=== PATIENT | female | born 1930 | race Caucasian/White ===

== ENCOUNTER → 2017-01-09 | Outpatient (CLI) | payer BC ==
[~2017-01-09] MED LIST: ASPI1TAB83 PO; BENA1TAB53 PO; FLUT1INH INH; FURO-85 PO; IPRASOL4 INH; KFL250 PO; LATA0.5S OP; LEVO25TA PO; LEVO50TA6 PO; LEVO75TA PO; LEVO75TA5 PO; METO100T44 PO; MOME100A INH; MULTTAB58 PO; NIFE60TA57 PO; OXGN; PLV75 PO; SPRIN OR; TIOT1SPR INH; TPRSR/25 PO; ZCR40 PO
[2017-01-09 10:42] VITALS: BP_SYST 171; BP_SYST 172; BP_DIAS 74; BP_DIAS 83; PULSE 72; TEMP 37; O2SAT 92
--- NOTE | 2017-01-09 11:56 | Radiation Oncology Follow-Up ---
Radiation Oncology Follow-Up Date of Visit Jan 09, 2017. Reason For Visit Annual follow-up Radiation Completion Date 08/01/13 Diagnosis (1) Vulva cancer Status: Resolved Onset Date: 03/29/2013 Histology Subtype: squamous cell Stage: l (B) Permanent Comment: 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 Patient declined Treatment with Aldara Subsequent recurrence with squamous cell carcinoma Status post partial vulvectomy with positive margins Status post completion of radiation therapy 08/01/2013 received 5040 cGy Last Edited By: Tania Morrell on Nov 29, 2015 14:32 History of Present Illness Ms. Conway is an 86-year-old female who presented with painful vulvar lesions back in October of 2010. 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 Additional biopsies were taken on November 18, [address] Hdz. Biopsies from the vulva at the 12:00 position, 3:00 position, 6:00 position and 9:00 position. 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 A vaginal thin layer prep from November 23, 2010 showed atypical squamous cells with undetermined significance. Could not exclude high-grade squamous intraepithelial lesion. Cytology #[id number]. Cervical thin layer prep was performed on November 25, 2010. This showed atypical squamous cells of undetermined significance. 2954. On January 20, 2011 the patient underwent a biopsy of the right labia, left vulva 1 and left vulva 2. 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 Underlying invasive carcinoma could not be excluded. A vulvectomy was recommended to the patient. She however declined. Examination at that time showed a brownish papular lesion on the left vulvar area which was hard and firm and tender. The patient was therefore started on Aldara. She was tolerating this well. She was seen in followup by Dr. Hdz. Underwent repeat biopsies on March 17, 2011. Punch biopsy of the left vulva showed vulvar intraepithelial neoplasia grade 2. 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 After discussion of these latest findings Dr. Hdz again suggested consideration of a vulvectomy or possible continued Aldara for an additional 8 weeks with repeat biopsy in 4 weeks. The patient ultimately returned to followup with Dr. Ascencio on January 26, 2013. She returned because of complaint of pain similar to what she presented with in 2009. This examination showed a 4 x 4 cm vulvar mass which encompasses the perineal body and perirectal region. Vaginal exam was limited with a single digit exam secondary to the presence of the mass. Vulvar mass was not palpably palpable rectally. There was an enlarged mobile hard inguinal node bilaterally clinically. Dr. Ascencio's impression was that this was no longer a superficial process but has become invasive. He was concerned of invasion into the vagina because of the difficulty with examination and the atrophic changes. Rectal exam did not show any masses. He felt that the patient needed a repeat evaluation by gynecologic-oncology. He referred the patient to [facility] where she was seen by Dr. Lainez. This examination confirmed an exophytic lesion in the perineum measuring approximately 4 cm in size. He recommended consideration of a modified radical vulvectomy with bilateral inguinal lymphadenectomy. He saw the patient on February 21, 2013. On March 29, 2013 Dr. Lainez performed a modified simple vulvectomy and modified partial vulvectomy. His examination at that time showed an exophytic lesion which he felt was either high-grade dysplasia or early tumor. This was approaching the anus and into the vagina. A radical resection would have required removing parts of her anus and probable colostomy which the patient did not wish to have. Therefore instead of doing a modified radical vulvectomy a modified superficial vulvectomy was performed with lasering of the adjacent tissue. Pathologic review of the tissue excised from the vulva identified an invasive squamous cell carcinoma with in situ squamous cell carcinoma. Vaginal biopsy showed in situ squamous cell carcinoma. Multiple biopsies of the pelvis showed invasive squamous cell carcinoma with in situ carcinoma. Microscopically there was noted to be extensive vulvar intraepithelial neoplasia 3 with high-grade squamous intraepithelial lesion accompanied by multiple microscopic foci of stromal invasion by squamous cell carcinoma. The maximum depth of invasion by the carcinoma is estimated to be approximately 3 mm. No lymphovascular invasion is seen. In situ and invasive carcinoma appeared to extend into the margins of this specimen. Specimen designated vagina includes portions of fibrovascular stroma covered in part by squamous epithelium that is not keratinizing. They were not able to identify invasive carcinoma within the small vaginal biopsy. Vulvar biopsy again showed multiple fragments of vulvar type tissue with extensive in situ carcinoma as well as foci of invasive squamous cell carcinoma extending to a depth of approximately 1.5 mm. No lymphovascular invasion is identified in this specimen. In situ carcinoma extended to edges of multiple biopsies within the specimen. With the finding of invasive carcinoma and positive margins Dr. Lainez felt the patient would benefit from a course of radiation to the limited vulvar region. Interim History She has noted no change to the vulvar region over this past year. She's had no change in urination or bowel movements. She's had no vaginal irritation. No vaginal weaning her discharge. She was seen by her regional extension service specialist in November and there was no recurrence. She unfortunately has had problems with her health over this past year. She had a fractured right hip as well as right wrist in November. She had surgery to the hip and has steadily been recuperating. 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 She has known history of COPD and now is on oxygen therapy. She is also developed some problems with her balance. Allergies Coded Allergies: No Known Allergies (Verified , 09/15/16) Home Medications Scheduled Benazepril (Lotensin), 40 MG PO DAILY Clopidogrel Bisulfate (Clopidogrel), 75 MG PO QAM Fluticasone Furoate-Vilanterol (Breo Ellipta), 1 INHA INH DAILY Levothyroxine Sodium (Synthroid), 50 MCG PO DAILY Metoprolol Succ (Toprol Xl) (Toprol-Xl ), 100 MG PO DAILY Multiple Vitamin (Multivitamin), 1 TAB PO DAILY Nifedipine Ext Rel (Procardia Xl Ext Rel), 60 MG PO QD@08 Oxygen (Oxygen), 2 LITERS NA CONTINOUS Tiotropium [place] (Spiriva Handihaler), 2 PUFF OR QAM Review of Systems Gastrointestinal: Symptoms: WNL GI Comments: Takes stool softner;MOM PRN;no fiber supplements; Oral: Symptoms: No Problems Respiratory: Symptoms: Dry Cough, SOB With Exertion Other Respiratory: Oxygen on at 2 l/min via nasal cannula; Urinary: Comments: 1-2 voids/night; Skin: Symptoms: No Problems Physical Exam Vital Signs Date Time Temp Pulse Resp B/P Pulse Ox O2 Delivery O2 Flow Rate FiO2 01/09/17 10:42 37.0 72 16 171/74 92 172/83 ECOG Performance Status: 2 General Appearance: + pertinent finding (otherwise via wheelchair today nasal O2 in place.) Eyes: normal inspection, EOMI ENT: normal ENT inspection, hearing grossly normal Respiratory/Chest: lungs clear, no respiratory distress, no accessory muscle use Cardiovascular: regular rate, rhythm, no gallop, no murmur Abdomen: non tender, soft, no organomegaly Genitourinary - Female: Normal external genitalia. There are no masses or tenderness. There is no vaginal discharge or bleeding. Extremities: no pedal edema Neurologic/Psychiatric: no motor/sensory deficits, alert, normal mood/affect Skin: warm/dry Lymphatic: no adenopathy Assessment & Plan Plan: Continue annual examinations at the gynecology office. Continue follow- up with her PCP as well as orthopedic surgeon. A follow-up appointment with our office was not given. She may now continue annual visits with gynecology alone. She may call if she has any questions or concerns. We'll be happy to see her. She is following up with her primary care physician in regards to her multiple health issues. Total Time In Follow-Up I spent 20 minutes speaking to the patient performing examination. I spent 15 minutes reviewing information in completing this note. Copy To Jordin Rey M.D.; Ritchie Ascencio M.D.
== END | disposition home or self-care (01) ==
LOC: C.ONC 10:01
PROVIDERS: ATTEND Physician Assistant Medical
DX: Z08 Encounter for follow-up examination after completed treatment for malignant neoplasm (principal); Z92.3 Personal history of irradiation; Z85.44 Personal history of malignant neoplasm of other female genital organs

== ENCOUNTER → 2017-04-14 | Outpatient (CLI) | payer BC ==
[~2017-04-14] MED LIST changes: -ASPI1TAB83 PO; -IPRASOL4 INH; -KFL250 PO; -MOME100A INH; -ZCR40 PO
[2017-04-14 14:24] LABS: ALT/SGPT 13 U/L (12-78); BLOOD UREA NITROGEN 31 mg/dl (7-18); BUN/CREATININE RATIO 22.2 (10-20); CALCIUM 9.6 mg/dl (8.5-10.1); CARBON DIOXIDE 31 mmol/L (21-32); CHLORIDE 103 mmol/L (98-107); CHOLESTEROL 179 mg/dl (0-200); CHOLESTEROL/HDL RATIO 3.6; GLUCOSE,FASTING 99 mg/dl (70-99); HDL CHOLESTEROL 50 mg/dl; POTASSIUM 4.3 mmol/L (3.5-5.1); SODIUM 140 mmol/L (136-145)
[2017-04-14 14:27] LABS: ALB/GLOB RATIO 0.9 (0.9-2); ALKALINE PHOSPHATASE 65 U/L (45-117); AST/SGOT 17 U/L (15-37); LDL CHOLESTEROL CALCULATED 111 mg/dl; TRIGLYCERIDES 90 mg/dl (0-150); VERY LOW DENSITY LIPOPROT CALC 18 mg/dl
[2017-04-14 14:38] LABS: ESTIMATED AVERAGE GLUCOSE 123 mg/dl; HA1C FLAG Normal (Normal)
== END | disposition home or self-care (01) ==
LOC: C.LABPBG 08:34
PROVIDERS: ATTEND Physician Assistant
DX: Z00.00 Encounter for general adult medical examination without abnormal findings (principal); R73.9 Hyperglycemia, unspecified; E78.5 Hyperlipidemia, unspecified

== ENCOUNTER → 2017-04-22 | Outpatient (CLI) | payer BC ==
[2017-04-22 18:57] LABS: THYROID STIMULATING HORMONE 4.84 uIu/ml (0.300-4.500)
--- NOTE | 2017-04-27 10:16 | CODING QUERY MEDICAL NECESSITY ---
SUPPORTING DIAGNOSIS NEEDED [facility], A supporting diagnosis is required for the test/procedure performed on this patient in order for us to be reimbursed by the patient's insurance. Please provide a supporting diagnosis for the following test/procedure listed below next to the test name along with your signature. *If there is no additional diagnosis for this patient that would support the following test/procedure please document that below next to the test/procedure. Test(s)/Procedure(s) that require a supporting diagnosis: * ([id number]) VITAMIN D ASSAY DIAGNOSIS: DATE OF SERVICE: 04/22/17 Provider Signature: Date: Thank you Bong [facility] Information Management Once completed, please kindly fax back to [phone] For questions please call [phone]
== END | disposition home or self-care (01) ==
LOC: C.LABPBG 11:43
PROVIDERS: ATTEND Physician Assistant
DX: M62.81 Muscle weakness (generalized) (principal); Z13.21 Encounter for screening for nutritional disorder; R53.83 Other fatigue

== ENCOUNTER 2017-05-14 08:12 | Observation (INO) | payer BC ==
[~2017-05-14] VITALS: Ht 149.9 cm; Wt 37.0 kg
[~2017-05-14 08:12] MED LIST changes: +BENA1TAB19 PO; -BENA1TAB53 PO; -FURO-85 PO; -LATA0.5S OP; -LEVO50TA6 PO; -LEVO75TA PO; -LEVO75TA5 PO; -METO100T44 PO; +METO1TAB69 PO; -TIOT1SPR INH; -TPRSR/25 PO
[2017-05-14] MEDS ORDERED: METOPROLOL TARTRATE 100 MG TAB PO STA (08:31)
[2017-05-14] MEDS ORDERED: METOPROLOL SUCC 50MG EXT REL TAB PO STA (08:32)
--- NOTE | 2017-05-14 08:35 | EMERGENCY ROOM VISIT NOTE ---
History Report prepared by Manny: Lynn Roth Under the Supervision of: Dr. Pepe Britt M.D. First contact with patient: 08:16 Chief Complaint: WEAKNESS Stated Complaint: GENERALIZED WEAKNESS History of Present Illness The patient is a 86 year old female who presents to the Emergency Room with complaints of generalized weakness starting a few days ago. About 2 weeks ago, the patient was placed on steroids which resolved her weakness. A few days ago, she started having weakness again. She is no longer on the steroids. She is able to ambulate as normal in her house but recently has been needing assistance to ambulate outside of her home. She currently denies any pain. She denies head trauma/injuries, headache, shortness of breath, abdominal pain, or any other complaints. She did not take her prescribed medications today. The patient wears 2 L of oxygen at home at all times. She did not have any recent falls. She is on Plavix for a history of TIA. She also has a history of kidney problems. Source of History: patient Onset: a few days ago Position: other (global) Symptom Intensity: No pain Quality: other (generalized weakness) Timing: other (persistent) Associated Symptoms: No headache, No SOB, No abdominal pain Review of Systems See HPI for pertinent positives & negatives. A total of 10 systems reviewed and were otherwise negative. Past Medical & Surgical Medical Problems: (1) Dog bite of left lower leg with infection (2) Emphysema of lung (3) HTN (hypertension) (4) Intertrochanteric fracture of right hip (5) Stroke-like symptoms (6) Vulva cancer Family History Cancer Hypertension Kidney disease Lung disease Social History Smoking Status: Former Smoker Marital Status: Housing Status: lives alone Occupation Status: retired Current/Historical Medications Scheduled Benazepril (Lotensin), 40 MG PO DAILY Clopidogrel Bisulfate (Clopidogrel), 75 MG PO QAM Furosemide (Lasix), 1 TAB PO DAILY Home O2 Therapy (Oxygen), 2 LITERS NA CONTINOUS Latanoprost (Xalatan 0.005% Oph Brenda), 1 DROPS OP HS Levothyroxine Sodium (Levothyroxine Sodium), 1 TAB PO DAILY Metoprolol Succ (Toprol Xl) (Toprol-Xl ), 100 MG PO DAILY Multiple Vitamin (Multivitamin), 1 TAB PO DAILY Nifedipine Ext Rel (Procardia Xl Ext Rel), 60 MG PO QD@08 Allergies Coded Allergies: No Known Allergies (Verified , 05/14/17) Physical Exam Vital Signs Date Time Temp Pulse Resp B/P (MAP) Pulse Ox O2 Delivery O2 Flow Rate FiO2 05/14/17 12:48 70 22 178/85 97 Nasal Cannula 2.0 05/14/17 12:14 72 05/14/17 12:03 182/75 05/14/17 11:59 66 18 192/84 98 Nasal Cannula 2.0 05/14/17 11:06 67 18 176/75 97 Nasal Cannula 2.0 05/14/17 10:53 65 18 194/75 99 Nasal Cannula 2.0 05/14/17 10:19 69 20 201/83 100 Nasal Cannula 2.0 05/14/17 09:30 72 20 219/88 99 Nasal Cannula 2.0 05/14/17 09:05 78 26 98 Nasal Cannula 2.0 05/14/17 09:02 75 22 224/94 100 Nasal Cannula 2.0 05/14/17 08:50 73 214/86 70 214/100 77 182/86 05/14/17 08:31 100 Nasal Cannula 2.0 05/14/17 08:21 36.8 78 22 235/101 100 Nasal Cannula 2.0 05/14/17 08:21 100 Nasal Cannula 2.0 05/14/17 08:17 79 Physical Exam GENERAL: Patient is a healthy-appearing well-nourished HEAD: Normocephalic atraumatic EYES: Ocular movements intact pupils equal and react to light OROPHARYNX mucous membranes are moist no exudates present no erythema or edema present NECK: Supple no nuchal rigidity CHEST: Good equal expansion LUNGS: Clear and equal to auscultation CARDIAC: Normal S1 and S2 ABDOMEN: Soft nontender no guarding BACK: No CVA tenderness EXTREMITIES: No pain upon palpation normal muscle strength in all groups no clubbing cyanosis or edema NEURO: Patient is following commands and answering questions appropriately. Alert and oriented x3 Cranial Nerves 2-12 grossly intact Medical Decision & Procedures ER Provider Diagnostic Interpretation: X-ray results as stated below per interpretation by me and the radiologist: SINGLE VIEW CHEST CLINICAL HISTORY: Generalized weakness. FINDINGS: An AP, portable, upright chest radiograph is compared to study dated 09/15/2016 and correlated with chest CT dated 07/17/2012. The examination is degraded by portable technique and patient rotation. The cardiomediastinal silhouette is unremarkable. There is atherosclerotic calcification of the thoracic aorta. Advanced emphysema and chronic interstitial thickening are similar to previous. No airspace consolidation, large pleural effusion, or pneumothorax is seen. Apical scarring is observed. The skeletal structures are osteopenic. The bony thorax is grossly intact. IMPRESSION: Advanced emphysema with no acute cardiopulmonary abnormality. Electronically signed by: Cheng Obrien M.D. 05/14/2017 8:50 AM Dictated Date/Time: 05/14/2017 8:49 AM Laboratory Results 05/14/17 08:30 Red Blood Count 4.14, Mean Corpuscular Volume 88.2, Mean Corpuscular Hemoglobin 28.7, Mean Corpuscular Hemoglobin Concent 32.6, Mean Platelet Volume 10.4, Neutrophils (%) (Auto) 62.4, Lymphocytes (%) (Auto) 19.6, Monocytes (%) (Auto) 13.3, Eosinophils (%) (Auto) 3.5, Basophils (%) (Auto) 0.8, Neutrophils # (Auto ) 4.52, Lymphocytes # (Auto) 1.42, Monocytes # (Auto) 0.96, Eosinophils # (Auto ) 0.25, Basophils # (Auto) 0.06 05/14/17 08:30 Test 05/14/17 08:30 05/14/17 08:34 05/14/17 09:52 White Blood Count 7.24 K/uL (4.8-10.8) Red Blood Count 4.14 M/uL (4.2-5.4) Hemoglobin 11.9 g/dL (12.0-16.0) Hematocrit 36.5 % (37-47) Mean Corpuscular Volume 88.2 fL (80-100) Mean Corpuscular Hemoglobin 28.7 pg (25-34) Mean Corpuscular Hemoglobin Concent 32.6 g/dl (32-36) Platelet Count 162 K/uL (130-400) Mean Platelet Volume 10.4 fL (7.4-10.4) Neutrophils (%) (Auto) 62.4 % Lymphocytes (%) (Auto) 19.6 % Monocytes (%) (Auto) 13.3 % Eosinophils (%) (Auto) 3.5 % Basophils (%) (Auto) 0.8 % Neutrophils # (Auto) 4.52 K/uL (1.4-6.5) Lymphocytes # (Auto) 1.42 K/uL (1.2-3.4) Monocytes # (Auto) 0.96 K/uL (0.11-0.59) Eosinophils # (Auto) 0.25 K/uL (0-0.5) Basophils # (Auto) 0.06 K/uL (0-0.2) RDW Standard Deviation 45.9 fL (36.4-46.3) RDW Coefficient of Variation 14.1 % (11.5-14.5) Immature Granulocyte % (Auto) 0.4 % Immature Granulocyte # (Auto) 0.03 K/uL (0.00-0.02) Anion Gap 8.0 mmol/L (3-11) Est Creatinine Clear Calc Drug Dose 17.2 ml/min Estimated GFR () 39.6 Estimated GFR (Non- 34.2 BUN/Creatinine Ratio 21.9 (10-20) Calcium Level 9.5 mg/dl (8.5-10.1) Total Bilirubin 0.7 mg/dl (0.2-1) Direct Bilirubin 0.1 mg/dl (0-0.2) Aspartate Amino Transf (AST/SGOT) 17 U/L (15-37) Alanine Aminotransferase (ALT/SGPT) 13 U/L (12-78) Alkaline Phosphatase 66 U/L (45-117) Total Creatine Kinase 35 U/L (26-192) Creatine Kinase MB 0.7 ng/ml (0.5-3.6) Creatine Kinase MB Ratio 2.0 (0-3.0) Troponin I < 0.015 ng/ml (0-0.045) Total Protein 6.3 gm/dl (6.4-8.2) Albumin 2.9 gm/dl (3.4-5.0) Thyroid Stimulating Hormone (TSH) 1.170 uIu/ml (0.300-4.500) Bedside Glucose 100 mg/dl (70-90) Urine Color YELLOW Urine Appearance CLEAR (CLEAR) Urine pH 8.0 (4.5-7.5) Urine Specific [place] 1.016 (1.000-1.030) Urine Protein NEG (NEG) Urine Glucose (UA) NEG (NEG) Urine Ketones NEG (NEG) Urine Occult Blood NEG (NEG) Urine Nitrite NEG (NEG) Urine Bilirubin NEG (NEG) Urine Urobilinogen NEG (NEG) Urine Leukocyte Esterase NEG (NEG) Labs reviewed by ED physician. Medications Administered Medications (Trade) Dose Ordered Sig/Chely Route Start Time Stop Time Status Last Admin Dose Admin Metoprolol Succinate (Toprol Xl Tab) 100 mg NOW STAT PO 05/14/17 08:32 05/14/17 08:33 DC 05/14/17 08:41 100 MG Nifedipine (Procardia Xl Tab) 60 mg NOW STAT PO 05/14/17 08:39 05/14/17 08:41 DC 05/14/17 09:02 60 MG Levalbuterol (Xopenex 0.63 Mg/ 3 Ml Neb) 0.63 mg NOW STAT INH 05/14/17 08:45 05/14/17 08:47 DC 05/14/17 09:04 0.63 MG Sodium Chloride 500 ml @ 999 mls/hr Q31M STAT IV 05/14/17 08:45 05/14/17 09:15 DC 05/14/17 08:54 999 MLS/HR Methylprednisolone Sodium Succinate (Solu-Medrol IV) 60 mg NOW STAT IV 05/14/17 09:02 05/14/17 09:03 DC 05/14/17 09:17 60 MG Lisinopril (Zestril Tab) 40 mg NOW STAT PO 05/14/17 09:32 05/14/17 09:33 DC 05/14/17 09:45 40 MG ECG Indication: weakness Rate (beats per minute): 77 Rhythm: normal sinus Findings: T-wave inversion (Lateral), no acute ischemic change, no ectopy ED Course 0816: Past medical records reviewed. The patient was evaluated in room B06. A complete history and physical examination was performed. 0831: Lopressor Tab 100 mg PO 0832: Toprol XI Tab 100 mg PO 0839: Nifedipine 60 mg PO 0845: Sodium Chloride 500 ml @ 999 mls/hr IV, Levalbuterol 0.63 mg INH 0902: Solu-Medrol IV 60 mg IV 0932: Lisinopril 40 mg PO 1120: I reevaluated the patient who is resting comfortably. 1230: Upon reexamination the patient is resting comfortably. I discussed results and treatment plan with the patient. She verbalizes agreement and understanding. The patient is currently being evaluated for rehab. Medical Decision Medication Reconciliation: I attest that I have personally reviewed the patient' s current medication list Blood Pressure Screening: Patient was found to have an elevated blood pressure and was referred to their primary care doctor for recheck and further treatment Differential diagnosis: Etiologies such as metabolic, infection, hypo/hyperglycemia, electrolyte abnormalities, cardiac sources, intracerebral event, toxicologic, neurologic, as well as others were entertained. This is an 86-year-old female who presents emergency department complaining of generalized weakness. The patient reports she is having difficulty even reaching the bathroom at her house due to weakness. The patient reports she had been feeling better last month when she was placed on steroids however the steroids ran out and she has been feeling very weak. The patient I will note is not hypoxic on her normal dose of oxygen. She was given an hour-long breathing treatment along with Solu-Medrol. I did discuss the case with case management however the patient does not meet admission criteria. It was felt that the patient would people for rehabilitation. Impression Primary Impression: Weakness Scribe Attestation The scribe's documentation has been prepared under my direction and personally reviewed by me in its entirety. I confirm that the note above accurately reflects all work, treatment, procedures, and medical decision making performed by me. Departure Information Dispostion Rehab Inpatient Facility Referrals No Doctor, Assigned (PCP) Patient Instructions My [facility]
[2017-05-14] MEDS ORDERED: NIFEdipine 30 MG CR TAB PO STA (08:39)
[2017-05-14] MEDS ORDERED: LEVO50TA6 PO (08:44)
[2017-05-14] MEDS ORDERED: SODIUM CHLORIDE 0.9% 500ML 500 ML IV STA (08:45)
[2017-05-14] MEDS ORDERED: LEVALBUTEROL 0.63MG/3 ML NEB INH STA (08:45)
[2017-05-14] MEDS ORDERED: LATA0.5S OP (08:48)
[2017-05-14] MEDS ORDERED: FURO-85 PO (08:48)
--- NOTE | 2017-05-14 08:52 | DIAGNOSTIC IMAGING REPORT ---
SINGLE VIEW CHEST CLINICAL HISTORY: Generalized weakness. FINDINGS: An AP, portable, upright chest radiograph is compared to study dated 09/15/2016 and correlated with chest CT dated 07/17/2012. The examination is degraded by portable technique and patient rotation. The cardiomediastinal silhouette is unremarkable. There is atherosclerotic calcification of the thoracic aorta. Advanced emphysema and chronic interstitial thickening are similar to previous. No airspace consolidation, large pleural effusion, or pneumothorax is seen. Apical scarring is observed. The skeletal structures are osteopenic. The bony thorax is grossly intact. IMPRESSION: Advanced emphysema with no acute cardiopulmonary abnormality. Electronically signed by: Cheng Obrien M.D. 05/14/2017 8:50 AM Dictated Date/Time: 05/14/2017 8:49 AM
[2017-05-14 08:59] LABS: BASO % 0.8 %; BASO ABS # 0.06 K/uL (0-0.2); COMPLETE YES; EOS % 3.5 %; HEMATOCRIT 36.5 % (37-47); IG% 0.4 %; LYMPH % 19.6 %; LYMPH ABS # 1.42 K/uL (1.2-3.4); MEAN CELL VOLUME 88.2 fL (80-100); MEAN CORPUSCULAR HEMOGLOBIN 28.7 pg (25-34); MEAN CORPUSCULAR HGB CONC 32.6 g/dl (32-36); MEAN PLATELET VOLUME 10.4 fL (7.4-10.4); MONO % 13.3 %; NEUT % 62.4 %; PLATELET COUNT 162 K/uL (130-400); RED BLOOD COUNT 4.14 M/uL (4.2-5.4); WHITE BLOOD COUNT 7.24 K/uL (4.8-10.8)
[2017-05-14] MEDS ORDERED: METHYLPREDNISOLONE 125 MG VIAL IV STA (09:02)
[2017-05-14 09:05] VITALS: PULSE 78; O2SAT 98
[2017-05-14 09:17] LABS: ALT/SGPT 13 U/L (12-78); BLOOD UREA NITROGEN 31 mg/dl (7-18); BUN/CREATININE RATIO 21.9 (10-20); CALCIUM 9.5 mg/dl (8.5-10.1); CARBON DIOXIDE 27 mmol/L (21-32); CHLORIDE 105 mmol/L (98-107); GLUCOSE 91 mg/dl (70-99); POTASSIUM 4.3 mmol/L (3.5-5.1); SODIUM 140 mmol/L (136-145)
[2017-05-14 09:28] LABS: ALKALINE PHOSPHATASE 66 U/L (45-117); AST/SGOT 17 U/L (15-37)
[2017-05-14] MEDS ORDERED: LISINOPRIL 40 MG TAB PO STA (09:32)
[2017-05-14 10:28] LABS: URINE APPEARANCE CLEAR (CLEAR); URINE BILIRUBIN NEG (NEG); URINE COLOR YELLOW; URINE NITRITE NEG (NEG); URINE SPECIFIC GRAVITY 1.016 (1.000-1.030); UROBILINOGEN NEG (NEG); ZZUR CULT IF INDIC CLEAN CATCH NO
[2017-05-14 10:36] LABS: MANUAL MICROSCOPIC REQUIRED? NO; REVIEW REQ? NO
[2017-05-14 13:46] VITALS: BP 210/80; O2SAT 94
[2017-05-14] MEDS ORDERED: FLUT1INH INH (15:37)
[2017-05-14] MEDS ORDERED: TIOT1SPR INH (15:37)
[2017-05-14] MEDS ORDERED: POLYETHYLENE (MIRALAX) 17 GM PACK PO PRN (15:45)
[2017-05-14] MEDS ORDERED: ALUMINUM/MAGNESIUM/SIMETH (MAALOX MAX) 30 ML UDC PO PRN (15:45)
[2017-05-14] MEDS ORDERED: MAGNESIUM HYDROXIDE SUSP 30 ML UDC PO PRN (15:45)
[2017-05-14] MEDS ORDERED: ONDANSETRON INJ 2 MG/ML 2 ML VIAL IV PRN (15:45)
[2017-05-14] MEDS ORDERED: ACETAMINOPHEN 325 MG TAB PO PRN (15:45)
[2017-05-14 16:45] LABS: PROTHROMBIN TIME (PATIENT) 10.7 SECONDS (9.0-12.0)
--- NOTE | 2017-05-14 17:09 | History and Physical ---
History & Physical Date & Time of Service: May 14, 2017 at 16:43 Chief Complaint: Generalized Weakness Primary Care Physician: No Doctor, Assigned History of Present Illness Source: patient, clinic records, hospital records This is an 86 y/o female with a history of COPD, CKD stage IV, HTN, HLD, hypothyroidism, h/o CVA, and h/o SCC of the vulva who presented to the ED on 05/14 with weakness. The patient states that she's been feeling generalized weakness over the last few weeks. She saw her primary care provider in mid April who prescribed her a short course of steroids. The patient states that she felt much better while on the steroids but as soon as the course was completed she felt the same as before. She states she's had increasing weakness and fatigue and is having difficulty doing her normal daily activities and more difficulty walking. 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 She notes that she has chronic numbness in her left hand following a previous stroke. She denies any shortness of breath or dyspnea on exertion. She wears 2 L nasal cannula 01/06 at home. She denies any changes in appetite recently; however, she notes that she has never had a good appetite to begin with. She denies any recent weight loss. She denies any recent illnesses or recent sick contacts. The patient does note generalized joint pains, particularly in her knees, hips, and shoulders. The patient denies fevers, chills, sweats, chest pain, palpitations , claudication, cough, wheezing, shortness of breath, nausea, vomiting, abdominal pain, dysuria, hematuria, urinary retention, paralysis, acute numbness and tingling. The patient lives alone. She was seen by physical therapy and occupational therapy while in the ED, who deemed that she is not safe to return home alone. PT/OT recommend acute inpatient rehabilitation. The patient was accepted to [facility] however no beds were available today. Patient is a social admission for placement to [facility]. 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 Patient declined Treatment with Aldara Subsequent recurrence with squamous cell carcinoma Status post partial vulvectomy with positive margins Status post completion of radiation therapy 08/01/2013 received 5040 cGy Status: Resolved CKD stage IV HLD Hypothyroidism h/o CVA Family History Cancer Hypertension Kidney disease Lung disease Social History Smoking Status: Former Smoker Smokeless Tobacco Use: No Alcohol Use: occasionally (wine) Drug Use: none Marital Status: Housing status: lives alone Occupational Status: retired Immunizations History of Influenza Vaccine: Unknown History of Tetanus Vaccine?: Unknown History of Pneumococcal: Unknown History of Hepatitis B Vaccine: Unknown Multi-Drug Resistant Organisms History of MDRO: No Allergies Coded Allergies: No Known Allergies (Verified , 05/14/17) Home Medications Scheduled Benazepril (Lotensin), 40 MG PO DAILY Clopidogrel Bisulfate (Clopidogrel), 75 MG PO QAM Fluticasone Furoate-Vilanterol (Breo Ellipta), 1 INHA INH DAILY Furosemide (Lasix), 1 TAB PO DAILY Home O2 Therapy (Oxygen), 2 LITERS NA CONTINOUS Latanoprost (Xalatan 0.005% Oph Brenda), 1 DROPS OP HS Levothyroxine Sodium (Levothyroxine Sodium), 75 MCG PO DAILY Metoprolol Succ (Toprol Xl) (Toprol-Xl ), 100 MG PO DAILY Multiple Vitamin (Multivitamin), 1 TAB PO DAILY Nifedipine Ext Rel (Procardia Xl Ext Rel), 60 MG PO QD@08 Tiotropium Crete (Spiriva Respimat), 2 PUFF INH DAILY Review of Systems Constitutional: + weakness, + fatigue, No fever, No chills, No sweats Eyes: No worsening of vision, No eye pain, No diplopia ENT: No hearing loss, No sore throat, No trouble swallowing Respiratory: No cough, No wheezing, No shortness of breath, No dyspnea on exertion Cardiovascular: No chest pain, No claudication, No palpitations Abdomen: No pain, No nausea, No vomiting Musculoskeletal: + joint pain (generalized), No muscle pain, No calf pain Genitourinary - Female: No dysuria, No urinary retention, No hematuria Neurologic: + weakness (hands), + numbness/tingling (left hand, chronic), No paralysis Integumentary: No rash, No itch, No color change Physical Exam Vital Signs Date Time Temp Pulse Resp B/P (MAP) Pulse Ox O2 Delivery O2 Flow Rate FiO2 7/6/17 16:32 68 19 166/68 98 Room Air 05/14/17 16:15 70 05/14/17 15:36 71 20 142/90 96 Room Air 05/14/17 14:10 74 20 150/66 95 Nasal Cannula 2.0 05/14/17 13:50 71 18 173/84 97 Nasal Cannula 2.0 05/14/17 13:46 94 05/14/17 12:48 70 22 178/85 97 Nasal Cannula 2.0 05/14/17 12:14 72 05/14/17 12:03 182/75 05/14/17 11:59 66 18 192/84 98 Nasal Cannula 2.0 05/14/17 11:06 67 18 176/75 97 Nasal Cannula 2.0 05/14/17 10:53 65 18 194/75 99 Nasal Cannula 2.0 05/14/17 10:19 69 20 201/83 100 Nasal Cannula 2.0 05/14/17 09:30 72 20 219/88 99 Nasal Cannula 2.0 05/14/17 09:05 78 26 98 Nasal Cannula 2.0 05/14/17 09:02 75 22 224/94 100 Nasal Cannula 2.0 05/14/17 08:50 73 214/86 70 214/100 77 182/86 05/14/17 08:31 100 Nasal Cannula 2.0 05/14/17 08:21 36.8 78 22 235/101 100 Nasal Cannula 2.0 05/14/17 08:21 100 Nasal Cannula 2.0 05/14/17 08:17 79 General appearance: +Cachectic. No apparent distress Head: Normocephalic, atraumatic Eyes: Normal inspection, PERRL, EOMI ENT: Normal ENT inspection, hearing grossly normal, pharynx normal Neck: Supple, no JVD, trachea midline Respiratory/Chest: Lungs clear to auscultation, normal breath sounds, no respiratory distress Cardiovascular: Regular rate & rhythm, no gallop, no murmur Abdomen/GI: Normal bowel sounds, non-tender, soft Extremities/Musculoskeletal: Normal inspection, no calf tenderness, no pedal edema Neurological/Psych: Alert, normal mood/affect, oriented x 3 Skin: Normal color, warm/dry, no rash Diagnostics Laboratory Results Results Past 24 Hours Test 05/14/17 08:30 05/14/17 08:34 05/14/17 09:52 Range/Units White Blood Count 7.24 4.8-10.8 K/uL Red Blood Count 4.14 4.2-5.4 M/uL Hemoglobin 11.9 12.0-16.0 g/dL Hematocrit 36.5 37-47 % Mean Corpuscular Volume 88.2 80-100 fL Mean Corpuscular Hemoglobin 28.7 25-34 pg Mean Corpuscular Hemoglobin Concent 32.6 32-36 g/dl Platelet Count 162 130-400 K/uL Mean Platelet Volume 10.4 7.4-10.4 fL Neutrophils (%) (Auto) 62.4 % Lymphocytes (%) (Auto) 19.6 % Monocytes (%) (Auto) 13.3 % Eosinophils (%) (Auto) 3.5 % Basophils (%) (Auto) 0.8 % Neutrophils # (Auto) 4.52 1.4-6.5 K/uL Lymphocytes # (Auto) 1.42 1.2-3.4 K/uL Monocytes # (Auto) 0.96 0.11-0.59 K/uL Eosinophils # (Auto) 0.25 0-0.5 K/uL Basophils # (Auto) 0.06 0-0.2 K/uL RDW Standard Deviation 45.9 36.4-46.3 fL RDW Coefficient of Variation 14.1 11.5-14.5 % Immature Granulocyte % (Auto) 0.4 % Immature Granulocyte # (Auto) 0.03 0.00-0.02 K/uL Sodium Level 140 136-145 mmol/L Potassium Level 4.3 3.5-5.1 mmol/L Chloride Level 105 98-107 mmol/L Carbon Dioxide Level 27 21-32 mmol/L Anion Gap 8.0 3-11 mmol/L Blood Urea Nitrogen 31 7-18 mg/dl Creatinine 1.40 0.60-1.20 mg/dl Est Creatinine Clear Calc Drug Dose 17.2 ml/min Estimated GFR () 39.6 Estimated GFR (Non- 34.2 BUN/Creatinine Ratio 21.9 10-20 Random Glucose 91 70-99 mg/dl Calcium Level 9.5 8.5-10.1 mg/dl Total Bilirubin 0.7 0.2-1 mg/dl Direct Bilirubin 0.1 0-0.2 mg/dl Aspartate Amino Transf (AST/SGOT) 17 15-37 U/L Alanine Aminotransferase (ALT/SGPT) 13 12-78 U/L Alkaline Phosphatase 66 45-117 U/L Total Creatine Kinase 35 26-192 U/L Creatine Kinase MB 0.7 0.5-3.6 ng/ml Creatine Kinase MB Ratio 2.0 0-3.0 Troponin I < 0.015 0-0.045 ng/ml Total Protein 6.3 6.4-8.2 gm/dl Albumin 2.9 3.4-5.0 gm/dl Thyroid Stimulating Hormone (TSH) 1.170 0.300-4.500 uIu/ml Bedside Glucose 100 70-90 mg/dl Urine Color YELLOW Urine Appearance CLEAR CLEAR Urine pH 8.0 4.5-7.5 Urine Specific Ebro 1.016 1.000-1.030 Urine Protein NEG NEG Urine Glucose (UA) NEG NEG Urine Ketones NEG NEG Urine Occult Blood NEG NEG Urine Nitrite NEG NEG Urine Bilirubin NEG NEG Urine Urobilinogen NEG NEG Urine Leukocyte Esterase NEG NEG Diagnostic Radiology Reviewed the following studies and agree with interpretation as follows: Patient Name: SHYANN NATHAN Unit Number: [id number] Dictated: 05/14/17848 Transcribed: 05/14/17848 EV Printed Date/Time: [~ rep prt dt]/[~ rep prt tm] [~ rep ct labl] - [~ rep ct ivnm] [facility] [place] [address] Dictated: 05/14/17848 Transcribed: 05/14/17848 EV Printed Date/Time: [~ rep prt dt]/[~ rep prt tm] [~ rep ct labl] - [~ rep ct ivnm] Patient: SHYANN NATHAN Address1: [address] [facility] Rec: [id number] Address2: Acct ID: [id number] [facility] Zip: [place] [id number] Date: 1930 Sex: F Room/Bed: Ref Phy: No Doctor, Assigned SC: JULI Att Phy: Report #: [id number] Angela Phy: No Doctor, Assigned Test: CXR1P Admit Phy: Systems Administration Analyst: CARLOS Interpreting Phy: Cheng Obrien M.D. Diagnosis: GENERALIZED WEAKNESS Ordering Phy: Pepe Britt MD Service Date: 05/14/17 Admit Date: 05/14/17 MNE: [id number] CONF: DICTATED BY: Cheng Obrien M.D.]] CC: Pepe Britt MD No Doctor, Assigned Endcc: [~ rep ct add3]] SINGLE VIEW CHEST CLINICAL HISTORY: Generalized weakness. FINDINGS: An AP, portable, upright chest radiograph is compared to study dated 09/15/2016 and correlated with chest CT dated 07/17/2012. The examination is degraded by portable technique and patient rotation. The cardiomediastinal silhouette is unremarkable. There is atherosclerotic calcification of the thoracic aorta. Advanced emphysema and chronic interstitial thickening are similar to previous. No airspace consolidation, large pleural effusion, or pneumothorax is seen. Apical scarring is observed. The skeletal structures are osteopenic. The bony thorax is grossly intact. IMPRESSION: Advanced emphysema with no acute cardiopulmonary abnormality. Electronically signed by: Cheng Obrien M.D. 05/14/2017 8:50 AM Dictated Date/Time: 05/14/2017 8:49 AM The status of this report is Signed. Draft = Not yet reviewed or approved by Radiologist. Signed = Reviewed and approved by Radiologist. <AttendingPhy></AttendingPhy> <FamilyPhy>No Doctor, Assigned</FamilyPhy> < PrimaryPhy>No Doctor, Assigned</PrimaryPhy> <UnitNumber>[id number]</UnitNumber> <VisitNumber>[id number]</VisitNumber> <PatientName>SHYANN NATHAN</PatientName> < DateOfBirth>1930</DateOfBirth> <Location>C.EDB</Location> <ServiceDate>04/25</ServiceDate> <MNE>ESINDI</MNE> <OrderingPhy>Pepe Britt MD</ OrderingPhy> <OrderingPhyMNE>f rep ord mne</OrderingPhyMNE> <DictatingPhyMNE> f rep dict mne</DictatingPhyMNE> <CCListMNE>f rep ct mne</CCListMNE> < AdmittingPhyMNE>f pt admit dr perez</AdmittingPhyMNE> <AttendingPhyMNE>f pt attend dr perez</AttendingPhyMNE> <ConsultingPhyMNE>f pt consult dr perez</ConsultingPhyMNE> <FamilyPhyMNE>f pt fam dr perez</FamilyPhyMNE> <OtherPhyMNE>f pt other dr perez</OtherPhyMNE> < PrimaryPhyMNE>f pt prim care dr perez</PrimaryPhyMNE> <ReferringPhyMNE>f pt referring dr perez</ReferringPhyMNE> EKG Reviewed EKG and agree with interpretation as follows: 77 bpm, NSR Impression Assessment and Plan 86 y/o female with a history of COPD, CKD stage IV, HTN, HLD, hypothyroidism, h/ o CVA, and h/o SCC of the vulva who presented to the ED on 05/14 with weakness. Patient arrived to the ED with blood pressure of 235/101. The patient received all of her home antihypertensive medications, which did bring her blood pressure down. At the time of examination, the patient had been in the ED for several hours, and her blood pressure was down to 150/66. The patient also received a Xopenex nebulizer and 60 mg of Solu-Medrol in the ED. Generalized weakness--awaiting placement to [facility] for acute rehab -Admit to med/surg for observation -Check ESR and SONU -IVF with NSS at 75 cc/hr as BUN/creatinine slightly elevated and pt reports poor oral intake. Hold Lasix for now -Boost supplements -PT/OT COPD--stable -Breo non-formulary, changed to Advair while inpt. Spiriva Respimat non- formulary, changed to handihaler -O2 by protocol. Wears 2L NC continuous at home CKD stage IV--creatinine down to 1.1 in September 2016, however 1.4 appears to be a new baseline -Continue to monitor HTN--now stable after receiving home meds -Continue nifedipine 60 mg PO qd, metoprolol succinate 100 mg PO qd. Benazepril switch to lisinopril 40 mg PO qd. Hypothyroidism -Continue Synthroid 75 g PO qd H/o CVA -Continue Plavix 75 mg PO qd DVT prophylaxis -Heparin 5000 units SC q12h -[place] and SCDs Code Status -Level III, FULL RESUSCITATION NO MECH VENTILATION This chart was completed in part utilizing [employer] Speech Voice Recognition software. Attempts were made to minimize the grammatical errors, random word insertions, pronoun errors and incomplete sentences. Any formal questions or concerns about the content, text or information contained within the body of this dictation should be directly addressed to the provider for clarification. Level of Care Med/Surg Resuscitation Status FULL NO MECH VENTILATION VTE Prophylaxis VTE Risk Assessment Done? Y/N: Yes Risk Level: Moderate Given or contraindicated: Unfractionated heparin SQ, T.E.D. Stockings, SCD's Assessment and Plan Attending Addendum: I have physically seen and examined this patient, have directed the physician assistants medical extremities, and agree with the H&P as noted above with the following exceptions: NONE The patient is awake, well-developed and adequately nourished, alert and oriented 3, normocephalic and atraumatic, lying in bed and in no acute distress. HEENT--PERRL, EOMI, mucous membranes and oropharynx dry. Neck--supple, no JVD or bruits, thyroid normal, trachea midline, no adenopathy. Heart--normal S1 and S2, no extra beats, no murmurs, rubs or gallops. Lungs--few scattered wheezes bilaterally, no respiratory distress, no accessory muscle use. Abdomen--normal bowel sounds and soft, nontender and nondistended, no hernias or masses, no organomegaly. Extremities--no cyanosis, clubbing or edema. There are good distal pulses b/l. Dermatologic--normal skin turgor, normal color, warm and dry, no abnormal lymph nodes, no rash. Neurologic--cranial nerves II through XII grossly intact. Rheumatologic--normal range of motion taking into account generalized weakness. Psychiatric--normal affect. Assessment and Plan: 1. Generalized weakness--we'll consult PT/OT/outreach and education social worker, as patient will likely benefit from rehabilitation stay at [facility]. We'll place on normal saline at 75 ML's per hour, but she appears mildly dehydrated secondary to decreased oral intake. Boost nutritional supplement or the equivalent. Continue her usual medications for COPD, hypertension, hypothyroidism and cerebrovascular disease with nifedipine, metoprolol succinate, Synthroid, Plavix , and switch benazepril to lisinopril.
[2017-05-14 18:00] VITALS: BP 178/85; PULSE 92; TEMP 36.6; O2SAT 98
[2017-05-14] MEDS ORDERED: IV FLUIDS COMPLETED PRN ×2 (18:45→22:00)
[2017-05-14] MEDS: SODIUM CHLORIDE 0.9% 1000ML 1,000 ML IV SCH (18:52)
[2017-05-14 19:00] VITALS: BP 178/85; PULSE 92; TEMP 36.6; O2SAT 98; Ht 149.9 cm; Wt 37.0 kg
[2017-05-14] MEDS: FLUTICASONE/SALMETEROL 100/50 (ADVAIR) 14 PUFF/1 INHALER INH SCH (20:16)
[2017-05-14] MEDS: HEPARIN SOD 5000 UNIT/0.5 ML CARP SQ SCH (20:19)
[2017-05-14] MEDS: BOOST PLUS VANILLA PO SCH ×2 (20:19)
[2017-05-14] MEDS ORDERED: LATANOPROST 0.005% OP SOLN 2.5 ML BTL OP SCH (21:00)
[2017-05-14 23:03] VITALS: BP 154/78; PULSE 68; TEMP 36.6; O2SAT 99
[2017-05-15] MEDS: SODIUM CHLORIDE 0.9% 1000ML 1,000 ML IV SCH (04:56)
[2017-05-15] MEDS ORDERED: LEVOTHYROXINE 75 MCG TAB PO SCH (06:30)
[2017-05-15] MEDS ORDERED: CLOPIDOGREL BISULFATE 75 MG TAB PO SCH (08:00)
[2017-05-15] MEDS ORDERED: TIOTROPIUM BROMIDE 5 PUFF/90 MCG INH INH SCH (08:00)
[2017-05-15] MEDS ORDERED: LISINOPRIL 40 MG TAB PO SCH (08:00)
[2017-05-15] MEDS ORDERED: PNEUMOCOCCAL POLYSACCHARIDES 25 MCG/0.5 ML VIAL/SYR IM. ONE (08:00)
[2017-05-15] MEDS ORDERED: PNEUMOCOCCAL ADMINISTRATION CHARGE ONE (08:00)
[2017-05-15] MEDS: BOOST PLUS VANILLA PO SCH ×4 (08:00→14:15)
[2017-05-15] MEDS ORDERED: METOPROLOL SUCC 50MG EXT REL TAB PO SCH (08:00)
[2017-05-15] MEDS ORDERED: NIFEdipine 30 MG CR TAB PO SCH (08:00)
[2017-05-15] MEDS ORDERED: MULTIVITAMIN TAB PO SCH (08:00)
[2017-05-15 08:10] VITALS: BP 170/75; PULSE 63; TEMP 36.7; O2SAT 100
[2017-05-15 08:44] LABS: HEMATOCRIT 41.3 % (37-47); MEAN CELL VOLUME 88.1 fL (80-100); MEAN CORPUSCULAR HEMOGLOBIN 27.9 pg (25-34); MEAN CORPUSCULAR HGB CONC 31.7 g/dl (32-36); MEAN PLATELET VOLUME 10.4 fL (7.4-10.4); PLATELET COUNT 187 K/uL (130-400); RED BLOOD COUNT 4.69 M/uL (4.2-5.4); WHITE BLOOD COUNT 8.74 K/uL (4.8-10.8)
[2017-05-15] MEDS: FLUTICASONE/SALMETEROL 100/50 (ADVAIR) 14 PUFF/1 INHALER INH SCH (09:11)
[2017-05-15] MEDS: HEPARIN SOD 5000 UNIT/0.5 ML CARP SQ SCH ×2 (09:18→09:48)
[2017-05-15 09:26] LABS: BUN/CREATININE RATIO 26.7 (10-20); CALCIUM 9.4 mg/dl (8.5-10.1); CREATININE 1.1 mg/dl (0.60-1.20); POTASSIUM 3.8 mmol/L (3.5-5.1)
--- NOTE | 2017-05-15 12:48 | Discharge Instructions ---
Discharge Instructions Date of Service May 15, 2017. Admission Reason for Admission: Weakness Discharge Discharge Diagnosis / Problem: Weakness Discharge Goals Goal(s): Increase independence Activity Recommendations Activity Limitations: resume your previous activity . Instructions / Follow-Up Instructions / Follow-Up SNF when bed available for rehab Current Hospital Diet Patient's current hospital diet: Low Sodium Diet (2gm Na), AHA Diet (Heart Healthy) Discharge Diet Recommended Diet: AHA Diet (Heart Healthy) Pending Studies Studies pending at discharge: no Laboratory Results Hemoglobin A1c Test 04/14/17 08:36 Range/Units Estimated Average Glucose 123 mg/dl Hemoglobin A1c 5.9 H 4.5-5.6 % Lipid Panel Test 04/14/17 08:36 Range/Units Triglycerides Level 90 0-150 mg/dl Cholesterol Level 179 0-200 mg/dl HDL Cholesterol 50 mg/dl Cholesterol/HDL Ratio 3.6 LDL Cholesterol, Calculated 111 mg/dl Medical Emergencies . Who to Call and When: Medical Emergencies: If at any time you feel your situation is an emergency, please call 911 immediately. . Non-Emergent Contact Non-Emergency issues call your: Primary Care Provider . Past History Medical & Surgical History: (1) HTN (hypertension) (2) Weakness (3) Hypoxia (4) Emphysema of lung . "Provider Documentation" section prepared by Ranjan Washington. . VTE Core Measure Inpt VTE Proph given/why not?: Unfractionated heparin TANIA, TGeoffEAnabel Suarez, SCD 's
[2017-05-15 15:36] VITALS: BP 170/75; PULSE 63; TEMP 36.7; O2SAT 100
[2017-05-20 13:43] LABS: ANA TITER 1:40 TITER (<1:40)
--- NOTE | 2017-05-31 23:11 | Discharge Summary ---
Discharge Summary Date of Service May 31, 2017. Discharge Summary Admission Date: May 14, 2017 at 15:46 Discharge Date: May 15, 2017 Discharge Disposition: Home Principal Diagnosis: failure to thrive Immunizations: Have You Had Influenza Vaccine: Unknown History of Tetanus Vaccine?: Unknown History of Pneumococcal: Unknown History of Hepatitis B Vaccine: Unknown Hospital Course his is an 86 y/o female with a history of COPD, CKD stage IV, HTN, HLD, hypothyroidism, h/o CVA, and h/o SCC of the vulva who presented to the ED on 05/14 with weakness. The patient states that she's been feeling generalized weakness over the last few weeks. She saw her primary care provider in mid April who prescribed her a short course of steroids. The patient states that she felt much better while on the steroids but as soon as the course was completed she felt the same as before. She states she's had increasing weakness and fatigue and is having difficulty doing her normal daily activities and more difficulty walking. 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 She notes that she has chronic numbness in her left hand following a previous stroke. She denies any shortness of breath or dyspnea on exertion. She wears 2 L nasal cannula 01/06 at home. She denies any changes in appetite recently; however, she notes that she has never had a good appetite to begin with. She denies any recent weight loss. She denies any recent illnesses or recent sick contacts. The patient does note generalized joint pains, particularly in her knees, hips, and shoulders. The patient denies fevers, chills, sweats, chest pain, palpitations , claudication, cough, wheezing, shortness of breath, nausea, vomiting, abdominal pain, dysuria, hematuria, urinary retention, paralysis, acute numbness and tingling. The patient lives alone. She was seen by physical therapy and occupational therapy while in the ED, who deemed that she is not safe to return home alone. PT/OT recommend acute inpatient rehabilitation. The patient was accepted to [facility] however no beds were available today. Patient is a social admission for placement to [facility]. Total Time Spent: Greater than 30 minutes This includes examination of the patient, discharge planning, medication reconciliation, and communication with other providers. Discharge Instructions Please refer to the electronic Patient Visit Report (Discharge Instructions) for additional information. Follow-Up Primary care physician in one week
== END 2017-05-15 16:54 | disposition home or self-care (01) ==
LOC: EDBD 08:12 → C.EDB 08:13 → C.MS4W 15:46 → ENRESERV 17:01
PROVIDERS: ADMIT Hospitalist; ATTEND Hospitalist
DX: R53.1 Weakness (principal); J44.9 Chronic obstructive pulmonary disease, unspecified; I12.9 Hypertensive chronic kidney disease with stage 1 through stage 4 chronic kidney disease, or unspecified chronic kidney disease; N18.4 Chronic kidney disease, stage 4 (severe); E78.5 Hyperlipidemia, unspecified; E03.9 Hypothyroidism, unspecified; Z86.73 Personal history of transient ischemic attack (TIA), and cerebral infarction without residual deficits; Z87.891 Personal history of nicotine dependence; Z79.899 Other long term (current) drug therapy; Z99.81 Dependence on supplemental oxygen

== ENCOUNTER → 2017-05-19 | Outpatient (CLI) | payer BC ==
[~2017-05-19] MED LIST changes: +FURO-85 PO; +LATA0.5S OP; -LEVO25TA PO; +LEVO50TA6 PO; +LEVO75TA PO; +LEVO75TA5 PO; -SPRIN OR; +TIOT1SPR INH; +TPRSR/25 PO
== END | disposition home or self-care (01) ==
LOC: C.LABPBG 12:10
PROVIDERS: ATTEND Physician Assistant
DX: E03.9 Hypothyroidism, unspecified (principal); R70.0 Elevated erythrocyte sedimentation rate

== ENCOUNTER 2017-06-06 08:16 | Emergency (ER) | payer BC ==
[~2017-06-06] VITALS: Ht 147.3 cm; Wt 37.0 kg
[~2017-06-06 08:16] MED LIST changes: -LEVO75TA PO; -LEVO75TA5 PO; -TPRSR/25 PO
[2017-06-06] MEDS ORDERED: SODIUM CHLORIDE 0.9% 1000ML 1,000 ML IV STA (08:30)
[2017-06-06 08:31] VITALS: TEMP 37; Ht 147.3 cm; Wt 37.0 kg
--- NOTE | 2017-06-06 08:34 | EMERGENCY ROOM VISIT NOTE ---
History Report prepared by Manny: Beatris Woodward Under the Supervision of: Dr. Dorinda Wu M.D. First contact with patient: 08:23 Stated Complaint: BODY PAIN History of Present Illness The patient is an 86 year old female who presents to the Emergency Room with complaints of persistent generalized pain that started several weeks ago. She currently rates her discomfort as an 8/10 in severity. The patient reports that several weeks ago she was evaluated in the hospital for similar symptoms. She states that this morning she had difficulty getting out of bed due to pain. The patient states that she got herself downstairs to a chair and could not move after that. She states that she has had bilateral shoulder and bilateral arm pain. The patient reports generalized weakness. She states that she lives by herself. The patient states that she has followed up with her PCP and kelp gatherer since her most recent hospitalization. She denies any shortness of breath, chest pain, abdominal pain, or urinary symptoms. Source of History: patient Onset: several weeks ago Position: other (global) Symptom Intensity: 8/10 Quality: other (generalized pain) Timing: other (persistent) Associated Symptoms: + weakness (generalized), No chest pain, No SOB, No urinary symptoms Note: Associated Symptoms: bilateral arm and shoulder pain Review of Systems See HPI for pertinent positives & negatives. A total of 10 systems reviewed and were otherwise negative. Past Medical & Surgical Medical Problems: (1) Dog bite of left lower leg with infection (2) Emphysema of lung (3) HTN (hypertension) (4) Intertrochanteric fracture of right hip (5) Stroke-like symptoms (6) Vulva cancer Family History Cancer Hypertension Kidney disease Lung disease Social History Smoking Status: Former Smoker Drug Use: none Marital Status: Housing Status: lives alone Occupation Status: retired Current/Historical Medications Scheduled Benazepril (Lotensin), 40 MG PO DAILY Clopidogrel Bisulfate (Clopidogrel), 75 MG PO QAM Fluticasone Furoate-Vilanterol (Breo Ellipta), 1 INHA INH DAILY Furosemide (Lasix), 20 MG PO DAILY Home O2 Therapy (Oxygen), 2 LITERS NA CONTINOUS Latanoprost (Xalatan 0.005% Oph Brenda), 1 DROPS OP HS Levothyroxine Sodium (Synthroid), 75 MCG PO DAILY Metoprolol Succ (Toprol Xl) (Toprol-Xl ), 50 MG PO DAILY Multiple Vitamin (Multivitamin), 1 TAB PO DAILY Nifedipine Ext Rel (Procardia Xl Ext Rel), 60 MG PO QD@08 Tiotropium [place] (Spiriva Respimat), 2 PUFF INH DAILY Allergies Coded Allergies: No Known Allergies (Verified , 06/06/17) Physical Exam Vital Signs Date Time Temp Pulse Resp B/P (MAP) Pulse Ox O2 Delivery O2 Flow Rate FiO2 06/06/17 14:04 80 18 143/114 99 Nasal Cannula 2.0 06/06/17 12:46 76 06/06/17 12:14 74 18 198/70 99 Nasal Cannula 2.0 06/06/17 11:12 79 18 198/82 99 Nasal Cannula 2.0 06/06/17 08:36 82 06/06/17 08:31 37.0 99 18 189/95 100 Nasal Cannula 2.0 Physical Exam Vital signs reviewed. General: Cachectic, chronically ill appearing, on nasal cannula oxygen. HEENT: No scleral icterus, PERRLA, neck supple. Atraumatic. Cardiovascular: Regular rate and rhythm, no extra sounds. Pulmonary: Clear to auscultation bilaterally, normal work of breathing. Abdomen: Soft, mild diffuse abdominal discomfort, nondistended, positive bowel sounds. Musculoskeletal: Atraumatic, no peripheral edema. Neurologic: Patient awake alert and oriented x 3, full strength in all 4 extremities. Cranial nerves 2 through 12 grossly intact. Moves all extremities equally. Skin: Warm, dry, no rash Medical Decision & Procedures ER Provider Diagnostic Interpretation: X-ray results as stated below per interpretation by me and the radiologist: CHEST ONE VIEW PORTABLE CLINICAL HISTORY: Weakness. COMPARISON STUDY: Chest radiograph May 14, 2017. FINDINGS: Severe emphysema is noted. No pneumothorax is present. There is slight blunting of both costophrenic angles. There is no evidence of pulmonary edema. Patient is rotated. There is mild nodular right infrahilar opacity. IMPRESSION: 1. Mild nodular right infrahilar opacity. This could reflect artifact, minimal airspace disease or a pulmonary nodule. Follow-up PA and lateral chest radiographs in one month are recommended. 2. Severe emphysema. 3. Rotated study. Electronically signed by: Werner Hudson M.D. 06/06/2017 8:57 AM Dictated Date/Time: 06/06/2017 8:51 AM Laboratory Results 06/06/17 08:20 Red Blood Count 4.24, Mean Corpuscular Volume 86.3, Mean Corpuscular Hemoglobin 27.4, Mean Corpuscular Hemoglobin Concent 31.7, Mean Platelet Volume 10.0, Neutrophils (%) (Auto) 67.8, Lymphocytes (%) (Auto) 15.7, Monocytes (%) (Auto) 13.9, Eosinophils (%) (Auto) 1.5, Basophils (%) (Auto) 0.6, Neutrophils # (Auto ) 5.34, Lymphocytes # (Auto) 1.24, Monocytes # (Auto) 1.10, Eosinophils # (Auto ) 0.12, Basophils # (Auto) 0.05 06/06/17 08:20 Test 06/06/17 08:20 06/06/17 08:35 06/06/17 09:20 White Blood Count 7.89 K/uL (4.8-10.8) Red Blood Count 4.24 M/uL (4.2-5.4) Hemoglobin 11.6 g/dL (12.0-16.0) Hematocrit 36.6 % (37-47) Mean Corpuscular Volume 86.3 fL (80-100) Mean Corpuscular Hemoglobin 27.4 pg (25-34) Mean Corpuscular Hemoglobin Concent 31.7 g/dl (32-36) Platelet Count 180 K/uL (130-400) Mean Platelet Volume 10.0 fL (7.4-10.4) Neutrophils (%) (Auto) 67.8 % Lymphocytes (%) (Auto) 15.7 % Monocytes (%) (Auto) 13.9 % Eosinophils (%) (Auto) 1.5 % Basophils (%) (Auto) 0.6 % Neutrophils # (Auto) 5.34 K/uL (1.4-6.5) Lymphocytes # (Auto) 1.24 K/uL (1.2-3.4) Monocytes # (Auto) 1.10 K/uL (0.11-0.59) Eosinophils # (Auto) 0.12 K/uL (0-0.5) Basophils # (Auto) 0.05 K/uL (0-0.2) RDW Standard Deviation 44.6 fL (36.4-46.3) RDW Coefficient of Variation 14.2 % (11.5-14.5) Immature Granulocyte % (Auto) 0.5 % Immature Granulocyte # (Auto) 0.04 K/uL (0.00-0.02) Anion Gap 4.0 mmol/L (3-11) Est Creatinine Clear Calc Drug Dose 20.0 ml/min Estimated GFR () 47.7 Estimated GFR (Non- 41.2 BUN/Creatinine Ratio 24.2 (10-20) Calcium Level 9.2 mg/dl (8.5-10.1) Magnesium Level 2.1 mg/dl (1.8-2.4) Total Bilirubin 0.6 mg/dl (0.2-1) Direct Bilirubin 0.2 mg/dl (0-0.2) Aspartate Amino Transf (AST/SGOT) 12 U/L (15-37) Alanine Aminotransferase (ALT/SGPT) 11 U/L (12-78) Alkaline Phosphatase 58 U/L (45-117) Total Creatine Kinase 18 U/L (26-192) Creatine Kinase MB 0.5 ng/ml (0.5-3.6) Creatine Kinase MB Ratio 2.8 (0-3.0) Total Protein 5.8 gm/dl (6.4-8.2) Albumin 2.6 gm/dl (3.4-5.0) Bedside Troponin I < 0.030 ng/ml (0-0.045) Urine Color YELLOW Urine Appearance CLEAR (CLEAR) Urine pH 8.0 (4.5-7.5) Urine Specific Hitchcock 1.016 (1.000-1.030) Urine Protein NEG (NEG) Urine Glucose (UA) NEG (NEG) Urine Ketones NEG (NEG) Urine Occult Blood 1+ (NEG) Urine Nitrite NEG (NEG) Urine Bilirubin NEG (NEG) Urine Urobilinogen NEG (NEG) Urine Leukocyte Esterase NEG (NEG) Urine WBC (Auto) 0 /hpf (0-5) Urine RBC (Auto) 5-10 /hpf (0-4) Urine Hyaline Casts (Auto) 0 /lpf (0-5) Urine Epithelial Cells (Auto) 5-10 /lpf (0-5) Urine Bacteria (Auto) NEG (NEG) Laboratory results per my review. Medications Administered Medications (Trade) Dose Ordered Sig/Chely Route Start Time Stop Time Status Last Admin Dose Admin Sodium Chloride 1,000 ml @ 125 mls/hr Q8H STAT IV 06/06/17 08:30 06/06/17 15:02 DC 06/06/17 08:30 125 MLS/HR ECG Indication: weakness Rate (beats per minute): 77 Rhythm: normal sinus Findings: T-wave inversion (Lateral), other (previous anterior infarct, LVH with repolarization abnormality) ED Course 0827: Past medical records reviewed. The patient was evaluated in room B11B. A complete history and physical examination was performed. 0830: Ordered Sodium Chloride 1000 ml @ 125 mls/hr IV. 1300: I reevaluated the patient and she is doing well. I discussed all the exam findings with her and I discussed the treatment plan. She verbalized complete understanding and agreement. She is ready to go home. Medical Decision Differential diagnosis: Etiologies such as metabolic, infection, hypo/hyperglycemia, electrolyte abnormalities, cardiac sources, intracerebral event, toxicologic, neurologic, as well as others were entertained. This patient was evaluated and appeared to be in no significant distress. IV access was obtained and laboratory work was drawn. The patient was placed on the playground monitor and found to be in a normal sinus rhythm. Patient was gently hydrated with normal saline solution. Laboratory work is fairly unrevealing. The patient does have a baseline oxygen requirement. Patient's chest x-ray reveals severe emphysema with a right infrahilar opacity concerning for possible nodule. Follow-up x-rays in 1 month were recommended. Case management was consulted and evaluated the patient as well as her son. The patient family did not want a stay at the rehabilitation hospital, stating that her last rehabilitation stay was "a waste of time." The patient will be supervised by her son today. Case management will help arrange follow-up with both home health and her PCP. The need for a follow-up chest x-ray in 1 month will also be communicated with the home health nurse and primary care physician. Medication Reconcilliation Current Medication List: was personally reviewed by me Blood Pressure Screening Patient's blood pressure: Elevated blood pressure Blood pressure disposition: Elevated BP felt to be situational (due to recent med changes), Referred to PCP Impression Primary Impression: Weakness Scribe Attestation The scribe's documentation has been prepared under my direction and personally reviewed by me in its entirety. I confirm that the note above accurately reflects all work, treatment, procedures, and medical decision making performed by me. Departure Information Dispostion Home / Self-Care Referrals Sweetie Calero DO (PCP) Forms HOME CARE DOCUMENTATION FORM, IMPORTANT VISIT INFORMATION, WORK / SCHOOL INSTRUCTIONS Patient Instructions My [facility] Additional Instructions Diagnosis: Generalized weakness Please use extreme caution and a walker when ambulating. Follow-up with your physician this week for reevaluation. Case management will contact your PCP on Thursday to schedule an appointment. Return to the emergency department for worsening of symptoms or any medical concerns.
[2017-06-06 08:40] LABS: BASO % 0.6 %; BASO ABS # 0.05 K/uL (0-0.2); COMPLETE YES; EOS % 1.5 %; HEMATOCRIT 36.6 % (37-47); IG% 0.5 %; LYMPH % 15.7 %; LYMPH ABS # 1.24 K/uL (1.2-3.4); MEAN CELL VOLUME 86.3 fL (80-100); MEAN CORPUSCULAR HEMOGLOBIN 27.4 pg (25-34); MEAN CORPUSCULAR HGB CONC 31.7 g/dl (32-36); MONO % 13.9 %; NEUT % 67.8 %; PLATELET COUNT 180 K/uL (130-400); RED BLOOD COUNT 4.24 M/uL (4.2-5.4); WHITE BLOOD COUNT 7.89 K/uL (4.8-10.8)
--- NOTE | 2017-06-06 08:58 | DIAGNOSTIC IMAGING REPORT ---
CHEST ONE VIEW PORTABLE CLINICAL HISTORY: Weakness. COMPARISON STUDY: Chest radiograph May 14, 2017. FINDINGS: Severe emphysema is noted. No pneumothorax is present. There is slight blunting of both costophrenic angles. There is no evidence of pulmonary edema. Patient is rotated. There is mild nodular right infrahilar opacity. IMPRESSION: 1. Mild nodular right infrahilar opacity. This could reflect artifact, minimal airspace disease or a pulmonary nodule. Follow-up PA and lateral chest radiographs in one month are recommended. 2. Severe emphysema. 3. Rotated study. Electronically signed by: Werner Hudson M.D. 06/06/2017 8:57 AM Dictated Date/Time: 06/06/2017 8:51 AM
[2017-06-06 09:00] LABS: BUN/CREATININE RATIO 24.2 (10-20); CALCIUM 9.2 mg/dl (8.5-10.1); CREATININE 1.2 mg/dl (0.60-1.20); MAGNESIUM 2.1 mg/dl (1.8-2.4); POTASSIUM 4.4 mmol/L (3.5-5.1)
[2017-06-06 09:06] LABS: CKMB/CK RATIO 2.8 (0-3.0)
[2017-06-06] MEDS ORDERED: LEVO75TA PO (09:30)
[2017-06-06 09:34] LABS: URINE APPEARANCE CLEAR (CLEAR); URINE BILIRUBIN NEG (NEG); URINE COLOR YELLOW; URINE NITRITE NEG (NEG); URINE SPECIFIC GRAVITY 1.016 (1.000-1.030); UROBILINOGEN NEG (NEG); ZZUR CULT IF INDIC CLEAN CATCH NO
[2017-06-06 09:45] LABS: MANUAL MICROSCOPIC REQUIRED? NO; REVIEW REQ? NO
[2017-06-06 14:04] VITALS: BP 143/114; PULSE 80; O2SAT 99
== END 2017-06-06 14:05 | disposition home or self-care (01) ==
LOC: EDBD 08:16 → C.EDB 08:17
DX: R53.1 Weakness (principal); J43.9 Emphysema, unspecified; I10 Essential (primary) hypertension; Z85.40 Personal history of malignant neoplasm of unspecified female genital organ; Z80.9 Family history of malignant neoplasm, unspecified; Z82.49 Family history of ischemic heart disease and other diseases of the circulatory system; Z84.1 Family history of disorders of kidney and ureter; Z87.891 Personal history of nicotine dependence; Z79.899 Other long term (current) drug therapy

== ENCOUNTER 2017-06-27 10:47 | Emergency (ER) | payer BC ==
[~2017-06-27] VITALS: Ht 149.9 cm; Wt 36.9 kg
[~2017-06-27 10:47] MED LIST changes: -LEVO50TA6 PO; +LEVO75TA PO
[2017-06-27 11:02] VITALS: Ht 149.9 cm; Wt 36.9 kg
[2017-06-27] MEDS ORDERED: SODIUM CHLORIDE 0.9% 1000ML 1,000 ML IV STA (11:08)
[2017-06-27] MEDS ORDERED: NIFEdipine 30 MG CR TAB PO STA (11:10)
[2017-06-27 11:34] LABS: BASO % 0.6 %; BASO ABS # 0.05 K/uL (0-0.2); COMPLETE YES; EOS % 1.7 %; HEMATOCRIT 35.5 % (37-47); IG% 0.3 %; LYMPH % 10.8 %; LYMPH ABS # 0.97 K/uL (1.2-3.4); MEAN CORPUSCULAR HEMOGLOBIN 27.6 pg (25-34); MEAN CORPUSCULAR HGB CONC 32.1 g/dl (32-36); MEAN PLATELET VOLUME 10.1 fL (7.4-10.4); MONO % 11.5 %; NEUT % 75.1 %; PLATELET COUNT 185 K/uL (130-400); RED BLOOD COUNT 4.13 M/uL (4.2-5.4); WHITE BLOOD COUNT 9.01 K/uL (4.8-10.8)
[2017-06-27 11:45] LABS: PARTIAL THROMBOPLASTIN RATIO 0.9; PROTHROMBIN TIME (PATIENT) 10.9 SECONDS (9.0-12.0)
--- NOTE | 2017-06-27 11:50 | DIAGNOSTIC IMAGING REPORT ---
CHEST ONE VIEW PORTABLE CLINICAL HISTORY: Altered mental status. Weakness. COMPARISON STUDY: Chest radiograph June 06, 2017. FINDINGS: No pneumothorax or pleural effusion is identified. Severe emphysema is noted. There is no evidence of pulmonary edema. No pneumothorax or pleural effusion is present. Cardiomediastinal silhouette is normal. There is a 2.2 cm possible right midlung opacity. This was shown on prior exam of June 06, 2017. The configuration has slightly changed since prior exam. IMPRESSION: 1. 2.2 cm right midlung opacity which was shown on prior exam. This remains indeterminate and may reflect mild airspace disease, atelectasis or pulmonary nodule. Follow-up PA and lateral chest radiographs in one month are recommended to exclude a pulmonary nodule. 2. Severe emphysema. Electronically signed by: Werner Hudson M.D. 06/27/2017 11:49 AM Dictated Date/Time: 06/27/2017 11:45 AM
[2017-06-27 11:51] LABS: BUN/CREATININE RATIO 26.9 (10-20); CALCIUM 9.4 mg/dl (8.5-10.1); CREATININE 1.1 mg/dl (0.60-1.20); POTASSIUM 4.3 mmol/L (3.5-5.1)
[2017-06-27 12:03] LABS: CKMB/CK RATIO 3.2 (0-3.0); THYROID STIMULATING HORMONE 1.1 uIu/ml (0.300-4.500)
[2017-06-27] MEDS ORDERED: LEVO75TA5 PO (12:47)
[2017-06-27] MEDS ORDERED: TPRSR/25 PO (12:47)
--- NOTE | 2017-06-27 13:29 | EMERGENCY ROOM VISIT NOTE ---
History Report prepared by Manny: Mariama Panchal Under the Supervision of: Dr. Pepe Gordillo D.O. First contact with patient: 11:05 Chief Complaint: WEAKNESS Stated Complaint: WEAKNESS History of Present Illness The patient is a 86 year old female who presents to the Emergency Room with complaints of weakness. She reports when she woke up this morning, she felt very tired. She went back to sleep, but when she woke up the second time she still felt "weak and nauseous". She has not vomited. She lives alone and admits she did not take her daily medications this morning. The patient reports she has been seen here in ED for dehydration before. She has been trying to keep up with fluids, but admits "I'm horrible at drinking water". She has been trying to eat fruits and vegetables with a high water content. 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 A total of 10 systems reviewed and were otherwise negative. Past Medical & Surgical Medical Problems: (1) Dog bite of left lower leg with infection (2) Emphysema of lung (3) HTN (hypertension) (4) Intertrochanteric fracture of right hip (5) Stroke-like symptoms (6) Vulva cancer Family History Cancer Hypertension Kidney disease Lung disease Social History Smoking Status: Former Smoker Drug Use: none Marital Status: Housing Status: lives alone Occupation Status: retired Current/Historical Medications Scheduled Benazepril (Lotensin), 40 MG PO DAILY Clopidogrel Bisulfate (Clopidogrel), 75 MG PO QAM Fluticasone Furoate-Vilanterol (Breo Ellipta), 1 INHA INH DAILY Furosemide (Lasix), 20 MG PO DAILY Home O2 Therapy (Oxygen), 2 LITERS NA CONTINOUS Latanoprost (Xalatan 0.005% Oph Brenda), 1 DROPS OP HS Levothyroxine Sodium (Levothyroxine Sodium), 75 MCG PO DAILY Metoprolol Succinate (Metoprolol Succinate ER), 25 MG PO DAILY Multiple Vitamin (Multivitamin), 1 TAB PO DAILY Nifedipine Ext Rel (Procardia Xl Ext Rel), 60 MG PO QD@08 Tiotropium [place] (Spiriva Respimat), 2 PUFF INH DAILY Allergies Coded Allergies: No Known Allergies (Verified , 06/06/17) Physical Exam Vital Signs Date Time Temp Pulse Resp B/P (MAP) Pulse Ox O2 Delivery O2 Flow Rate FiO2 06/27/17 13:10 76 24 223/89 100 06/27/17 12:34 76 20 212/93 100 Room Air 06/27/17 11:56 76 20 186/93 100 Room Air 06/27/17 11:02 78 18 208/74 92 Nasal Cannula 2.0 06/27/17 10:55 77 Physical Exam CONSTITUTIONAL/VITAL SIGNS: Reviewed / noted above. GENERAL: Non-toxic in appearance. INTEGUMENTARY: Warm, dry, and [place]. HEAD: Normocephalic. EYES: without scleral icterus or trauma. ENT/OROPHARYNX: clear and moist. LYMPHADENOPATHY/NECK: Is supple without lymphadenopathy or meningismus. RESPIRATORY: Lungs clear and equal. CARDIOVASCULAR: Regular rate and rhythm. GI/ABDOMEN: Soft and nontender. No organomegaly or pulsatile mass. No rebound or guarding. Normal bowel sounds. EXTREMITIES: Warm and well perfused. BACK: No CVA tenderness. NEUROLOGICAL: Intact without focal deficits. PSYCHIATRIC: normal affect. MUSCULOSKELETAL: Normally developed with good muscle tone. Medical Decision & Procedures ER Provider Diagnostic Interpretation: Radiology results as stated below per my review and radiologist interpretation: CHEST ONE VIEW PORTABLE CLINICAL HISTORY: Altered mental status. Weakness. COMPARISON STUDY: Chest radiograph June 06, 2017. FINDINGS: No pneumothorax or pleural effusion is identified. Severe emphysema is noted. There is no evidence of pulmonary edema. No pneumothorax or pleural effusion is present. Cardiomediastinal silhouette is normal. There is a 2.2 cm possible right midlung opacity. This was shown on prior exam of June 06, 2017. The configuration has slightly changed since prior exam. IMPRESSION: 1. 2.2 cm right midlung opacity which was shown on prior exam. This remains indeterminate and may reflect mild airspace disease, atelectasis or pulmonary nodule. Follow-up PA and lateral chest radiographs in one month are recommended to exclude a pulmonary nodule. 2. Severe emphysema. Electronically signed by: Werner Hudson M.D. 06/27/2017 11:49 AM Laboratory Results 06/27/17 11:20 Red Blood Count 4.13, Mean Corpuscular Volume 86.0, Mean Corpuscular Hemoglobin 27.6, Mean Corpuscular Hemoglobin Concent 32.1, Mean Platelet Volume 10.1, Neutrophils (%) (Auto) 75.1, Lymphocytes (%) (Auto) 10.8, Monocytes (%) (Auto) 11.5, Eosinophils (%) (Auto) 1.7, Basophils (%) (Auto) 0.6, Neutrophils # (Auto ) 6.77, Lymphocytes # (Auto) 0.97, Monocytes # (Auto) 1.04, Eosinophils # (Auto ) 0.15, Basophils # (Auto) 0.05 06/27/17 11:20 Test 06/27/17 11:20 White Blood Count 9.01 K/uL (4.8-10.8) Red Blood Count 4.13 M/uL (4.2-5.4) Hemoglobin 11.4 g/dL (12.0-16.0) Hematocrit 35.5 % (37-47) Mean Corpuscular Volume 86.0 fL (80-100) Mean Corpuscular Hemoglobin 27.6 pg (25-34) Mean Corpuscular Hemoglobin Concent 32.1 g/dl (32-36) Platelet Count 185 K/uL (130-400) Mean Platelet Volume 10.1 fL (7.4-10.4) Neutrophils (%) (Auto) 75.1 % Lymphocytes (%) (Auto) 10.8 % Monocytes (%) (Auto) 11.5 % Eosinophils (%) (Auto) 1.7 % Basophils (%) (Auto) 0.6 % Neutrophils # (Auto) 6.77 K/uL (1.4-6.5) Lymphocytes # (Auto) 0.97 K/uL (1.2-3.4) Monocytes # (Auto) 1.04 K/uL (0.11-0.59) Eosinophils # (Auto) 0.15 K/uL (0-0.5) Basophils # (Auto) 0.05 K/uL (0-0.2) RDW Standard Deviation 46.7 fL (36.4-46.3) RDW Coefficient of Variation 14.8 % (11.5-14.5) Immature Granulocyte % (Auto) 0.3 % Immature Granulocyte # (Auto) 0.03 K/uL (0.00-0.02) Prothrombin Time 10.9 SECONDS (9.0-12.0) Prothromb Time International Ratio 1.0 (0.9-1.1) Activated Partial Thromboplast Time 23.4 SECONDS (21.0-31.0) Partial Thromboplastin Ratio 0.9 Anion Gap 7.0 mmol/L (3-11) Est Creatinine Clear Calc Drug Dose 21.8 ml/min Estimated GFR () 53.0 Estimated GFR (Non- 45.7 BUN/Creatinine Ratio 26.9 (10-20) Calcium Level 9.4 mg/dl (8.5-10.1) Total Bilirubin 0.7 mg/dl (0.2-1) Direct Bilirubin 0.2 mg/dl (0-0.2) Aspartate Amino Transf (AST/SGOT) 13 U/L (15-37) Alanine Aminotransferase (ALT/SGPT) 11 U/L (12-78) Alkaline Phosphatase 64 U/L (45-117) Total Creatine Kinase 19 U/L (26-192) Creatine Kinase MB 0.6 ng/ml (0.5-3.6) Creatine Kinase MB Ratio 3.2 (0-3.0) Troponin I 0.016 ng/ml (0-0.045) Total Protein 6.0 gm/dl (6.4-8.2) Albumin 2.7 gm/dl (3.4-5.0) Thyroid Stimulating Hormone (TSH) 1.100 uIu/ml (0.300-4.500) Laboratory results as stated above per my review. Medications Administered Medications (Trade) Dose Ordered Sig/Chely Route Start Time Stop Time Status Last Admin Dose Admin Sodium Chloride 1,000 ml @ 350 mls/hr Q2H52M STAT IV 06/27/17 11:08 06/27/17 13:59 06/27/17 11:08 350 MLS/HR Nifedipine (Procardia Xl Tab) 60 mg NOW STAT PO 06/27/17 11:10 06/27/17 11:11 DC 06/27/17 11:57 60 MG ECG Indication: weakness Rate (beats per minute): 72 Rhythm: normal sinus Findings: no acute ischemic change, no ectopy ED Course 1105: Previous medical records were reviewed. The patient was evaluated in room B11. A complete history and physical examination was performed. 1108: NSS 1000 ml @ 350 mls/hr IV. 1110: Nifedipine 60 mg PO. 1305: I reevaluated the patient. She is feeling well and resting comfortably. I discussed her results and discharge instructions and she verbalized complete understanding and agreement. Medical Decision Differential includes acute coronary syndrome, myocardial infarction, CVA, TIA, anemia, infection, pneumonia, UTI, pyelonephritis, poor nutrition, dehydration, electrolyte disturbance,hypoglycemia. This is an 86-year-old female who presents to the ED with a chief complaint of generalized weakness per she reports some nausea and feeling tired when she got up this morning. She states that she lives alone. The patient's blood pressure is elevated. She did not take her medication this morning. The patient has no additional complaints. No chest pains, fevers, shortness of breath or abdominal pain. Twelve-lead EKG shows a normal sinus rhythm. CBC is normal, BUN is 20 and complete metabolic panel was normal, chest x-ray did not show acute disease. Urine dip was normal. The patient was told the results of the tests. She was hydrated and given her Procardia XL. Blood pressure remained somewhat elevated although I do not feel that she is symptomatic from this. She was told to follow-up with your PCP for recheck of her blood pressure. She is felt to be stable for discharge. Her son is here to take her home. Medication Reconcilliation Current Medication List: was personally reviewed by me Blood Pressure Screening Patient's blood pressure: Elevated blood pressure Blood pressure disposition: Referred to PCP Impression Primary Impression: Weakness Additional Impression: Hypertension Scribe Attestation The scribe's documentation has been prepared under my direction and personally reviewed by me in its entirety. I confirm that the note above accurately reflects all work, treatment, procedures, and medical decision making performed by me. Departure Information Dispostion Home / Self-Care Referrals Sweetie Calero DO (PCP) Patient Instructions My [facility] Additional Instructions Your blood pressure today was elevated. Take your medication as it is prescribed. Follow-up with your doctor for recheck of your blood pressure this week. Follow-up with your doctor for further care and evaluation in 1-4 days. Return to the emergency department for worsening or new symptoms or any concerns. You have been examined and treated today on an emergency basis only. This is not a substitute for, or an effort to provide, complete comprehensive medical care. It is impossible to recognize and treat all injuries or illnesses in a single emergency department visit. It is therefore important that you follow up closely with your doctor. Call as soon as possible for an appointment. Problem Qualifiers
[2017-06-27 13:39] VITALS: BP 194/84; PULSE 86; O2SAT 98
[2017-06-27 14:33] LABS: URINE APPEARANCE CLOUDY (CLEAR); URINE BILIRUBIN NEG (NEG); URINE COLOR YELLOW; URINE NITRITE NEG (NEG); URINE SPECIFIC GRAVITY 1.015 (1.000-1.030); UROBILINOGEN NEG (NEG); ZZURINE CULT IF INDIC CATH NO
[2017-06-27 14:38] LABS: MANUAL MICROSCOPIC REQUIRED? NO; REVIEW REQ? NO
== END 2017-06-27 13:41 | disposition home or self-care (01) ==
LOC: C.EDB 10:47 → EDBD 10:47 → C.EDB 13:41
DX: R53.1 Weakness (principal); I10 Essential (primary) hypertension; J43.9 Emphysema, unspecified; Z85.44 Personal history of malignant neoplasm of other female genital organs; Z87.891 Personal history of nicotine dependence; Z82.49 Family history of ischemic heart disease and other diseases of the circulatory system

== ENCOUNTER → 2017-07-16 | Outpatient (CLI) | payer BC ==
[~2017-07-16] MED LIST changes: -LEVO75TA PO; +LEVO75TA5 PO; -METO1TAB69 PO; +TPRSR/25 PO
[2017-07-16 17:00] LABS: BASO % 0.6 %; BASO ABS # 0.06 K/uL (0-0.2); COMPLETE YES; HEMATOCRIT 44.6 % (37-47); IG% 0.5 %; LYMPH ABS # 1.79 K/uL (1.2-3.4); MEAN CELL VOLUME 86.4 fL (80-100); MEAN CORPUSCULAR HEMOGLOBIN 27.3 pg (25-34); MEAN CORPUSCULAR HGB CONC 31.6 g/dl (32-36); MEAN PLATELET VOLUME 10.4 fL (7.4-10.4); MONO % 11.7 %; NEUT % 67.2 %; PLATELET COUNT 218 K/uL (130-400); RED BLOOD COUNT 5.16 M/uL (4.2-5.4); WHITE BLOOD COUNT 9.95 K/uL (4.8-10.8)
[2017-07-16 17:03] LABS: URINE APPEARANCE CLEAR (CLEAR); URINE COLOR YELLOW; URINE PH 6.5 (4.5-7.5); URINE SPECIFIC GRAVITY 1.014 (1.000-1.030)
[2017-07-16 17:04] LABS: URINE BILIRUBIN NEG (NEG); URINE NITRITE NEG (NEG); UROBILINOGEN NEG (NEG)
[2017-07-16 17:07] LABS: MANUAL MICROSCOPIC REQUIRED? NO; REVIEW REQ? NO
[2017-07-16 17:29] LABS: FERRITIN 211.5 ng/ml (8.0-388.0)
--- NOTE | 2017-07-27 06:26 | CODING QUERY MEDICAL NECESSITY ---
SUPPORTING DIAGNOSIS NEEDED Dr. Calero, A supporting diagnosis is required for the test/procedure performed on this patient in order for us to be reimbursed by the patient's insurance. Please provide a supporting diagnosis for the following test/procedure listed below next to the test name along with your signature. *If there is no additional diagnosis for this patient that would support the following test/procedure please document that below next to the test/procedure. Test(s)/Procedure(s) that require a supporting diagnosis: * ([id number]) B12 VITAMIN LEVEL DIAGNOSIS: * ([id number]) FOLATE LEVEL DIAGNOSIS: DATE OF SERVICE: 07/16/17 Provider Signature: Date: Thank you B[facility] Information Management Once completed, please kindly fax back to [phone] For questions please call [phone]
== END | disposition home or self-care (01) ==
LOC: C.LABPBG 11:39
PROVIDERS: ATTEND Family Medicine
DX: D64.9 Anemia, unspecified (principal); R53.1 Weakness; E56.9 Vitamin deficiency, unspecified

== ENCOUNTER → 2017-07-29 | Outpatient (CLI) | payer BC ==
--- NOTE | 2017-07-29 13:11 | DIAGNOSTIC IMAGING REPORT ---
CHEST 2 VIEWS ROUTINE CLINICAL HISTORY: R93.8 Abnormal chest [id number] COMPARISON STUDY: 06/27/2017 FINDINGS: Stable emphysematous change bilaterally. Moderate decrease in size of a density right lower lung region currently estimated at 1.1 cm diminished from 2.2 cm. No new or interval process. Stable pulmonary hyperaeration. IMPRESSION: 1. Stable emphysematous change. 2. Improved right basilar parenchymal nodularity The above report was generated using voice recognition software. It may contain grammatical, syntax or spelling errors. Electronically signed by: Brayan Hirsch M.D. 07/29/2017 1:10 PM Dictated Date/Time: 07/29/2017 1:08 PM
[2017-07-29 13:42] LABS: BLOOD UREA NITROGEN 29 mg/dl (7-18); BUN/CREATININE RATIO 22.2 (10-20); CALCIUM 9.4 mg/dl (8.5-10.1); CARBON DIOXIDE 30 mmol/L (21-32); CHLORIDE 101 mmol/L (98-107); GLUCOSE 105 mg/dl (70-99); POTASSIUM 4.2 mmol/L (3.5-5.1); SODIUM 136 mmol/L (136-145)
[2017-07-29 13:45] LABS: PHOSPHORUS 2.9 mg/dl (2.5-4.9)
--- NOTE | 2017-07-29 16:03 | DIAGNOSTIC IMAGING REPORT ---
RIGHT SHOULDER MIN 2 VIEWS ROUTINE CLINICAL HISTORY: M25.511 Nontraumatic pain of right [id number] Right COMPARISON: None. DISCUSSION: No fractures or dislocations are visualized. There are no periarticular calcifications identified. Note is made of vascular calcifications. IMPRESSION: No fractures, dislocations, or destructive lesions are visualized. Electronically signed by: Erich Shahid M.D. 07/29/2017 4:02 PM Dictated Date/Time: 07/29/2017 4:01 PM
[2017-07-29 16:08] LABS: C-REACTIVE PROTEIN 5.34 mg/dl (0-0.29)
[2017-08-03 10:17] LABS: ALBUMIN 3.5 G/DL (3.8-4.8); ANTI-CENTROMERE AB <1.0 NEG AI (<1.0 NEG); ANTI-SS-A <1.0 NEG AI (<1.0 NEG); ANTI-SS-B <1.0 NEG AI (<1.0 NEG); DNA ds CRITHIDIA NEGATIVE (NEGATIVE); GAMMA GLOBULIN 0.9 G/DL (0.8-1.7); Sm Antibody <1.0 NEG AI (<1.0 NEG); TOTAL PROTEIN 6.4 G/DL (6.2-8.3)
== END | disposition home or self-care (01) ==
LOC: C.LAB 12:14
PROVIDERS: ATTEND Family Medicine
DX: M25.511 Pain in right shoulder (principal); R70.0 Elevated erythrocyte sedimentation rate; M35.3 Polymyalgia rheumatica; M79.1 Myalgia; N18.3 Chronic kidney disease, stage 3 (moderate); R53.1 Weakness; R93.8 Abnormal findings on diagnostic imaging of other specified body structures; J43.9 Emphysema, unspecified

== ENCOUNTER → 2017-08-26 | Outpatient (CLI) | payer BC | END | disposition home or self-care (01) | LOC: C.LAB1850 12:13 | PROVIDERS: ATTEND Internal Medicine Rheumatology | DX: R79.82 Elevated C-reactive protein (CRP) (principal) ==

== ENCOUNTER → 2017-10-23 | Outpatient (CLI) | payer BC ==
[~2017-10-23] MED LIST changes: -BENA1TAB19 PO; +BENA1TAB53 PO
== END | disposition home or self-care (01) ==
LOC: C.LABPBG 11:24
PROVIDERS: ATTEND Internal Medicine Rheumatology
DX: M35.3 Polymyalgia rheumatica (principal); Z79.52 Long term (current) use of systemic steroids

== ENCOUNTER 2017-11-11 18:01 | Inpatient (IN) | payer BC, OTHER ==
[~2017-11-11] VITALS: Ht 149.9 cm; Wt 36.9 kg
--- NOTE | 2017-11-11 20:05 | DIAGNOSTIC IMAGING REPORT ---
HEAD WITHOUT CONTRAST (CT) CLINICAL HISTORY: 87 years-old Female presenting with eval for bleed, fall. TECHNIQUE: Multidetector CT imaging of the head was performed without the use of intravenous contrast. IV contrast: None. A dose lowering technique was used consistent with the principles of ALARA (as low as reasonably achievable). COMPARISON: 09/15/2016. CT DOSE (mGy.cm): The estimated cumulative dose is 1193.25 mGy.cm. FINDINGS: Agent Producer topogram: Unremarkable. Proportional ventricular and sulcal prominence, likely age-related parenchymal volume loss. Brain parenchyma normal in appearance with preserved kan-white differentiation. No mass effect or midline shift. No hemorrhage or acute territorial infarct. No extra-axial fluid collection. Paranasal sinuses and mastoid air cells clear. Calvarium intact. IMPRESSION: 1. No acute intracranial abnormality. Electronically signed by: Andrea Pimentel M.D. 11/11/2017 8:03 PM Dictated Date/Time: 11/11/2017 8:01 PM
--- NOTE | 2017-11-11 20:13 | DIAGNOSTIC IMAGING REPORT ---
CERVICAL SPINE W/O CLINICAL HISTORY: 87 years-old Female presenting with eval for fx, fall. TECHNIQUE: Multidetector CT of the cervical spine was performed without the use of intravenous contrast. IV contrast: None. A dose lowering technique was used consistent with the principles of ALARA (as low as reasonably achievable). COMPARISON: None. CT DOSE (mGy.cm): The estimated cumulative dose is 1193.25. 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 Exaggerated cervical lordosis. No acute fracture or subluxation. No significant degenerative change. No osseous neural foraminal or spinal canal narrowing. Paraspinal soft tissues within normal limits allowing for noncontrast technique. Extensive atherosclerosis of the carotid bulbs. Extensive calcified plaque at the proximal left subclavian artery. Severe apical emphysema. IMPRESSION: 1. No acute osseous injury of the cervical spine. 2. Severe apical emphysema. 3. Atherosclerosis. Electronically signed by: Andrea Pimentel M.D. 11/11/2017 8:12 PM Dictated Date/Time: 11/11/2017 8:10 PM
--- NOTE | 2017-11-11 20:26 | DIAGNOSTIC IMAGING REPORT ---
R RIBS UNILATERAL WITH PA CHEST CLINICAL HISTORY: 87 years-old Female presenting with eval for fx. TECHNIQUE: Frontal and oblique views of the right ribs as well as PA view of the chest were obtained. COMPARISON: Chest x-ray from 07/29/2017. FINDINGS: Atherosclerosis of aortic arch. Cardiac silhouette normal in size. Lungs hyperinflated. No focal infiltrate. No pleural effusion or pneumothorax. Upper abdomen normal. Osteopenia may be present. No displaced right rib fracture. IMPRESSION: 1. Emphysema. 2. No displaced right rib fracture. Electronically signed by: Andrea Pimentel M.D. 11/11/2017 8:25 PM Dictated Date/Time: 11/11/2017 8:23 PM
--- NOTE | 2017-11-11 20:28 | DIAGNOSTIC IMAGING REPORT ---
R PELVIS/UNILATERAL HIP 2-3VIEWS CLINICAL HISTORY: 87 years-old Female presenting with right ischial tuberosity pain. TECHNIQUE: Single frontal view of the pelvis and frontal and frog-leg lateral views of the right hip were obtained. COMPARISON: 12/01/2015. FINDINGS: Osteopenia. Intramedullary nail fixation of the right femoral neck and proximal right femoral metadiaphysis with interlocking screw. The previously noted basocervical fracture plane of the right femoral neck is no longer apparent allowing for osteopenia. Chronic avulsion fracture fragment of the lesser trochanter. The bilateral hip joints are congruent. Acute fractures of the left superior and inferior pubic rami suspected. Pubic symphysis remains congruent. Arcuate lines grossly intact. Atherosclerosis. IMPRESSION: 1. Acute fractures of the left superior and inferior pubic rami suspected. 2. Postsurgical changes of right femoral neck fracture fixation. 3. Osteopenia. Electronically signed by: Andrea Pimentel M.D. 11/11/2017 8:27 PM Dictated Date/Time: 11/11/2017 8:25 PM
[2017-11-11 20:55] LABS: BASO % 0.1 %; BASO ABS # 0.02 K/uL (0-0.2); HEMATOCRIT 40.3 % (37-47); HEMOGLOBIN 13.2 g/dL (12.0-16.0); IG# 0.22 K/uL (0.00-0.02); LYMPH % 9.8 %; LYMPH ABS # 1.54 K/uL (1.2-3.4); MEAN CELL VOLUME 92.2 fL (80-100); MEAN CORPUSCULAR HEMOGLOBIN 30.2 pg (25-34); MEAN CORPUSCULAR HGB CONC 32.8 g/dl (32-36); MEAN PLATELET VOLUME 11.3 fL (7.4-10.4); MONO % 9.4 %; MONO ABS # 1.47 K/uL (0.11-0.59); NEUT % 79.3 %; NEUT ABS # 12.43 K/uL (1.4-6.5); PLATELET COUNT 114 K/uL (130-400); RED CELL DISTRIBUTION WIDTH CV 15.8 % (11.5-14.5); RED CELL DISTRIBUTION WIDTH SD 53.2 fL (36.4-46.3); WHITE BLOOD COUNT 15.68 K/uL (4.8-10.8)
[2017-11-11] MEDS ORDERED: PRLSR20 PO (20:55)
[2017-11-11] MEDS ORDERED: PRED-301 PO (20:55)
[2017-11-11 21:05] LABS: PTT PATIENT 21.4 SECONDS (21.0-31.0)
--- NOTE | 2017-11-11 21:14 | EMERGENCY ROOM VISIT NOTE ---
History Report prepared by Manny: Shey Walter Under the Supervision of: Dr. Josh Romero M.D. 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 She was kicking the laundry basket to the washer when she lost her balance and fell onto her right side onto the cement ground. She reports pain in her right buttock, right ribs and right elbow. The pain worsens with movement. She did hit her head. She denies any headache, shortness of breath, LOC, neck pain, or abdominal pain. She is on Plavix. 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 Review of Systems See HPI for pertinent positives & negatives. A total of 10 systems reviewed and were otherwise negative. Past Medical & Surgical Medical Problems: (1) Dog bite of left lower leg with infection (2) Emphysema of lung (3) HTN (hypertension) (4) Intertrochanteric fracture of right hip (5) Stroke-like symptoms (6) Vulva cancer Family History Cancer Hypertension Kidney disease Lung disease Social History Smoking Status: Former Smoker Drug Use: none Marital Status: Housing Status: lives alone Occupation Status: retired Current/Historical Medications Scheduled Benazepril (Lotensin), 40 MG PO DAILY Clopidogrel Bisulfate (Clopidogrel), 75 MG PO QAM Fluticasone Furoate-Vilanterol (Breo Ellipta), 1 INHA INH DAILY Furosemide (Lasix), 20 MG PO DAILY Home O2 Therapy (Oxygen), 2 LITERS NA CONTINOUS Latanoprost (Xalatan 0.005% Oph Brenda), 1 DROPS OP HS Levothyroxine Sodium (Levothyroxine Sodium), 75 MCG PO DAILY Metoprolol Succinate (Metoprolol Succinate ER), 25 MG PO DAILY Multiple Vitamin (Multivitamin), 1 TAB PO DAILY Nifedipine Ext Rel (Procardia Xl Ext Rel), 60 MG PO DAILY Omeprazole (Prilosec), 20 MG PO DAILY Prednisone (Prednisone), 10 MG PO DAILY Tiotropium [place] (Spiriva Respimat), 2 PUFF INH DAILY Allergies Coded Allergies: No Known Allergies (Verified , 11/11/17) Physical Exam Vital Signs Date Time Temp Pulse Resp B/P (MAP) Pulse Ox O2 Delivery O2 Flow Rate FiO2 11/11/17 18:10 36.8 86 16 162/82 100 Nasal Cannula 2.0 Physical Exam Constitutional: Vital signs reviewed. Eyes: Pupils are equal round reactive to light. Conjunctiva are noninjected. ENT: Pharynx is clear without erythema or exudate. Mucous membranes are moist. Neck supple without meningeal signs. No midline tenderness to the cervical spine. Respiratory: Clear to auscultation bilaterally. Breath sounds are equal bilaterally. Cardiovascular: Regular rate and rhythm. No rubs or gallops. GI: Soft, nondistended and nontender. Bowel sounds are present. Musculoskeletal: No peripheral edema. No lower extremity tenderness. Minimally tender to the right lower posterior ribs. Tender to the right ischial tuberosity. No tenderness to the hip. Right elbow with 4 cm skin tear without bony tenderness or deformity. Integumentary: No cyanosis. Neurological: The patient is awake and alert. No focal deficits. Psychiatric: Normal affect. Medical Decision & Procedures ER Provider Diagnostic Interpretation: X-ray results as stated below per interpretation by me and the radiologist. Radiology results as stated below per my review and the radiologist's interpretation: HEAD WITHOUT CONTRAST (CT) CLINICAL HISTORY: 87 years-old Female presenting with eval for bleed, fall. TECHNIQUE: Multidetector CT imaging of the head was performed without the use of intravenous contrast. IV contrast: None. A dose lowering technique was used consistent with the principles of ALARA (as low as reasonably achievable). COMPARISON: 09/15/2016. CT DOSE (mGy.cm): The estimated cumulative dose is 1193.25 mGy.cm. 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 Proportional ventricular and sulcal prominence, likely age-related parenchymal volume loss. Brain parenchyma normal in appearance with preserved kan-white differentiation. No mass effect or midline shift. No hemorrhage or acute territorial infarct. No extra-axial fluid collection. Paranasal sinuses and mastoid air cells clear. Calvarium intact. IMPRESSION: 1. No acute intracranial abnormality. Electronically signed by: Andrea Pimentel M.D. 11/11/2017 8:03 PM Dictated Date/Time: 11/11/2017 8:01 PM CERVICAL SPINE W/O CLINICAL HISTORY: 87 years-old Female presenting with eval for fx, fall. TECHNIQUE: Multidetector CT of the cervical spine was performed without the use of intravenous contrast. IV contrast: None. A dose lowering technique was used consistent with the principles of ALARA (as low as reasonably achievable). COMPARISON: None. CT DOSE (mGy.cm): The estimated cumulative dose is 1193.25. 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 Exaggerated cervical lordosis. No acute fracture or subluxation. No significant degenerative change. No osseous neural foraminal or spinal canal narrowing. Paraspinal soft tissues within normal limits allowing for noncontrast technique. Extensive atherosclerosis of the carotid bulbs. Extensive calcified plaque at the proximal left subclavian artery. Severe apical emphysema. IMPRESSION: 1. No acute osseous injury of the cervical spine. 2. Severe apical emphysema. 3. Atherosclerosis. Electronically signed by: Andrea Pimentel M.D. 11/11/2017 8:12 PM Dictated Date/Time: 11/11/2017 8:10 PM R PELVIS/UNILATERAL HIP 2-3VIEWS CLINICAL HISTORY: 87 years-old Female presenting with right ischial tuberosity pain. TECHNIQUE: Single frontal view of the pelvis and frontal and frog-leg lateral views of the right hip were obtained. COMPARISON: 12/01/2015. FINDINGS: Osteopenia. Intramedullary nail fixation of the right femoral neck and proximal right femoral metadiaphysis with interlocking screw. The previously noted basocervical fracture plane of the right femoral neck is no longer apparent allowing for osteopenia. Chronic avulsion fracture fragment of the lesser trochanter. The bilateral hip joints are congruent. Acute fractures of the left superior and inferior pubic rami suspected. Pubic symphysis remains congruent. Arcuate lines grossly intact. Atherosclerosis. IMPRESSION: 1. Acute fractures of the left superior and inferior pubic rami suspected. 2. Postsurgical changes of right femoral neck fracture fixation. 3. Osteopenia. Electronically signed by: Andrea Pimentel M.D. 11/11/2017 8:27 PM Dictated Date/Time: 11/11/2017 8:25 PM R RIBS UNILATERAL WITH PA CHEST CLINICAL HISTORY: 87 years-old Female presenting with eval for fx. TECHNIQUE: Frontal and oblique views of the right ribs as well as PA view of the chest were obtained. COMPARISON: Chest x-ray from 07/29/2017. FINDINGS: Atherosclerosis of aortic arch. Cardiac silhouette normal in size. Lungs hyperinflated. No focal infiltrate. No pleural effusion or pneumothorax. Upper abdomen normal. Osteopenia may be present. No displaced right rib fracture. IMPRESSION: 1. Emphysema. 2. No displaced right rib fracture. Electronically signed by: Andrea Pimentel M.D. 11/11/2017 8:25 PM Dictated Date/Time: 11/11/2017 8:23 PM Laboratory Results 11/11/17 20:35 Red Blood Count 4.37, Mean Corpuscular Volume 92.2, Mean Corpuscular Hemoglobin 30.2, Mean Corpuscular Hemoglobin Concent 32.8, Mean Platelet Volume 11.3, Neutrophils (%) (Auto) 79.3, Lymphocytes (%) (Auto) 9.8, Monocytes (%) (Auto) 9.4, Eosinophils (%) (Auto) 0.0, Basophils (%) (Auto) 0.1, Neutrophils # (Auto) 12.43, Lymphocytes # (Auto) 1.54, Monocytes # (Auto) 1.47, Eosinophils # (Auto) 0.00, Basophils # (Auto) 0.02 Test 11/11/17 20:35 White Blood Count 15.68 K/uL (4.8-10.8) Red Blood Count 4.37 M/uL (4.2-5.4) Hemoglobin 13.2 g/dL (12.0-16.0) Hematocrit 40.3 % (37-47) Mean Corpuscular Volume 92.2 fL (80-100) Mean Corpuscular Hemoglobin 30.2 pg (25-34) Mean Corpuscular Hemoglobin Concent 32.8 g/dl (32-36) Platelet Count 114 K/uL (130-400) Mean Platelet Volume 11.3 fL (7.4-10.4) Neutrophils (%) (Auto) 79.3 % Lymphocytes (%) (Auto) 9.8 % Monocytes (%) (Auto) 9.4 % Eosinophils (%) (Auto) 0.0 % Basophils (%) (Auto) 0.1 % Neutrophils # (Auto) 12.43 K/uL (1.4-6.5) Lymphocytes # (Auto) 1.54 K/uL (1.2-3.4) Monocytes # (Auto) 1.47 K/uL (0.11-0.59) Eosinophils # (Auto) 0.00 K/uL (0-0.5) Basophils # (Auto) 0.02 K/uL (0-0.2) RDW Standard Deviation 53.2 fL (36.4-46.3) RDW Coefficient of Variation 15.8 % (11.5-14.5) Immature Granulocyte % (Auto) 1.4 % Immature Granulocyte # (Auto) 0.22 K/uL (0.00-0.02) Prothrombin Time 10.0 SECONDS (9.0-12.0) Prothromb Time International Ratio 1.0 (0.9-1.1) Activated Partial Thromboplast Time 21.4 SECONDS (21.0-31.0) Partial Thromboplastin Ratio 0.8 Laboratory results as reviewed by me. ECG Indication: other (possible hip fracture) Rate (beats per minute): 85 Rhythm: normal sinus Findings: T-wave inversion (V3-V6, inferior), no ectopy Comparison ECG Date: 27-Jun-2017 Change: Similar T wave inversions. ED Course 1820: The patient was evaluated in room B8. A complete history and physical exam was performed. 1939: I reevaluated the patient. The nurse states she has spent 40 minutes trying to get an IV and was unable to do so. She has called IV team. I asked her to send the patient for X-ray and CT in meantime. 2030: I reevaluated the patient. I discussed the results with her. She verbalized agreement of the treatment plan. She will be evaluated for further management. 2037: I discussed the patient's case with Dr. Alejandro, [facility] orthopedic surgery. He will evaluate the patient. 2053: I discussed the patient's case with Dr. Robbins, [facility] [place] hospitalist. The patient will be evaluated for further management. Medical Decision This is an 87-year-old female presents after a mechanical fall. Differential diagnosis includes possible pelvic fracture, contusion, rib fracture, strain, hip fracture. I did perform a limited focused review of portions of the patient 's old chart on the electronic medical record. The patient has had no recent pertinent visits to this hospital. I did evaluate the patient as noted above. She is presenting with pain after falling. Her fall was mechanical. She is on Plavix and she does state she hit her head. IV access was established. The patient was placed on a continuous bus driver/monitor. I did order and personally review the patient's 12-lead EKG and x-rays as described above. She does have a pelvic fracture on the left side. I did order and review the patient's blood work as noted in the electronic medical record. I did order a CT of the head and cervical spine. I did review the images myself as well as the radiology report as described above. I did discuss the test results with the patient. I did discuss case with orthopedics. I did discuss the case with the hospitalist and manager case management. Head Trauma GCS Score: 15 Medication Reconcilliation Current Medication List: was personally reviewed by me Blood Pressure Screening Patient's blood pressure: Elevated blood pressure Blood pressure disposition: Referred to PCP Consults Time Called: 2029 Consulting Physician: Dr. Robbins, [facility] [place] hospitalist Returned Call: 2053 I discussed the patient's case with him. The patient will be evaluated for further management. Additional Consults: Time Called: 2034 Consulted Physician: Dr. Alejandro, [facility] orthopedic surgery Returned Call: 2037 Additional Comments: I discussed the patient's case with him. He will evaluate the patient. Impression Primary Impression: Pelvis fracture Additional Impressions: Fall Rib contusion Head injury Scribe Attestation The scribe's documentation has been prepared under my direct and personally reviewed by me in its entirety. I confirm that the note above accurately reflects all work, treatment, procedures, and medical decision making performed by me. Departure Information Dispostion Being Evaluated By Hospitalist Referrals Sweetie Calero DO (PCP) Patient Instructions My [facility] Problem Qualifiers Primary Impression: Pelvis fracture Encounter type: initial encounter Pelvic bone location: unspecified part of pelvis Fracture type: closed Fracture alignment: nondisplaced Qualified Codes: S32.9XXA - Fracture of unspecified parts of lumbosacral spine and pelvis , initial encounter for closed fracture Additional Impressions: Fall Encounter type: initial encounter Qualified Codes: W19.XXXA - Unspecified fall, initial encounter Rib contusion Encounter type: initial encounter Laterality: right Qualified Codes: S20.211A - Contusion of right front wall of thorax, initial encounter Head injury Encounter type: initial encounter Qualified Codes: S09.90XA - Unspecified injury of head, initial encounter
[2017-11-11 21:16] LABS: CALCIUM 9.4 mg/dl (8.5-10.1); CREATININE 1.47 mg/dl (0.60-1.20)
[2017-11-11] MEDS ORDERED: POLYETHYLENE (MIRALAX) 17 GM PACK PO PRN (23:15)
[2017-11-11] MEDS ORDERED: ALUMINUM/MAGNESIUM/SIMETH (MAALOX MAX) 30 ML UDC PO PRN (23:15)
[2017-11-11] MEDS ORDERED: ONDANSETRON INJ 2 MG/ML 2 ML VIAL IV PRN (23:15)
[2017-11-11] MEDS ORDERED: ACETAMINOPHEN 325 MG TAB PO PRN (23:15)
[2017-11-11] MEDS ORDERED: MAGNESIUM HYDROXIDE SUSP 30 ML UDC PO PRN (23:15)
--- NOTE | 2017-11-11 23:39 | History and Physical ---
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 Was tending to her laundry when she slipped and fell on her R side - presented to the ER c/o pain in her hip and ribs. Initial imaging confirms R superior and inferior pelvic rami fractures. She denies any symptoms preceding her fall such as lightheadedness, palpitations, CP or SOB. 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 - Subsequent recurrence with squamous cell carcinoma - Partial vulvectomy with positive margins - radiation therapy 2012 7) R hip fracture 8) Osteoporosis Family History Cancer Hypertension Kidney disease Lung disease Social History Smoking Status: Former Smoker Drug Use: none Marital Status: Housing status: lives alone Occupational Status: retired Immunizations History of Influenza Vaccine: Unknown History of Tetanus Vaccine?: Unknown History of Pneumococcal: Unknown History of Hepatitis B Vaccine: Unknown Multi-Drug Resistant Organisms History of MDRO: No Allergies Coded Allergies: No Known Allergies (Verified , 11/11/17) Home Medications Scheduled Benazepril (Lotensin), 40 MG PO DAILY Clopidogrel Bisulfate (Clopidogrel), 75 MG PO QAM Fluticasone Furoate-Vilanterol (Breo Ellipta), 1 INHA INH DAILY Furosemide (Lasix), 20 MG PO DAILY Home O2 Therapy (Oxygen), 2 LITERS NA CONTINOUS Latanoprost (Xalatan 0.005% Oph Brenda), 1 DROPS OP HS Levothyroxine Sodium (Levothyroxine Sodium), 75 MCG PO DAILY Metoprolol Succinate (Metoprolol Succinate ER), 25 MG PO DAILY Multiple Vitamin (Multivitamin), 1 TAB PO DAILY Nifedipine Ext Rel (Procardia Xl Ext Rel), 60 MG PO DAILY Omeprazole (Prilosec), 20 MG PO DAILY Prednisone (Prednisone), 10 MG PO DAILY Tiotropium [place] (Spiriva Respimat), 2 PUFF INH DAILY Review of Systems Constitutional: No fever, No chills, No sweats Eyes: No worsening of vision ENT: No hearing loss, No nasal symptoms Respiratory: No cough, No sputum, No wheezing Cardiovascular: + problem reported (Chest wall pain on R), No chest pain Abdomen: No pain, No nausea, No vomiting Musculoskeletal: No joint pain Genitourinary - Female: No dysuria, No urinary frequency, No urinary urgency Neurologic: No memory loss, No weakness Psychiatric: No depression symptoms Endocrine: No fatigue Hematologic / Lymphatic: No abnormal bleeding/bruising Integumentary: No rash Allergic / Immunologic: No environmental allergies Physical Exam Vital Signs Date Time Temp Pulse Resp B/P (MAP) Pulse Ox O2 Delivery O2 Flow Rate FiO2 11/11/17 22:40 84 11/11/17 22:39 84 18 138/69 98 Nasal Cannula 2.0 11/11/17 21:12 83 18 137/84 99 Nasal Cannula 2.0 11/11/17 18:10 36.8 86 16 162/82 100 Nasal Cannula 2.0 General Appearance: + pertinent finding (Very thin, anxious, elderly female in no distress - fully oriented ) Head: normocephalic Eyes: normal inspection ENT: normal ENT inspection, pharynx normal Neck: supple, no JVD Respiratory/Chest: chest non-tender, lungs clear, normal breath sounds Cardiovascular: regular rate, rhythm, no JVD, no murmur, + systolic murmur Abdomen/GI: normal bowel sounds, non tender, soft Back: normal inspection, no CVA tenderness, no muscle spasm Extremities/Musculoskelatal: normal inspection, no calf tenderness, normal capillary refill, + pertinent finding (PAin over R hip and ribs) 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, no motor/sensory deficits, alert Skin: normal color, warm/dry Diagnostics Laboratory Results Results Past 24 Hours Test 11/11/17 20:35 11/11/17 21:10 Range/Units White Blood Count 15.68 4.8-10.8 K/uL Red Blood Count 4.37 4.2-5.4 M/uL Hemoglobin 13.2 12.0-16.0 g/dL Hematocrit 40.3 37-47 % Mean Corpuscular Volume 92.2 80-100 fL Mean Corpuscular Hemoglobin 30.2 25-34 pg Mean Corpuscular Hemoglobin Concent 32.8 32-36 g/dl Platelet Count 114 130-400 K/uL Mean Platelet Volume 11.3 7.4-10.4 fL Neutrophils (%) (Auto) 79.3 % Lymphocytes (%) (Auto) 9.8 % Monocytes (%) (Auto) 9.4 % Eosinophils (%) (Auto) 0.0 % Basophils (%) (Auto) 0.1 % Neutrophils # (Auto) 12.43 1.4-6.5 K/uL Lymphocytes # (Auto) 1.54 1.2-3.4 K/uL Monocytes # (Auto) 1.47 0.11-0.59 K/uL Eosinophils # (Auto) 0.00 0-0.5 K/uL Basophils # (Auto) 0.02 0-0.2 K/uL RDW Standard Deviation 53.2 36.4-46.3 fL RDW Coefficient of Variation 15.8 11.5-14.5 % Immature Granulocyte % (Auto) 1.4 % Immature Granulocyte # (Auto) 0.22 0.00-0.02 K/uL Prothrombin Time 10.0 9.0-12.0 SECONDS Prothromb Time International Ratio 1.0 0.9-1.1 Activated Partial Thromboplast Time 21.4 21.0-31.0 SECONDS Partial Thromboplastin Ratio 0.8 Sodium Level 137 136-145 mmol/L Potassium Level 4.0 3.5-5.1 mmol/L Chloride Level 100 98-107 mmol/L Carbon Dioxide Level 32 21-32 mmol/L Anion Gap 5.0 3-11 mmol/L Blood Urea Nitrogen 37 7-18 mg/dl Creatinine 1.47 0.60-1.20 mg/dl Est Creatinine Clear Calc Drug Dose 15.2 ml/min Estimated GFR () 37.1 Estimated GFR (Non- 32.0 BUN/Creatinine Ratio 24.9 10-20 Random Glucose 103 70-99 mg/dl Calcium Level 9.4 8.5-10.1 mg/dl Urine Color YELLOW Urine Appearance CLEAR CLEAR Urine pH 6.0 4.5-7.5 Urine Specific [place] 1.014 1.000-1.030 Urine Protein NEG NEG Urine Glucose (UA) NEG NEG Urine Ketones NEG NEG Urine Occult Blood NEG NEG Urine Nitrite NEG NEG Urine Bilirubin NEG NEG Urine Urobilinogen NEG NEG Urine Leukocyte Esterase NEG NEG Diagnostic Radiology Pelvic XR: 1. Acute fractures of the left superior and inferior pubic rami suspected. 2. Postsurgical changes of right femoral neck fracture fixation. CXR: 1. Emphysema. 2. No displaced right rib fracture. 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 Was tending to her laundry when she slipped and fell on her R side - presented to the ER c/o pain in her hip and ribs. Initial imaging confirms R superior and inferior pelvic rami fractures. She denies any symptoms preceding her fall such as lightheadedness, palpitations, CP or SOB. 1) Pelvic fracture - pt will likely need rehab as she normally maintains independence. She will be evaluated by orthopedics and can then be evaluated by PT/OT for disposition. 2) COPD - does not c/o SOB above baseline - remains on 02 protocol with prescribed inhalers. 3) EKG changes are apparent - may represent progression of her lung disease - no evidence of ACS - we will repeat the EKG and trop AM 4) CKD - creat is at baseline 5) Low platelets on initial labs - will trend AM 6) Hypothyroid - cont Synthroid Full code - Heparin prophylaxis Total time for this admit including review of labs, meds, imaging - discussion with pt and ER attending - 37 min Level of Care Med/Surg Resuscitation Status FULL RESUSCITATION VTE Prophylaxis VTE Risk Assessment Done? Y/N: Yes Risk Level: Moderate Given or contraindicated: Unfractionated heparin SQ
[2017-11-11 23:45] VITALS: BP 151/70; PULSE 87; TEMP 36.7; O2SAT 95
[2017-11-11] MEDS ORDERED: IV FLUIDS COMPLETED PRN (23:45)
[2017-11-11] MEDS ORDERED: MoRPHine SULFATE 2 MG/ML CARP IV PRN (23:45)
[2017-11-12 01:00] VITALS: BP 151/70; PULSE 87; TEMP 36.7; BMI 16.4
[2017-11-12 07:53] VITALS: BP 142/77; PULSE 86; TEMP 36.6; O2SAT 94
[2017-11-12 08:36] LABS: HEMATOCRIT 37.8 % (37-47); HEMOGLOBIN 12.1 g/dL (12.0-16.0); MEAN CORPUSCULAR HEMOGLOBIN 29.4 pg (25-34); RED CELL DISTRIBUTION WIDTH CV 15.7 % (11.5-14.5); WHITE BLOOD COUNT 13.59 K/uL (4.8-10.8)
[2017-11-12] MEDS: TIOTROPIUM BROMIDE 5 PUFF/90 MCG INH INH SCH (08:38)
[2017-11-12] MEDS: CLOPIDOGREL BISULFATE 75 MG TAB PO SCH (08:39)
[2017-11-12] MEDS: FUROSEMIDE 20 MG TAB PO SCH (08:39)
[2017-11-12] MEDS: NIFEdipine 30 MG CR TAB PO SCH (08:40)
[2017-11-12] MEDS: PANTOprazole SOD 40 MG TAB PO SCH (08:40)
[2017-11-12] MEDS: METOPROLOL SUCC 25MG EXT REL TAB PO SCH (08:41)
[2017-11-12] MEDS: ENALAPRIL MALEATE 10 MG TAB PO SCH (08:42)
[2017-11-12 09:03] LABS: PLATELET COUNT 99 K/uL (130-400)
[2017-11-12] MEDS: HEPARIN SOD 5000 UNIT/0.5 ML CARP SQ SCH ×2 (09:05→20:44)
--- NOTE | 2017-11-12 09:08 | DIAGNOSTIC IMAGING REPORT ---
SINGLE VIEW LEFT HIP CLINICAL HISTORY: Pelvic fracture. FINDINGS: 2 portable frog-leg views of the left hip are correlated with pelvic radiograph dated 11/11/2017. The skeletal structures are osteopenic. There are age indeterminant and suspected acute parasymphyseal left pubic ring fractures. The left proximal femur appears intact. Mild arthritic change is seen in the hip joint. Advanced atherosclerotic calcification is noted in the left iliac artery. IMPRESSION: Again seen are age indeterminant and suspected acute left pubic ring fractures. Electronically signed by: Cheng Obrien M.D. 11/12/2017 9:07 AM Dictated Date/Time: 11/12/2017 9:04 AM
[2017-11-12 09:48] LABS: CALCIUM 9.3 mg/dl (8.5-10.1); CREATININE 1.35 mg/dl (0.60-1.20); POTASSIUM 4.1 mmol/L (3.5-5.1)
[2017-11-12] MEDS: SODIUM CHLORIDE 0.9% 1000ML 1,000 ML IV SCH ×2 (10:15→23:49)
[2017-11-12] MEDS: LEVOTHYROXINE 75 MCG TAB PO SCH (10:15)
--- NOTE | 2017-11-12 11:10 | Orthopedic Consultation ---
Orthopedic Consultation Date of Consultation: Nov 12, 2017. Attending Physician: Jake Du D.O. Reason for Consultation: Hip pain and left inferior and superior pubic rami fractures History of Present Illness The patient is an 87-year-old female who was doing her laundry. She said fell onto the right hip. She has previously undergone ORIF of this hip with intermittent trochanteric nail in the past. She is also complaining of pain in the left hip. X-rays demonstrated fractures of the inferior and superior ramus on the left side. Right hip is intact. Past Medical/Surgical History Medical Problems: (1) Closed right hip fracture Status: Acute (2) Fall Status: Acute (3) Fall Status: Acute (4) Head injury Status: Acute (5) Hypertension Status: Acute (6) Paresthesia of left arm and leg Status: Acute (7) Pelvis fracture Status: Acute (8) Rib contusion Status: Acute (9) Right wrist fracture Status: Acute (10) Stroke Status: Acute (11) Weakness Status: Acute (12) Weakness Status: Acute (13) Weakness Status: Acute Family History Cancer Hypertension Kidney disease Lung disease Social History Smoking Status: Former Smoker Drug Use: none Marital Status: Housing Status: lives alone Occupation Status: retired Allergies Coded Allergies: No Known Allergies (Verified , 11/11/17) Home Medications Scheduled Benazepril (Lotensin), 40 MG PO DAILY Clopidogrel Bisulfate (Clopidogrel), 75 MG PO QAM Fluticasone Furoate-Vilanterol (Breo Ellipta), 1 INHA INH DAILY Furosemide (Lasix), 20 MG PO DAILY Home O2 Therapy (Oxygen), 2 LITERS NA CONTINOUS Latanoprost (Xalatan 0.005% Oph Brenda), 1 DROPS OP HS Levothyroxine Sodium (Levothyroxine Sodium), 75 MCG PO DAILY Metoprolol Succinate (Metoprolol Succinate ER), 25 MG PO DAILY Multiple Vitamin (Multivitamin), 1 TAB PO DAILY Nifedipine Ext Rel (Procardia Xl Ext Rel), 60 MG PO DAILY Omeprazole (Prilosec), 20 MG PO DAILY Prednisone (Prednisone), 10 MG PO DAILY Tiotropium [place] (Spiriva Respimat), 2 PUFF INH DAILY Current Inpatient Medications Current Inpatient Medications Medications (Trade) Dose Ordered Sig/Chely Route Start Time Stop Time Status Last Admin Dose Admin Clopidogrel Bisulfate (plAVix TAB) 75 mg QAM PO 11/12/17 09:00 12/12/17 08:59 11/12/17 08:39 75 MG Furosemide (Lasix Tab) 20 mg DAILY PO 11/12/17 09:00 12/12/17 08:59 11/12/17 08:39 20 MG Latanoprost (Xalatan Oph Soln) 1 drops HS OP 11/12/17 21:00 12/12/17 20:59 Levothyroxine Sodium (Synthroid Tab) 75 mcg DAILYBB PO 11/12/17 11:00 12/12/17 10:59 Metoprolol Succinate (Toprol Xl Tab) 25 mg DAILY PO 11/12/17 09:00 12/12/17 08:59 11/12/17 08:41 25 MG Nifedipine (Procardia Xl Tab) 60 mg DAILY PO 11/12/17 09:00 12/12/17 08:59 11/12/17 08:40 60 MG Prednisone (PredniSONE TAB) 10 mg DAILY PO 11/12/17 09:00 12/12/17 08:59 11/12/17 08:39 10 MG Enalapril Maleate (Vasotec Tab) 40 mg DAILY PO 11/12/17 09:00 12/12/17 08:59 11/12/17 08:42 40 MG Miscellaneous Information (Order Awaiting Action) 1 ea QS N/A 11/12/17 08:00 12/12/17 07:59 Pantoprazole Sodium (Protonix Tab) 40 mg QAM PO 11/12/17 09:00 12/12/17 08:59 11/12/17 08:40 40 MG Tiotropium [place] (Spiriva Handihaler Inhaler) 1 puff QAM INH 11/12/17 09:00 12/12/17 08:59 11/12/17 08:38 1 PUFF Acetaminophen (Tylenol Tab) 650 mg Q4H PRN PO 11/11/17 23:15 12/11/17 23:14 Al Hydrox/Mg Hydrox/Simethicone (Maalox Max Susp) 15 ml Q4H PRN PO 11/11/17 23:15 12/11/17 23:14 Magnesium Hydroxide (Milk Of Magnesia Susp) 30 ml Q6H PRN PO 11/11/17 23:15 12/11/17 23:14 Polyethylene (Miralax Powder Packet) 17 gm DAILY PRN PO 11/11/17 23:15 12/11/17 23:14 Ondansetron HCl (Zofran Inj) 4 mg Q6H PRN IV 11/11/17 23:15 12/11/17 23:14 Heparin Sodium (Porcine) (Heparin Sq 5000 Unit/0.5ml) 5,000 unit Q12 SQ 11/12/17 09:00 12/12/17 08:59 11/12/17 09:05 5,000 UNIT Morphine Sulfate (MoRPHine SULFATE INJ) 2 mg Q3H PRN IV 11/11/17 23:45 11/25/17 23:44 Tramadol HCl (Ultram Tab) 50 mg Q4H PRN PO 11/11/17 23:45 12/11/17 23:44 Miscellaneous (Iv Fluids Completed) 1 ea PRN PRN N/A 11/11/17 23:45 11/11/18 23:44 Sodium Chloride 1,000 ml @ 75 mls/hr [id number] IV 11/12/17 10:00 12/12/17 09:59 11/12/17 10:15 75 MLS/HR Review of Systems Constitutional: No fever, No chills Physical Exam Date Time Temp Pulse Resp B/P (MAP) Pulse Ox O2 Delivery O2 Flow Rate FiO2 11/12/17 07:53 36.6 86 16 142/77 (98) 94 Room Air 11/12/17 07:30 Nasal Cannula 2.0 11/12/17 01:00 36.7 87 14 151/70 Nasal Cannula 2.0 11/12/17 00:00 Nasal Cannula 2.0 11/11/17 23:45 36.7 87 14 151/70 (97) 95 Nasal Cannula 2.0 11/11/17 23:36 68 16 151/72 99 11/11/17 22:40 84 11/11/17 22:39 84 18 138/69 98 Nasal Cannula 2.0 11/11/17 21:12 83 18 137/84 99 Nasal Cannula 2.0 11/11/17 18:10 36.8 86 16 162/82 100 Nasal Cannula 2.0 Right hip: Tenderness to palpation over the greater trochanter. Well-healed surgical scars. No erythema. No pain with rotation of the leg. Distally neurovascularly intact. Negative Homans. Left hip: No pain with internal/external rotation hip. She's tender to palpation along the pubis particularly to the left side. No erythema. Distally neurovascularly intact. General Appearance: WD/WN Head: normocephalic Eyes: normal inspection Neck: supple Respiratory/Chest: chest non-tender Cardiovascular: no edema Laboratory Results Last 24 Hours Test 11/11/17 20:35 11/11/17 21:10 11/12/17 07:53 White Blood Count 15.68 K/uL 13.59 K/uL Red Blood Count 4.37 M/uL 4.11 M/uL Hemoglobin 13.2 g/dL 12.1 g/dL Hematocrit 40.3 % 37.8 % Mean Corpuscular Volume 92.2 fL 92.0 fL Mean Corpuscular Hemoglobin 30.2 pg 29.4 pg Mean Corpuscular Hemoglobin Concent 32.8 g/dl 32.0 g/dl Platelet Count 114 K/uL 99 K/uL Mean Platelet Volume 11.3 fL 11.0 fL Neutrophils (%) (Auto) 79.3 % Lymphocytes (%) (Auto) 9.8 % Monocytes (%) (Auto) 9.4 % Eosinophils (%) (Auto) 0.0 % Basophils (%) (Auto) 0.1 % Neutrophils # (Auto) 12.43 K/uL Lymphocytes # (Auto) 1.54 K/uL Monocytes # (Auto) 1.47 K/uL Eosinophils # (Auto) 0.00 K/uL Basophils # (Auto) 0.02 K/uL RDW Standard Deviation 53.2 fL 53.0 fL RDW Coefficient of Variation 15.8 % 15.7 % Immature Granulocyte % (Auto) 1.4 % Immature Granulocyte # (Auto) 0.22 K/uL Prothrombin Time 10.0 SECONDS Prothromb Time International Ratio 1.0 Activated Partial Thromboplast Time 21.4 SECONDS Partial Thromboplastin Ratio 0.8 Sodium Level 137 mmol/L 138 mmol/L Potassium Level 4.0 mmol/L 4.1 mmol/L Chloride Level 100 mmol/L 103 mmol/L Carbon Dioxide Level 32 mmol/L 30 mmol/L Anion Gap 5.0 mmol/L 5.0 mmol/L Blood Urea Nitrogen 37 mg/dl 35 mg/dl Creatinine 1.47 mg/dl 1.35 mg/dl Est Creatinine Clear Calc Drug Dose 15.2 ml/min 17.4 ml/min Estimated GFR () 37.1 41.1 Estimated GFR (Non- 32.0 35.5 BUN/Creatinine Ratio 24.9 25.9 Random Glucose 103 mg/dl 111 mg/dl Calcium Level 9.4 mg/dl 9.3 mg/dl Urine Color YELLOW Urine Appearance CLEAR Urine pH 6.0 Urine Specific [place] 1.014 Urine Protein NEG Urine Glucose (UA) NEG Urine Ketones NEG Urine Occult Blood NEG Urine Nitrite NEG Urine Bilirubin NEG Urine Urobilinogen NEG Urine Leukocyte Esterase NEG Platelet Estimate DECREASED Troponin I 0.022 ng/ml Assessment & Plan Left superior and inferior pubic rami fractures She fell onto the right hip. Previous fixation of the right hip is intact. No fractures in the right side. She did sustain left-sided superior and inferior pubic reamer fractures. She may be weightbearing as tolerated on the left side. She can follow up as an outpatient in 2 weeks for surveillance x-rays.
--- NOTE | 2017-11-12 15:03 | Progress Note ---
Subjective Date of Service: Nov 12, 2017. Subjective Pt evaluation today including: conversation w/ patient, physical exam, chart review, lab review, review of studies, conversation w/ development consultant Pain with manipulation Resting comfortably in bed at this time Awaiting therapy and orthopedic evaluation Problem List Medical Problems: (1) Closed right hip fracture Status: Acute (2) Fall Status: Acute (3) Fall Status: Acute (4) Head injury Status: Acute (5) Hypertension Status: Acute (6) Paresthesia of left arm and leg Status: Acute (7) Pelvis fracture Status: Acute (8) Rib contusion Status: Acute (9) Right wrist fracture Status: Acute (10) Stroke Status: Acute (11) Weakness Status: Acute (12) Weakness Status: Acute (13) Weakness Status: Acute Review of Systems Constitutional: No fever, No chills, No sweats, No weakness Eyes: No worsening of vision, No eye pain, No redness, No discharge ENT: No hearing loss, No unusual epistaxis, No nasal symptoms, No sore throat Respiratory: No cough, No sputum, No wheezing, No shortness of breath Cardiac: No chest pain, No orthopnea, No PND, No edema Abdomen: No pain, No nausea, No vomiting, No diarrhea Musculoskeletal: + joint pain, No muscle pain, No swelling, No calf pain Female : No dysuria, No urinary frequency, No hematuria, No incontinence Neurologic: No memory loss, No paralysis, No weakness, No numbness/tingling Psychiatric: No depression symptoms, No anhedonism, No anxiety, No insomnia Endo: No fatigue, No excessive thirst Skin: No rash, No itch Objective Vital Signs Date Time Temp Pulse Resp B/P (MAP) Pulse Ox O2 Delivery O2 Flow Rate FiO2 11/12/17 07:53 36.6 86 16 142/77 (98) 94 Room Air 11/12/17 07:30 Nasal Cannula 2.0 11/12/17 01:00 36.7 87 14 151/70 Nasal Cannula 2.0 11/12/17 00:00 Nasal Cannula 2.0 11/11/17 23:45 36.7 87 14 151/70 (97) 95 Nasal Cannula 2.0 11/11/17 23:36 68 16 151/72 99 11/11/17 22:40 84 11/11/17 22:39 84 18 138/69 98 Nasal Cannula 2.0 11/11/17 21:12 83 18 137/84 99 Nasal Cannula 2.0 11/11/17 18:10 36.8 86 16 162/82 100 Nasal Cannula 2.0 Physical Exam General Appearance: WD/WN, + mild distress Eyes: normal inspection, PERRL, EOMI, sclerae normal Neck: supple, no adenopathy, thyroid normal, no JVD Respiratory/Chest: chest non-tender, lungs clear, normal breath sounds, no respiratory distress Cardiovascular: regular rate, rhythm, no edema, no gallop, no JVD Abdomen: normal bowel sounds, non tender, soft, no organomegaly Neurologic/Psychiatric: no motor/sensory deficits, alert, normal mood/affect, oriented x 3 Laboratory Results Last 24 Hours Test 11/11/17 20:35 11/11/17 21:10 11/12/17 07:53 White Blood Count 15.68 K/uL 13.59 K/uL Red Blood Count 4.37 M/uL 4.11 M/uL Hemoglobin 13.2 g/dL 12.1 g/dL Hematocrit 40.3 % 37.8 % Mean Corpuscular Volume 92.2 fL 92.0 fL Mean Corpuscular Hemoglobin 30.2 pg 29.4 pg Mean Corpuscular Hemoglobin Concent 32.8 g/dl 32.0 g/dl Platelet Count 114 K/uL 99 K/uL Mean Platelet Volume 11.3 fL 11.0 fL Neutrophils (%) (Auto) 79.3 % Lymphocytes (%) (Auto) 9.8 % Monocytes (%) (Auto) 9.4 % Eosinophils (%) (Auto) 0.0 % Basophils (%) (Auto) 0.1 % Neutrophils # (Auto) 12.43 K/uL Lymphocytes # (Auto) 1.54 K/uL Monocytes # (Auto) 1.47 K/uL Eosinophils # (Auto) 0.00 K/uL Basophils # (Auto) 0.02 K/uL RDW Standard Deviation 53.2 fL 53.0 fL RDW Coefficient of Variation 15.8 % 15.7 % Immature Granulocyte % (Auto) 1.4 % Immature Granulocyte # (Auto) 0.22 K/uL Prothrombin Time 10.0 SECONDS Prothromb Time International Ratio 1.0 Activated Partial Thromboplast Time 21.4 SECONDS Partial Thromboplastin Ratio 0.8 Sodium Level 137 mmol/L 138 mmol/L Potassium Level 4.0 mmol/L 4.1 mmol/L Chloride Level 100 mmol/L 103 mmol/L Carbon Dioxide Level 32 mmol/L 30 mmol/L Anion Gap 5.0 mmol/L 5.0 mmol/L Blood Urea Nitrogen 37 mg/dl 35 mg/dl Creatinine 1.47 mg/dl 1.35 mg/dl Est Creatinine Clear Calc Drug Dose 15.2 ml/min 17.4 ml/min Estimated GFR () 37.1 41.1 Estimated GFR (Non- 32.0 35.5 BUN/Creatinine Ratio 24.9 25.9 Random Glucose 103 mg/dl 111 mg/dl Calcium Level 9.4 mg/dl 9.3 mg/dl Urine Color YELLOW Urine Appearance CLEAR Urine pH 6.0 Urine Specific [place] 1.014 Urine Protein NEG Urine Glucose (UA) NEG Urine Ketones NEG Urine Occult Blood NEG Urine Nitrite NEG Urine Bilirubin NEG Urine Urobilinogen NEG Urine Leukocyte Esterase NEG Platelet Estimate DECREASED Troponin I 0.022 ng/ml Assessment and Plan 87 y/o F 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 Was tending to her laundry when she slipped and fell on her R side - presented to the ER c/o pain in her hip and ribs. Initial imaging confirms R superior and inferior pelvic rami fractures. She denies any symptoms preceding her fall such as lightheadedness, palpitations, CP or SOB. Pelvic fracture - pt will likely need rehab as she normally maintains independence. She will be evaluated by orthopedics and can then be evaluated by PT/OT for disposition. Can advance diet at this time COPD - does not c/o SOB above baseline - remains on 02 protocol with prescribed inhalers. EKG changes are apparent - may represent progression of her lung disease - no evidence of ACS, fall was mechanical CKD stage 3 - at baseline Low platelets on initial labs - will trend AM Hypothyroid - cont Synthroid Full code - Heparin prophylaxis
[2017-11-12 15:56] VITALS: BP 129/74; PULSE 79; TEMP 36.3; O2SAT 94
[2017-11-12 16:10] VITALS: O2SAT 94; Ht 149.9 cm; Wt 36.9 kg
[2017-11-12] MEDS: TRAMADOL HCL 50 MG TAB PO PRN (17:58)
[2017-11-12] MEDS ORDERED: LATANOPROST 0.005% OP SOLN 2.5 ML BTL OP SCH (21:00)
[2017-11-12 23:11] VITALS: BP 116/68; PULSE 71; TEMP 36.9; O2SAT 98
[2017-11-13] MEDS: TRAMADOL HCL 50 MG TAB PO PRN ×3 (00:09→09:34)
[2017-11-13] MEDS: LEVOTHYROXINE 75 MCG TAB PO SCH (05:52)
[2017-11-13 07:30] VITALS: BP 110/61; PULSE 81; TEMP 36.5; O2SAT 98
[2017-11-13] MEDS: METOPROLOL SUCC 25MG EXT REL TAB PO SCH (08:39)
[2017-11-13] MEDS: PANTOprazole SOD 40 MG TAB PO SCH (08:39)
[2017-11-13] MEDS: ENALAPRIL MALEATE 10 MG TAB PO SCH (08:39)
[2017-11-13] MEDS: FUROSEMIDE 20 MG TAB PO SCH (08:40)
[2017-11-13] MEDS: NIFEdipine 30 MG CR TAB PO SCH (08:40)
[2017-11-13] MEDS: CLOPIDOGREL BISULFATE 75 MG TAB PO SCH (08:41)
[2017-11-13] MEDS: TIOTROPIUM BROMIDE 5 PUFF/90 MCG INH INH SCH (08:42)
[2017-11-13] MEDS: HEPARIN SOD 5000 UNIT/0.5 ML CARP SQ SCH (08:43)
[2017-11-13 10:38] VITALS: BP 99/56; PULSE 83; O2SAT 95
--- NOTE | 2017-11-13 11:46 | Clinical Documentation Query ---
CLINICAL DOCUMENTATION QUERY 87 year old female who presents to the Emergency Room with complaints of an episode of fall In your clinical opinion is this patient being managed for: ( X ) Traumatic Osteoporotic pelvic fracture in patient with known osteoporosis and prednisone therapy. ( ) Not Agree ( ) Other explanation of clinical findings (Please Explain) ( ) Unable to determine (Please Define) ( ) Need to Discuss The medical record reflects the following clinical findings, treatment, and risk factors. Clinical Indicators: 87-y/o female, fall from ground level, Imaging stating osteopenia. Treatment: ortho consult, PT/OT, Risk Factors: underlying osteoporosis, age, sex, and home prednisone therapy. Please clarify and document your clinical opinion in the progress notes and discharge summary. Terms such as "probable", "suspected", "likely", "questionable", "possible", or "still to be ruled out" are acceptable. IF IN AGREEMENT, YOU MUST DOCUMENT ABOVE DIAGNOSTIC STATEMENT IN DAILY PROGRESS NOTES AND DISCHARGE SUMMARY. This document is not part of the patient's record. Thank You, Zack Baker, RN [phone]
[2017-11-13] MEDS: SODIUM CHLORIDE 0.9% 1000ML 1,000 ML IV SCH (13:49)
[2017-11-13] MEDS ORDERED: ULT50X PO (14:37)
--- NOTE | 2017-11-13 14:41 | Discharge Instructions ---
Discharge Instructions Date of Service Nov 13, 2017. Admission Reason for Admission: Pelvic Fracture Discharge Discharge Diagnosis / Problem: Pelvic fracture Discharge Goals Goal(s): Decrease discomfort, Improve function, Increase independence, Improve disease control, Learn about illness, Diagnostic testing, Therapeutic intervention, Prevent Disease Progression Activity Recommendations Activity Limitations: resume your previous activity . Instructions / Follow-Up Instructions / Follow-Up Patient to be discharged to [facility] Patient sustained fall with hip fracture Pain controlled on ultram, prescription sent to pharmacy She may be weightbearing as tolerated on the left side. She can follow up as an outpatient in 2 weeks for surveillance x-rays. Continue all home medications If worsening pain, shortness of breath or chest pain please report to ER Current Hospital Diet Patient's current hospital diet: Regular Diet Discharge Diet Recommended Diet: Regular Diet Pending Studies Studies pending at discharge: no Medical Emergencies . Who to Call and When: Medical Emergencies: If at any time you feel your situation is an emergency, please call 911 immediately. . Non-Emergent Contact Non-Emergency issues call your: Primary Care Provider Call Non-Emergent contact if: you have any medication questions . . "Provider Documentation" section prepared by Jake Du. . VTE Core Measure Inpt VTE Proph given/why not?: Unfractionated heparin SQ
--- NOTE | 2017-11-13 14:56 | Discharge Summary ---
Discharge Summary Date of Service Nov 13, 2017. Discharge Summary Admission Date: Nov 12, 2017 at 09:14 Discharge Date: Nov 13, 2017 Discharge Disposition: Home Principal Diagnosis: Hip fracture Immunizations: Have You Had Influenza Vaccine: Unknown History of Tetanus Vaccine?: Unknown History of Pneumococcal: Unknown History of Hepatitis B Vaccine: Unknown Consultations: Orthopedic surgery Medication Reconciliation New Medications: Tramadol HCl (Tramadol HCl) 50 Mg Tab 50 MG PO Q4H PRN for Pain, #30 TAB Continued Medications: Benazepril (Lotensin) 40 Mg Tab 40 MG PO DAILY Clopidogrel Bisulfate (Clopidogrel) 75 Mg Tab 75 MG PO QAM for 30 Days, #30 TAB Fluticasone Furoate-Vilanterol (Breo Ellipta) 1 Inh Inh 1 INHA INH DAILY Furosemide (Lasix) 20 Mg Tab 20 MG PO DAILY Home O2 Therapy (Oxygen) Gas 2 LITERS NA CONTINOUS for 30 Days Latanoprost (Xalatan 0.005% Oph Brenda) 0.005 % Brenda 1 DROPS OP HS, #7.5 ML 3 Refills Levothyroxine Sodium (Levothyroxine Sodium) 75 Mcg Tab 75 MCG PO DAILY, #30 Metoprolol Succinate (Metoprolol Succinate ER) 25 Mg Tabcr 25 MG PO DAILY, #30 Multiple Vitamin (Multivitamin) 1 Tab Tab 1 TAB PO DAILY, TAB Nifedipine Ext Rel (Procardia Xl Ext Rel) 60 Mg Tabcr 60 MG PO DAILY, TAB Omeprazole (Prilosec) 20 Mg Capcr 20 MG PO DAILY, CAP Prednisone (Prednisone) 5 Mg Tab 10 MG PO DAILY, TAB Tiotropium [place] (Spiriva Respimat) 2.5 Mcg/Act Spr 2 PUFF INH DAILY, INHALER Discharge Exam Review of Systems: Constitutional: No fever, No chills, No sweats, No weakness ENT: No hearing loss, No unusual epistaxis, No nasal symptoms, No sore throat Respiratory: No cough, No sputum, No wheezing, No shortness of breath Cardiovascular: No chest pain, No orthopnea, No PND, No edema Abdomen: No pain, No nausea, No vomiting, No diarrhea Musculoskeletal: + joint pain, No muscle pain, No swelling, No calf pain Genitourinary - Female: No dysuria, No urinary frequency, No urinary urgency , No urinary incontinence Neurologic: No memory loss, No paralysis, No weakness, No numbness/tingling Psychiatric: No depression symptoms, No anhedonism, No anxiety Endocrine: No fatigue, No excessive thirst, No excessive urination Integumentary: No rash Physical Exam: General Appearance: WD/WN, no apparent distress Eyes: normal inspection, PERRL, EOMI, sclerae normal Neck: supple, no adenopathy, thyroid normal, no JVD Respiratory/Chest: chest non-tender, lungs clear, normal breath sounds, no respiratory distress Cardiovascular: regular rate, rhythm, no edema, no gallop, no JVD Abdomen / GI: normal bowel sounds, non tender, soft, no organomegaly Extremities: normal inspection, no calf tenderness, normal capillary refill , no pedal edema Neurologic/Psychiatric: no motor/sensory deficits, alert, normal mood/affect , oriented x 3 Skin: normal color, warm/dry, no rash Lymphatic: no adenopathy Hospital Course 87 y/o F 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 Was tending to her laundry when she slipped and fell on her R side - presented to the ER c/o pain in her hip and ribs. Initial imaging confirms R superior and inferior pelvic rami fractures. She denies any symptoms preceding her fall such as lightheadedness, palpitations, CP or SOB. Pelvic fracture - pt will likely need rehab as she normally maintains independence. Appreciate orthopedic recs. No surgical intervention at this time. pt pain controlled on ultram, continue on DC. Ok to go to [facility] to continue rehab therapy COPD - does not c/o SOB above baseline - remains on 02 protocol with prescribed inhalers. EKG changes are apparent - may represent progression of her lung disease - no evidence of ACS, fall was mechanical CKD stage 3 - at baseline Low platelets on initial labs - will trend AM Hypothyroid - cont Synthroid Full code - Heparin prophylaxis Total Time Spent: Greater than 30 minutes This includes examination of the patient, discharge planning, medication reconciliation, and communication with other providers. Discharge Instructions Please refer to the electronic Patient Visit Report (Discharge Instructions) for additional information. Additional Copies To Sweetie Calero DO
[2017-11-13 15:04] VITALS: BP 144/62; PULSE 83; TEMP 36.4; O2SAT 98
[2017-11-13 15:05] VITALS: BP 144/62; PULSE 83; TEMP 36.4; O2SAT 98
== END 2017-11-13 15:30 | DRG 544 ==
LOC: C.EDB 18:01 → C.MSN 23:16 → ENRESERV 23:29 → OBSVTOIN 11-12 09:14
PROVIDERS: ADMIT Internal Medicine; ATTEND Hospitalist
DX: M80.052A Age-related osteoporosis with current pathological fracture, left femur, initial encounter for fracture (principal); I12.9 Hypertensive chronic kidney disease with stage 1 through stage 4 chronic kidney disease, or unspecified chronic kidney disease; N18.3 Chronic kidney disease, stage 3 (moderate); E03.9 Hypothyroidism, unspecified; E78.5 Hyperlipidemia, unspecified; J44.9 Chronic obstructive pulmonary disease, unspecified; Z79.52 Long term (current) use of systemic steroids; Z79.899 Other long term (current) drug therapy; Z87.891 Personal history of nicotine dependence; Z99.81 Dependence on supplemental oxygen; W01.0XXA Fall on same level from slipping, tripping and stumbling without subsequent striking against object, initial encounter; Z79.02 Long term (current) use of antithrombotics/antiplatelets

== ENCOUNTER 2017-12-14 10:41 | Emergency (ER) | payer BC, OTHER ==
[~2017-12-14] VITALS: Ht 142.2 cm; Wt 33.7 kg
[~2017-12-14 10:41] MED LIST changes: +PRED-301 PO; +PRLSR20 PO; +ULT50X PO
[2017-12-14 10:47] VITALS: TEMP 37
[2017-12-14] MEDS ORDERED: MoRPHine SULFATE 4 MG/ML 1 ML CARP\\VIAL IV STA (12:15)
[2017-12-14] MEDS ORDERED: ONDANSETRON INJ 2 MG/ML 2 ML VIAL IV STA (12:15)
[2017-12-14] MEDS ORDERED: NIFE30TA83 PO (12:19)
--- NOTE | 2017-12-14 12:37 | EMERGENCY ROOM VISIT NOTE ---
History Report prepared by Manny: Miah Go Under the Supervision of: Dr. Pepe Britt M.D. First contact with patient: 12:12 Chief Complaint: WEAKNESS Stated Complaint: BACK/HIP PAIN Nursing Triage Summary: pt arrives via BLS per BLS pt was released from [facility] 2 weeks ago for bilateral Hip/Pelvic fractures she was doing well and had home Physical Therapy and Nursing she reports today she has had increased weakness, pain, and tingling in the left leg she reports "sometimes I get the shakes so bad because of pain, I cant pee because of the pain." pt also reports unable to move and reposition self "I couldnt get to my medications this morning." History of Present Illness The patient is an 87 year old female who presents to the Emergency Room with complaints of worsening pain in her left buttock and hamstring that she first noticed yesterday. She also notes that she has significant weakness in the left lower extremity and could not support her own weight to stand today. Yesterday there was some associated numbness in the left foot as well. The patient currently has a broken pelvis secondary to a falling episode that occurred two weeks ago. She notes that she fell backward onto a concrete floor in her basement. This episode occurred two weeks ago, and the patient was placed in rehabilitation treatment afterward. Since her pelvic fracture occurred she has had pain in the right buttock, but the pain on the left was new as of yesterday. 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 A total of 10 systems reviewed and were otherwise negative. Past Medical & Surgical Medical Problems: (1) Dog bite of left lower leg with infection (2) Emphysema of lung (3) HTN (hypertension) (4) Intertrochanteric fracture of right hip (5) Pelvic fracture (6) Stroke-like symptoms (7) Vulva cancer Family History Cancer Hypertension Kidney disease Lung disease Social History Smoking Status: Never Smoker Drug Use: none Marital Status: Housing Status: lives alone Occupation Status: retired Current/Historical Medications Scheduled Benazepril (Lotensin), 40 MG PO DAILY Clopidogrel Bisulfate (Clopidogrel), 75 MG PO QAM Fluticasone Furoate-Vilanterol (Breo Ellipta), 1 INHA INH DAILY Furosemide (Lasix), 20 MG PO DAILY Home O2 Therapy (Oxygen), 2 LITERS NA CONTINOUS Latanoprost (Xalatan 0.005% Oph Brenda), 1 DROPS OP HS Levothyroxine Sodium (Levothyroxine Sodium), 75 MCG PO DAILY Metoprolol Succinate (Metoprolol Succinate ER), 25 MG PO DAILY Multiple Vitamin (Multivitamin), 1 TAB PO DAILY Nifedipine Ext Rel (Procardia Xl Ext Rel), 30 MG PO DAILY Omeprazole (Prilosec), 20 MG PO DAILY Prednisone (Prednisone), 10 MG PO DAILY Tiotropium [place] (Spiriva Respimat), 2 PUFF INH DAILY Scheduled PRN Tramadol HCl (Tramadol HCl), 50 MG PO Q4H PRN for Pain Allergies Coded Allergies: No Known Allergies (Verified , 12/14/17) Physical Exam Vital Signs Date Time Temp Pulse Resp B/P (MAP) Pulse Ox O2 Delivery O2 Flow Rate FiO2 12/14/17 17:01 82 16 192/83 100 Nasal Cannula 2.0 12/14/17 15:22 86 16 205/107 100 Nasal Cannula 2.0 12/14/17 14:09 60 12/14/17 13:59 77 12/14/17 13:41 80 16 188/99 99 Nasal Cannula 2.0 12/14/17 12:51 77 16 199/83 98 Nasal Cannula 2.0 66 166/74 101 145/72 12/14/17 12:44 100 Room Air 2.0 12/14/17 12:44 100 Room Air 2.0 12/14/17 12:05 65 16 199/83 100 Room Air 12/14/17 10:47 37.0 75 16 211/118 100 Nasal Cannula 2.0 Physical Exam GENERAL: Patient is a healthy-appearing well-nourished female HEAD: Normocephalic atraumatic EYES: Ocular movements intact pupils equal and react to light OROPHARYNX mucous membranes are moist no exudates present no erythema or edema present NECK: Supple no nuchal rigidity CHEST: Good equal expansion LUNGS: Clear and equal to auscultation CARDIAC: Normal S1 and S2 ABDOMEN: Soft nontender no guarding BACK: No CVA tenderness EXTREMITIES: The patient is neurovascularly intact bilaterally at the lower extremities. She is tender over the left him area. There is 4/5 strength in the left lower extremities. NEURO: Patient is following commands and answering questions appropriately. Alert and oriented x3 Cranial Nerves 2-12 grossly intact Medical Decision & Procedures ER Provider Diagnostic Interpretation: Radiology results as stated below per my review and radiologist interpretation: CHEST ONE VIEW PORTABLE HISTORY: 87 years-old Female Pt c/o hip pain acute hip and atypical chest pain status post fall COMPARISON: Chest radiographs 11/11/2017, chest radiograph 07/29/2017 TECHNIQUE: Portable AP view of the chest FINDINGS: Cardiac silhouette is within normal limits in size. Atherosclerosis of the aorta. Linear subsegmental right perihilar opacity suggests atelectasis or scarring. There is no pneumothorax, pleural effusion, focal airspace consolidation or overt pulmonary edema. Emphysema with hyperinflation. Subacute to chronic appearing nondisplaced fracture of the posterior lateral left ninth rib. IMPRESSION: 1. Emphysema without acute process of the chest. 2. Subacute to chronic appearing nondisplaced fracture of the posterior lateral left 10th rib. The above report was generated using voice recognition software. It may contain grammatical, syntax or spelling errors. Electronically signed by: Juan Gamble M.D. 12/14/2017 1:12 PM Dictated Date/Time: 12/14/2017 1:09 PM L FEMUR 2 VIEWS ROUTINE CLINICAL HISTORY: Pt c/o left hip pain pain COMPARISON: None. DISCUSSION: The bones and joint spaces appear intact. There is no evidence of fracture, dislocation or bony disease. Moderate generalized degenerative change. IMPRESSION: No acute process of the femur. The above report was generated using voice recognition software. It may contain grammatical, syntax or spelling errors. Electronically signed by: Brayan Hirsch M.D. 12/14/2017 1:44 PM Dictated Date/Time: 12/14/2017 1:43 PM R FEMUR 2 VIEWS ROUTINE CLINICAL HISTORY: Pt c/o Rt hip pain COMPARISON: 11/11/2017 DISCUSSION: Interval development of a fracture of the right inferior pubic ring. Remainder the right femur is remarkable for prior nailing type procedure. Moderate degenerative change is present. No evidence for acetabular protrusion. There is no evidence for soft tissue swelling. Probable cortical fracture posterior margin mid patella right knee. IMPRESSION: 1. Nondisplaced fracture right inferior pubic ring. 2. Fracture left pubic ring is not seen in these images at the area was not imaged on this examination or of the left hip. 3. Probable nondisplaced fracture posterior aspect mid patella of the right knee. The above report was generated using voice recognition software. It may contain grammatical, syntax or spelling errors. Electronically signed by: Brayan Hirsch M.D. 12/14/2017 1:47 PM Dictated Date/Time: 12/14/2017 1:45 PM PELVIS 1 OR 2 VIEW ROUTINE HISTORY: 87 years-old Female Pt c/o pelvic fx acute pelvic pain. Follow-up study to assess left pelvic ring fracture COMPARISON: Pelvic radiographs 11/11/2017 TECHNIQUE: Single AP view of the pelvis FINDINGS: There is mild progressive healing callus formation surrounding nondisplaced subacute inferior left pubic ramus and mildly displaced subacute superior right pubic rami fractures. The superior pubic ramus fracture extends into the pubic symphysis. Additionally, there appears to be a healing subacute nondisplaced fracture of the right inferior pubic ramus. No acute fracture identified. Intramedullary nail of the right femur. Moderate degenerative changes of the bilateral hips. Remote fracture of the right lesser trochanter. Vascular calcifications are noted. IMPRESSION: 1. Unchanged alignment with mild healing callus formation involves the left superior and inferior pubic rami fractures. 2. Healing subacute nondisplaced fracture of the right inferior pubic ramus. The above report was generated using voice recognition software. It may contain grammatical, syntax or spelling errors. Electronically signed by: Juan Gamble M.D. 12/14/2017 1:49 PM Dictated Date/Time: 12/14/2017 1:45 PM Laboratory Results 12/14/17 13:16 Red Blood Count 4.36, Mean Corpuscular Volume 95.0, Mean Corpuscular Hemoglobin 29.8, Mean Corpuscular Hemoglobin Concent 31.4, Mean Platelet Volume 10.7, Neutrophils (%) (Auto) 71.9, Lymphocytes (%) (Auto) 17.9, Monocytes (%) (Auto) 7.7, Eosinophils (%) (Auto) 1.0, Basophils (%) (Auto) 0.5, Neutrophils # (Auto) 7.38, Lymphocytes # (Auto) 1.84, Monocytes # (Auto) 0.79, Eosinophils # (Auto) 0.10, Basophils # (Auto) 0.05 12/14/17 13:16 Test 12/14/17 13:16 White Blood Count 10.26 K/uL (4.8-10.8) Red Blood Count 4.36 M/uL (4.2-5.4) Hemoglobin 13.0 g/dL (12.0-16.0) Hematocrit 41.4 % (37-47) Mean Corpuscular Volume 95.0 fL (80-100) Mean Corpuscular Hemoglobin 29.8 pg (25-34) Mean Corpuscular Hemoglobin Concent 31.4 g/dl (32-36) Platelet Count 169 K/uL (130-400) Mean Platelet Volume 10.7 fL (7.4-10.4) Neutrophils (%) (Auto) 71.9 % Lymphocytes (%) (Auto) 17.9 % Monocytes (%) (Auto) 7.7 % Eosinophils (%) (Auto) 1.0 % Basophils (%) (Auto) 0.5 % Neutrophils # (Auto) 7.38 K/uL (1.4-6.5) Lymphocytes # (Auto) 1.84 K/uL (1.2-3.4) Monocytes # (Auto) 0.79 K/uL (0.11-0.59) Eosinophils # (Auto) 0.10 K/uL (0-0.5) Basophils # (Auto) 0.05 K/uL (0-0.2) RDW Standard Deviation 51.9 fL (36.4-46.3) RDW Coefficient of Variation 15.0 % (11.5-14.5) Immature Granulocyte % (Auto) 1.0 % Immature Granulocyte # (Auto) 0.10 K/uL (0.00-0.02) Anion Gap 3.0 mmol/L (3-11) Est Creatinine Clear Calc Drug Dose 14.0 ml/min Estimated GFR () 35.3 Estimated GFR (Non- 30.5 BUN/Creatinine Ratio 25.6 (10-20) Calcium Level 9.3 mg/dl (8.5-10.1) Total Bilirubin 0.7 mg/dl (0.2-1) Direct Bilirubin 0.2 mg/dl (0-0.2) Aspartate Amino Transf (AST/SGOT) 15 U/L (15-37) Alanine Aminotransferase (ALT/SGPT) 16 U/L (12-78) Alkaline Phosphatase 161 U/L (45-117) Total Protein 6.4 gm/dl (6.4-8.2) Albumin 3.1 gm/dl (3.4-5.0) Thyroid Stimulating Hormone (TSH) 1.500 uIu/ml (0.300-4.500) Labs reviewed by ED physician. Medications Administered Medications (Trade) Dose Ordered Sig/Chely Route Start Time Stop Time Status Last Admin Dose Admin Morphine Sulfate (MoRPHine SULFATE INJ) 4 mg NOW STAT IV 12/14/17 12:15 12/14/17 12:17 DC 12/14/17 12:51 4 MG Ondansetron HCl (Zofran Inj) 4 mg NOW STAT IV 12/14/17 12:15 12/14/17 12:17 DC 12/14/17 12:51 4 MG ECG Indication: weakness Rate (beats per minute): 82 Rhythm: normal sinus Findings: no acute ischemic change, no ectopy Change: Patient's electrocardiogram per my interpretation. ED Course 1213: Past medical records reviewed. The patient was evaluated in room C2. A complete history and physical examination was performed. 1215: Ordered Zofran 4 mg IV, Morphine Sulfate 4 mg IV. 1643: The patient is able to go to [facility] if they insurance works out correctly and they receive the weight baring status of the left knee and pelvis. 1744: The patient has been accepted to [facility] at this time. Medical Decision Differential diagnosis: Etiologies such as metabolic, infection, hypo/hyperglycemia, electrolyte abnormalities, cardiac sources, intracerebral event, toxicologic, neurologic, as well as others were entertained. This is an 87-year-old female that presents emergency department complaining of increasing pelvic pain. The patient was sent for x-rays of her pelvis and femur. This did not show any acute fractures. She was given morphine here in the emergency department. Patient was evaluated by physical therapy as well as occupational therapy. I do believe the patient is a good candidate for rehabilitation therefore she was discussed with case management discussed the case with Shania Flores. Patient was accepted there. Patient was in agreement with the treatment plan. Medication Reconcilliation Current Medication List: was personally reviewed by me Blood Pressure Screening Patient's blood pressure: Elevated blood pressure Will be followed Impression Primary Impression: Pelvic fracture Scribe Attestation The scribe's documentation has been prepared under my direction and personally reviewed by me in its entirety. I confirm that the note above accurately reflects all work, treatment, procedures, and medical decision making performed by me. Departure Information Dispostion Transfer Acute Care Facility ([facility]) Referrals Sweetie Calero DO (PCP) Patient Instructions My [facility] Problem Qualifiers Primary Impression: Pelvic fracture Encounter type: subsequent encounter Pelvic bone location: multiple parts Fracture type: closed Fracture alignment: without disruption of pelvic ring Fracture healing: with delayed healing Qualified Codes: S32.82XG - Multiple fractures of pelvis without disruption of pelvic ring, subsequent encounter for fracture with delayed healing
[2017-12-14 12:44] VITALS: O2SAT 100; Ht 142.2 cm; Wt 33.7 kg
--- NOTE | 2017-12-14 13:13 | DIAGNOSTIC IMAGING REPORT ---
CHEST ONE VIEW PORTABLE HISTORY: 87 years-old Female Pt c/o hip pain acute hip and atypical chest pain status post fall COMPARISON: Chest radiographs 11/11/2017, chest radiograph 07/29/2017 TECHNIQUE: Portable AP view of the chest FINDINGS: Cardiac silhouette is within normal limits in size. Atherosclerosis of the aorta. Linear subsegmental right perihilar opacity suggests atelectasis or scarring. There is no pneumothorax, pleural effusion, focal airspace consolidation or overt pulmonary edema. Emphysema with hyperinflation. Subacute to chronic appearing nondisplaced fracture of the posterior lateral left ninth rib. IMPRESSION: 1. Emphysema without acute process of the chest. 2. Subacute to chronic appearing nondisplaced fracture of the posterior lateral left 10th rib. The above report was generated using voice recognition software. It may contain grammatical, syntax or spelling errors. Electronically signed by: Juan Gamble M.D. 12/14/2017 1:12 PM Dictated Date/Time: 12/14/2017 1:09 PM
[2017-12-14 13:39] LABS: BASO % 0.5 %; BASO ABS # 0.05 K/uL (0-0.2); HEMATOCRIT 41.4 % (37-47); LYMPH % 17.9 %; LYMPH ABS # 1.84 K/uL (1.2-3.4); MEAN CORPUSCULAR HEMOGLOBIN 29.8 pg (25-34); MEAN CORPUSCULAR HGB CONC 31.4 g/dl (32-36); MEAN PLATELET VOLUME 10.7 fL (7.4-10.4); MONO % 7.7 %; MONO ABS # 0.79 K/uL (0.11-0.59); NEUT % 71.9 %; NEUT ABS # 7.38 K/uL (1.4-6.5); PLATELET COUNT 169 K/uL (130-400); RED CELL DISTRIBUTION WIDTH SD 51.9 fL (36.4-46.3); WHITE BLOOD COUNT 10.26 K/uL (4.8-10.8)
--- NOTE | 2017-12-14 13:46 | DIAGNOSTIC IMAGING REPORT ---
L FEMUR 2 VIEWS ROUTINE CLINICAL HISTORY: Pt c/o left hip pain pain COMPARISON: None. DISCUSSION: The bones and joint spaces appear intact. There is no evidence of fracture, dislocation or bony disease. Moderate generalized degenerative change. IMPRESSION: No acute process of the femur. The above report was generated using voice recognition software. It may contain grammatical, syntax or spelling errors. Electronically signed by: Brayan Hirsch M.D. 12/14/2017 1:44 PM Dictated Date/Time: 12/14/2017 1:43 PM
--- NOTE | 2017-12-14 13:49 | DIAGNOSTIC IMAGING REPORT ---
R FEMUR 2 VIEWS ROUTINE CLINICAL HISTORY: Pt c/o Rt hip pain COMPARISON: 11/11/2017 DISCUSSION: Interval development of a fracture of the right inferior pubic ring. Remainder the right femur is remarkable for prior nailing type procedure. Moderate degenerative change is present. No evidence for acetabular protrusion. There is no evidence for soft tissue swelling. Probable cortical fracture posterior margin mid patella right knee. IMPRESSION: 1. Nondisplaced fracture right inferior pubic ring. 2. Fracture left pubic ring is not seen in these images at the area was not imaged on this examination or of the left hip. 3. Probable nondisplaced fracture posterior aspect mid patella of the right knee. The above report was generated using voice recognition software. It may contain grammatical, syntax or spelling errors. Electronically signed by: Brayan Hirsch M.D. 12/14/2017 1:47 PM Dictated Date/Time: 12/14/2017 1:45 PM
--- NOTE | 2017-12-14 13:50 | DIAGNOSTIC IMAGING REPORT ---
PELVIS 1 OR 2 VIEW ROUTINE HISTORY: 87 years-old Female Pt c/o pelvic fx acute pelvic pain. Follow-up study to assess left pelvic ring fracture COMPARISON: Pelvic radiographs 11/11/2017 TECHNIQUE: Single AP view of the pelvis FINDINGS: There is mild progressive healing callus formation surrounding nondisplaced subacute inferior left pubic ramus and mildly displaced subacute superior right pubic rami fractures. The superior pubic ramus fracture extends into the pubic symphysis. Additionally, there appears to be a healing subacute nondisplaced fracture of the right inferior pubic ramus. No acute fracture identified. Intramedullary nail of the right femur. Moderate degenerative changes of the bilateral hips. Remote fracture of the right lesser trochanter. Vascular calcifications are noted. IMPRESSION: 1. Unchanged alignment with mild healing callus formation involves the left superior and inferior pubic rami fractures. 2. Healing subacute nondisplaced fracture of the right inferior pubic ramus. The above report was generated using voice recognition software. It may contain grammatical, syntax or spelling errors. Electronically signed by: Juan Gamble M.D. 12/14/2017 1:49 PM Dictated Date/Time: 12/14/2017 1:45 PM
[2017-12-14 14:01] LABS: ALBUMIN 3.1 gm/dl (3.4-5.0); CALCIUM 9.3 mg/dl (8.5-10.1); CREATININE 1.53 mg/dl (0.60-1.20); POTASSIUM 3.6 mmol/L (3.5-5.1)
[2017-12-14 14:11] LABS: TOTAL PROTEIN 6.4 gm/dl (6.4-8.2)
[2017-12-14 15:27] VITALS: BP 186/107
[2017-12-14 20:10] VITALS: BP 200/80; PULSE 93; O2SAT 93
== END 2017-12-14 20:11 | disposition short-term general hospital (02) ==
LOC: EDBD 10:41 → C.EDC 10:45
DX: S32.82XG Multiple fractures of pelvis without disruption of pelvic ring, subsequent encounter for fracture with delayed healing (principal); W19.XXXD Unspecified fall, subsequent encounter; W22.8XXD Striking against or struck by other objects, subsequent encounter; I10 Essential (primary) hypertension; J43.9 Emphysema, unspecified; Z85.44 Personal history of malignant neoplasm of other female genital organs; Z82.49 Family history of ischemic heart disease and other diseases of the circulatory system; Z79.02 Long term (current) use of antithrombotics/antiplatelets; Z79.899 Other long term (current) drug therapy

== ENCOUNTER → 2018-01-04 | Outpatient (CLI) | payer BC ==
[~2018-01-04] MED LIST changes: +NIFE30TA83 PO; -NIFE60TA57 PO
[2018-01-04 12:39] LABS: BASO % 0.5 %; BASO ABS # 0.05 K/uL (0-0.2); EOS % 0.8 %; EOS ABS # 0.08 K/uL (0-0.5); HEMATOCRIT 38.1 % (37-47); HEMOGLOBIN 11.8 g/dL (12.0-16.0); IG# 0.11 K/uL (0.00-0.02); LYMPH % 18.8 %; LYMPH ABS # 1.97 K/uL (1.2-3.4); MEAN CELL VOLUME 92.3 fL (80-100); MEAN CORPUSCULAR HEMOGLOBIN 28.6 pg (25-34); MEAN PLATELET VOLUME 10.8 fL (7.4-10.4); MONO % 8.4 %; MONO ABS # 0.88 K/uL (0.11-0.59); NEUT % 70.4 %; NEUT ABS # 7.38 K/uL (1.4-6.5); PLATELET COUNT 200 K/uL (130-400); RED CELL DISTRIBUTION WIDTH CV 14.6 % (11.5-14.5); RED CELL DISTRIBUTION WIDTH SD 49.8 fL (36.4-46.3); WHITE BLOOD COUNT 10.47 K/uL (4.8-10.8)
[2018-01-04 13:31] LABS: ALBUMIN 3.2 gm/dl (3.4-5.0); BLOOD UREA NITROGEN 31 mg/dl (7-18); CALCIUM 9.3 mg/dl (8.5-10.1); CARBON DIOXIDE 27 mmol/L (21-32); CREATININE 1.41 mg/dl (0.60-1.20); GLUCOSE 83 mg/dl (70-99); POTASSIUM 3.9 mmol/L (3.5-5.1); SODIUM 140 mmol/L (136-145)
[2018-01-04 13:43] LABS: PHOSPHORUS 2.4 mg/dl (2.5-4.9)
== END | disposition home or self-care (01) ==
LOC: C.LABPBG 10:02
PROVIDERS: ATTEND Family Medicine
DX: I87.2 Venous insufficiency (chronic) (peripheral) (principal); E03.9 Hypothyroidism, unspecified; N18.3 Chronic kidney disease, stage 3 (moderate)

== ENCOUNTER → 2018-02-08 | Outpatient (CLI) | payer BC ==
[~2018-02-08] MED LIST changes: +ACET-1311 PO; +CLOP1TAB15 PO; +KFL/250 PO; +PRD/25 PO
[2018-02-08 14:51] LABS: CALCIUM 9.3 mg/dl (8.5-10.1)
== END | disposition home or self-care (01) ==
LOC: C.LABPBG 10:47
PROVIDERS: ATTEND Internal Medicine Rheumatology
DX: E03.9 Hypothyroidism, unspecified (principal); M80.00XA Age-related osteoporosis with current pathological fracture, unspecified site, initial encounter for fracture; E55.9 Vitamin D deficiency, unspecified; M35.3 Polymyalgia rheumatica

== ENCOUNTER 2018-02-16 11:08 | Emergency (ER) | payer BC ==
[~2018-02-16] VITALS: Ht 144.8 cm; Wt 35.9 kg
[~2018-02-16 11:08] MED LIST changes: -ACET-1311 PO; -CLOP1TAB15 PO; -KFL/250 PO; -PRD/25 PO
[2018-02-16 11:10] VITALS: Ht 144.8 cm; Wt 35.9 kg
[2018-02-16] MEDS ORDERED: KFL/250 PO (14:10)
[2018-02-16] MEDS ORDERED: PRD/25 PO (14:15)
[2018-02-16] MEDS ORDERED: CLOP1TAB15 PO (14:15)
--- NOTE | 2018-02-16 14:15 | DIAGNOSTIC IMAGING REPORT ---
RIGHT ANKLE 3 VIEWS HISTORY: Right ankle swelling. COMPARISON: None. FINDINGS: There is no fracture or dislocation. Mild soft tissue swelling. The bones are osteopenic. No radiopaque foreign bodies. IMPRESSION: Mild soft tissue swelling within the right ankle. No fracture or dislocation. Electronically signed by: Ja Soto M.D. 02/16/2018 2:14 PM Dictated Date/Time: 02/16/2018 2:12 PM
--- NOTE | 2018-02-16 14:15 | DIAGNOSTIC IMAGING REPORT ---
R FOOT MIN 3 VIEWS ROUTINE CLINICAL HISTORY: 87 years-old Female presenting with right foot and ankle swelling status post glass plate to the foot. TECHNIQUE: Frontal, oblique, and lateral views of the right foot were obtained. COMPARISON: None. FINDINGS: Osteopenia. Focal hyperdensity along the peroneus tendons lateral to the cuboid. This would be expected location for an os peroneum. Allowing for osteopenia, no displaced fracture or malalignment. Extensive soft tissue swelling noted over the dorsum of the right foot. No radiopaque foreign body at this site. IMPRESSION: 1. Extensive soft tissue swelling over the dorsum of the foot, the presumed site of injury. No radiopaque foreign body at this site. Notably, ultrasound is more sensitive for retained foreign bodies. 2. Osteopenia. 3. No acute osseous injury. 4. Os peroneum. Electronically signed by: Andrea Pimentel M.D. 02/16/2018 2:14 PM Dictated Date/Time: 02/16/2018 2:12 PM
[2018-02-16] MEDS ORDERED: ACET-1311 PO (14:18)
--- NOTE | 2018-02-16 15:08 | EMERGENCY ROOM VISIT NOTE ---
History Report prepared by Manny: Hipolito Beauchamp Under the Supervision of: Dr. Graham Head M.D. First contact with patient: 12:49 Chief Complaint: FOOT PAIN Stated Complaint: R-FOOT PAIN History of Present Illness The patient is a 87 year old white female with a past medical history of COPD, HTN, and previous vulva cancer who presents to the ED with a cc of constant right foot pain beginning 1.5 weeks ago. She localizes the pain to the top of her foot. She states that her pain began after dropping a Pyrex bowl on her foot. The patient was seen by her PCP for her pain and had negative X-rays. She was sent home on antibiotics. She has not tried using ice packs. Patient's pain is worsened with walking. Negative knee pain. Former smoker - quit in 2002. She is on 2 L of supplemental oxygen at home (x2 years). Source of History: patient Onset: 1.5 weeks ago Position: foot (top of right foot) Timing: constant Modifying Factors (Worsening): other (walking) Note: Negative: knee pain. Review of Systems See HPI for pertinent positives and negatives. A total of ten systems were reviewed and were otherwise negative. Past Medical & Surgical Medical Problems: (1) Dog bite of left lower leg with infection (2) Emphysema of lung (3) HTN (hypertension) (4) Intertrochanteric fracture of right hip (5) Pelvic fracture (6) Stroke-like symptoms (7) Vulva cancer Family History Cancer Hypertension Kidney disease Lung disease Social History Smoking Status: Former Smoker Drug Use: none Marital Status: Housing Status: lives alone Occupation Status: retired Current/Historical Medications Scheduled Acetaminophen (Tylenol), 650 MG PO Q4H Benazepril (Lotensin), 40 MG PO DAILY Cephalexin Monohydrate (Keflex), 250 MG PO Q8H Clopidogrel (Plavix), 75 MG PO DAILY Fluticasone Furoate-Vilanterol (Breo Ellipta), 1 INHA INH DAILY Furosemide (Lasix), 20 MG PO DAILY Home O2 Therapy (Oxygen), 2 LITERS NA CONTINOUS Latanoprost (Xalatan 0.005% Oph Brenda), 1 DROPS OP HS Levothyroxine Sodium (Levothyroxine Sodium), 75 MCG PO DAILY Metoprolol Succinate (Metoprolol Succinate ER), 25 MG PO DAILY Multiple Vitamin (Multivitamin), 1 TAB PO DAILY Nifedipine Ext Rel (Procardia Xl Ext Rel), 30 MG PO DAILY Omeprazole (Prilosec), 20 MG PO DAILY Prednisone (Prednisone), 7.5 MG PO DAILY Tiotropium [place] (Spiriva Respimat), 2 PUFF INH DAILY Scheduled PRN Tramadol HCl (Tramadol HCl), 50 MG PO Q4H PRN for Pain Allergies Coded Allergies: No Known Allergies (Verified , 02/16/18) Physical Exam Vital Signs Date Time Temp Pulse Resp B/P (MAP) Pulse Ox O2 Delivery O2 Flow Rate FiO2 02/16/18 14:40 63 14 93 Nasal Cannula 2.0 02/16/18 13:02 75 17 137/66 92 Nasal Cannula 2.0 02/16/18 11:22 77 02/16/18 11:10 36.9 70 14 149/74 93 Nasal Cannula 2.0 Physical Exam GENERAL: Awake, alert, cachectic-appearing, NAD. Nasal canula in place. HENT: Normocephalic, atraumatic. EYES: Normal conjunctiva. Sclera non-icteric. NECK: Supple. No nuchal rigidity. FROM. RESPIRATORY: Crackles throughout. No tachypnea. CARDIAC: RRR, no MRG ABDOMEN: Soft, NTND, BS+ MSK: No chest wall TTP. Mild right ankle discomfort without swelling. Severe swelling and ecchymosis to the dorsal aspect of the right foot. NVI distally. NEURO: GCS 15, CN 2-12 intact, moves all 4s on command SKIN: No rash or jaundice noted. Medical Decision & Procedures ER Provider Diagnostic Interpretation: Radiology results as stated below per my review and radiologist interpretation: R FOOT MIN 3 VIEWS ROUTINE FINDINGS: Osteopenia. Focal hyperdensity along the peroneus tendons lateral to the cuboid. This would be expected location for an os peroneum. Allowing for osteopenia, no displaced fracture or malalignment. Extensive soft tissue swelling noted over the dorsum of the right foot. No radiopaque foreign body at this site. IMPRESSION: 1. Extensive soft tissue swelling over the dorsum of the foot, the presumed site of injury. No radiopaque foreign body at this site. Notably, ultrasound is more sensitive for retained foreign bodies. 2. Osteopenia. 3. No acute osseous injury. 4. Os peroneum. Electronically signed by: Andrea Pimentel M.D. 02/16/2018 2:14 PM RIGHT ANKLE 3 VIEWS FINDINGS: There is no fracture or dislocation. Mild soft tissue swelling. The bones are osteopenic. No radiopaque foreign bodies. IMPRESSION: Mild soft tissue swelling within the right ankle. No fracture or dislocation. Electronically signed by: Ja Soto M.D. 02/16/2018 2:14 PM ED Course 1300: The patient was evaluated in room C7. A complete history and physical exam was performed. 1458: I reevaluated the patient. Discussed results and discharge instructions: she verbalized understanding and agreement. The patient is ready for discharge. Medical Decision The patient is a 87 year old white female with a past medical history of COPD, HTN, and previous vulva cancer who presents to the ED with a cc of constant right foot pain beginning 1.5 weeks ago. Differential diagnosis: Etiologies such as fracture, dislocation, neurovascular compromise, compartment syndrome, soft tissue injury, as well as others were entertained. Patient was seen and evaluated the bedside. Patient of note did have some right -sided foot pain beginning approximately one half weeks ago after she had dropped a glass dining piece on her foot. Patient was seen at the primary cares and was started on some antibiotics and did have an x-ray which is negative. Patient on exam does have some significant soft tissue swelling. There is ecchymosis. Of note the patient does take Plavix. The patient otherwise has soft compartments and the patient is actually intact distally. Patient did have a plain film completed which just shows soft tissue injury but no acute fracture dislocation of the ankle or foot. Patient did have an Floyd wrap placed patient was counseled on rest ice compression elevation. Patient was told that she needs to continue to this and may bear weight as tolerated. Patient still has persistent symptoms she should follow-up with her PCP for referral to orthopedics. Medication Reconcilliation Current Medication List: was personally reviewed by me Blood Pressure Screening Patient's blood pressure: Elevated blood pressure Blood pressure disposition: Elevated BP felt to be situational Impression Primary Impression: Foot pain Additional Impression: Contusion of foot Scribe Attestation The scribe's documentation has been prepared under my direction and personally reviewed by me in its entirety. I confirm that the note above accurately reflects all work, treatment, procedures, and medical decision making performed by me. Departure Information Dispostion Home / Self-Care Referrals Sweetie Calero DO (PCP) Patient Instructions ED Hematoma, ED RICE, My [facility] Additional Instructions Please return to the emergency department if you have worsening or recurrent symptoms not amenable to at-home treatment. Please call for a follow-up appointment with her primary care physician. Please take your medications as prescribed. If you have other concerns and/or complaints please feel free to also call your primary care physician's office or return the ED for further evaluation, management, and treatment. Make sure you rest, ice, compress, and elevate your right foot. You may place ice packs on the foot for approximately 20-30 minutes at a time several times per day. He may bear weight as tolerated. Take your medications as prescribed. You have been examined and treated today on an emergency basis only. This is not a substitute for, or an effort to provide, complete comprehensive medical care. It is impossible to recognize and treat all injuries or illnesses in a single emergency department visit. It is therefore important that you follow up closely with [facility], your PCP, and/or your specialist(s). Call as soon as possible for an appointment. Thank you for your time and consideration. I look forward to speaking with you again soon. Please don't hesitate to call us if you have any questions. Problem Qualifiers Primary Impression: Foot pain Laterality: right Qualified Codes: M79.671 - Pain in right foot Additional Impression: Contusion of foot Encounter type: subsequent encounter Laterality: right Qualified Codes: S90.31XD - Contusion of right foot, subsequent encounter
[2018-02-16 16:11] VITALS: BP 141/72; PULSE 64; TEMP 37; O2SAT 91
== END 2018-02-16 16:12 | disposition home or self-care (01) ==
LOC: EDBD 11:08 → C.EDC 11:09
DX: S90.31XD Contusion of right foot, subsequent encounter (principal); W20.8XXD Other cause of strike by thrown, projected or falling object, subsequent encounter; J44.9 Chronic obstructive pulmonary disease, unspecified; I10 Essential (primary) hypertension; Z85.44 Personal history of malignant neoplasm of other female genital organs; Z87.891 Personal history of nicotine dependence; Z99.81 Dependence on supplemental oxygen; Z80.9 Family history of malignant neoplasm, unspecified; Z82.49 Family history of ischemic heart disease and other diseases of the circulatory system; Z79.01 Long term (current) use of anticoagulants; Z79.899 Other long term (current) drug therapy

== ENCOUNTER → 2018-03-02 | Outpatient (CLI) | payer BC ==
[~2018-03-02] MED LIST changes: +ACET-1311 PO; +CLC/300 PO; +CLOP1TAB15 PO; +KFL/250 PO; -PLV75 PO; +PRD/25 PO; -PRED-301 PO
== END | disposition home or self-care (01) ==
LOC: C.LABSPEC 14:45
PROVIDERS: ATTEND Family Medicine
DX: S91.309A Unspecified open wound, unspecified foot, initial encounter (principal); X58.XXXA Exposure to other specified factors, initial encounter

== ENCOUNTER 2018-03-17 16:55 | Inpatient (IN) | payer BC, OTHER ==
[~2018-03-17] VITALS: Ht 149.9 cm; Wt 36.5 kg
[~2018-03-17 16:55] MED LIST changes: -KFL/250 PO; -LATA0.5S OP; +LATA0.5S OPB
[2018-03-17] MEDS ORDERED: SODIUM CHLORIDE 0.9% 1000ML 1,000 ML IV STA (17:49)
--- NOTE | 2018-03-17 17:57 | EMERGENCY ROOM VISIT NOTE ---
History Report prepared by Manny: Erich Britton Under the Supervision of: Dr. Dorinda Wu M.D. First contact with patient: 17:36 Chief Complaint: OTHER COMPLAINT Stated Complaint: HALLUCINATIONS History of Present Illness The patient is an 87 year old female who presents to the Emergency Room with complaints of worsening visual hallucinations over the past couple days. Per the patient's son, the patient has not slept in 2 nights, and was thinking that her sister was in her room but the sister was not there. The patient notes that she saw a mouse crawling down the wall in the room here. She adds that she hears people talking and she thinks they are there but per the patient's son, these people are not there. The patient says that she has been living alone but has a nurse that visits the patient. She adds that she has had multiple falls recently, her last fall being 4 days ago when the nurse was present. The patient broke her collar bone and bumped her head at that time. She had an x- ray done but she says that she did not have a CT done. She denies any fevers. Per the patient's son, the patient has not taken her pain medicine (Tramadol) in a day and a half. The patient is currently on antibiotics for her foot. Source of History: patient, family Onset: Over past couple days Position: other (global) Symptom Intensity: just saw mouse on wall Quality: other (visual hallucinations) Timing: worsening Associated Symptoms: No fevers Note: Associated symptoms: Auditory hallucinations. Multiple falls recently. Review of Systems See HPI for pertinent positives & negatives. A total of 10 systems reviewed and were otherwise negative. Past Medical & Surgical Medical Problems: (1) Dog bite of left lower leg with infection (2) Emphysema of lung (3) HTN (hypertension) (4) Intertrochanteric fracture of right hip (5) Pelvic fracture (6) Stroke-like symptoms (7) Vulva cancer Family History Cancer Hypertension Kidney disease Lung disease Social History Smoking Status: Former Smoker Drug Use: none Marital Status: Housing Status: lives alone Occupation Status: retired Current/Historical Medications Scheduled Benazepril Hcl (Lotensin), 40 MG PO DAILY Clindamycin Hcl (Cleocin), 300 MG PO TID Clopidogrel Bisulfate (Clopidogrel), 75 MG PO DAILY Fluticasone Furoate-Vilanterol (Breo Ellipta), 1 INHA INH DAILY Furosemide (Furosemide), 20 MG PO DAILY Home O2 Therapy (Oxygen), 2 LITERS NA CONTINOUS Latanoprost (Xalatan 0.005% Oph Brenda), 1 DROP OPB HS Levothyroxine Sodium (Levothyroxine Sodium), 88 MCG PO DAILY Metoprolol Succinate (Metoprolol Succinate ER), 25 MG PO DAILY Multiple Vitamin (Multivitamin), 1 TAB PO DAILY Nifedipine Ext Rel (Procardia Xl Ext Rel), 30 MG PO DAILY Prednisone (Prednisone), 2.5 MG PO DAILY Prednisone (Prednisone), 1 MG PO DAILY Tiotropium [place] (Spiriva Respimat), 2 PUFFS INH DAILY Scheduled PRN Acetaminophen (Tylenol), 650 MG PO Q4H PRN for Pain or Fever Tramadol HCl (Tramadol HCl), 50 MG PO Q4H PRN for Moderate-Severe Pain Allergies Coded Allergies: No Known Allergies (Verified , 02/16/18) Physical Exam Vital Signs Date Time Temp Pulse Resp B/P (MAP) Pulse Ox O2 Delivery O2 Flow Rate FiO2 03/17/18 19:11 91 18 157/75 96 Room Air 03/17/18 18:00 91 22 129/97 99 Room Air 163/79 140/84 03/17/18 17:07 95 03/17/18 17:07 36.6 94 18 124/71 99 Nasal Cannula 2.0 Physical Exam Vital signs reviewed. General: Chronically ill, frail appearing, kyphotic 87 year old female, on nasal cannula oxygen, in no significant distress. HEENT: No scleral icterus, PERRLA, neck supple. Atraumatic. Cardiovascular: Regular rate and rhythm, no extra sounds. Pulmonary: Clear to auscultation bilaterally, normal work of breathing. Abdomen: Soft, nontender, nondistended, positive bowel sounds. Musculoskeletal: Nontender to palpation of the spine. No stepoff or deformity. Healing ecchymosis to the left clavicular region, anterior chest and under the axilla on the right. There are multiple areas of healing ecchymosis to the extremities bilaterally. Minimal edema to the bilateral lower extremities with wound vac on the right dorsum of foot. Neurologic: Patient awake alert and oriented x 3, equal strength in all 4 extremities. Cranial nerves 2 through 12 grossly intact. Skin: Warm, dry, no rash Medical Decision & Procedures ER Provider Diagnostic Interpretation: Radiology results as stated below per my review and radiologist interpretation: HEAD WITHOUT CONTRAST (CT) CLINICAL HISTORY: 87 years-old Female presenting with AMS, recent fall. TECHNIQUE: Multidetector CT imaging of the head was performed without the use of intravenous contrast. IV contrast: None. A dose lowering technique was used consistent with the principles of ALARA (as low as reasonably achievable). COMPARISON: 11/11/2017. CT DOSE (mGy.cm): The estimated cumulative dose is 1210.50 mGy.cm. FINDINGS: Zyglo Inspector topogram: Unremarkable. Proportional ventricular and sulcal prominence, likely age-related parenchymal volume loss. Periventricular and subcortical white matter hypoattenuation, nonspecific but likely indicative of chronic small vessel ischemic change. Apparent hypoattenuation in the medial anterior left temporal lobe may be artifactual (series 2 image 9). No associated effacement of the temporal horn of the left lateral ventricle. Old appearing infarct suggested in the left thalamus. No mass effect or midline shift. No hemorrhage or acute territorial infarct. No extra-axial fluid collection. Paranasal sinuses and mastoid air cells clear. Calvarium intact. IMPRESSION: 1. Apparent hypodensity in the anterior left temporal lobe is felt to most likely be artifactual. If there is clinical concern, noncontrast MR brain could be obtained. 2. Chronic small vessel ischemic change and possible old lacunar infarct in the left thalamus. 3. No convincing evidence of acute intracranial abnormality. Electronically signed by: Andrea Pimentel M.D. 03/17/2018 7:15 PM Dictated Date/Time: 03/17/2018 7:12 PM CHEST ONE VIEW PORTABLE CLINICAL HISTORY: 87 years-old Female presenting with fall, R clavicle fracture. TECHNIQUE: Portable upright AP view of the chest was obtained. COMPARISON: 12/14/2017. FINDINGS: Atherosclerosis of the aortic arch. Cardiac silhouette normal in size. Lungs are hyperinflated. Significant heterogeneity radiolucency of the lungs. Pleural parenchymal scarring at the apices suggested. No new focal opacity. No large effusion or pneumothorax. Osteopenia suggested. Irregularity of the distal right clavicle could suggest fracture. Upper abdomen normal. IMPRESSION: 1. Findings suggest emphysema. No focal infiltrate to suggest pneumonia. 2. Possible distal right clavicle fracture. Dedicated radiographs of the clavicle could be obtained for confirmation. Electronically signed by: Andrea Pimentel M.D. 03/17/2018 6:25 PM Dictated Date/Time: 03/17/2018 6:[address] OF THE CERVICAL SPINE CLINICAL HISTORY: Neck pain status post trauma. COMPARISON STUDY: 11/11/2017 CT DOSE: TECHNIQUE: CT scan of the cervical spine was performed from the skull base to the thoracic inlet. Images are reviewed in the axial, sagittal, and coronal planes. IV contrast was not administered for this examination. A dose lowering technique was utilized adhering to the principles of ALARA. FINDINGS: The visualized portions of the lung apices reveal no evidence of pneumothorax. There is pulmonary emphysema. 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 The prevertebral soft tissues are normal. No fractures or subluxations are visualized. There are mild multilevel degenerative changes IMPRESSION: No evidence of acute fracture or traumatic subluxation. Electronically signed by: Erich Shahid M.D. 03/17/2018 7:17 PM Dictated Date/Time: 03/17/2018 7:14 PM Laboratory Results 03/17/18 17:20 Red Blood Count 4.50, Mean Corpuscular Volume 80.2, Mean Corpuscular Hemoglobin 26.0, Mean Corpuscular Hemoglobin Concent 32.4, Mean Platelet Volume 10.5, Neutrophils (%) (Auto) 78.9, Lymphocytes (%) (Auto) 9.7, Monocytes (%) (Auto) 10.1, Eosinophils (%) (Auto) 0.1, Basophils (%) (Auto) 0.3, Neutrophils # (Auto ) 8.88, Lymphocytes # (Auto) 1.09, Monocytes # (Auto) 1.14, Eosinophils # (Auto ) 0.01, Basophils # (Auto) 0.03 03/17/18 17:20 Test 03/17/18 17:20 03/17/18 18:15 White Blood Count 11.25 K/uL (4.8-10.8) Red Blood Count 4.50 M/uL (4.2-5.4) Hemoglobin 11.7 g/dL (12.0-16.0) Hematocrit 36.1 % (37-47) Mean Corpuscular Volume 80.2 fL (80-100) Mean Corpuscular Hemoglobin 26.0 pg (25-34) Mean Corpuscular Hemoglobin Concent 32.4 g/dl (32-36) Platelet Count 255 K/uL (130-400) Mean Platelet Volume 10.5 fL (7.4-10.4) Neutrophils (%) (Auto) 78.9 % Lymphocytes (%) (Auto) 9.7 % Monocytes (%) (Auto) 10.1 % Eosinophils (%) (Auto) 0.1 % Basophils (%) (Auto) 0.3 % Neutrophils # (Auto) 8.88 K/uL (1.4-6.5) Lymphocytes # (Auto) 1.09 K/uL (1.2-3.4) Monocytes # (Auto) 1.14 K/uL (0.11-0.59) Eosinophils # (Auto) 0.01 K/uL (0-0.5) Basophils # (Auto) 0.03 K/uL (0-0.2) RDW Standard Deviation 45.0 fL (36.4-46.3) RDW Coefficient of Variation 15.5 % (11.5-14.5) Immature Granulocyte % (Auto) 0.9 % Immature Granulocyte # (Auto) 0.10 K/uL (0.00-0.02) Prothrombin Time 10.9 SECONDS (9.0-12.0) Prothromb Time International Ratio 1.0 (0.9-1.1) Activated Partial Thromboplast Time 24.7 SECONDS (21.0-31.0) Partial Thromboplastin Ratio 1.0 Anion Gap 8.0 mmol/L (3-11) Est Creatinine Clear Calc Drug Dose 11.1 ml/min Estimated GFR () 24.2 Estimated GFR (Non- 20.9 BUN/Creatinine Ratio 16.3 (10-20) Calcium Level 9.5 mg/dl (8.5-10.1) Magnesium Level 2.3 mg/dl (1.8-2.4) Total Bilirubin 0.9 mg/dl (0.2-1) Direct Bilirubin 0.3 mg/dl (0-0.2) Aspartate Amino Transf (AST/SGOT) 34 U/L (15-37) Alanine Aminotransferase (ALT/SGPT) 21 U/L (12-78) Alkaline Phosphatase 114 U/L (45-117) Total Protein 6.8 gm/dl (6.4-8.2) Albumin 3.4 gm/dl (3.4-5.0) Urine Color YELLOW Urine Appearance CLEAR (CLEAR) Urine pH 7.5 (4.5-7.5) Urine Specific Mclaughlin 1.014 (1.000-1.030) Urine Protein NEG (NEG) Urine Glucose (UA) NEG (NEG) Urine Ketones NEG (NEG) Urine Occult Blood TRACE (NEG) Urine Nitrite NEG (NEG) Urine Bilirubin NEG (NEG) Urine Urobilinogen NEG (NEG) Urine Leukocyte Esterase MODERATE (NEG) Urine WBC (Auto) >30 /hpf (0-5) Urine RBC (Auto) 0-4 /hpf (0-4) Urine Hyaline Casts (Auto) 0 /lpf (0-5) Urine Epithelial Cells (Auto) 0-5 /lpf (0-5) Urine Bacteria (Auto) 4+ (NEG) Laboratory results per my review. Medications Administered Medications (Trade) Dose Ordered Sig/Chely Route Start Time Stop Time Status Last Admin Dose Admin Sodium Chloride 1,000 ml @ 125 mls/hr Q8H STAT IV 03/17/18 17:49 03/18/18 01:48 03/17/18 18:00 125 MLS/HR Ceftriaxone Sodium (Rocephin Inj) 1 gm NOW STAT IV 03/17/18 18:35 03/17/18 18:36 DC 03/17/18 19:11 1 GM ECG Per My Interpretation Indication: altered mental status Rate (beats per minute): 99 Rhythm: sinus rhythm Findings: T-wave inversion (Lateral), other (Nonspecific ST changes, QTC is 472 , LVH) ED Course 1746: Past medical records reviewed. The patient was evaluated in room B7. A complete history and physical examination was performed. 1748: NSS 1000 ml @ 125 mls/hr IV. 1835: Rocephin Inj 1 gm IV. 1914: Upon reevaluation, the patient is resting comfortably. I discussed laboratory and radiographic results with the patient's son. He verbalized agreement of the treatment plan. The patient will be evaluated for further management and care. 1922: I reviewed the patient's case with Dr. Wilmar Durand [facility] release [facility]. She will evaluate the patient for further management. Medical Decision Differential diagnosis: Etiologies such as mood disorder, infection, hypoglycemia, electrolyte abnormalities, cardiac sources, intracerebral event, toxicologic, neurologic, as well as others were entertained. This patient was evaluated and appeared to be in no significant distress. Physical examination reveals a frail, weak and cachectic elderly woman with multiple ecchymotic areas. CT scan of the head is negative for acute intracranial hemorrhage. She was hydrated with normal saline solution. Urinalysis is concerning for infection. Creatinine is found to be elevated above her baseline at 2.09. Patient was medicated with IV Rocephin. I had lengthy discussions with the patient and her son regarding the safety of her situation at home. Son agrees that he worries about her as she has a wound VAC , oxygen tubing and needs a walker to ambulate. She has had multiple falls within the last several weeks. I did discuss the possibilities of an acute rehab stay which the patient is open to but reluctant. She will require PT OT evaluation and treatment of her UTI. The etiology of her hallucinations is likely multifactorial considering the Ultram use, UTI and falls. Patient will be evaluated by the hospitalist service for further management. Patient and son are aware of the plan and agree. Medication Reconcilliation Current Medication List: was personally reviewed by me Blood Pressure Screening Patient's blood pressure: Normal blood pressure Consults Time Called: 1919 Consulting Physician: Dr. Wilmar CAT software release manager Returned Call: 1922 I reviewed the patient's case with Dr. Wilmar CAT software release manager. She will evaluate the patient for further management. Impression Primary Impression: Altered mental status Additional Impressions: UTI (urinary tract infection) ALLEN (acute kidney injury) Dehydration Scribe Attestation The scribe's documentation has been prepared under my direction and personally reviewed by me in its entirety. I confirm that the note above accurately reflects all work, treatment, procedures, and medical decision making performed by me. Departure Information Dispostion Being Evaluated By Hospitalist Referrals Sweetie Calero DO (PCP) Patient Instructions My [facility] Problem Qualifiers Primary Impression: Altered mental status Altered mental status type: unspecified Qualified Codes: R41.82 - Altered mental status, unspecified Additional Impressions:
[2018-03-17 18:02] LABS: BASO % 0.3 %; BASO ABS # 0.03 K/uL (0-0.2); EOS % 0.1 %; EOS ABS # 0.01 K/uL (0-0.5); HEMATOCRIT 36.1 % (37-47); HEMOGLOBIN 11.7 g/dL (12.0-16.0); LYMPH % 9.7 %; LYMPH ABS # 1.09 K/uL (1.2-3.4); MEAN CELL VOLUME 80.2 fL (80-100); MEAN CORPUSCULAR HGB CONC 32.4 g/dl (32-36); MEAN PLATELET VOLUME 10.5 fL (7.4-10.4); MONO % 10.1 %; MONO ABS # 1.14 K/uL (0.11-0.59); NEUT % 78.9 %; NEUT ABS # 8.88 K/uL (1.4-6.5); PLATELET COUNT 255 K/uL (130-400); RED CELL DISTRIBUTION WIDTH CV 15.5 % (11.5-14.5); WHITE BLOOD COUNT 11.25 K/uL (4.8-10.8)
[2018-03-17 18:05] LABS: PTT PATIENT 24.7 SECONDS (21.0-31.0)
[2018-03-17] MEDS ORDERED: PRD/1 PO (18:10)
[2018-03-17] MEDS ORDERED: ULT50 PO (18:16)
[2018-03-17] MEDS ORDERED: PLV75 PO (18:16)
[2018-03-17] MEDS ORDERED: BENA40TA6 PO (18:16)
[2018-03-17] MEDS ORDERED: CLIN300C2 PO (18:16)
[2018-03-17] MEDS ORDERED: LEVO88TA3 PO (18:16)
[2018-03-17] MEDS ORDERED: LSX20 PO (18:16)
[2018-03-17 18:20] LABS: ALBUMIN 3.4 gm/dl (3.4-5.0); CALCIUM 9.5 mg/dl (8.5-10.1); CREATININE 2.09 mg/dl (0.60-1.20); POTASSIUM 4.2 mmol/L (3.5-5.1)
[2018-03-17] MEDS ORDERED: OXGN (18:20)
[2018-03-17 18:23] LABS: TOTAL PROTEIN 6.8 gm/dl (6.4-8.2)
--- NOTE | 2018-03-17 18:26 | DIAGNOSTIC IMAGING REPORT ---
CHEST ONE VIEW PORTABLE CLINICAL HISTORY: 87 years-old Female presenting with fall, R clavicle fracture. TECHNIQUE: Portable upright AP view of the chest was obtained. COMPARISON: 12/14/2017. FINDINGS: Atherosclerosis of the aortic arch. Cardiac silhouette normal in size. Lungs are hyperinflated. Significant heterogeneity radiolucency of the lungs. Pleural parenchymal scarring at the apices suggested. No new focal opacity. No large effusion or pneumothorax. Osteopenia suggested. Irregularity of the distal right clavicle could suggest fracture. Upper abdomen normal. IMPRESSION: 1. Findings suggest emphysema. No focal infiltrate to suggest pneumonia. 2. Possible distal right clavicle fracture. Dedicated radiographs of the clavicle could be obtained for confirmation. Electronically signed by: Andrea Pimentel M.D. 03/17/2018 6:25 PM Dictated Date/Time: 03/17/2018 6:24 PM
[2018-03-17] MEDS ORDERED: CEFTRIAXONE SOD INJ 1 GM ADDVIAL IV STA (18:35)
--- NOTE | 2018-03-17 19:16 | DIAGNOSTIC IMAGING REPORT ---
HEAD WITHOUT CONTRAST (CT) CLINICAL HISTORY: 87 years-old Female presenting with AMS, recent fall. TECHNIQUE: Multidetector CT imaging of the head was performed without the use of intravenous contrast. IV contrast: None. A dose lowering technique was used consistent with the principles of ALARA (as low as reasonably achievable). COMPARISON: 11/11/2017. CT DOSE (mGy.cm): The estimated cumulative dose is 1210.50 mGy.cm. FINDINGS: Relief Cook topogram: Unremarkable. Proportional ventricular and sulcal prominence, likely age-related parenchymal volume loss. Periventricular and subcortical white matter hypoattenuation, nonspecific but likely indicative of chronic small vessel ischemic change. Apparent hypoattenuation in the medial anterior left temporal lobe may be artifactual (series 2 image 9). No associated effacement of the temporal horn of the left lateral ventricle. Old appearing infarct suggested in the left thalamus. No mass effect or midline shift. No hemorrhage or acute territorial infarct. No extra-axial fluid collection. Paranasal sinuses and mastoid air cells clear. Calvarium intact. IMPRESSION: 1. Apparent hypodensity in the anterior left temporal lobe is felt to most likely be artifactual. If there is clinical concern, noncontrast MR brain could be obtained. 2. Chronic small vessel ischemic change and possible old lacunar infarct in the left thalamus. 3. No convincing evidence of acute intracranial abnormality. Electronically signed by: Andrea Pimentel M.D. 03/17/2018 7:15 PM Dictated Date/Time: 03/17/2018 7:12 PM
--- NOTE | 2018-03-17 19:18 | DIAGNOSTIC IMAGING REPORT ---
CT OF THE CERVICAL SPINE CLINICAL HISTORY: Neck pain status post trauma. COMPARISON STUDY: 11/11/2017 CT DOSE: TECHNIQUE: CT scan of the cervical spine was performed from the skull base to the thoracic inlet. Images are reviewed in the axial, sagittal, and coronal planes. IV contrast was not administered for this examination. A dose lowering technique was utilized adhering to the principles of ALARA. FINDINGS: The visualized portions of the lung apices reveal no evidence of pneumothorax. There is pulmonary emphysema. 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 The prevertebral soft tissues are normal. No fractures or subluxations are visualized. There are mild multilevel degenerative changes IMPRESSION: No evidence of acute fracture or traumatic subluxation. Electronically signed by: Erich Shahid M.D. 03/17/2018 7:17 PM Dictated Date/Time: 03/17/2018 7:14 PM
[2018-03-17] MEDS ORDERED: ALUMINUM/MAGNESIUM/SIMETH (MAALOX MAX) 30 ML UDC PO PRN (20:30)
[2018-03-17] MEDS ORDERED: MAGNESIUM HYDROXIDE SUSP 30 ML UDC PO PRN (20:30)
[2018-03-17] MEDS ORDERED: ACETAMINOPHEN 325 MG TAB PO PRN (20:30)
[2018-03-17] MEDS ORDERED: POLYETHYLENE (MIRALAX) 17 GM PACK PO PRN (20:30)
[2018-03-17] MEDS ORDERED: ONDANSETRON INJ 2 MG/ML 2 ML VIAL IV PRN (20:30)
--- NOTE | 2018-03-17 20:53 | History and Physical ---
History & Physical Date & Time of Service: March 17, 2018 at 19:54 Chief Complaint: Hallucinations Primary Care Physician: Sweetie Calero DO History of Present Illness Source: patient, family 86 y/o F with a pMhx of COPD, CKD stage IV, HTN, HLD, hypothyroidism, h/o CVA, and h/o SCC of the vulva who presented to the ED with 2 day history of diarrhea and visual and auditory hallucinations. She has been having 3-4 episodes of non bloody diarrhea daily, but no nausea or vomiting. Her hallucinations started 2 days ago - son notes that she is seeing and talking to family members that are not present and noted a mouse crawling on the wall. She has no other complaints other than progressive weakness/fatigue associated with multiple falls ongoing for the last several weeks. 5 weeks ago, she dropped a glass bowl on her right foot and has a wound vac on that foot at present. Last week see fell and fractured her right clavicle. She does not recall vasovagal or cardiac symptoms prior to her falls. She states that upon rising from sitting/lying she is very slow/cautious. Patient otherwise denies fevers/chills, headaches, CP, palpitations, abdominal pain, lower extremity swelling, rashes, issues with voiding. She states she is tolerating diet (although her son is concerned about how thin she is) and states she tries to drink lots of water and supplements with Boost. At baseline, patient lives home alone, although her son and daughter -in-law visit daily. She ambulates with a walker - but she is finding it is a lot heavier/harder to maneuver as of late. In the ED, patient was noted to have ALLEN and started on treatment for UTI. ROS is unremarkable except as noted above. 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 Treated initially with Aldara - Subsequent recurrence with squamous cell carcinoma - Partial vulvectomy with positive margins - radiation therapy 08/01/2013 R hip fracture Osteoporosis Family History Cancer Hypertension Kidney disease Lung disease Cancer Hypertension Kidney disease Lung disease Social History Smoking Status: Former Smoker Drug Use: none Marital Status: Housing status: lives alone Occupational Status: retired Immunizations History of Influenza Vaccine: Unknown History of Tetanus Vaccine?: Unknown History of Pneumococcal: Unknown History of Hepatitis B Vaccine: Unknown Allergies Coded Allergies: No Known Allergies (Verified , 02/16/18) Home Medications Scheduled Benazepril Hcl (Lotensin), 40 MG PO DAILY Clindamycin Hcl (Cleocin), 300 MG PO TID Clopidogrel Bisulfate (Clopidogrel), 75 MG PO DAILY Fluticasone Furoate-Vilanterol (Breo Ellipta), 1 INHA INH DAILY Furosemide (Furosemide), 20 MG PO DAILY Home O2 Therapy (Oxygen), 2 LITERS NA CONTINOUS Latanoprost (Xalatan 0.005% Oph Brenda), 1 DROP OPB HS Levothyroxine Sodium (Levothyroxine Sodium), 88 MCG PO DAILY Metoprolol Succinate (Metoprolol Succinate ER), 25 MG PO DAILY Multiple Vitamin (Multivitamin), 1 TAB PO DAILY Nifedipine Ext Rel (Procardia Xl Ext Rel), 30 MG PO DAILY Prednisone (Prednisone), 2.5 MG PO DAILY Prednisone (Prednisone), 1 MG PO DAILY Tiotropium [place] (Spiriva Respimat), 2 PUFFS INH DAILY Scheduled PRN Acetaminophen (Tylenol), 650 MG PO Q4H PRN for Pain or Fever Tramadol HCl (Tramadol HCl), 50 MG PO Q4H PRN for Moderate-Severe Pain Physical Exam Vital Signs Date Time Temp Pulse Resp B/P (MAP) Pulse Ox O2 Delivery O2 Flow Rate FiO2 03/17/18 19:11 91 18 157/75 96 Room Air 03/17/18 18:00 91 22 129/97 99 Room Air 163/79 140/84 03/17/18 17:07 95 03/17/18 17:07 36.6 94 18 124/71 99 Nasal Cannula 2.0 General Appearance: WD/WN, no apparent distress, + cachetic Head: normocephalic, atraumatic Eyes: sclerae normal ENT: hearing grossly normal, pharynx normal Neck: supple, no adenopathy, no JVD, trachea midline Respiratory/Chest: no respiratory distress, no accessory muscle use, + decreased breath sounds (poor inspiratory effort, but no appreciable wheezing or crackles) Cardiovascular: regular rate, rhythm, normal peripheral pulses Abdomen/GI: normal bowel sounds, non tender, soft Back: normal inspection, no CVA tenderness Extremities/Musculoskelatal: no calf tenderness, no pedal edema 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, alert, normal mood/affect, + motor weakness (symmetrical) Skin: warm/dry, no rash, + pertinent finding (Significant bruising over all extremities and over right clavicle) Diagnostics Laboratory Results Results Past 24 Hours Test 03/17/18 17:20 03/17/18 18:15 Range/Units White Blood Count 11.25 4.8-10.8 K/uL Red Blood Count 4.50 4.2-5.4 M/uL Hemoglobin 11.7 12.0-16.0 g/dL Hematocrit 36.1 37-47 % Mean Corpuscular Volume 80.2 80-100 fL Mean Corpuscular Hemoglobin 26.0 25-34 pg Mean Corpuscular Hemoglobin Concent 32.4 32-36 g/dl Platelet Count 255 130-400 K/uL Mean Platelet Volume 10.5 7.4-10.4 fL Neutrophils (%) (Auto) 78.9 % Lymphocytes (%) (Auto) 9.7 % Monocytes (%) (Auto) 10.1 % Eosinophils (%) (Auto) 0.1 % Basophils (%) (Auto) 0.3 % Neutrophils # (Auto) 8.88 1.4-6.5 K/uL Lymphocytes # (Auto) 1.09 1.2-3.4 K/uL Monocytes # (Auto) 1.14 0.11-0.59 K/uL Eosinophils # (Auto) 0.01 0-0.5 K/uL Basophils # (Auto) 0.03 0-0.2 K/uL RDW Standard Deviation 45.0 36.4-46.3 fL RDW Coefficient of Variation 15.5 11.5-14.5 % Immature Granulocyte % (Auto) 0.9 % Immature Granulocyte # (Auto) 0.10 0.00-0.02 K/uL Prothrombin Time 10.9 9.0-12.0 SECONDS Prothromb Time International Ratio 1.0 0.9-1.1 Activated Partial Thromboplast Time 24.7 21.0-31.0 SECONDS Partial Thromboplastin Ratio 1.0 Sodium Level 134 136-145 mmol/L Potassium Level 4.2 3.5-5.1 mmol/L Chloride Level 96 98-107 mmol/L Carbon Dioxide Level 30 21-32 mmol/L Anion Gap 8.0 3-11 mmol/L Blood Urea Nitrogen 34 7-18 mg/dl Creatinine 2.09 0.60-1.20 mg/dl Est Creatinine Clear Calc Drug Dose 11.1 ml/min Estimated GFR () 24.2 Estimated GFR (Non- 20.9 BUN/Creatinine Ratio 16.3 10-20 Random Glucose 118 70-99 mg/dl Calcium Level 9.5 8.5-10.1 mg/dl Magnesium Level 2.3 1.8-2.4 mg/dl Total Bilirubin 0.9 0.2-1 mg/dl Direct Bilirubin 0.3 0-0.2 mg/dl Aspartate Amino Transf (AST/SGOT) 34 15-37 U/L Alanine Aminotransferase (ALT/SGPT) 21 12-78 U/L Alkaline Phosphatase 114 45-117 U/L Total Protein 6.8 6.4-8.2 gm/dl Albumin 3.4 3.4-5.0 gm/dl Urine Color YELLOW Urine Appearance CLEAR CLEAR Urine pH 7.5 4.5-7.5 Urine Specific [place] 1.014 1.000-1.030 Urine Protein NEG NEG Urine Glucose (UA) NEG NEG Urine Ketones NEG NEG Urine Occult Blood TRACE NEG Urine Nitrite NEG NEG Urine Bilirubin NEG NEG Urine Urobilinogen NEG NEG Urine Leukocyte Esterase MODERATE NEG Urine WBC (Auto) >30 0-5 /hpf Urine RBC (Auto) 0-4 0-4 /hpf Urine Hyaline Casts (Auto) 0 0-5 /lpf Urine Epithelial Cells (Auto) 0-5 0-5 /lpf Urine Bacteria (Auto) 4+ NEG Microbiology Results 03/17/18 Urine Culture, Received Pending Diagnostic Radiology HEAD WITHOUT CONTRAST (CT) CLINICAL HISTORY: 87 years-old Female presenting with AMS, recent fall. TECHNIQUE: Multidetector CT imaging of the head was performed without the use of intravenous contrast. IV contrast: None. A dose lowering technique was used consistent with the principles of ALARA (as low as reasonably achievable). COMPARISON: 11/11/2017. CT DOSE (mGy.cm): The estimated cumulative dose is 1210.50 mGy.cm. FINDINGS: Generator Worker topogram: Unremarkable. Proportional ventricular and sulcal prominence, likely age-related parenchymal volume loss. Periventricular and subcortical white matter hypoattenuation, nonspecific but likely indicative of chronic small vessel ischemic change. Apparent hypoattenuation in the medial anterior left temporal lobe may be artifactual (series 2 image 9). No associated effacement of the temporal horn of the left lateral ventricle. Old appearing infarct suggested in the left thalamus. No mass effect or midline shift. No hemorrhage or acute territorial infarct. No extra-axial fluid collection. Paranasal sinuses and mastoid air cells clear. Calvarium intact. IMPRESSION: 1. Apparent hypodensity in the anterior left temporal lobe is felt to most likely be artifactual. If there is clinical concern, noncontrast MR brain could be obtained. 2. Chronic small vessel ischemic change and possible old lacunar infarct in the left thalamus. 3. No convincing evidence of acute intracranial abnormality. CHEST ONE VIEW PORTABLE CLINICAL HISTORY: 87 years-old Female presenting with fall, R clavicle fracture. TECHNIQUE: Portable upright AP view of the chest was obtained. COMPARISON: 12/14/2017. FINDINGS: Atherosclerosis of the aortic arch. Cardiac silhouette normal in size. Lungs are hyperinflated. Significant heterogeneity radiolucency of the lungs. Pleural parenchymal scarring at the apices suggested. No new focal opacity. No large effusion or pneumothorax. Osteopenia suggested. Irregularity of the distal right clavicle could suggest fracture. Upper abdomen normal. IMPRESSION: 1. Findings suggest emphysema. No focal infiltrate to suggest pneumonia. 2. Possible distal right clavicle fracture. Dedicated radiographs of the clavicle could be obtained for confirmation. CT OF THE CERVICAL SPINE CLINICAL HISTORY: Neck pain status post trauma. COMPARISON STUDY: 11/11/2017 CT DOSE: TECHNIQUE: CT scan of the cervical spine was performed from the skull base to the thoracic inlet. Images are reviewed in the axial, sagittal, and coronal planes. IV contrast was not administered for this examination. A dose lowering technique was utilized adhering to the principles of ALARA. FINDINGS: The visualized portions of the lung apices reveal no evidence of pneumothorax. There is pulmonary emphysema. 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 The prevertebral soft tissues are normal. No fractures or subluxations are visualized. There are mild multilevel degenerative changes IMPRESSION: No evidence of acute fracture or traumatic subluxation. Impression Assessment and Plan 86 y/o F with a pMhx of COPD, CKD stage IV, HTN, HLD, hypothyroidism, h/o CVA, and h/o SCC of the vulva who presented to the ED with 2 day history of diarrhea and visual and auditory hallucinations, weakness and multiple falls. AMS - possible secondary to infection - VBG ordered - Treat underlying cause UTI - UA shows trace blood, moderate leuks, 4+ bacteria. Urine culture pending - Empiric treatment with ceftriaxone Acute kidney injury on bkgd CKD stage IV - likely pre-renal secondary to diarrhea - Creatinine 2.09 on admission, baseline 1.4 - Nephrotoxic meds held - Gentle IVF NSS @75cc/hr - Trend BMP Diarrhea - Check for c.diff and stool leuks Multiple falls - PT/OT evals ordered - Check orthostatic BP - Fall precautions Generalized weakness, malnutrition - Check B12, folic acid - Boost supplements - Dietitian consulted Foot wound - Wound care consulted - Continue clindamycin COPD - stable - O2 by protocol. Wears 2L NC continuous at home - Continue inhalers HTN - Continue metoprolol, nifedipine. ACEi and furosemide held for ALLEN Hypothyroidism - Continue levothyroxine H/o CVA - Continue clopidogrel DVT prophylaxis - SCDs, Heparin SC Dispo - Social work consulted Code Status -Level III, FULL RESUSCITATION NO MECH VENTILATION Advanced Directives Existing Power of Electronics Teacher: Yes (son) Resuscitation Status Full, no mechanical ventilation VTE Prophylaxis Will order VTE Prophylaxis: Yes Resident Tracking Resident Involvement: Resident Care Provided Care Provided: Adult Hospital Medicine History Patient seen and examined, chart reviewed, case discussed with Dr. Harden and I agree with her assessment and plan as documented above. Briefly, patient is a 87yo C female with history of COPD on home O2, HTN, HLP, Hypothyroidism, CKD with baseline Cr of 1.3-1.5 and prior CVA. Patient has been having 2-3 days of diarrhea and auditory and visual hallucinations. She lives at home alone with family nearby who comment that she was speaking to relatives that are and seeing rats on the brady. They also comment that she has been falling more frequently. Patient presently with no complaints. States she has not had any hallucinations today. On exam she is afebrile, mildly hypertensive at 157/75, HR 91 and regular, RR 18 , 96% on 2L NC. She is AA&O to person and place and 2018 but unsure of month and date. She has scattered ecchymoses on bilateral UE and LE, very thin female. HEENT exam unremarkable. CV +S1/S2, regular, no m/r/g, Lungs CTA, Abdomen benign. Neurologically intact. Labs and images reviewed. Assessment: 87yo C female with AMS, UTI and ALLEN. WIll place in observation status. IVF, antibiotics, monitor labs. Check orthostatic VS. Consultation with SW, PT and OT for possible home services. Remainder of plan as above.
[2018-03-17] MEDS ORDERED: IV FLUIDS COMPLETED PRN (21:30)
[2018-03-17 21:38] LABS: PHOSPHORUS 3.2 mg/dl (2.5-4.9)
[2018-03-17] MEDS: SODIUM CHLORIDE 0.9% 1000ML 1,000 ML IV SCH (21:50)
[2018-03-17 22:06] VITALS: BP 132/80; TEMP 36.7; O2SAT 97
[2018-03-17 22:07] VITALS: BMI 16.3
[2018-03-17] MEDS: LATANOPROST 0.005% OP SOLN 2.5 ML BTL OPB SCH (22:31)
[2018-03-17] MEDS: CLINDAMYCIN HCL 150 MG CAP PO SCH (22:33)
[2018-03-17] MEDS: HEPARIN SOD 5000 UNIT/0.5 ML CARP SQ SCH (22:35)
[2018-03-17 23:19] VITALS: BP 152/83; PULSE 96; TEMP 36.7; O2SAT 98
[2018-03-18] MEDS: LEVOTHYROXINE 88 MCG TAB PO SCH (06:02)
[2018-03-18 06:20] LABS: HEMATOCRIT 40.1 % (37-47); MEAN CELL VOLUME 80.4 fL (80-100); MEAN CORPUSCULAR HEMOGLOBIN 26.1 pg (25-34); MEAN CORPUSCULAR HGB CONC 32.4 g/dl (32-36); MEAN PLATELET VOLUME 10.3 fL (7.4-10.4); PLATELET COUNT 256 K/uL (130-400); RED CELL DISTRIBUTION WIDTH CV 15.7 % (11.5-14.5); RED CELL DISTRIBUTION WIDTH SD 45.2 fL (36.4-46.3); WHITE BLOOD COUNT 11.83 K/uL (4.8-10.8)
[2018-03-18 06:54] LABS: CREATININE 1.66 mg/dl (0.60-1.20); POTASSIUM 3.7 mmol/L (3.5-5.1)
[2018-03-18] MEDS: CLINDAMYCIN HCL 150 MG CAP PO SCH ×3 (07:26→20:00)
[2018-03-18] MEDS: CLOPIDOGREL BISULFATE 75 MG TAB PO SCH (07:27)
[2018-03-18] MEDS: MULTIVITAMIN TAB PO SCH (07:27)
[2018-03-18] MEDS: NIFEdipine 30 MG CR TAB PO SCH (07:28)
[2018-03-18] MEDS: TIOTROPIUM BROMIDE 5 PUFF/90 MCG INH INH SCH (07:29)
[2018-03-18] MEDS ORDERED: METOPROLOL SUCC 25MG EXT REL TAB PO SCH (08:00)
[2018-03-18 08:14] VITALS: BP 143/93; PULSE 120; TEMP 37; O2SAT 97
[2018-03-18 08:30] VITALS: O2SAT 98
[2018-03-18] MEDS ORDERED: FLUTICASONE/SALMETEROL 250/50 (ADVAIR) 14 PUFF/1 INHALER INH ONE (08:33)
[2018-03-18] MEDS: BOOST VANILLA PO SCH ×3 (09:15→17:14)
[2018-03-18] MEDS: HEPARIN SOD 5000 UNIT/0.5 ML CARP SQ SCH ×2 (09:20→21:09)
[2018-03-18 11:00] VITALS: PULSE 98; O2SAT 95
[2018-03-18] MEDS: SODIUM CHLORIDE 0.9% 1000ML 1,000 ML IV SCH (11:02)
[2018-03-18] MEDS ORDERED: METOPROLOL SUCC 25MG EXT REL TAB PO STA (12:04)
--- NOTE | 2018-03-18 12:28 | Hospitalist Progress Note ---
Hospitalist Progress Note Date of Service March 18, 2018. Subjective Pt evaluation today including: conversation w/ patient, conversation w/ family Family reports patient still seems mentally a little bit off to them and confused. The patient does admit that she feels confused. She just had a well formed bowel movement here and no evidence of diarrhea. She denies abdominal pain. She has no other complaints. All Other Systems: Reviewed and Negative Objective Vital Signs Date Time Temp Pulse Resp B/P (MAP) Pulse Ox O2 Delivery O2 Flow Rate FiO2 03/18/18 11:00 98 20 95 2.0 03/18/18 08:30 98 Nasal Cannula 2.0 03/18/18 08:14 37.0 120 22 143/93 (110) 97 Nasal Cannula 2.0 03/18/18 00:00 Nasal Cannula 2.0 03/17/18 23:19 36.7 96 20 152/83 (106) 98 Nasal Cannula 2.0 03/17/18 22:07 Nasal Cannula 2.0 03/17/18 22:06 36.7 132/80 (97) 97 Nasal Cannula 2.0 03/17/18 21:24 90 24 170/83 98 03/17/18 21:08 93 03/17/18 19:11 91 18 157/75 96 Room Air 03/17/18 18:00 91 22 129/97 99 Room Air 163/79 140/84 03/17/18 17:07 95 03/17/18 17:07 36.6 94 18 124/71 99 Nasal Cannula 2.0 Physical Exam General Appearance: no apparent distress, + cachetic Eyes: normal inspection, sclerae normal ENT: hearing grossly normal Neck: trachea midline Respiratory/Chest: lungs clear, normal breath sounds, no respiratory distress, no accessory muscle use Cardiovascular: regular rate, rhythm, no edema, no murmur Abdomen: normal bowel sounds, non tender, soft Extremities: non-tender, + pertinent finding (Sarcopenia, bruising on the right anterior chest wall from recent clavicle fracture, severely kyphotic; right foot with wound VAC in place on the dorsum and a very small area with no surrounding erythema, no edema) Neurologic/Psychiatric: alert, normal mood/affect, + pertinent finding ( Oriented to person, time, but initially says she is at the [employer] store but then recognizes that that is wrong; able to name the days of the week backwards , able to name the months of the year backwards correctly except skipping 1 month and call in November) Skin: normal color, warm/dry, no rash Laboratory Results Last 24 Hours Test 03/17/18 17:20 03/17/18 18:15 03/17/18 21:15 03/18/18 05:38 White Blood Count 11.25 K/uL 11.83 K/uL Red Blood Count 4.50 M/uL 4.99 M/uL Hemoglobin 11.7 g/dL 13.0 g/dL Hematocrit 36.1 % 40.1 % Mean Corpuscular Volume 80.2 fL 80.4 fL Mean Corpuscular Hemoglobin 26.0 pg 26.1 pg Mean Corpuscular Hemoglobin Concent 32.4 g/dl 32.4 g/dl Platelet Count 255 K/uL 256 K/uL Mean Platelet Volume 10.5 fL 10.3 fL Neutrophils (%) (Auto) 78.9 % Lymphocytes (%) (Auto) 9.7 % Monocytes (%) (Auto) 10.1 % Eosinophils (%) (Auto) 0.1 % Basophils (%) (Auto) 0.3 % Neutrophils # (Auto) 8.88 K/uL Lymphocytes # (Auto) 1.09 K/uL Monocytes # (Auto) 1.14 K/uL Eosinophils # (Auto) 0.01 K/uL Basophils # (Auto) 0.03 K/uL RDW Standard Deviation 45.0 fL 45.2 fL RDW Coefficient of Variation 15.5 % 15.7 % Immature Granulocyte % (Auto) 0.9 % Immature Granulocyte # (Auto) 0.10 K/uL Prothrombin Time 10.9 SECONDS Prothromb Time International Ratio 1.0 Activated Partial Thromboplast Time 24.7 SECONDS Partial Thromboplastin Ratio 1.0 Sodium Level 134 mmol/L 138 mmol/L Potassium Level 4.2 mmol/L 3.7 mmol/L Chloride Level 96 mmol/L 101 mmol/L Carbon Dioxide Level 30 mmol/L 27 mmol/L Anion Gap 8.0 mmol/L 10.0 mmol/L Blood Urea Nitrogen 34 mg/dl 29 mg/dl Creatinine 2.09 mg/dl 1.66 mg/dl Est Creatinine Clear Calc Drug Dose 11.1 ml/min 14.0 ml/min Estimated GFR () 24.2 32.0 Estimated GFR (Non- 20.9 27.6 BUN/Creatinine Ratio 16.3 17.5 Random Glucose 118 mg/dl 96 mg/dl Calcium Level 9.5 mg/dl 9.0 mg/dl Phosphorus Level 3.2 mg/dl Magnesium Level 2.3 mg/dl Total Bilirubin 0.9 mg/dl Direct Bilirubin 0.3 mg/dl Aspartate Amino Transf (AST/SGOT) 34 U/L Alanine Aminotransferase (ALT/SGPT) 21 U/L Alkaline Phosphatase 114 U/L Total Protein 6.8 gm/dl Albumin 3.4 gm/dl Thyroid Stimulating Hormone (TSH) 2.400 uIu/ml Urine Color YELLOW Urine Appearance CLEAR Urine pH 7.5 Urine Specific [place] 1.014 Urine Protein NEG Urine Glucose (UA) NEG Urine Ketones NEG Urine Occult Blood TRACE Urine Nitrite NEG Urine Bilirubin NEG Urine Urobilinogen NEG Urine Leukocyte Esterase MODERATE Urine WBC (Auto) >30 /hpf Urine RBC (Auto) 0-4 /hpf Urine Hyaline Casts (Auto) 0 /lpf Urine Epithelial Cells (Auto) 0-5 /lpf Urine Bacteria (Auto) 4+ Venous Blood pH 7.40 Venous Blood Partial Pressure CO2 49 mmHg Venous Blood Partial Pressure O2 39 mmHg Venous Blood HCO3 29 mmol/L Venous Blood Oxygen Saturation 69.1 % Venous Blood Base Excess 3.8 mEq/L Vitamin B12 Level 1284 pg/mL Folate > 24.00 ng/mL Iron Level 44 mcg/dl Total Iron Binding Capacity 320 mcg/dl Transferrin 249 mg/dl Transferrin % Saturation 0 % Ferritin 215.9 ng/ml Assessment and Plan This patient is an 86 y/o F with a PMhx of COPD, CKD stage IV, HTN, HLD, hypothyroidism, h/o CVA, PMR on chronic steroids, osteoporosis, and h/o SCC of the vulva who presented to the ED with several day history of visual and auditory hallucinations, weakness and multiple falls. Also with 1 day of diarrhea as reported by the patient, however not witnessed by family members. Found to have urinary tract infection on admission. Has been on clindamycin for several weeks for a MRSA infection of a right foot wound Acute metabolic encephalopathy/UTI-likely secondary to UTI. Her foot wound actually appears quite good. There is no evidence of C. difficile colitis at this time and she is having a well formed bowel movement once daily. TSH is normal at 2.4, B12 normal at 1284, folate normal greater than 24, could also be secondary to acute kidney injury as below. -Continue Rocephin -Follow urine culture -Expect encephalopathy to resolve with treatment of UTI -Supportive care -Low-dose Haldol if needed for agitation or if becomes danger to herself or others Acute kidney injury on CKD stage III-IV - likely pre-renal secondary to recent infection and possible poor p.o. intake - Creatinine 2.09 on admission, baseline 1.4, now much improved with IV fluid hydration down to 1.66 - Nephrotoxic meds held - Gentle IVF NSS @75cc/hr - Trend BMP Reports of diarrhea at home, but patient confused about this. Having formed bowel movements here. -No indication to check for C. difficile at this time-order was canceled however it was sent before I canceled it and was negative Multiple falls-secondary to very low muscle mass and deconditioning, ambulatory dysfunction - PT/OT evals ordered -And will likely need rehab placement Fall precautions Generalized weakness, malnutrition, underweight with BMI 16.2, moderate protein calorie malnutrition - Boost supplements - Dietitian consulted Foot wound-MRSA grew out of the culture from March 02 and started on clindamycin on March 04 - Wound care consulted and will continue wound VAC which may be discontinued soon - Continue clindamycin 300 mg p.o. 3 times daily as before -We will need follow-up with wound care and infectious disease as higher to admission after discharge COPD/chronic hypoxic respiratory failure-stable without exacerbation at this time - O2 by protocol. Wears 2L NC continuous at home - Continue home inhalers HTN -stable -Continue metoprolol, nifedipine. -ACEi and furosemide held for ALLEN Hypothyroidism -TSH normal here -Continue levothyroxine H/o CVA -no evidence of this at this time -Continue clopidogrel Polymyalgia rheumatica on chronic steroids-continue prednisone -No need for stress dose steroids at this time DVT prophylaxis - SCDs, Heparin SC Dispo -PT/OT and case management involved, may need rehab placement Code Status -Level III, [facility]
[2018-03-18 14:18] VITALS: Ht 149.9 cm; Wt 36.5 kg
--- NOTE | 2018-03-18 15:19 | Medical Student: [facility] ---
Med Student Progress Note Date of Service March 18, 2018. Subjective Pt evaluation today including: conversation w/ patient, conversation w/ family , physical exam, lab review Pain: None PO Intake: Ate 60% of breakfast Voiding: no voiding problems This is an 86-year-old female with a history of COPD on chronic oxygen, HTN, who presented to the emergency room with a change in mental status. The source of information is the patient, her son, and her daughter in law. Before entering the room, the patient is having a conversation with no one else present in the room and is frequently trying to climb out of bed. When interviewed, she states that she has been falling more recently, but has not felt dizzy or weak. She thinks she might be dehydrated and thinks she may have an a few episodes of loose bowel movements. She says she has had no fevers, CP, nausea, abdominal pain, headaches. She says she is sometimes short of breath and always cold. She also states that she has a wound on her R foot after dropping a bowel on it. She is followed by Dr. Hernandez and is being treated with clindamycin for MRSA+ culture. Later on, family joins her at the bedside. They state that since Thursday they have seen her talk to people who are not truly present. They have never seen her act this way before. They say that she may have had one loose bowel movement. They corroborate that she has been falling more recently and state that she hasn't been sleeping well recently. She lives alone but her daughter in law stays at her house sometimes. She is her primary caregiver. Review of Systems Notes: see HPI Objective Vital Signs Date Time Temp Pulse Resp B/P (MAP) Pulse Ox O2 Delivery O2 Flow Rate FiO2 03/18/18 11:00 98 20 95 2.0 03/18/18 08:30 98 Nasal Cannula 2.0 03/18/18 08:14 37.0 120 22 143/93 (110) 97 Nasal Cannula 2.0 03/18/18 00:00 Nasal Cannula 2.0 03/17/18 23:19 36.7 96 20 152/83 (106) 98 Nasal Cannula 2.0 03/17/18 22:07 Nasal Cannula 2.0 03/17/18 22:06 36.7 132/80 (97) 97 Nasal Cannula 2.0 5/9/18 21:24 90 24 170/83 98 03/17/18 21:08 93 03/17/18 19:11 91 18 157/75 96 Room Air 03/17/18 18:00 91 22 129/97 99 Room Air 163/79 140/84 03/17/18 17:07 95 03/17/18 17:07 36.6 94 18 124/71 99 Nasal Cannula 2.0 Physical Exam Eyes: bilateral eyes normal inspection ENT: TMs normal, pharynx normal Respiratory/Chest: lungs clear, normal breath sounds, no respiratory distress Cardiovascular: regular rate, rhythm (by pulse, difficult to auscultate heart) Abdomen: normal bowel sounds, non tender, soft Extremities: no calf tenderness, + pertinent finding (bruising on the anterior lower extremity. Wound vac in place on R foot. There is no erythema or warmth to the wound, but there is bruising. ) Neurologic/Psychiatric: alert, + pertinent finding (She is oriented to time, but not place: she believes she is at [employer]. She is able to name days of the week backwards.) Laboratory Results Last 24 Hours Test 03/17/18 17:20 03/17/18 18:15 03/17/18 21:15 03/18/18 05:38 White Blood Count 11.25 K/uL 11.83 K/uL Red Blood Count 4.50 M/uL 4.99 M/uL Hemoglobin 11.7 g/dL 13.0 g/dL Hematocrit 36.1 % 40.1 % Mean Corpuscular Volume 80.2 fL 80.4 fL Mean Corpuscular Hemoglobin 26.0 pg 26.1 pg Mean Corpuscular Hemoglobin Concent 32.4 g/dl 32.4 g/dl Platelet Count 255 K/uL 256 K/uL Mean Platelet Volume 10.5 fL 10.3 fL Neutrophils (%) (Auto) 78.9 % Lymphocytes (%) (Auto) 9.7 % Monocytes (%) (Auto) 10.1 % Eosinophils (%) (Auto) 0.1 % Basophils (%) (Auto) 0.3 % Neutrophils # (Auto) 8.88 K/uL Lymphocytes # (Auto) 1.09 K/uL Monocytes # (Auto) 1.14 K/uL Eosinophils # (Auto) 0.01 K/uL Basophils # (Auto) 0.03 K/uL RDW Standard Deviation 45.0 fL 45.2 fL RDW Coefficient of Variation 15.5 % 15.7 % Immature Granulocyte % (Auto) 0.9 % Immature Granulocyte # (Auto) 0.10 K/uL Prothrombin Time 10.9 SECONDS Prothromb Time International Ratio 1.0 Activated Partial Thromboplast Time 24.7 SECONDS Partial Thromboplastin Ratio 1.0 Sodium Level 134 mmol/L 138 mmol/L Potassium Level 4.2 mmol/L 3.7 mmol/L Chloride Level 96 mmol/L 101 mmol/L Carbon Dioxide Level 30 mmol/L 27 mmol/L Anion Gap 8.0 mmol/L 10.0 mmol/L Blood Urea Nitrogen 34 mg/dl 29 mg/dl Creatinine 2.09 mg/dl 1.66 mg/dl Est Creatinine Clear Calc Drug Dose 11.1 ml/min 14.0 ml/min Estimated GFR () 24.2 32.0 Estimated GFR (Non- 20.9 27.6 BUN/Creatinine Ratio 16.3 17.5 Random Glucose 118 mg/dl 96 mg/dl Calcium Level 9.5 mg/dl 9.0 mg/dl Phosphorus Level 3.2 mg/dl Magnesium Level 2.3 mg/dl Total Bilirubin 0.9 mg/dl Direct Bilirubin 0.3 mg/dl Aspartate Amino Transf (AST/SGOT) 34 U/L Alanine Aminotransferase (ALT/SGPT) 21 U/L Alkaline Phosphatase 114 U/L Total Protein 6.8 gm/dl Albumin 3.4 gm/dl Thyroid Stimulating Hormone (TSH) 2.400 uIu/ml Urine Color YELLOW Urine Appearance CLEAR Urine pH 7.5 Urine Specific [place] 1.014 Urine Protein NEG Urine Glucose (UA) NEG Urine Ketones NEG Urine Occult Blood TRACE Urine Nitrite NEG Urine Bilirubin NEG Urine Urobilinogen NEG Urine Leukocyte Esterase MODERATE Urine WBC (Auto) >30 /hpf Urine RBC (Auto) 0-4 /hpf Urine Hyaline Casts (Auto) 0 /lpf Urine Epithelial Cells (Auto) 0-5 /lpf Urine Bacteria (Auto) 4+ Venous Blood pH 7.40 Venous Blood Partial Pressure CO2 49 mmHg Venous Blood Partial Pressure O2 39 mmHg Venous Blood HCO3 29 mmol/L Venous Blood Oxygen Saturation 69.1 % Venous Blood Base Excess 3.8 mEq/L Vitamin B12 Level 1284 pg/mL Folate > 24.00 ng/mL Iron Level 44 mcg/dl Total Iron Binding Capacity 320 mcg/dl Transferrin 249 mg/dl Transferrin % Saturation 0 % Ferritin 215.9 ng/ml Test 03/18/18 12:15 Stool Occult Blood NEGATIVE Assessment and Plan Assessment and Plan: This is an 86-year-old female with COPD, HTN, and a R-foot MRSA+ wound who presented with altered mental status and was found to have a positive urinalysis with a urine culture positive for Gram negative bacillus. She also has an ALLEN on chronic kidney disease. UTI WITH METABOLIC ENCEPHALOPATHY - Per nursing, family, and my own assessment, pt has been seen having conversations with persons not present. She is frequently trying to crawl out of bed and requires frequent redirection. She is however able to name days of the week backwards with good accuracy. This waxing and waning course is consistent with delirium and makes sense in the setting of UTI. Her family stopped giving her her chronic tramadol and she thought this might be contributing to her AMS. We will continue to hold this as it can be deleriogenic. - We will continue giving her ceftriaxone for her UTI. Sensitivities have not returned. - Pt reported diarrhea but had a well-formed stool today. C. diff and stool occult blood was collected and was sent before we could cancel. Both of which were negative. ACUTE KIDNEY INJURY ON CHRONIC KIDNEY DISEASE With saline running at 75 cc/hr, creatinine has trended downward (2.09 on admission, 1.4 baseline) and is now 1.66. Her mucous membranes are moist but she does not show signs of volume overload such as edema or crackles on lung exam. We will decrease her fluids to 50 cc/hr and trend BMP tomorrow morning and reassess fluid needs. HYPERTENSION Her home regimen consists of metoprolol, nifedipine, benzapril, and furosemide. We have held ACEi and diuretic in setting of ALLEN. Her blood pressure has reached a max of 170 systolic. With two of her antihypertensive medications held , we will increase her metoprolol for the time being as she is also tachycardic in the 90s and sometimes greater. We administered an extra 25mg of metoprolol today and will start 50mg of metoprolol tomorrow. RIGHT FOOT WOUND - MRSA+ She is currently receiving clindamycin and we will continue. We question whether her wound vac is still necessary and have consulted the wound care team to assess. STABLE COPD Continuing her home regimen of 2L NC. Continue fluticasone/salmeterol and tiotropium. UNDERWEIGHT WITH A BMI OF 16.2 Agree with dietary consultation for Boost, soft foods, honoring snacks, and monitoring intake and weight daily. HISTORY OF CVA Continue clopidogrel HISTORY OF FREQUENT FALLS Have consulted PT/OT and anticipate their recommendations. POLYMYALGIA RHEUMATICA Continue prednisone taper. DVT PROPHYLAXIS Currently receiving heparin. DISPOSITION Currently admitted to medical floor. As she is still delirious with leukocytosis , we will continue antibiotic treatment and keep her overnight. We will work with PT/OT and anticipate discharge to a SNF since she is living at home alone and falling frequently with intermittent home care by her family.
[2018-03-18 16:00] VITALS: O2SAT 98
[2018-03-18] MEDS ORDERED: CEFTRIAXONE SOD INJ 1,000 MG in DEXTROSE 5% 50ML 50 ML IV SCH (18:00)
[2018-03-18] MEDS: FLUTICASONE/SALMETEROL 250/50 (ADVAIR) 14 PUFF/1 INHALER INH SCH (20:00)
[2018-03-18] MEDS: LATANOPROST 0.005% OP SOLN 2.5 ML BTL OPB SCH (21:00)
[2018-03-19] MEDS: SODIUM CHLORIDE 0.9% 1000ML 1,000 ML IV SCH (04:04)
[2018-03-19] MEDS: LEVOTHYROXINE 88 MCG TAB PO SCH (06:42)
[2018-03-19 07:37] LABS: BASO % 0.8 %; BASO ABS # 0.08 K/uL (0-0.2); EOS % 1.9 %; EOS ABS # 0.19 K/uL (0-0.5); HEMATOCRIT 38.3 % (37-47); HEMOGLOBIN 12.5 g/dL (12.0-16.0); IG# 0.11 K/uL (0.00-0.02); LYMPH % 13.9 %; LYMPH ABS # 1.39 K/uL (1.2-3.4); MEAN CORPUSCULAR HEMOGLOBIN 26.4 pg (25-34); MEAN CORPUSCULAR HGB CONC 32.6 g/dl (32-36); MEAN PLATELET VOLUME 10.5 fL (7.4-10.4); MONO % 11.6 %; MONO ABS # 1.16 K/uL (0.11-0.59); NEUT % 70.7 %; NEUT ABS # 7.06 K/uL (1.4-6.5); PLATELET COUNT 241 K/uL (130-400); RED CELL DISTRIBUTION WIDTH CV 15.7 % (11.5-14.5); RED CELL DISTRIBUTION WIDTH SD 45.7 fL (36.4-46.3); WHITE BLOOD COUNT 9.99 K/uL (4.8-10.8)
[2018-03-19] MEDS: BOOST VANILLA PO SCH ×3 (08:00→17:33)
[2018-03-19 08:21] LABS: CALCIUM 8.8 mg/dl (8.5-10.1); CREATININE 1.1 mg/dl (0.60-1.20); POTASSIUM 3.8 mmol/L (3.5-5.1)
[2018-03-19 09:04] VITALS: BP 142/77; PULSE 87; TEMP 36.4; O2SAT 94
[2018-03-19] MEDS: FLUTICASONE/SALMETEROL 250/50 (ADVAIR) 14 PUFF/1 INHALER INH SCH ×2 (09:06→21:00)
[2018-03-19] MEDS: TIOTROPIUM BROMIDE 5 PUFF/90 MCG INH INH SCH (09:06)
[2018-03-19] MEDS: CLINDAMYCIN HCL 150 MG CAP PO SCH ×3 (09:08→21:02)
[2018-03-19] MEDS: CLOPIDOGREL BISULFATE 75 MG TAB PO SCH (09:08)
[2018-03-19] MEDS: MULTIVITAMIN TAB PO SCH (09:08)
[2018-03-19] MEDS: METOPROLOL SUCC 50MG EXT REL TAB PO SCH (09:10)
[2018-03-19] MEDS: NIFEdipine 30 MG CR TAB PO SCH (09:10)
[2018-03-19] MEDS: HEPARIN SOD 5000 UNIT/0.5 ML CARP SQ SCH ×2 (09:16→21:03)
[2018-03-19] MEDS: ACETAMINOPHEN 325 MG TAB PO PRN (10:37)
[2018-03-19] MEDS: CEPHALEXIN MONOHYDRATE 500 MG CAP PO SCH ×2 (14:24→21:02)
[2018-03-19 15:57] VITALS: BP 143/65; PULSE 80; TEMP 36.5; O2SAT 93
--- NOTE | 2018-03-19 18:29 | Medical Student: [facility] ---
Med Student Progress Note Date of Service March 19, 2018. Subjective Pain: None PO Intake: Adequate Voiding: no voiding problems This is an 86-year-old female with COPD, HTN, and a R-foot MRSA+ wound who presented with altered mental status and was found to have a positive urinalysis with a urine culture positive for pansensitive Proteus mirabilis. She also has an ALLEN on chronic kidney disease and a MRSA+ wound on her right foot. Nursing reports confusion and crawling out of bed overnight, but patient is alert and organized in thought during our interview today. She states she is feeling "tired" from poor sleep but feels stronger today. She denies fevers, chills, chest pain, SOB, dysuria, nausea, vomiting, diarrhea, constipation. She is able to walk to the bathroom and is having formed bowel movements. She is urinating more frequently but has no pain/burning. Review of Systems Notes: see HPI Objective Vital Signs Date Time Temp Pulse Resp B/P (MAP) Pulse Ox O2 Delivery O2 Flow Rate FiO2 03/19/18 16:00 Nasal Cannula 2.0 03/19/18 15:57 36.5 80 20 143/65 (91) 93 Nasal Cannula 2.0 03/19/18 09:04 36.4 87 14 142/77 (98) 94 Nasal Cannula 2.0 03/19/18 08:00 Nasal Cannula 2.0 03/19/18 01:00 Nasal Cannula 2.0 Physical Exam General Appearance: WD/WN, no apparent distress (appears tired), + pertinent finding (Pt appears somewhat tired but is alert enough to answer questions appropriately. She is organized in thought and attentive. ) Eyes: bilateral eyes normal inspection ENT: TMs normal, pharynx normal Respiratory/Chest: lungs clear, normal breath sounds Cardiovascular: regular rate, rhythm Abdomen: normal bowel sounds, non tender, soft Extremities: no calf tenderness, + pedal edema (1+ edema in the lower extremity bilaterally. Left foot is cool to touch with slow capillary refill. Bedside doppler detects blood flow in the posterior tibialis pulse, but not dorsalis pedis. Right foot has wound vac in place. There is no new erythema, warmth, or tenderness to this wound. There is also bandaging over the right anterior lower extremity which appears unchanged. There are two scabs over the left lateral fibular head.) Neurologic/Psychiatric: alert, normal mood/affect, oriented x 3 Laboratory Results Last 24 Hours Test 03/19/18 07:26 03/19/18 11:36 03/19/18 11:39 03/19/18 11:41 White Blood Count 9.99 K/uL Red Blood Count 4.73 M/uL Hemoglobin 12.5 g/dL Hematocrit 38.3 % Mean Corpuscular Volume 81.0 fL Mean Corpuscular Hemoglobin 26.4 pg Mean Corpuscular Hemoglobin Concent 32.6 g/dl Platelet Count 241 K/uL Mean Platelet Volume 10.5 fL Neutrophils (%) (Auto) 70.7 % Lymphocytes (%) (Auto) 13.9 % Monocytes (%) (Auto) 11.6 % Eosinophils (%) (Auto) 1.9 % Basophils (%) (Auto) 0.8 % Neutrophils # (Auto) 7.06 K/uL Lymphocytes # (Auto) 1.39 K/uL Monocytes # (Auto) 1.16 K/uL Eosinophils # (Auto) 0.19 K/uL Basophils # (Auto) 0.08 K/uL RDW Standard Deviation 45.7 fL RDW Coefficient of Variation 15.7 % Immature Granulocyte % (Auto) 1.1 % Immature Granulocyte # (Auto) 0.11 K/uL Sodium Level 140 mmol/L Potassium Level 3.8 mmol/L Chloride Level 107 mmol/L Carbon Dioxide Level 24 mmol/L Anion Gap 10.0 mmol/L Blood Urea Nitrogen 20 mg/dl Creatinine 1.10 mg/dl Est Creatinine Clear Calc Drug Dose 21.2 ml/min Estimated GFR () 52.6 Estimated GFR (Non- 45.4 BUN/Creatinine Ratio 18.2 Random Glucose 63 mg/dl Calcium Level 8.8 mg/dl Bedside Glucose 37 mg/dl 130 mg/dl 93 mg/dl Test 03/19/18 12:28 03/19/18 16:21 Random Glucose 87 mg/dl Bedside Glucose 131 mg/dl Assessment and Plan Assessment and Plan: This is an 86-year-old female with COPD, HTN, and a R-foot MRSA+ wound who presented with altered mental status and was found to have a positive urinalysis with a urine culture positive for pansensitive Proteus mirabilis. She also has an ALLEN on chronic kidney disease and a MRSA+ wound on her right foot. UTI WITH METABOLIC ENCEPHALOPATHY - improving - At presentation: per nursing, family, and my own assessment, pt has been seen having conversations with persons not present, frequently trying to crawl out of bed, and requiring frequent redirection. All of these findings were consistent with delirium secondary to UTI metabolic encephalopathy. Today she appears more lucid as she is alert, organized in thought, and attentive. - Her white count has trended down from 11.8 on 03/18 to 9.99 on 03/19. She has been afebrile over the past 24 hours. - We will continue to hold tramadol as it can be deleriogenic. - Starting on 03/17, she received 2 doses of ceftriaxone for a total of a 7 day course. Culture and sensitivities returned today revealed Proteus mirabilis that his pansensitive. We will begin cephalexin 500 mg TID starting today. Today is day 3/7 (03/17/18-03/24/18). ACUTE KIDNEY INJURY ON CHRONIC KIDNEY DISEASE - improving - appeared to be prerenal with BUN/Cr >20 secondary to volume depletion. - Pt was started on normal saline at 75cc/hr when her creatinine was 2.09 on 03/17 and was decreased to 50 cc/hr on 03/18. Her baseline Cr is 1.4. Her Cr today () is 1.1 and is begining to have edema in the lower extremity. Because she is eating and hydrating well, we will stop IVF. - Trend BMP tomorrow. HYPERTENSION - stable Her home regimen consists of metoprolol, nifedipine, benzapril, and furosemide. We have held ACEi and diuretic in setting of ALLEN from admission on 03/17 to today 03/19. Her blood pressure has reached a max of 170 systolic. We started her on 50 mg of metoprolol and her pressures have been controlled. Since her ALLEN is improving, we will restart ACEi enalapril at 40mg. MRSA+ RIGHT FOOT WOUND - stable - She has a wound on her right foot that occurred after she dropped a bowl on it. She is followed by Dr. Hernandez who started her on clindamycin 300mg TID starting on the . - We will continue clindamycin. Wound care team saw pt and wound vac is still in place. No changes to the wound since admission. COPD - stable - On her home regimen of 2L NC, her oxygen saturations have been in the high 90s. We will try to wean O2 to 1L in order to keep O2 sat <92% to maintain respiratory drive. Continue fluticasone/salmeterol and tiotropium. UNDERWEIGHT WITH A BMI OF 16.2 - stable - Agree with dietary consultation for Boost, soft foods, honoring snacks, and monitoring intake and weight daily. 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 - Continue clopidogrel HISTORY OF FREQUENT FALLS - OT has evaluated the patient on 03/19 and has recommended inpatient rehabilitation at discharge. COLD, PULSELESS LEFT FOOT Left foot is cool to touch with slow capillary refill. Bedside doppler detects blood flow in the posterior tibialis pulse, but not dorsalis pedis. In conversation with Dr Smith, he suggests having run-off CTA to evaluate arterial disease which can be done as an outpatient. Pt. reports that this is a chronic problem, so I'd recommend this be done as an outpatient with Dr. Smith. 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 - Is followed by Dr. Schneider who is conducting a steroid taper. She is currently on 3.5 mg of prednisone (started 03/15/18) which we will continue. - Continue prednisone taper and follow up with Dr. Schneider as scheduled on 04/29. DVT PROPHYLAXIS - She denies calf pain. Able to ambulate to the bathroom. Currently receiving heparin. DISPOSITION - We will evaluate encephalopathy and her ability to tolerate PO abx. If improving/stable, we will discharge from med/surg to inpatient rehabilitation.
[2018-03-19] MEDS: LATANOPROST 0.005% OP SOLN 2.5 ML BTL OPB SCH (21:01)
--- NOTE | 2018-03-19 22:46 | Hospitalist Progress Note ---
Hospitalist Progress Note Date of Service March 19, 2018. Subjective Pt evaluation today including: conversation w/ patient Patient feels much better today. She reports she is no longer confused. She is tolerating p.o., having formed bowel movements. Denies chest pain or shortness of breath. No abdominal pain. Constitutional: No fever All Other Systems: Reviewed and Negative Objective Vital Signs Date Time Temp Pulse Resp B/P (MAP) Pulse Ox O2 Delivery O2 Flow Rate FiO2 03/19/18 16:00 Nasal Cannula 2.0 03/19/18 15:57 36.5 80 20 143/65 (91) 93 Nasal Cannula 2.0 03/19/18 09:04 36.4 87 14 142/77 (98) 94 Nasal Cannula 2.0 03/19/18 08:00 Nasal Cannula 2.0 03/19/18 01:00 Nasal Cannula 2.0 Physical Exam General Appearance: no apparent distress, + cachetic Eyes: normal inspection, sclerae normal ENT: hearing grossly normal Neck: trachea midline Respiratory/Chest: no respiratory distress, no accessory muscle use, + decreased breath sounds (Diminished throughout) Cardiovascular: regular rate, rhythm, + systolic murmur, + pertinent finding (2 + pitting edema in the ankles and distal tibia bilaterally; only posterior tibial pulse found with Doppler on the left, but no palpable pulses in the foot on the left, foot on the left feels cool to the touch and with slow cap refill, right foot is warm and with normal cap refill and 1+ posterior tibial pulse) Abdomen: normal bowel sounds, non tender, soft Extremities: no calf tenderness Neurologic/Psychiatric: alert, normal mood/affect, oriented x 3 Skin: normal color, warm/dry, no rash Laboratory Results Last 24 Hours Test 03/19/18 07:26 03/19/18 11:36 03/19/18 11:39 03/19/18 11:41 White Blood Count 9.99 K/uL Red Blood Count 4.73 M/uL Hemoglobin 12.5 g/dL Hematocrit 38.3 % Mean Corpuscular Volume 81.0 fL Mean Corpuscular Hemoglobin 26.4 pg Mean Corpuscular Hemoglobin Concent 32.6 g/dl Platelet Count 241 K/uL Mean Platelet Volume 10.5 fL Neutrophils (%) (Auto) 70.7 % Lymphocytes (%) (Auto) 13.9 % Monocytes (%) (Auto) 11.6 % Eosinophils (%) (Auto) 1.9 % Basophils (%) (Auto) 0.8 % Neutrophils # (Auto) 7.06 K/uL Lymphocytes # (Auto) 1.39 K/uL Monocytes # (Auto) 1.16 K/uL Eosinophils # (Auto) 0.19 K/uL Basophils # (Auto) 0.08 K/uL RDW Standard Deviation 45.7 fL RDW Coefficient of Variation 15.7 % Immature Granulocyte % (Auto) 1.1 % Immature Granulocyte # (Auto) 0.11 K/uL Sodium Level 140 mmol/L Potassium Level 3.8 mmol/L Chloride Level 107 mmol/L Carbon Dioxide Level 24 mmol/L Anion Gap 10.0 mmol/L Blood Urea Nitrogen 20 mg/dl Creatinine 1.10 mg/dl Est Creatinine Clear Calc Drug Dose 21.2 ml/min Estimated GFR () 52.6 Estimated GFR (Non- 45.4 BUN/Creatinine Ratio 18.2 Random Glucose 63 mg/dl Calcium Level 8.8 mg/dl Bedside Glucose 37 mg/dl 130 mg/dl 93 mg/dl Test 03/19/18 12:28 03/19/18 16:21 Random Glucose 87 mg/dl Bedside Glucose 131 mg/dl Assessment and Plan This patient is an 86 y/o F with a PMhx of COPD, CKD stage IV, HTN, HLD, hypothyroidism, h/o CVA, PMR on chronic steroids, osteoporosis, and h/o SCC of the vulva who presented to the ED with several day history of visual and auditory hallucinations, weakness and multiple falls. Also with 1 day of diarrhea as reported by the patient, however not witnessed by family members. Found to have urinary tract infection on admission. Has been on clindamycin for several weeks for a MRSA infection of a right foot wound Acute metabolic encephalopathy/UTI-likely secondary to UTI. Her foot wound actually appears quite good. There is no evidence of C. difficile colitis at this time and she is having a well formed bowel movement once daily. C. difficile stool antigen was negative. TSH is normal at 2.4, B12 normal at 1284, folate normal greater than 24, could also be secondary to acute kidney injury as below. She was also taking higher doses of tramadol than usual when hallucinations began. Overall, encephalopathy is significantly improved and almost completely resolved Urine culture growing pansensitive Proteus mirabilis -Change Rocephin to p.o. Keflex and finish out 7 day course-today is day #3/7 -No blood cultures were drawn at the time of admission to be followed -Expect encephalopathy to resolve with treatment of UTI -Supportive care -Low-dose Haldol if needed for agitation or if becomes danger to herself or others -Avoid tramadol use Acute kidney injury on CKD stage III-IV - likely pre-renal secondary to recent infection and possible poor p.o. intake - Creatinine 2.09 on admission, baseline 1.4, now much improved with IV fluid hydration down to 1.10 - Nephrotoxic meds held -DC IV fluids - Trend BMP PAD-dopplerable pulses on the left and with cool foot with poor cap refill. Patient is asymptomatic. She had recent arterial Doppler with ABIs as an outpatient-discussed with the interpreting concession worker today who said the results showed: ABIs 0.47 and 0.44, ultrasound suggests aortoiliac and SFA disease. -Will have patient follow-up with cardiology as an outpatient-he recommends CTA of the abdomen and pelvis with lower extremity runoff once renal function allows Reports of diarrhea at home, but patient confused about this. Having formed bowel movements here. -No indication to check for C. difficile at this time-order was canceled however it was sent before I canceled it and was negative Multiple falls-secondary to very low muscle mass and deconditioning, ambulatory dysfunction/right clavicle fracture - PT/OT evals ordered -Referrals out to [facility] -Acetaminophen as needed for pain, would avoid tramadol in the future as this may have caused her hallucinations Generalized weakness, malnutrition, underweight with BMI 16.2, moderate protein calorie malnutrition - Boost supplements - Dietitian consulted Foot wound-MRSA grew out of the culture from March 02 and started on clindamycin on March 04 - Wound care consulted and will continue wound VAC - Continue clindamycin 300 mg p.o. 3 times daily as before -will need follow-up with wound care clinic and infectious disease as before COPD/chronic hypoxic respiratory failure-stable without exacerbation at this time - O2 by protocol. Wears 2L NC continuous at home - Continue home inhalers HTN -stable -Continue metoprolol, nifedipine. -ACEi and furosemide held for ALLEN, but now okay to restart SOFIE inhibitor in the morning Hypothyroidism -TSH normal here -Continue levothyroxine H/o CVA -no evidence of this at this time -Continue clopidogrel Polymyalgia rheumatica on chronic steroids-continue prednisone -No need for stress dose steroids at this time DVT prophylaxis - SCDs, Heparin SC Dispo -PT/OT and case management involved, referrals made to [facility] Code Status -Level III, FULL RESUSCITATION NO [facility]
[2018-03-19 23:51] VITALS: BP 163/70; PULSE 83; TEMP 36.5; O2SAT 97
[2018-03-20] MEDS: LEVOTHYROXINE 88 MCG TAB PO SCH (05:53)
[2018-03-20 06:31] LABS: CALCIUM 8.8 mg/dl (8.5-10.1); CREATININE 1.44 mg/dl (0.60-1.20); POTASSIUM 4.2 mmol/L (3.5-5.1)
[2018-03-20 07:41] VITALS: BP 169/82; PULSE 79; TEMP 36.4
[2018-03-20] MEDS: FLUTICASONE/SALMETEROL 250/50 (ADVAIR) 14 PUFF/1 INHALER INH SCH ×2 (08:26→20:08)
[2018-03-20] MEDS: NIFEdipine 30 MG CR TAB PO SCH (08:26)
[2018-03-20] MEDS: TIOTROPIUM BROMIDE 5 PUFF/90 MCG INH INH SCH (08:26)
[2018-03-20] MEDS: METOPROLOL SUCC 50MG EXT REL TAB PO SCH (08:26)
[2018-03-20] MEDS: MULTIVITAMIN TAB PO SCH (08:26)
[2018-03-20] MEDS: CLOPIDOGREL BISULFATE 75 MG TAB PO SCH (08:27)
[2018-03-20] MEDS: CLINDAMYCIN HCL 150 MG CAP PO SCH ×3 (08:27→20:08)
[2018-03-20] MEDS: ENALAPRIL MALEATE 10 MG TAB PO SCH (08:27)
[2018-03-20] MEDS: HEPARIN SOD 5000 UNIT/0.5 ML CARP SQ SCH ×2 (08:28→20:14)
[2018-03-20] MEDS: BOOST VANILLA PO SCH ×3 (08:29→17:09)
[2018-03-20] MEDS: LACTOBACILLUS ACIDOPHILUS (FLORANEX) TAB PO SCH ×2 (12:26→17:09)
[2018-03-20 15:06] VITALS: BP 132/80; PULSE 80; TEMP 36.4; O2SAT 100
--- NOTE | 2018-03-20 15:35 | Medical Student: [facility] ---
Med Student Progress Note Date of Service March 20, 2018. Subjective Pt evaluation today including: conversation w/ patient, physical exam Pain: None PO Intake: Adequate Voiding: no voiding problems This is an 86-year-old female with COPD, HTN, and a R-foot MRSA+ wound who presented with altered mental status and was found to have a positive urinalysis with a urine culture positive for pansensitive Proteus mirabilis. She also has an ALLEN on chronic kidney disease and a MRSA+ wound on her right foot. Nursing reports no acute events overnight. Ms. Conway states that she slept soundly and has felt less confused. Overall she feels "much better." She is urinating frequently but does not have burning or pain. She endorses some pain over her collar bone that she fractured a few weeks ago, and pain over her right foot where her wound vac was changed yesterday. Review of Systems Constitutional: No fever, No chills Respiratory: No shortness of breath Cardiac: No chest pain Abdomen: No pain, No nausea, No vomiting, No diarrhea, No constipation Female : + urinary frequency, No dysuria Objective Vital Signs Date Time Temp Pulse Resp B/P (MAP) Pulse Ox O2 Delivery O2 Flow Rate FiO2 03/20/18 15:06 36.4 80 20 132/80 (97) 100 2.0 03/20/18 15:02 Nasal Cannula 2.0 03/20/18 08:30 Nasal Cannula 2.0 03/20/18 07:41 36.4 79 20 169/82 (111) 03/20/18 00:45 Nasal Cannula 2.0 03/19/18 23:51 36.5 83 20 163/70 (101) 97 Nasal Cannula 2.0 03/19/18 16:00 Nasal Cannula 2.0 03/19/18 15:57 36.5 80 20 143/65 (91) 93 Nasal Cannula 2.0 Physical Exam General Appearance: WD/WN (She is organized in thought, alert, and attentive.) , no apparent distress Eyes: bilateral eyes normal inspection ENT: TMs normal Respiratory/Chest: no respiratory distress, + crackles (at bases bilaterally) Cardiovascular: regular rate, rhythm Abdomen: normal bowel sounds, non tender, soft Extremities: no pedal edema, no calf tenderness, + pertinent finding (left foot is warmer than yesterday) Neurologic/Psychiatric: alert, oriented x 3 Laboratory Results Last 24 Hours Test 03/19/18 16:21 03/20/18 05:34 Bedside Glucose 131 mg/dl Sodium Level 141 mmol/L Potassium Level 4.2 mmol/L Chloride Level 109 mmol/L Carbon Dioxide Level 28 mmol/L Anion Gap 4.0 mmol/L Blood Urea Nitrogen 24 mg/dl Creatinine 1.44 mg/dl Est Creatinine Clear Calc Drug Dose 16.2 ml/min Estimated GFR () 38.0 Estimated GFR (Non- 32.8 BUN/Creatinine Ratio 16.3 Random Glucose 87 mg/dl Calcium Level 8.8 mg/dl Assessment and Plan Assessment and Plan: This is an 86-year-old female with COPD, HTN, and a R-foot MRSA+ wound who presented with altered mental status and was found to have a positive urinalysis with a urine culture positive for pansensitive Proteus mirabilis. She also has an ALLEN on chronic kidney disease and a MRSA+ wound on her right foot. UTI WITH METABOLIC ENCEPHALOPATHY - improving - At presentation: per nursing, family, and my own assessment, pt has been seen having conversations with persons not present, frequently trying to crawl out of bed, and requiring frequent redirection. All of these findings were consistent with delirium secondary to UTI metabolic encephalopathy. - Today she appears lucid as she is alert, organized in thought, and attentive. - Her white count has trended down from 11.8 on 03/18 to 9.99 on 03/19. She has been afebrile over the past 24 hours. - We will continue to hold tramadol as it can be deleriogenic. - Starting on 03/17, she received 2 doses of ceftriaxone for a total of a 7 day course. Culture and sensitivities returned today revealed Proteus mirabilis that his pansensitive. She was started on cephalexin 500 mg TID on 03/19. She was changed to BID dosing on 03/20 which is day 4/7 of antibiotic therapy (03/17/18 -03/24/18). ACUTE KIDNEY INJURY ON CHRONIC KIDNEY DISEASE - resolved - appeared to be prerenal as it improved with fluid resuscitation Creatinine is 1.44 today, 03/20, which is her baseline. HYPERTENSION - stable Her home regimen consists of metoprolol, nifedipine, benzapril, and furosemide. Her ACEi and diuretic in setting of ALLEN from admission on 03/17. We started her on 50 mg of metoprolol and her pressures have been controlled. Since her ALLEN is resolved, we will restart her home regimen. MRSA+ RIGHT FOOT WOUND - stable - She has a wound on her right foot that occurred after she dropped a bowl on it. She is followed by Dr. Henrandez who started her on clindamycin 300mg TID starting on the . - We will continue clindamycin. Wound care team saw pt and wound vac is still in place. No changes to the wound since admission other than soreness after manipulation by the wound team. COPD - stable - On her home regimen of 2L NC, her oxygen saturations have been in the high 90s. Continue fluticasone/salmeterol and tiotropium. UNDERWEIGHT WITH A BMI OF 16.2 - stable - Agree with dietary consultation for Boost, soft foods, honoring snacks, and monitoring intake and weight daily. 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 - Continue clopidogrel HISTORY OF F[place] F[place] - OT has evaluated the patient on 03/19 and has recommended inpatient rehabilitation at discharge. PERIPHERAL ARTERIAL DISEASE Left foot is cool to touch with slow capillary refill. Bedside doppler detects blood flow in the posterior tibialis pulse, but not dorsalis pedis on 03/19. In conversation with Dr Smith, he suggests having run-off CTA to evaluate arterial disease which can be done as an outpatient. Pt. reports that this is a chronic problem, so I'd recommend this be done as an outpatient with Dr. Smith. Bilateral lower extremities are warmer today than yesterday. 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 - Is followed by Dr. Schneider who is conducting a steroid taper. She is currently on 3.5 mg of prednisone (started 03/15/18) which we will continue. - Continue prednisone taper and follow up with Dr. Schneider as scheduled on 04/29. DVT PROPHYLAXIS - She denies calf pain. Able to ambulate to the bathroom. Currently receiving heparin. DISPOSITION - Encephalopathy has resolved and she is able to take PO antibiotics. Anticipate discharge to inpatient rehabilitation pending confirmation from either [facility] or [facility]. Case management to follow
[2018-03-20] MEDS: CEPHALEXIN MONOHYDRATE 500 MG CAP PO SCH (20:08)
[2018-03-20] MEDS: LATANOPROST 0.005% OP SOLN 2.5 ML BTL OPB SCH (20:08)
[2018-03-20 23:23] VITALS: BP 151/77; PULSE 79; TEMP 36.8; O2SAT 92
--- NOTE | 2018-03-21 06:16 | Progress Note ---
Subjective Date of Service: March 20, 2018. Subjective Pt evaluation today including: conversation w/ patient, physical exam, chart review, lab review Pain: none PO Intake: improving Voiding: no voiding problems patient overall feels better no further hallucinations or confusion breathing is comfortable still agreeable to rehab referral Problem List Medical Problems: (1) ALLEN (acute kidney injury) Status: Acute (2) ALLEN (acute kidney injury) Status: Acute (3) Altered mental status Status: Acute (4) Altered mental status Status: Acute (5) Closed right hip fracture Status: Acute (6) Contusion of foot Status: Acute (7) Dehydration Status: Acute (8) Dehydration Status: Acute (9) Fall Status: Acute (10) Fall Status: Acute (11) Foot pain Status: Acute (12) Head injury Status: Acute (13) Hypertension Status: Acute (14) Paresthesia of left arm and leg Status: Acute (15) Pelvis fracture Status: Acute (16) Rib contusion Status: Acute (17) Right wrist fracture Status: Acute (18) Stroke Status: Acute (19) UTI (urinary tract infection) Status: Acute (20) Weakness Status: Acute (21) Weakness Status: Acute (22) Weakness Status: Acute Review of Systems Constitutional: No fever, No chills Respiratory: No cough, No sputum, No wheezing, No dyspnea at rest Cardiac: No chest pain Abdomen: No pain, No diarrhea Objective Vital Signs Date Time Temp Pulse Resp B/P (MAP) Pulse Ox O2 Delivery O2 Flow Rate FiO2 03/20/18 15:06 36.4 80 20 132/80 (97) 100 2.0 03/20/18 15:02 Nasal Cannula 2.0 03/20/18 08:30 Nasal Cannula 2.0 03/20/18 07:41 36.4 79 20 169/82 (111) 03/20/18 00:45 Nasal Cannula 2.0 03/19/18 23:51 36.5 83 20 163/70 (101) 97 Nasal Cannula 2.0 Physical Exam General Appearance: no apparent distress, + thin ENT: pharynx normal Neck: no JVD Respiratory/Chest: lungs clear, no respiratory distress, no accessory muscle use Cardiovascular: regular rate, rhythm, no gallop, no JVD, no murmur Abdomen: normal bowel sounds, non tender, soft, no organomegaly Extremities: no pedal edema, + pertinent finding (popliteal, DP, and pos tib pulses b/l <1+; cap refill about 3-4 seconds) Neurologic/Psychiatric: alert, oriented x 3 Skin: no rash Comments: wound vac in place, right foot dorsum Laboratory Results Last 24 Hours Test 03/20/18 05:34 Sodium Level 141 mmol/L Potassium Level 4.2 mmol/L Chloride Level 109 mmol/L Carbon Dioxide Level 28 mmol/L Anion Gap 4.0 mmol/L Blood Urea Nitrogen 24 mg/dl Creatinine 1.44 mg/dl Est Creatinine Clear Calc Drug Dose 16.2 ml/min Estimated GFR () 38.0 Estimated GFR (Non- 32.8 BUN/Creatinine Ratio 16.3 Random Glucose 87 mg/dl Calcium Level 8.8 mg/dl Assessment and Plan 87yo female - 1. proteus UTI - resolving. Day #4 of abx. Finish course of keflex; can change dosing interval to q12h. 2. metabolic encephalopathy 2nd to #1 - resolved. 3. minimal acute kidney injury 2nd to dehydration and UTI - resolved, Cr at baseline. 4. CKD stage 4 - creatinine at baseline. 5. chronic hypoxic resp failure 2nd to COPD - stable on home o2 amount. 6. COPD - w/o exacerbation, cont home inhalers. 7. protein calorie malnutrition, at least moderate - MVI, boost, etc. 8. PMR - continue low-dose chronic steroids. 9. HTN - control acceptable with home meds. 10. h/o stroke - noted. Cont plavix for secondary prevention. 11. hypothyroidism - synthroid. 12. 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 Lactinex. 13. ambulatory dysfunction - needs rehab, will transfer there early this week. Continued [facility] stay due to: ambulation difficulties, multiple IV medications needed Discharge planning: rehab hospital (vs SNF)
[2018-03-21] MEDS: LEVOTHYROXINE 88 MCG TAB PO SCH (06:24)
[2018-03-21 07:14] VITALS: BP_SYST 184; BP_SYST 197; BP_DIAS 92; BP_DIAS 94; PULSE 76; TEMP 36.4; O2SAT 100
[2018-03-21 07:23] LABS: CALCIUM 8.8 mg/dl (8.5-10.1); CREATININE 1.13 mg/dl (0.60-1.20); POTASSIUM 4.1 mmol/L (3.5-5.1)
[2018-03-21] MEDS: FLUTICASONE/SALMETEROL 250/50 (ADVAIR) 14 PUFF/1 INHALER INH SCH ×2 (08:06→20:28)
[2018-03-21] MEDS: TIOTROPIUM BROMIDE 5 PUFF/90 MCG INH INH SCH (08:06)
[2018-03-21] MEDS: BOOST VANILLA PO SCH ×3 (08:06→17:09)
[2018-03-21] MEDS: LACTOBACILLUS ACIDOPHILUS (FLORANEX) TAB PO SCH ×3 (08:07→17:09)
[2018-03-21] MEDS: ENALAPRIL MALEATE 10 MG TAB PO SCH (08:07)
[2018-03-21] MEDS: NIFEdipine 30 MG CR TAB PO SCH (08:07)
[2018-03-21] MEDS: METOPROLOL SUCC 50MG EXT REL TAB PO SCH (08:07)
[2018-03-21] MEDS: MULTIVITAMIN TAB PO SCH (08:08)
[2018-03-21] MEDS: CLINDAMYCIN HCL 150 MG CAP PO SCH ×3 (08:08→20:29)
[2018-03-21] MEDS: CEPHALEXIN MONOHYDRATE 500 MG CAP PO SCH ×2 (08:09→20:30)
[2018-03-21] MEDS: CLOPIDOGREL BISULFATE 75 MG TAB PO SCH (08:09)
[2018-03-21] MEDS: HEPARIN SOD 5000 UNIT/0.5 ML CARP SQ SCH ×2 (08:20→20:37)
[2018-03-21 09:10] VITALS: BP 146/74; PULSE 78
[2018-03-21 15:37] VITALS: BP 147/70; PULSE 83; TEMP 36.9; O2SAT 98
--- NOTE | 2018-03-21 16:31 | Progress Note ---
Subjective Date of Service: March 21, 2018. Subjective Pt evaluation today including: conversation w/ patient, physical exam, chart review, lab review Pain: denies PO Intake: ate good breakfast Voiding: no voiding problems no new issues overnight except she had mild difficulty with swallowing some of her larger pills this am feels like one of them "got stuck" while we were talking she sipped some water - I saw no overt signs of aspiration - and she felt better denies hallucinations or confusion walking to bathroom having bowel movements still interested in rehab Problem List Medical Problems: (1) ALLEN (acute kidney injury) Status: Acute (2) ALLEN (acute kidney injury) Status: Acute (3) Altered mental status Status: Acute (4) Altered mental status Status: Acute (5) Closed right hip fracture Status: Acute (6) Contusion of foot Status: Acute (7) Dehydration Status: Acute (8) Dehydration Status: Acute (9) Fall Status: Acute (10) Fall Status: Acute (11) Foot pain Status: Acute (12) Head injury Status: Acute (13) Hypertension Status: Acute (14) Paresthesia of left arm and leg Status: Acute (15) Pelvis fracture Status: Acute (16) Rib contusion Status: Acute (17) Right wrist fracture Status: Acute (18) Stroke Status: Acute (19) UTI (urinary tract infection) Status: Acute (20) Weakness Status: Acute (21) Weakness Status: Acute (22) Weakness Status: Acute Review of Systems Constitutional: No fever, No chills Respiratory: + dyspnea on exertion (baseline), No cough, No shortness of breath Cardiac: No chest pain, No orthopnea Abdomen: No pain, No nausea, No vomiting Objective Vital Signs Date Time Temp Pulse Resp B/P (MAP) Pulse Ox O2 Delivery O2 Flow Rate FiO2 03/21/18 15:37 36.9 83 20 147/70 (95) 98 Nasal Cannula 2.0 03/21/18 09:10 78 146/74 (98) 03/21/18 08:10 Nasal Cannula 2.0 03/21/18 07:14 36.4 76 18 197/94 (128) 100 2.0 184/92 (122) 03/21/18 00:15 Nasal Cannula 2.0 03/20/18 23:23 36.8 79 18 151/77 (101) 92 Nasal Cannula 2.0 03/20/18 21:15 Nasal Cannula 2.0 Physical Exam General Appearance: no apparent distress, + thin ENT: pharynx normal Neck: no JVD Respiratory/Chest: lungs clear, no respiratory distress, no accessory muscle use, + decreased breath sounds Cardiovascular: regular rate, rhythm, no gallop, no murmur Abdomen: normal bowel sounds, non tender, soft, no organomegaly Extremities: no pedal edema, + slow capillary refill (4sec, right foot; pulses both feet <1+) Neurologic/Psychiatric: alert, oriented x 3 Skin: + pertinent finding (woundvac in place, right foot (dorsum); minimal hyperpigmentation/redness dorsum of foot adjacent to the woundvac) Comments: skin tears on both shins - each without cellulitis; stasis changes b/l legs Laboratory Results Last 24 Hours Test 03/21/18 06:06 Sodium Level 141 mmol/L Potassium Level 4.1 mmol/L Chloride Level 107 mmol/L Carbon Dioxide Level 29 mmol/L Anion Gap 5.0 mmol/L Blood Urea Nitrogen 19 mg/dl Creatinine 1.13 mg/dl Est Creatinine Clear Calc Drug Dose 20.6 ml/min Estimated GFR () 51.0 Estimated GFR (Non- 44.0 BUN/Creatinine Ratio 17.0 Random Glucose 85 mg/dl Calcium Level 8.8 mg/dl Assessment and Plan 87yo female - 1. proteus UTI - resolved clinically. Day #5 of abx. Finish course of keflex to complete 7 days in total. 2. metabolic encephalopathy 2nd to #1 - resolved. 3. acute kidney injury 2nd to dehydration and UTI - resolved, Cr at baseline. 4. CKD stage 4 - creatinine at baseline. 5. chronic hypoxic resp failure 2nd to COPD - stable on home o2 amount. 6. COPD - w/o exacerbation, cont home inhalers. 7. protein calorie malnutrition, at least moderate - MVI, boost, etc. 8. PMR - continue low-dose chronic steroids. 9. HTN - labile, but overall her control is acceptable with home meds. 10. h/o stroke - noted. Cont plavix for secondary prevention. 11. hypothyroidism - synthroid. 12. 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 Lactinex. 13. ambulatory dysfunction - needs rehab, will transfer there early this week. 14. dysphagia - speech consult in AM; in meantime [facility] soft diet to be safe. Aspiration precautions. Continued [facility] stay due to: ambulation difficulties Discharge planning: rehab hospital (vs SNF)
[2018-03-21 20:00] VITALS: O2SAT 98
[2018-03-21] MEDS: LATANOPROST 0.005% OP SOLN 2.5 ML BTL OPB SCH (20:30)
[2018-03-21 23:43] VITALS: BP 126/72; PULSE 80; TEMP 36.7; O2SAT 98
[2018-03-22] VITALS: O2SAT 98
[2018-03-22] MEDS: LEVOTHYROXINE 88 MCG TAB PO SCH (06:32)
[2018-03-22] MEDS: ACETAMINOPHEN 325 MG TAB PO PRN ×2 (06:33→23:39)
[2018-03-22 07:12] VITALS: BP 149/77; PULSE 73; TEMP 36.5; O2SAT 100
[2018-03-22] MEDS: FLUTICASONE/SALMETEROL 250/50 (ADVAIR) 14 PUFF/1 INHALER INH SCH ×2 (07:57→20:50)
[2018-03-22] MEDS: BOOST VANILLA PO SCH ×3 (07:57→17:00)
[2018-03-22] MEDS: TIOTROPIUM BROMIDE 5 PUFF/90 MCG INH INH SCH (07:58)
[2018-03-22] MEDS: MULTIVITAMIN TAB PO SCH (07:58)
[2018-03-22] MEDS: NIFEdipine 30 MG CR TAB PO SCH (07:58)
[2018-03-22] MEDS: CLINDAMYCIN HCL 150 MG CAP PO SCH ×3 (07:59→20:49)
[2018-03-22] MEDS: CLOPIDOGREL BISULFATE 75 MG TAB PO SCH (07:59)
[2018-03-22] MEDS: ENALAPRIL MALEATE 10 MG TAB PO SCH (07:59)
[2018-03-22] MEDS: CEPHALEXIN MONOHYDRATE 500 MG CAP PO SCH ×2 (07:59→20:49)
[2018-03-22] MEDS: LACTOBACILLUS ACIDOPHILUS (FLORANEX) TAB PO SCH ×3 (07:59→17:44)
[2018-03-22 08:00] VITALS: O2SAT 100
[2018-03-22] MEDS: METOPROLOL SUCC 50MG EXT REL TAB PO SCH (08:00)
[2018-03-22] MEDS: HEPARIN SOD 5000 UNIT/0.5 ML CARP SQ SCH ×2 (08:04→20:50)
[2018-03-22 15:47] VITALS: BP 119/60; PULSE 79; TEMP 36.8; O2SAT 100
--- NOTE | 2018-03-22 17:37 | Progress Note ---
Subjective Date of Service: March 22, 2018. Subjective Pt evaluation today including: conversation w/ patient, physical exam, chart review, lab review, conversation w/ business intelligence consultant (wound care nurse) Pain: denies any pain in any location PO Intake: improved/normal Voiding: no voiding problems overall feels good woundvac was removed today by wound care team; optifoam placed in zachary no complaints today anxious to get d/c and on to rehab did a little better with therapy today no further swallowing issues speech did complete eval Problem List Medical Problems: (1) ALLEN (acute kidney injury) Status: Acute (2) ALLEN (acute kidney injury) Status: Acute (3) Altered mental status Status: Acute (4) Altered mental status Status: Acute (5) Closed right hip fracture Status: Acute (6) Contusion of foot Status: Acute (7) Dehydration Status: Acute (8) Dehydration Status: Acute (9) Fall Status: Acute (10) Fall Status: Acute (11) Foot pain Status: Acute (12) Head injury Status: Acute (13) Hypertension Status: Acute (14) Paresthesia of left arm and leg Status: Acute (15) Pelvis fracture Status: Acute (16) Rib contusion Status: Acute (17) Right wrist fracture Status: Acute (18) Stroke Status: Acute (19) UTI (urinary tract infection) Status: Acute (20) Weakness Status: Acute (21) Weakness Status: Acute (22) Weakness Status: Acute Review of Systems Constitutional: No fever Respiratory: No cough, No shortness of breath Cardiac: No chest pain Abdomen: + diarrhea (modest), No pain Objective Vital Signs Date Time Temp Pulse Resp B/P (MAP) Pulse Ox O2 Delivery O2 Flow Rate FiO2 03/22/18 15:47 36.8 79 20 119/60 (79) 100 Nasal Cannula 2.0 03/22/18 08:00 100 Nasal Cannula 2.0 03/22/18 07:12 36.5 73 18 149/77 (101) 100 Nasal Cannula 2.0 03/22/18 00:00 98 Nasal Cannula 2.0 03/21/18 23:43 36.7 80 20 126/72 (90) 98 2.0 03/21/18 20:00 98 Nasal Cannula 2.0 Physical Exam General Appearance: no apparent distress, + thin ENT: pharynx normal Neck: no JVD Respiratory/Chest: lungs clear, no respiratory distress, no accessory muscle use Cardiovascular: regular rate, rhythm, no gallop, no murmur Abdomen: normal bowel sounds, non tender, soft, no organomegaly Extremities: no pedal edema, + slow capillary refill (b/l feet, about 4 seconds ), + pertinent finding (pulses b/l feet 1+ at best, but more likely <1+ b/l) Neurologic/Psychiatric: alert, oriented x 3 Skin: + pertinent finding (optifoam in place on right foot, dorsum; hyperpigmentation, possibly post-inflammatory, on dorsum of foot as well ) Assessment and Plan 87yo female - 1. proteus UTI - resolved clinically. Day #6 of abx. Finish course of keflex to complete 7 days in total. 2. metabolic encephalopathy 2nd to #1 - resolved. 3. acute kidney injury 2nd to dehydration and UTI - resolved, Cr at baseline. Repeat BMP in am. 4. CKD stage 4 - creatinine at baseline. 5. chronic hypoxic resp failure 2nd to COPD - stable on home o2 amount. 6. COPD - w/o exacerbation, cont home inhalers. 7. moderate protein calorie malnutrition- MVI, boost, etc. 8. PMR - continue low-dose chronic steroids. 9. HTN - acceptable control at this time with home meds. 10. h/o stroke - noted. Cont plavix for secondary prevention. 11. hypothyroidism - synthroid. TSH earlier this admission at goal. 12. 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 Lactinex. Woundvac d/c today by wound care team. 13. ambulatory dysfunction - needs rehab, will transfer there after insurance auth. 14. dysphagia - speech consult appreciated; diet modified. [facility] following insurance auth? Continued [facility] stay due to: ambulation difficulties Discharge planning: rehab hospital (vs SNF)
[2018-03-22] MEDS: LATANOPROST 0.005% OP SOLN 2.5 ML BTL OPB SCH (20:50)
[2018-03-22 23:33] VITALS: BP 143/72; PULSE 71; TEMP 36.5; O2SAT 100
[2018-03-23] VITALS: O2SAT 98
[2018-03-23] MEDS: LEVOTHYROXINE 88 MCG TAB PO SCH (06:38)
[2018-03-23 06:57] VITALS: BP 168/77; PULSE 75; TEMP 36.4; O2SAT 99
[2018-03-23 07:02] LABS: CALCIUM 9.1 mg/dl (8.5-10.1); CREATININE 1.25 mg/dl (0.60-1.20); POTASSIUM 4.6 mmol/L (3.5-5.1)
[2018-03-23] MEDS: FLUTICASONE/SALMETEROL 250/50 (ADVAIR) 14 PUFF/1 INHALER INH SCH (07:51)
[2018-03-23] MEDS: LACTOBACILLUS ACIDOPHILUS (FLORANEX) TAB PO SCH (07:52)
[2018-03-23] MEDS: CEPHALEXIN MONOHYDRATE 500 MG CAP PO SCH (07:52)
[2018-03-23] MEDS: ENALAPRIL MALEATE 10 MG TAB PO SCH (07:52)
[2018-03-23] MEDS: CLOPIDOGREL BISULFATE 75 MG TAB PO SCH (07:52)
[2018-03-23] MEDS: CLINDAMYCIN HCL 150 MG CAP PO SCH (07:53)
[2018-03-23] MEDS: MULTIVITAMIN TAB PO SCH (07:53)
[2018-03-23] MEDS: NIFEdipine 30 MG CR TAB PO SCH (07:53)
[2018-03-23] MEDS: METOPROLOL SUCC 50MG EXT REL TAB PO SCH (07:53)
[2018-03-23 08:00] VITALS: O2SAT 99
[2018-03-23] MEDS: BOOST VANILLA PO SCH ×2 (08:00→12:00)
[2018-03-23] MEDS: TIOTROPIUM BROMIDE 5 PUFF/90 MCG INH INH SCH (08:58)
[2018-03-23] MEDS: HEPARIN SOD 5000 UNIT/0.5 ML CARP SQ SCH (09:00)
[2018-03-23] MEDS ORDERED: ULT50 PO (14:53)
[2018-03-23] MEDS ORDERED: Enteral Nutrition Formula PO (14:53)
[2018-03-23] MEDS ORDERED: CLIN300C2 PO (14:53)
[2018-03-23] MEDS ORDERED: LCTX PO (14:53)
[2018-03-23] MEDS ORDERED: TPRSR/25 PO (14:53)
--- NOTE | 2018-03-23 15:03 | Discharge Instructions ---
Discharge Instructions Date of Service March 23, 2018. Admission Reason for Admission: Confusion/Delirium due to UTI Discharge Discharge Diagnosis / Problem: Delirium due to UTI - resolved Discharge Goals Goal(s): Improve disease control, Learn about illness, Diagnostic testing, Therapeutic intervention Activity Recommendations Activity Level: Assistance Required Therapies: Physical Therapy, Occupational Therapy Right arm has a distal clavicle fracture. Patient should NOT lift the arm past 45 degrees or do any heavy lifting with the right arm. A sling should be worn as much as possible until seen by orthopedics. . Additional Information Patient informed of condition: Yes Advance Directives: Yes DNR: No (patient is a "partial code" - chest compressions & shocks are acceptable/OK but NO intubation/mechanical ventilation) Level of Care: Skilled Communicable Disease: Yes (MRSA wound, right foot) Prognosis: Stable Oxygen at (LPM): 2 liters continuously Damon Catheter: No Instructions / Follow-Up Instructions / Follow-Up 1. see the district medical examiner of [facility] within 48 hours of admission 2. see the [facility] within 1 week 3. see PCP, Dr. Calero, within 1 week of discharge from [facility] 4. see Dr. Maximiliano Smith, [facility], within 1-2 weeks; diagnosis - PAD of legs 5. see any provider at [facility] within 1 week for mild, distal right clavicle fracture Current Hospital Diet Patient's current hospital diet: Regular Diet Discharge Diet Recommended Diet: Regular Diet Diet Texture: Dental Soft (bite-sized) Procedures Procedures Performed: CAT scan of neck CAT scan of head Pending Studies Studies pending at discharge: no Physician Orders On Transfer Dressing Changes: Aquacel Silver to right foot wound covered with optifoam dressing. Change every 48 hours and PRN. Vital Signs: per routine Additional Orders: BMP (basic metabolic panel) and magnesium level in 5 days; report results to district medical examiner. POLST Discussion: Not Applicable Medical Emergencies . Who to Call and When: Medical Emergencies: If at any time you feel your situation is an emergency, please call 911 immediately. . Non-Emergent Contact Non-Emergency issues call your: Primary Care Provider Call Non-Emergent contact if: temperature is above 100.5, your pain is not controlled, your pain is worsening, your pain is unusual for you, your pain is concerning you, wound has increased drainage, wound has increased redness, wound has increased pain, you have any medication questions . . "Provider Documentation" section prepared by Ryan Rubin. . Core Measure Problem Core Measures: None
--- NOTE | 2018-03-23 15:13 | Discharge Summary ---
Discharge Summary Date of Service March 23, 2018. Discharge Summary Admission Date: March 18, 2018 at 08:39 Discharge Date: March 23, 2018 Discharge Disposition: senior living facility ([place], [place]) Principal Diagnosis: metabolic encephalopathy 2nd to proteus UTI Problems/Secondary Diagnoses: 1. COPD, oxygen-dependent 2. CKD stage IV 3. HTN 4. Hyperlipidemia 5. hypothyroidism 6. prior h/o stroke 7. chronic hypoxic respiratory failure on home O2 due to COPD 8. previous cancer of the vulva 9. acute kidney injury - resolved 10. proteus UTI - resolved 11. metabolic encephalopathy - resolved 12. moderate protein calorie malnutrition 13. distal right clavicle fracture 14. ambulatory dysfunction 15. right foot wound 2nd to MRSA 16. polymyalgia rheumatica on chronic prednisone 17. PAD of lower extremities 18. history of prior right hip fracture 19. osteoporosis 20. mild dysphagia Immunizations: Have You Had Influenza Vaccine: Unknown History of Tetanus Vaccine?: Unknown History of Pneumococcal: Unknown History of Hepatitis B Vaccine: Unknown Procedures: 1. CT head - 1. Apparent hypodensity in the anterior left temporal lobe is felt to most likely be artifactual. If there is clinical concern, noncontrast MR brain could be obtained. 2. Chronic small vessel ischemic change and possible old lacunar infarct in the left thalamus. 3. No convincing evidence of acute intracranial abnormality. 2. CT cervical spine - FINDINGS: The visualized portions of the lung apices reveal no evidence of pneumothorax. There is pulmonary emphysema. 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 The prevertebral soft tissues are normal. No fractures or subluxations are visualized. There are mild multilevel degenerative changes IMPRESSION: No evidence of acute fracture or traumatic subluxation. Consultations: wound care PT, OT, speech therapy Medication Reconciliation New Medications: Lactobacillus Acidophilus (Floranex) 1 Tab Tab 4 TAB PO TIDM for 14 Days, #168 TAB 0 Refills [Enteral Nutrition Formula] () 1 CAN LIQD 1 CAN PO BIDM, #60 CAN 2 Refills Changed Medications: Clindamycin Hcl (Cleocin) 300 Mg Cap 300 MG PO TID for 12 Days, #36 CAP 0 Refills (Changed from: 90; 30; Refills: ; PRESCRIBED 03/04/2018, TAKE DIRECTED UNTIL GONE) take TID until stop date of 04/03/2018. Metoprolol Succinate (Metoprolol Succinate ER) 25 Mg Tabcr 50 MG PO DAILY, #60 TABS 2 Refills (Changed from: 25 MG; Refills: ) Tramadol HCl (Tramadol HCl) 50 Mg Tab 50 MG PO Q6H PRN for Pain, #30 TABS 0 Refills (Changed from: Q4H; Refills: ) Continued Medications: Acetaminophen (Tylenol) 325 Mg Tab 650 MG PO Q4H PRN for Pain or Fever Benazepril Hcl (Lotensin) 40 Mg Tab 40 MG PO DAILY Clopidogrel Bisulfate (Clopidogrel) 75 Mg Tab 75 MG PO DAILY Fluticasone Furoate-Vilanterol (Breo Ellipta) 1 Inh Inh 1 INHA INH DAILY Furosemide (Furosemide) 20 Mg Tab 20 MG PO DAILY Home O2 Therapy (Oxygen) Gas 2 LITERS NA CONTINOUS, BTL Latanoprost (Xalatan 0.005% Oph Brenda) 0.005 % Brenda 1 DROP OPB HS, ML Levothyroxine Sodium (Levothyroxine Sodium) 88 Mcg Tab 88 MCG PO DAILY Multiple Vitamin (Multivitamin) 1 Tab Tab 1 TAB PO DAILY, TAB Nifedipine Ext Rel (Procardia Xl Ext Rel) 30 Mg Tabcr 30 MG PO DAILY, TAB Prednisone (Prednisone) 2.5 Mg Tab 2.5 MG PO DAILY TAKE ONE 2.5 MG TABLET ALONG WITH ONE 1 MG TABLET TO EQUAL 3.5 MG DAILY DOSE Prednisone (Prednisone) 1 Mg Tab 1 MG PO DAILY TAKE ONE 1 MG TABLET ALONG WITH ONE 2.5 MG TABLET TO EQUAL 3.5 MG DAILY DOSE Tiotropium [place] (Spiriva Respimat) 2.5 Mcg/Act Spr 2 PUFFS INH DAILY, INHALER Discharge Exam Physical Exam: General Appearance: no apparent distress, + thin ENT: pharynx normal Neck: no JVD Respiratory/Chest: lungs clear, no respiratory distress, no accessory muscle use Cardiovascular: regular rate, rhythm, no gallop, no murmur Abdomen / GI: normal bowel sounds, non tender, soft, no organomegaly Extremities: no pedal edema, + slow capillary refill (4 seconds, right foot ; modestly better cap refill on left foot; pulses right foot, at best, 1+; foot cool to touch; pulses left foot about 1+) Neurologic/Psychiatric: no motor/sensory deficits (strength 5/5 x 4 exts), alert, oriented x 3 Skin: + pertinent finding (dorsum of right foot - shallow ulceration with clean wound bed, granulation at periphery, no odor or foul drainage; scattered skin tears on shins of legs) Hospital Course HISTORY OF PRESENT ILLNESS: 87 y/o female with history of COPD, CKD stage IV, HTN, Hyperlipidemia, hypothyroidism, stroke, chronic hypoxic respiratory failure on home O2 due to COPD, and cancer of the vulva who presented to the ED with 2 day history of diarrhea and visual and auditory hallucinations. She had been having 3-4 episodes of non-bloody diarrhea daily, but no nausea or vomiting. Her hallucinations started 2 days ago - son noted that she was seeing and talking to family members that were not present and noted a mouse crawling on the wall. She had no other complaints other than progressive weakness/fatigue associated with multiple falls ongoing for the last several weeks. 5 weeks ago, she dropped a glass bowl on her right foot and developed a large wound requiring the application of a wound vac on that foot. Last week she fell and fractured her right clavicle as well. She did not recall any vasovagal or cardiac symptoms prior to her falls. Patient otherwise denied fevers/chills, headaches, chest pain, palpitations, abdominal pain, lower extremity swelling, rashes, issues with voiding. At baseline the patient lives home alone, although her son and [id number] visit daily. She ambulates with a walker. Upon presentation to the [facility] ED she was noted to have a UTI and acute kidney injury. HOSPITAL COURSE: 1. proteus UTI - resolved clinically with IV/PO antibiotic therapy. Completed a full 7-day course of antibiotics while here. No additional antibiotics are needed for the UTI following discharge. 2. metabolic encephalopathy 2nd to #1 - resolved. 3. acute kidney injury 2nd to dehydration and UTI - resolved, creatinine now at baseline. Creatinine on day of discharge was 1.2. Advise repeat BMP and magnesium levels in about 5 days after discharge for stability. 4. CKD stage 4 - creatinine at baseline of 1.2 at discharge. 5. chronic hypoxic respiratory failure 2nd to COPD - stable on home o2 amount of 2 liters continuously. Had no exacerbation of her COPD while hospitalized. 6. COPD - continue home inhalers after discharge. 7. moderate protein calorie malnutrition - recommend ongoing use of protein drink supplement after discharge. 8. PMR - continue low-dose chronic steroids (3.5mg daily of prednisone). 9. HTN - labile during her stay; her metoprolol xl was increased to 50mg daily while hospitalized. 10. h/o stroke - continue plavix for secondary stroke prevention. 11. hypothyroidism - continue synthroid; TSH was within normal limits while here. 12. 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 The wound is improving. Wound care recommending Aquacel Silver with optifoam dressings. Change every 48 hours and PRN. Advise follow-up with the [facility] center within 1 week. 13. ambulatory dysfunction - PT, OT both recommended rehab and will transfer to [facility] for such. 14. dysphagia - speech consult performed and they recommended a dental cut soft diet. 15. recently diagnosed right distal clavicle fracture - recommend follow-up with [facility] in [place] within 1 week to ensure it is healing well. A sling was provided and she was instructed to wear this as much as possible until seen by orthopedics. 16. PAD - patient had recent outpatient ABIs of the legs that were markedly abnormal. Will need outpatient follow-up with Dr. Maximiliano Smith, [facility], within 1-2 weeks. Total Time Spent: Greater than 30 minutes This includes examination of the patient, discharge planning, medication reconciliation, and communication with other providers. Discharge Instructions Please refer to the electronic Patient Visit Report (Discharge Instructions) for additional information. Follow-Up 1. see the [facility] center within 1 week - will need to schedule this appointment 2. see pediatric medical assistant of [facility] within 48 hours of admission 3. see PCP, Dr. Calero, within 1 week of discharge from [facility] 4. see Dr. Maximiliano Smith, [facility], within 1-2 weeks - will need to schedule this appointment 5. see [facility] within 1 week for right distal clavicle fracture - will need to schedule this appointment Additional Copies To Maximiliano Smith MD; Sweetie Calero DO; Brayan Friedman, ; [facility]
[2018-03-23 15:25] VITALS: PULSE 89; O2SAT 99
[2018-03-23 16:00] VITALS: O2SAT 99
[2018-03-23 16:17] VITALS: BP 168/77; PULSE 89; TEMP 36.4; O2SAT 99
== END 2018-03-23 17:48 | DRG 689 ==
LOC: EDBD 17:00 → C.EDB 17:01 → CANRESERV 20:58 → ENRESERV 20:58 → C.4E 21:07 → UNDOADMOB 21:07 → EDBEDREQSVC 21:08 → ENRESERV 21:14 → OBSVTOIN 03-18 08:39
PROVIDERS: ADMIT Internal Medicine; ATTEND Internal Medicine
DX: N39.0 Urinary tract infection, site not specified (principal); N17.9 Acute kidney failure, unspecified; G93.41 Metabolic encephalopathy; N18.4 Chronic kidney disease, stage 4 (severe); J96.11 Chronic respiratory failure with hypoxia; E44.0 Moderate protein-calorie malnutrition; J43.9 Emphysema, unspecified; Z87.891 Personal history of nicotine dependence; E86.0 Dehydration; I12.9 Hypertensive chronic kidney disease with stage 1 through stage 4 chronic kidney disease, or unspecified chronic kidney disease; E03.9 Hypothyroidism, unspecified; S91.331A Puncture wound without foreign body, right foot, initial encounter; Z86.73 Personal history of transient ischemic attack (TIA), and cerebral infarction without residual deficits; Z80.49 Family history of malignant neoplasm of other genital organs; Z99.81 Dependence on supplemental oxygen; Z92.3 Personal history of irradiation; S42.001A Fracture of unspecified part of right clavicle, initial encounter for closed fracture; M81.0 Age-related osteoporosis without current pathological fracture; I73.9 Peripheral vascular disease, unspecified; B96.4 Proteus (mirabilis) (morganii) as the cause of diseases classified elsewhere; Z79.52 Long term (current) use of systemic steroids; M35.3 Polymyalgia rheumatica; W18.02XA Striking against glass with subsequent fall, initial encounter; Y92.019 Unspecified place in single-family (private) house as the place of occurrence of the external cause

== ENCOUNTER → 2018-06-08 | Outpatient (CLI) | payer BC ==
[~2018-06-08] MED LIST changes: -BENA1TAB53 PO; +BENA40TA6 PO; -CLC/300 PO; -CLOP1TAB15 PO; +Enteral Nutrition Formula PO; -FURO-85 PO; -LEVO75TA5 PO; +LEVO88TA3 PO; +LSX20 PO; +PLV75 PO; -PRLSR20 PO; +ULT50 PO; -ULT50X PO
== END | disposition home or self-care (01) ==
LOC: C.MAMM 09:57
PROVIDERS: ATTEND Internal Medicine Rheumatology
DX: M80.00XA Age-related osteoporosis with current pathological fracture, unspecified site, initial encounter for fracture (principal); M35.3 Polymyalgia rheumatica

== ENCOUNTER 2019-04-05 09:02 | Inpatient (IN) ==
--- NOTE | 2019-04-05 11:09 | XRay Report ---
XR hip LT 2-3V w pelvis CLINICAL HISTORY: left hip pain after fall COMPARISON: None. DISCUSSION: There are postsurgical changes of a prior right hip pinning. There are old ischio pubic r ing fractures. A line shadow through the left femoral neck is felt to represent a skinfold. Vascular calcifications are evident. There is an equivocal nondisplaced fracture of the left greater trochante r. IMPRESSION: 1. Old posttraumatic and postsurgical changes 2. Equivocal nondisplaced fracture of the left greater trochanter. CT scanning is recommended in foll ow-up. Electronically signed by: Erich Shahid M.D. 04/05/2019 11:08 AM
--- NOTE | 2019-04-05 11:45 | CT Scan Report ---
PELVIS CT CT DOSE: 311.38 mGy.cm HISTORY: Fall. Left hip pain. TECHNIQUE: Multiaxial CT images of the pelvis were performed and reformatted in the sagittal and joseluis nal plane without the use of contrast. A dose lowering technique was utilized adhering to the princi ples of SILVANO. COMPARISON: Pelvis and left hip 04/05/2019. FINDINGS: There are old, healed bilateral rib fractures. There are healing/healed nondisplaced sacral sufficiency fractures. Prior internal fixation within a right hip intertrochanteric fracture. Nondis placed fracture within the greater trochanter of the left hip. There is also a healing/healed insuffi ciency fracture at S2. The greater trochanter fracture does not appear to extend to the lesser trocha nter or through the femoral neck. Soft tissue hematoma, within the left gluteus medius muscle measuri ng approximately 5.6 cm. This suggests possible tear of the gluteus medius tendon. IMPRESSION: 1. Nondisplaced slightly comminuted fracture within the greater trochanter of the left femur. This do es not appear to extend to the lesser trochanter or through the femoral neck. However, if the patient has an inability to bear weight then consider follow-up MRI to exclude the possibility of an intertr ochanteric fracture. 2. A 5.6 cm intramuscular hematoma within the left gluteus medius muscle. The location of the hematom a is concerning for a tear of the distal gluteus medius tendon. Electronically signed by: Ja Soto M.D. 04/05/2019 11:43 AM
--- NOTE | 2019-04-05 12:30 | Emergency Department Note ---
Entered by Kalani Naranjo acting as a scribe for History of Present Illness General Chief complaint: Hip Pain Time Seen by Provider: 04/05/19 09:51 Source: patient Mode of arrival: EMS Limitations: no limitations History of Present Illness Provider complaint: fall Onset (ago): hour(s) (this morning) Location: hip and left Radiation: non-radiation Pain Consistency: + other (episode) Quality: + other (fall) Associated symptoms: + denies other symptoms; no syncope The patient is an 88 year old female who presents to the ER via EMS from [facility] following a fall that occurred this morning. The patient reports that she was walking to the bathroom and suddenly fell on her left hip. She notes that she has been having left hip pain since. She denies injuring her head during this fall or any loss of consciousness. She also denies any other pain. S he states that she has fractured her leg in the past as well as her left wrist. Home Medications Home Medications Medication Instructions Recorded Confirmed Type benazepril 40 mg PO QAM 04/05/19 04/05/19 History calcitriol 0.25 mcg PO 3XWK 04/05/19 04/05/19 History clopidogrel 75 mg PO QAM 04/05/19 04/05/19 History fluticasone furoate-vilanterol 1 inh INHALATION BID 04/05/19 04/05/19 History [Breo Ellipta] furosemide 20 mg PO QAM 04/05/19 04/05/19 History ketoconazole 1 applic TOPICAL WK 04/05/19 04/05/19 History levalbuterol HCl 1.25 mg INHALATION Q4H PRN 04/05/19 04/05/19 History levothyroxine 50 mcg PO QAM 04/05/19 04/05/19 History metoprolol succinate 25 mg PO QAM 04/05/19 04/05/19 History mirtazapine 15 mg PO DAILY 04/05/19 04/05/19 History nifedipine 30 mg PO QAM 04/05/19 04/05/19 History prednisone 1 mg PO PM 04/05/19 04/05/19 History prednisone 2 mg PO QAM 04/05/19 04/05/19 History tiotropium bromide [Spiriva 1 puff INHALATION DAILY 04/05/19 04/05/19 History Respimat] Allergies Allergy/AdvReac Type Severity Reaction Status Date / Time clindamycin Allergy Intermediate HIVES Verified 04/05/19 11:01 Past Med/Surg History Medical History HTN (hypertension) (Chronic) 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 Patient declined Treatment with Aldara Subsequent recurrence with squamous cell carcinoma Status post partial vulvectomy with positive margins Status post completion of radiation therapy 08/01/2013 received 5040 cGy" Emphysema of lung (Chronic) PAD (peripheral artery disease) Surgical History History of vaginal surgery Social History Current Living Situation: Other Current Living Situation Comment: [facility] Feels Safe at Home: Yes Smoking Status: Former smoker Review of Systems See HPI for pertinent positives & negatives. and A total of 10 systems reviewed and were otherwise negative Physical Exam Vital Signs Vital Signs - 24 hr 04/05/19 09:04 04/05/19 09:58 04/05/19 11:12 Temperature 36.6 C Temperature Source Oral Sepsis Recent Fever Within 48 Hours No Sepsis Action Taken by Nursing No Action Required Pulse Rate 81 Pulse Rate [Finger] 71 73 Pulse Rhythm [Finger] Pulse Strength [Finger] Respiratory Rate 21 18 18 Respiratory Effort / Characteristics Non-Labored Respiratory Depth Normal Normal Respiratory Pattern Regular Blood Pressure 198/83 H Blood Pressure [Right Arm] 218/92 H 169/75 H Blood Pressure Mean 121 Blood Pressure Mean [Right Arm] 134 106 Pulse Oximetry 97 100 99 Oxygen Delivery Method Nasal Cannula Nasal Cannula Oxygen Flow Rate 2 2 04/05/19 12:45 Temperature Temperature Source Sepsis Recent Fever Within 48 Hours Sepsis Action Taken by Nursing Pulse Rate Pulse Rate [Finger] 77 Pulse Rhythm [Finger] Regular Pulse Strength [Finger] Normal Respiratory Rate 20 Respiratory Effort / Characteristics Non-Labored Spontaneous Respiratory Depth Normal Respiratory Pattern Regular Blood Pressure Blood Pressure [Right Arm] 151/75 H Blood Pressure Mean Blood Pressure Mean [Right Arm] 100 Pulse Oximetry 97 Oxygen Delivery Method Room Air Oxygen Flow Rate 2 CONSTITUTIONAL/VITAL SIGNS: Reviewed / noted above. GENERAL: Non-toxic in appearance. INTEGUMENTARY: Warm, dry, and [place]. Small skin tear to the left elbow area. HEAD: Normocephalic. EYES: without scleral icterus or trauma. ENT/OROPHARYNX: clear and moist. LYMPHADENOPATHY/NECK: Is supple without lymphadenopathy or meningismus. RESPIRATORY: Lungs clear and equal. CARDIOVASCULAR: Regular rate and rhythm. GI/ABDOMEN: Soft and nontender. No organomegaly or pulsatile mass. No rebound or guarding. Normal bowel sounds. EXTREMITIES: Warm and well perfused. Tenderness to palpation of the left hip. Pain with motion of left hip. BACK: No CVA tenderness. NEUROLOGICAL: Intact without focal deficits. PSYCHIATRIC: normal affect. MUSCULOSKELETAL: Normally developed with good muscle tone. Course 0952: Past medical records reviewed. The patient was evaluated in room A9B. A complete history and physical examination was performed. 1501: I reviewed the patient's case with Dr. Urban - [facility] Hospitalist. She will evaluate the patient for further management. Administered Medications Discontinued Medications Oxycodone/Acetaminophen (Percocet 5mg/325mg) 1 tab PO NOW STA Stop: 04/05/19 12:56 Last Admin: 04/05/19 13:01 Dose: 1 tab Documented by: [id number] Medical Decision Making Differential Diagnosis Differential diagnoses includes: fracture, dislocation, intra-abdominal, pneumothorax, intrathoracic , intracranial, neurologic, as well as other traumatic pathologies were entertained. Medical Records Attestation: I reviewed the patient's medical records. Home Medications Current Medication List: was personally reviewed by me Laboratory Data Result diagrams: 04/05/19 12:59 04/05/19 12:59 Lab Results 04/05/19 04/05/19 Range/Units 12:59 12:59 WBC 9.85 (4.8-10.8) K/uL RBC 4.23 (4.2-5.4) M/uL Hgb 10.6 L (12.0-16.0) g/dL Hct 32.9 L (37-47) % MCV 77.8 L (80-100) fL MCH 25.1 (25-34) pg MCHC 32.2 (32-36) g/dL RDW Std Deviation 52.7 H (36.4-46.3) fL RDW Coeff of Rhys 18.4 H (11.5-14.5) % Plt Count 132 (130-400) K/uL Immature Gran % (Auto) 0.4 % Neut % (Auto) 73.0 % Lymph % (Auto) 14.6 % Butler % (Auto) 7.4 % Eos % (Auto) 4.1 % Baso % (Auto) 0.5 % Immature Gran # (Auto) 0.04 H (0.00-0.02) K/uL Neut # (Auto) 7.33 H (1.4-6.5) K/uL Lymph # (Auto) 1.46 (1.2-3.4) K/uL Butler # (Auto) 0.74 H (0.11-0.59) K/uL Eos # (Auto) 0.41 (0-0.5) K/uL Baso # (Auto) 0.05 (0-0.2) K/uL Platelet Estimate Decreased L (Normal) Sodium 144 (136-145) mmol/L Potassium 3.8 (3.5-5.1) mmol/L Chloride 106 (98-107) mmol/L Carbon Dioxide 31 (21-32) mmol/L Anion Gap 6.0 (3-11) BUN 47 H (7-18) mg/dl Creatinine 1.44 H (0.6-1.2) mg/dl Est Cr Clr Drug Dosing 17.3 ml/min Est GFR ( Amer) 37.7 Est GFR (Non-Af Amer) 32.6 BUN/Creatinine Ratio 32.8 H (10-20) Glucose 95 (70-99) mg/dl Calcium 9.8 (8.5-10.1) mg/dl Imaging Data Radiologist's Impression: Radiology results as stated below per my review and the radiologist's interpretation: XR hip LT 2-3V w pelvis CLINICAL HISTORY: left hip pain after fall COMPARISON: None. DISCUSSION: There are postsurgical changes of a prior right hip pinning. There are old ischio pubic ring fractures. A line shadow through the left femoral neck is felt to represent a skinfold. Vascular calcifications are evident. There is an equivocal nondisplaced fracture of the left greater trochanter. IMPRESSION: 1. Old posttraumatic and postsurgical changes 2. Equivocal nondisplaced fracture of the left greater trochanter. CT scanning is recommended in follow-up. Electronically signed by: Erich Shahid M.D. 04/05/2019 11:[address] DOSE: 311.38 mGy.cm HISTORY: Fall. Left hip pain. TECHNIQUE: Multiaxial CT images of the pelvis were performed and reformatted in the sagittal and coronal plane without the use of contrast. A dose lowering technique was utilized adhering to the principles of ALARA. COMPARISON: Pelvis and left hip 04/05/2019. FINDINGS: There are old, healed bilateral rib fractures. There are healing/healed nondisplaced sacral sufficiency fractures. Prior internal fixatio n within a right hip intertrochanteric fracture. Nondisplaced fracture within the greater trochanter of the left hip. There is also a healing/healed insufficiency fracture at S2. The greater trochanter fracture does not appear to extend to the lesser trochanter or through the femoral neck. Soft tissue hematoma, within the left gluteus medius muscle measuring approximately 5.6 cm. This suggests possible tear of the gluteus medius tendon. IMPRESSION: 1. Nondisplaced slightly comminuted fracture within the greater trochanter of the left femur. This does not appear to extend to the lesser trochanter or through the femoral neck. However, if the patient has an inability to bear weight then consider follow-up MRI to exclude the possibility of an intertrochanteric fracture. 2. A 5.6 cm intramuscular hematoma within the left gluteus medius muscle. The location of the hematoma is concerning for a tear of the distal gluteus medius tendon. Electronically signed by: Ja Soto M.D. 04/05/2019 11:43 AM MR hip LT wo con HISTORY: Left hip fracture. Left hip pain. TECHNIQUE: Multiplanar multisequence MRI of the left hip was performed without the use of intravenous contrast. COMPARISON STUDY: Pelvis CT 03/28/2019. FINDINGS: There is again noted a fracture through the greater trochanter of the left hip. The fracture extends to the medullary cavity of the intertrochanteric region but does not extend to the medial cortex. Therefore, this is consistent with an incomplete intertrochanteric fracture of the left hip. No dislocation. The visualized pelvic bones are intact. There is a high-grade partial tear of the gluteus medius tendon with extensive edema and an intramuscular hematoma within the gluteus medius muscle. This hematoma measures approximately 6.3 cm. There is also a partial tear of the left gluteus medius muscle. The soft tissue edema also extends into the left greater sciatic notch and left extra peritoneal space medial to the left acetabulum. Prior internal fixation of an old right hip fracture. IMPRESSION: 1. Incomplete intertrochanteric fracture of the proximal left femur has described above. Orthopedic consultation recommended for internal fixation as this has a high likelihood for developing into a complete fracture. 2. High-grade partial tear of the left gluteus medius tendon with associated int ramuscular tear/hematoma within the gluteus medius muscle. 2. Electronically signed by: Ja Soto M.D. 04/05/2019 2:54 PM Blood Pressure Blood Pressure Findings: Elevated blood pressure Blood Pressure Disposition: further management by hospitalist MILAD Aguirre This is an 88-year-old female who presents to the ED with a chief complaint of a fall. The patient fell this morning at the local apartment where she resides. The patient complains of pain in the left hip. It is worse with movement. It is also worse with palpation on my exam. Her initial blood pressure was elevated. Her physical exam was otherwise unremarkable for any acute trauma. She denies striking her head. Her physical exam did not reveal any head or neck injury. She has no pain with palpation of the back. The only area of pain that she has is her left hip. She is also noted to have a small skin tear and contusion to the left elbow area. This was bandaged. She does have pain with axial loading of the left hip. X-ray and CT scan of the left hip was performed and reveals a nondisplaced fracture of the greater trochanter on the left. There is also a hematoma in the left gluteal muscle which could be suspicious for a gluteal medius tendon tear. The patient states that she landed on that area. If there was clinical concern for possible intertrochanteric hip fracture, MRI was suggested. MRI was performed. The patient does appear to have an incomplete intertrochanteric hip fracture that is felt to be unstable and needs surgery. I spoke with Dr. Urban about this. She will see the patient for further inpatient evaluation and care. I have previously spoken with Delvin Ferrari from [place] [facility] about the patient as well. They will be consulted. The hip fracture order set orders have been ordered. The patient is currently eating. It is 3 PM. She will be seen by the hospitalist. Impression & Plan Intertrochanteric fracture of left hip Discharge Plan Visit Data Chief Complaint: Hip Pain ED Provider: Pepe Gordillo Discharge Problem: Intertrochanteric fracture of left hip Patient Disposition: Being Evaluated by Hospitalist Forms Stand Alone Forms: My [facility] Prescriptions Prescriptions: No Action nifedipine 30 mg tablet extended release 24hr 30 mg PO QAM RF: 0 ketoconazole 2 % shampoo 1 applic topical WK RF: 0 clopidogrel 75 mg tablet 75 mg PO QAM RF: 0 prednisone 1 mg tablet 2 mg PO QAM RF: 0 prednisone 1 mg tablet 1 mg PO PM RF: 0 levothyroxine 50 mcg tablet 50 mcg PO QAM RF: 0 furosemide 20 mg tablet 20 mg PO QAM RF: 0 mirtazapine 15 mg tablet 15 mg PO DAILY RF: 0 metoprolol succinate 25 mg tablet extended release 24 hr 25 mg PO QAM RF: 0 levalbuterol HCl 1.25 mg/3 mL solution for nebulization 1.25 mg inhalation Q4H PRN (Reason: Shortness Of Breath Or Wheezing) RF: 0 benazepril 40 mg tablet 40 mg PO QAM RF: 0 calcitriol 0.25 mcg capsule 0.25 mcg PO 3XWK RF: 0 Spiriva Respimat 2.5 mcg/actuation mist 1 puff inhalation DAILY RF: 0 Breo Ellipta 100-25 mcg/dose blister with device 1 inh inhalation BID RF: 0 Referrals Referrals: Sweetie Calero DO [Primary Care Provider] - Discharge Problem: Intertrochanteric fracture of left hip Qualifiers: Encounter type: initial encounter Fracture type: closed The scribe's documentation has been prepared under my direction and personally reviewed by me in its entirety. I confirm that the note above accurately reflects all work, treatment, procedures, and medical decision making performed by me.
[2019-04-05] MEDS ORDERED: OXYCODONE/ACETAMINOPHEN 5mg/325mg TAB PO STA (12:55)
[2019-04-05 13:12] LABS: Mean Corpuscular Hgb Conc 32.2 g/dL (32-36)
[2019-04-05 13:23] LABS: Hematocrit (blood only) 32.9 % (37-47); Hemoglobin 10.6 g/dL (12.0-16.0); Mean Corpuscular Volume 77.8 fL (80-100); RDW Coefficient of Variation 18.4 % (11.5-14.5); RDW Standard Deviation 52.7 fL (36.4-46.3); Red Blood Count 4.23 M/uL (4.2-5.4); White Blood Count 9.85 K/uL (4.8-10.8)
[2019-04-05 13:29] LABS: BUN Creatinine Ratio 32.8 (10-20); Calcium 9.8 mg/dl (8.5-10.1); Creatinine Clr Calc Pharmacy 17.3 ml/min; Est GFR (African American) 37.7; Est GFR (Non-African American) 32.6; Potassium 3.8 mmol/L (3.5-5.1)
[2019-04-05 13:42] LABS: Basophils # (auto) 0.05 K/uL (0-0.2); Basophils % (auto) 0.5 %; Eosinophils # (auto) 0.41 K/uL (0-0.5); Eosinophils % (auto) 4.1 %; Immature Granulocytes # (auto) 0.04 K/uL (0.00-0.02); Immature Granulocytes % (auto) 0.4 %; Lymphocytes # (auto) 1.46 K/uL (1.2-3.4); Lymphocytes % (auto) 14.6 %; Monocytes # (auto) 0.74 K/uL (0.11-0.59); Monocytes % (auto) 7.4 %; Neutrophils # (auto) 7.33 K/uL (1.4-6.5); Platelet Count 132 K/uL (130-400); Platelet Estimate Decreased (Normal)
--- NOTE | 2019-04-05 14:55 | Magnetic Resonance Report ---
MR hip LT wo con HISTORY: Left hip fracture. Left hip pain. TECHNIQUE: Multiplanar multisequence MRI of the left hip was performed without the use of intravenous contrast. COMPARISON STUDY: Pelvis CT 03/28/2019. FINDINGS: There is again noted a fracture through the greater trochanter of the left hip. The fractur e extends to the medullary cavity of the intertrochanteric region but does not extend to the medial c ortex. Therefore, this is consistent with an incomplete intertrochanteric fracture of the left hip. N o dislocation. The visualized pelvic bones are intact. There is a high-grade partial tear of the glut eus medius tendon with extensive edema and an intramuscular hematoma within the gluteus medius muscle . This hematoma measures approximately 6.3 cm. There is also a partial tear of the left gluteus mediu s muscle. The soft tissue edema also extends into the left greater sciatic notch and left extra perit gonzalez space medial to the left acetabulum. Prior internal fixation of an old right hip fracture. IMPRESSION: 1. Incomplete intertrochanteric fracture of the proximal left femur has described above. Orthopedic c onsultation recommended for internal fixation as this has a high likelihood for developing into a com plete fracture. 2. High-grade partial tear of the left gluteus medius tendon with associated intramuscular tear/hemat brooks within the gluteus medius muscle. 2. Electronically signed by: Ja Soto M.D. 04/05/2019 2:54 PM
[2019-04-05] MEDS ORDERED: LACTATED RINGER'S 1,000 ML IV SCH (15:15)
--- NOTE | 2019-04-05 15:36 | History & Physical Report ---
Date of Service April 05, 2019 Assessment & Plan (1) Fall: Patient presents with left femur fracture after a possible fall at home. She does not recollect falling. Concern for syncopal event as patient states that she just woke up on the floor. -Admit to medical floor with telemetry monitoring -Check 2D echo -Check EKG -Check carotid duplex ultrasound Present on Admission?: Yes (2) Intertrochanteric fracture of left hip: Patient with incomplete intertrochanteric fracture of the proximal left femur. She is somewhat active at baseline and ambulates with a walker in her shelter. -Consult Orthopedic Surgery -Pain control with Tylenol, Oxycodone, Morphine PRN -Bowel regimen -EKG and echo as above for workup of possible syncope -Repeat labs in AM, CBC and Chemistry Present on Admission?: Yes (3) HTN (hypertension): Blood pressure mildly elevated at present, 151/75 -Continue Metoprolol -Continue Benazepril - will hold tomorrow AM for possible surgery -Continue Lasix - will hold tomorrow AM for possible surgery -Continue Nifedipine -Continue to monitor Present on Admission?: Yes (4) Emphysema of lung: 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 Reports stable respiratory status. No cough, wheeze or increased SOB -Continue O2 -Continue Xopenex PRN -Continue Spiriva -Continue Breo -DuoNeb PRN Patient with left lower mediastinal opacity noted on CXR. Recommend followup PA and lateral CXR to ensure resolution. Present on Admission?: Yes (5) CKD (chronic kidney disease), stage IV: Patient with CKD IV. BUN=47, Cr=1.44 which is slightly higher than baseline values. 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 Stable and unchanged -Plavix on hold for now for possible surgery -Patient is not currently on a statin Present on Admission?: Yes (7) Hypothyroid: Chronic -Continue Synthroid -TSH with AM labs Present on Admission?: Yes (8) Polymyalgia rheumatica: Chronic. Stable -Continue Prednisone 2mg po qAM and 1mg po qPM F/E/N - LR, monitor electrolytes and replete as needed, AHA diet, NPO after midnight, bowel regimen Ppx - SCDs Code - Full Dispo - Med with tele Present on Admission?: Yes History of Present Illness Chief Complaint: hip fracture Primary Care Provider: Sweetie Calero DO Addie Conway is an 88yo C female with history of HTN, HLP, CVA, Polymyalgia rheumatica on chronic steroids, CKD IV, O2 dependent COPD presenting with left femur fracture. Patient reports waking this AM around 07:15. She ambulated to the bathroom without difficulty then woke up on the bathroom floor. She does not recall falling. She was unable to get up and bear weight on her LLE. She contacted the nurse at [facility] and was transported to [facility] via ambulance. Presenlty without pain. No additional complaints at this time. Patient states that she has fallen like this in the past where she has no recollection of the event and wakes up on the floor. She denies exertional chest pain, dizziness. She does become dyspneic with exertion which is stable and improved since being placed on home oxygen a few months back. No additional complaints at this time ER Course: Oxycodone Allergies Allergy/AdvReac Type Severity Reaction Status Date / Time clindamycin Allergy Intermediate HIVES Verified 04/05/19 11:01 Home Medications Home Medications Medication Instructions Recorded Confirmed Type benazepril 40 mg PO QAM 04/05/19 04/05/19 History calcitriol 0.25 mcg PO 3XWK 04/05/19 04/05/19 History clopidogrel 75 mg PO QAM 04/05/19 04/05/19 History fluticasone furoate-vilanterol 1 inh INHALATION BID 04/05/19 04/05/19 History [Breo Ellipta] furosemide 20 mg PO QAM 04/05/19 04/05/19 History ketoconazole 1 applic TOPICAL WK 04/05/19 04/05/19 History levalbuterol HCl 1.25 mg INHALATION Q4H PRN 04/05/19 04/05/19 History levothyroxine 50 mcg PO QAM 04/05/19 04/05/19 History metoprolol succinate 25 mg PO QAM 04/05/19 04/05/19 History mirtazapine 15 mg PO DAILY 04/05/19 04/05/19 History nifedipine 30 mg PO QAM 04/05/19 04/05/19 History prednisone 1 mg PO PM 04/05/19 04/05/19 History prednisone 2 mg PO QAM 04/05/19 04/05/19 History tiotropium bromide [Spiriva 1 puff INHALATION DAILY 04/05/19 04/05/19 History Respimat] Past Med/Surg History Medical History HTN (hypertension) (Chronic) 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 Patient declined Treatment with Aldara Subsequent recurrence with squamous cell carcinoma Status post partial vulvectomy with positive margins Status post completion of radiation therapy 08/01/2013 received 5040 cGy" Emphysema of lung (Chronic) On 2L home O2 PAD (peripheral artery disease) CKD (chronic kidney disease), stage IV CVA (cerebral vascular accident) Residual numbness of left hand and left side of mouth Dyslipidemia Hypothyroid Polymyalgia rheumatica Surgical History History of vaginal surgery Family History Other Family history non-contributory Social History Current Living Situation: Other Current Living Situation Comment: [facility] Feels Safe at Home: Yes Smoking Status: Former smoker Hx Alcohol Use: No Hx Substance Use: No Review of Systems Review of Systems: All systems reviewed & are unremarkable except as noted in HPI & below Physical Exam Physical Exam: General: frail, elderly female resting comfortably, NAD, non- toxic in appearance, AA&O x 4 Skin: warm, dry, gluteal skin tear, skin tear on left arm with dressing in place, ecchymoses on forearms HEENT: NC/AT, PERRL, EOMI, anicteric sclera, conjunctiva without injection, external ear normal to inspection and nontender, round, well demarcated skin lesion posterior right ear with flaking, nares patent, moist mucus membranes, dentures in place, no oropharyngeal lesions, neck supple, trachea midline, no LAD, no thyromegaly, no JVD Heart: +S1/S2, regular, no m/r/g Lungs: equal air entry bilaterally, no rales/rhonchi/wheezes Abd: +BS, soft, NT/ND, no masses/organomegaly/ascites Ext: warm, 1+ pulses bilateral LE with skin thickening and darkening of the shins, 2+ pulses in bilateral UEs, no clubbing/cyanosis or edema Neuro: nonfocal, patient AA&O x 4, speech intact, no facial droop, moving all extremities on command with equal strength 5/5 Results & Data Vital Signs (Past 12 Hours) Vital Signs Temp Pulse Pulse Resp BP BP Pulse Ox 04/05/19 12:45 77 20 151/75 H 97 04/05/19 11:12 73 18 169/75 H 99 04/05/19 09:58 71 18 218/92 H 100 04/05/19 09:04 36.6 C 81 21 198/83 H 97 Laboratory Results Lab Results 04/05/19 04/05/19 04/05/19 Range/Units 12:59 12:59 15:22 WBC 9.85 (4.8-10.8) K/uL RBC 4.23 (4.2-5.4) M/uL Hgb 10.6 L (12.0-16.0) g/dL Hct 32.9 L (37-47) % MCV 77.8 L (80-100) fL MCH 25.1 (25-34) pg MCHC 32.2 (32-36) g/dL RDW Std Deviation 52.7 H (36.4-46.3) fL RDW Coeff of Rhys 18.4 H (11.5-14.5) % Plt Count 132 (130-400) K/uL Immature Gran % (Auto) 0.4 % Neut % (Auto) 73.0 % Lymph % (Auto) 14.6 % Parker % (Auto) 7.4 % Eos % (Auto) 4.1 % Baso % (Auto) 0.5 % Immature Gran # (Auto) 0.04 H (0.00-0.02) K/uL Neut # (Auto) 7.33 H (1.4-6.5) K/uL Lymph # (Auto) 1.46 (1.2-3.4) K/uL Parker # (Auto) 0.74 H (0.11-0.59) K/uL Eos # (Auto) 0.41 (0-0.5) K/uL Baso # (Auto) 0.05 (0-0.2) K/uL Platelet Estimate Decreased L (Normal) PT 10.4 (9.0-12.0) Seconds INR 1.0 (0.9-1.1) APTT 22.4 (21.0-31.0) Seconds PTT Ratio 0.8 Sodium 144 (136-145) mmol/L Potassium 3.8 (3.5-5.1) mmol/L Chloride 106 (98-107) mmol/L Carbon Dioxide 31 (21-32) mmol/L Anion Gap 6.0 (3-11) BUN 47 H (7-18) mg/dl Creatinine 1.44 H (0.6-1.2) mg/dl Est Cr Clr Drug Dosing 17.3 ml/min Est GFR ( Amer) 37.7 Est GFR (Non-Af Amer) 32.6 BUN/Creatinine Ratio 32.8 H (10-20) Glucose 95 (70-99) mg/dl Calcium 9.8 (8.5-10.1) mg/dl Diagnostic Findings XR chest 1V portable CLINICAL HISTORY: Hip fracture. COMPARISON STUDY: Chest radiograph October 12, 2018. FINDINGS: There is no pneumothorax or pleural effusion. There is severe emphysema. Left lower mediastinal opacity is noted. Cardiac size is normal. Mediastinal contours are stable. IMPRESSION: 1. Left lower mediastinal opacity which may reflect left lower lobe atelectasis or consolidation. Follow-up PA and lateral chest radiographs in one month to ensure resolution recommended. 2. Severe emphysema. Electronically signed by: Werner Hudson M.D. 04/05/2019 3:50 PM Dictated: 04/05/19 1546 Transcribed: 04/05/19 1546 MR hip LT wo con HISTORY: Left hip fracture. Left hip pain. TECHNIQUE: Multiplanar multisequence MRI of the left hip was performed without the use of intravenous contrast. COMPARISON STUDY: Pelvis CT 03/28/2019. FINDINGS: There is again noted a fracture through the greater trochanter of the left hip. The fracture extends to the medullary cavity of the intertrochanteric region but does not extend to the medial cortex. Therefore, this is consistent with an incomplete intertrochanteric fracture of the left hip. No dislocation. The visualized pelvic bones are intact. There is a high-grade partial tear of the gluteus medius tendon with extensive edema and an intramuscular hematoma within the gluteus medius muscle. This hematoma measures approximately 6.3 cm. There is also a partial tear of the left gluteus medius muscle. The soft tissue edema also extends into the left greater sciatic notch and left extra peritoneal space medial to the left acetabulum. Prior internal fixation of an old right hip fracture. IMPRESSION: 1. Incomplete intertrochanteric fracture of the proximal left femur has described above. Orthopedic consultation recommended for internal fixation as this has a high likelihood for developing into a complete fracture. 2. High-grade partial tear of the left gluteus medius tendon with associated intramuscular tear/hematoma within the gluteus medius muscle. 2. Electronically signed by: Ja Soto M.D. 04/05/2019 2:54 PM Dictated: 04/05/19 1443 Transcribed: 04/05/[address] DOSE: 311.38 mGy.cm HISTORY: Fall. Left hip pain. TECHNIQUE: Multiaxial CT images of the pelvis were performed and reformatted in the sagittal and coronal plane without the use of contrast. A dose lowering technique was utilized adhering to the principles of ALARA. COMPARISON: Pelvis and left hip 04/05/2019. FINDINGS: There are old, healed bilateral rib fractures. There are healing/healed nondisplaced sacral sufficiency fractures. Prior internal fixation within a right hip intertrochanteric fracture. Nondisplaced fracture within the greater trochanter of the left hip. There is also a healing/healed insufficiency fracture at S2. The greater trochanter fracture does not appear to extend to the lesser trochanter or through the femoral neck. Soft tissue hematoma, within the left gluteus medius muscle measuring approximately 5.6 cm. This suggests possible tear of the gluteus medius tendon. IMPRESSION: 1. Nondisplaced slightly comminuted fracture within the greater trochanter of the left femur. This does not appear to extend to the lesser trochanter or through the femoral neck. However, if the patient has an inability to bear weight then consider follow-up MRI to exclude the possibility of an intert rochanteric fracture. 2. A 5.6 cm intramuscular hematoma within the left gluteus medius muscle. The location of the hematoma is concerning for a tear of the distal gluteus medius tendon. Electronically signed by: Ja Soto M.D. 04/05/2019 11:43 AM Dictated: 04/05/19 1136 Transcribed: 04/05/19 113 XR hip LT 2-3V w pelvis CLINICAL HISTORY: left hip pain after fall COMPARISON: None. DISCUSSION: There are postsurgical changes of a prior right hip pinning. There are old ischio pubic ring fractures. A line shadow through the left femoral neck is felt to represent a skinfold. Vascular calcifications are evident. There is an equivocal nondisplaced fracture of the left greater trochanter. IMPRESSION: 1. Old posttraumatic and postsurgical changes 2. Equivocal nondisplaced fracture of the left greater trochanter. CT scanning is recommended in follow-up. Electronically signed by: Erich Shahid M.D. 04/05/2019 11:08 AM Dictated: 04/05/19 1105 Transcribed: 04/05/19 1105 ECG Additional Comments: Pending completion Code Status & VTE Plan Code Status Full Code VTE Prophylaxis Plan VTE Prophylaxis will be ordered: Yes (1) Intertrochanteric fracture of left hip Encounter type: initial encounter Fracture type: closed Fracture alignment: nondisplaced Qualified Code(s): S72.145A - Nondisplaced intertrochanteric fracture of left femur, initial encounter for closed fracture (2) HTN (hypertension) Hypertension type: essential hypertension Qualified Code(s): I10 - Essential (primary) hypertension (3) Emphysema of lung Emphysema type: unspecified Qualified Code(s): J43.9 - Emphysema, unspecified (4) CVA (cerebral vascular accident) CVA mechanism: unspecified Qualified Code(s): I63.9 - Cerebral infarction, unspecified (5) Hypothyroid Hypothyroidism type: unspecified Qualified Code(s): E03.9 - Hypothyroidism, unspecified (6) Fall Encounter type: initial encounter Qualified Code(s): W19.XXXA - Unspecified fall, initial encounter
[2019-04-05 15:47] LABS: Partial Thromboplastin Ratio 0.8; Partial Thromboplastin Time 22.4 Seconds (21.0-31.0); Prothrombin Time 10.4 Seconds (9.0-12.0)
--- NOTE | 2019-04-05 15:52 | XRay Report ---
XR chest 1V portable CLINICAL HISTORY: Hip fracture. COMPARISON STUDY: Chest radiograph October 12, 2018. FINDINGS: There is no pneumothorax or pleural effusion. There is severe emphysema. Left lower mediast inal opacity is noted. Cardiac size is normal. Mediastinal contours are stable. IMPRESSION: 1. Left lower mediastinal opacity which may reflect left lower lobe atelectasis or consolidation. Fol low-up PA and lateral chest radiographs in one month to ensure resolution recommended. 2. Severe emphysema. Electronically signed by: Werner Hudson M.D. 04/05/2019 3:50 PM
[2019-04-05 16:34] LABS: Appearance Urine Clear (Clear); Bilirubin Urine Negative (Negative); Blood Urine Negative (Negative); Color Urine Yellow; Glucose Urine UA Negative (Negative); Ketones Urine Negative (Negative); Leukocyte Esterase Urine Negative (Negative); Nitrite Urine Negative (Negative); Protein Urine Negative (Negative); Urobilinogen Urine Negative (Negative); pH Urine 5.5 (4.5-7.5)
[2019-04-05] MEDS ORDERED: NALOXONE HCL 0.4 MG/1 ML VIAL/CARP IV PRN (17:31)
[2019-04-05] MEDS ORDERED: BISACODYL 10 MG SUPP PR PRN (17:31)
[2019-04-05] MEDS ORDERED: ALBUT/IPRATROP 3MG/0.5MG NEB 3 ML VIAL NEB PRN (17:31)
[2019-04-05] MEDS ORDERED: LEVALBUTEROL HCL 1.25 MG/3 ML NEB INH PRN (17:31)
[2019-04-05] MEDS ORDERED: MAGNESIUM HYDROXIDE SUSP 30 ML UDC PO PRN (17:31)
[2019-04-05] MEDS ORDERED: MoRPHine SULFATE 2 MG/ML CARP IV PRN (17:31)
[2019-04-05 18:48] LABS: Magnesium 2.4 mg/dl (1.8-2.4); Phosphorus 3.6 mg/dl (2.5-4.9)
--- NOTE | 2019-04-05 21:30 | Ultrasound Report ---
CAROTID ARTERY ULTRASOUND CLINICAL HISTORY: ?syncope COMPARISON STUDY: Carotid ultrasound September 15, 2016. TECHNIQUE: Real-time, grayscale, and color Doppler sonography of the carotid and vertebral arteries w as performed. Images were viewed in the transverse and longitudinal planes. FINDINGS: There is moderate to extensive atherosclerotic plaque. Velocity measurements are listed below. COMMON CAROTID PEAK SYSTOLIC VELOCITY (CM/S): RIGHT 47 LEFT 118 ICA PEAK SYSTOLIC VELOCITY (CM/S): RIGHT 164 LEFT 106 The systolic ratio between the right internal to common carotid artery is elevated at 3.5. Antegrade flow is seen in the vertebral arteries. The external carotid arteries are patent. Blood pressure was not obtained due to IV. IMPRESSION: Findings suggestive of a 50-69% stenosis within the proximal right internal carotid jacky ry. Electronically signed by: Werner Hudson M.D. 04/05/2019 9:29 PM
[2019-04-05] MEDS: MIRTAZAPINE TAB 15 MG TAB PO SCH (21:49)
[2019-04-05] MEDS: predniSONE 1 MG TAB PO SCH (21:49)
[2019-04-05] MEDS: DOCUSATE SODIUM/SENNA 50/8.6MG TAB PO SCH (21:49)
[2019-04-05] MEDS: OXYCODONE HCL IR 5 MG TAB (IMMEDIATE RELEASE) PO PRN (22:49)
[2019-04-06] MEDS ORDERED: LACTATED RINGER'S 1,000 ML IV SCH ×2 (00:01→23:15)
[2019-04-06] MEDS: LEVOTHYROXINE SODIUM 50 MCG TABLET PO SCH (05:11)
[2019-04-06] MEDS: OXYCODONE HCL IR 5 MG TAB (IMMEDIATE RELEASE) PO PRN (05:11)
[2019-04-06 07:39] LABS: Basophils # (auto) 0.05 K/uL (0-0.2); Basophils % (auto) 0.5 %; Eosinophils # (auto) 0.06 K/uL (0-0.5); Eosinophils % (auto) 0.6 %; Hematocrit (blood only) 30.8 % (37-47); Hemoglobin 9.9 g/dL (12.0-16.0); Immature Granulocytes # (auto) 0.04 K/uL (0.00-0.02); Immature Granulocytes % (auto) 0.4 %; Lymphocytes # (auto) 1.34 K/uL (1.2-3.4); Mean Corpuscular Hgb Conc 32.1 g/dL (32-36); Mean Corpuscular Volume 78.2 fL (80-100); Mean Platelet Volume 10.8 fL (7.4-10.4); Monocytes # (auto) 0.99 K/uL (0.11-0.59); Monocytes % (auto) 10.4 %; Neutrophils # (auto) 7.06 K/uL (1.4-6.5); Neutrophils % (auto) 74.1 %; Platelet Count 109 K/uL (130-400); RDW Coefficient of Variation 18.6 % (11.5-14.5); RDW Standard Deviation 53.5 fL (36.4-46.3); Red Blood Count 3.94 M/uL (4.2-5.4); White Blood Count 9.54 K/uL (4.8-10.8)
[2019-04-06] MEDS: TIOTROPIUM BROMIDE 5 PUFF/90 MCG INH INH SCH (07:39)
[2019-04-06] MEDS: BENAZEPRIL HCL 10 MG TAB PO SCH (07:40)
[2019-04-06] MEDS: METOPROLOL SUCC 25MG EXT REL TAB PO SCH (07:40)
[2019-04-06] MEDS: predniSONE 1 MG TAB PO SCH ×2 (07:40→21:34)
[2019-04-06] MEDS: CALCITRIOL 0.25 MCG CAPSULE PO SCH (07:40)
[2019-04-06] MEDS: NIFEdipine EXTENDED REL 30 MG TABCR PO SCH (07:40)
--- NOTE | 2019-04-06 07:55 | Orthopedic Consultation ---
Date of Consultation April 06, 2019 Assessment & Plan (1) Intertrochanteric fracture of left hip: Incomplete left intertrochanteric hip fracture. Partial tear left gluteus medius tendon with intramuscular hematoma. [place] orth[facility] physicians to evaluate MRI today. Patient is a household ambulator at her group home facility. She states that she has had multiple falls in the past. With the fracture extending into the canal, would consider trochanteric femoral nailing as opposed to conservative treatment unless otherwise dictated by medicine service or family. Any further falls could complete the fracture. Patient states that her son who has power of civil rights attorney is coming in today. We will discuss the matter with him as well as the hospitalist service. Thank you for this consult. History of Present Illness Reason for Consultation: Left hip fracture Attending Physician: Blake Moreno DO History of Present Illness Patient is a 88-year-old white female who resides at [facility]. She apparently was ambulating yesterday and suffered a mechanical fall. The patient does not remember the fall. She states that she usually does not remember any of her falls in the past. She does not believe that she lost consciousness. She states that she was ambulating down the hallway and then realized she was on the floor. She had pain in her left hip and was having some difficulty ambulating after the fall. She denies any shortness of breath, chest pain, lightheadedness prior to the fall or after. She was brought to [facility] emergency room and was seen by the staff. X-rays were taken and upon CT scan showed a greater trochanter fracture on the left side but with the amount of pain the patient was having, an MRI was obtained and found an incomplete intertrochanteric hip fracture. She was admitted by the hospitalist service and we have been asked to see her for her hip fracture. Allergies Allergy/AdvReac Type Severity Reaction Status Date / Time clindamycin Allergy Intermediate HIVES Verified 04/05/19 11:01 Home Medications Home Medications Medication Instructions Recorded Confirmed Type benazepril 40 mg PO QAM 04/05/19 04/05/19 History calcitriol 0.25 mcg PO 3XWK 04/05/19 04/05/19 History clopidogrel 75 mg PO QAM 04/05/19 04/05/19 History fluticasone furoate-vilanterol 1 inh INHALATION DAILY 04/05/19 04/05/19 History [Breo Ellipta] furosemide 20 mg PO QAM 04/05/19 04/05/19 History ketoconazole 1 applic TOPICAL WK 04/05/19 04/05/19 History levalbuterol HCl 1.25 mg INHALATION Q4H PRN 04/05/19 04/05/19 History levothyroxine 50 mcg PO QAM 04/05/19 04/05/19 History metoprolol succinate 25 mg PO QAM 04/05/19 04/05/19 History mirtazapine 15 mg PO DAILY 04/05/19 04/05/19 History nifedipine 30 mg PO QAM 04/05/19 04/05/19 History prednisone 1 mg PO PM 04/05/19 04/05/19 History prednisone 2 mg PO QAM 04/05/19 04/05/19 History tiotropium bromide [Spiriva 1 puff INHALATION DAILY 04/05/19 04/05/19 History Respimat] Patient History Medical History HTN (hypertension) (Chronic) 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 Patient declined Treatment with Aldara Subsequent recurrence with squamous cell carcinoma Status post partial vulvectomy with positive margins Status post completion of radiation therapy 08/01/2013 received 5040 cGy" Emphysema of lung (Chronic) On 2L home O2 PAD (peripheral artery disease) CKD (chronic kidney disease), stage IV CVA (cerebral vascular accident) Residual numbness of left hand and left side of mouth Dyslipidemia Hypothyroid Polymyalgia rheumatica Surgical History History of vaginal surgery Family History Other Family history non-contributory Social History Preferred Language: Greenlandic Communication Ability: Effective Filing Machine Operator Required: No Beliefs That Will Affect Care: None Current Living Situation: Alone and Personal Care Facility Current Living Situation Comment: [facility] Other Information That Helps Us Care for You: No Feels Safe at Home: Yes Safety Concerns: Feels Safe At This Time Smoking Status: Former smoker Tobacco Type: cigarettes Do You Dip or Chew Tobacco: No Smoking End Date: 2002 Second Hand Exposure: No Tobacco Cessation Education Requested by Patient: No Hx Alcohol Use: Yes Alcohol type: wine Hx Substance Use: No Physical Exam Physical Exam: Upon entering the room, the patient is lying in bed awake and alert. She is in no acute distress, pleasant and cooperative. Focusing exam of the left lower extremity, leg lengths appear equal. She is nontender at the left ankle and knee. She does have some pain on palpation over the left greater trochanter. Gentle internal and external rotation causes her increased pain at the left or greater trochanter. Gentle flexion of the hip at this time does cause her the same pain at about 40 degrees. She has mild pain on extension when returning the leg back to extension from flexion. She has good range of motion of her left ankle without discomfort. Right lower extremity is unaffected and she has good range of motion at the right ankle knee and hip. Strength are equal bilaterally. Bilateral dorsalis pedis pulses are 1+. Thickened, discolored skin changes noted of both lower extremities. Upper extremities are essentially benign at this time. She is nontender at the shoulders elbows and wrists. She does have multiple bruises on the upper extremities and noted skin tear that was taken care of in the emergency room with a dressing. She denies neck pain on palpation and has good range of motion. She denies any thoracic or low back pain at this time. Results & Data Vital Signs (Past 12 Hours) Vital Signs Temp Pulse Pulse Resp BP Pulse Ox 04/06/19 07:40 36.8 C 89 18 157/64 H 91 04/06/19 05:49 165/68 H 04/06/19 04:56 36.6 C 76 18 186/63 H 93 04/05/19 23:57 36.7 C 86 22 186/79 H 95 04/05/19 23:15 82 04/05/19 22:58 85 146/71 H 90 04/05/19 20:15 83 04/05/19 19:54 36.7 C 81 18 173/82 H 100 Diagnostic Findings MR hip LT wo con HISTORY: Left hip fracture. Left hip pain. TECHNIQUE: Multiplanar multisequence MRI of the left hip was performed without the use of intravenous contrast. COMPARISON STUDY: Pelvis CT 03/28/2019. FINDINGS: There is again noted a fracture through the greater trochanter of the left hip. The fracture extends to the medullary cavity of the intertrochanteric region but does not extend to the medial cortex. Therefore, this is consistent with an incomplete intertrochanteric fracture of the left hip. No dislocation. The visualized pelvic bones are intact. There is a high-grade partial tear of the gluteus medius tendon with extensive edema and an intramuscular hematoma within the gluteus medius muscle. This hematoma measures approximately 6.3 cm. There is also a partial tear of the left gluteus medius muscle. The soft tissue edema also extends into the left greater sciatic notch and left extra peritoneal space medial to the left acetabulum. Prior internal fixation of an old right hip fracture. IMPRESSION: 1. Incomplete intertrochanteric fracture of the proximal left femur has described above. Orthopedic consultation recommended for internal fixation as this has a high likelihood for developing into a complete fracture. 2. High-grade partial tear of the left gluteus medius tendon with associated intramuscular tear/hematoma within the gluteus medius muscle. (1) Intertrochanteric fracture of left hip Encounter type: initial encounter Fracture alignment: nondisplaced Fracture type: closed Qualified Code(s): S72.145A - Nondisplaced intertrochanteric fracture of left femur, initial encounter for closed fracture
[2019-04-06 08:12] LABS: BUN Creatinine Ratio 29.8 (10-20); Calcium 9.6 mg/dl (8.5-10.1); Creatinine Clr Calc Pharmacy 16.7 ml/min; Est GFR (African American) 42.3; Est GFR (Non-African American) 36.5; Potassium 4.3 mmol/L (3.5-5.1)
[2019-04-06] MEDS ORDERED: ONDANSETRON INJ 2 MG/ML 2 ML VIAL ONE (12:54)
[2019-04-06] MEDS ORDERED: fentaNYL citrate 100 MCG/2 ML VIAL ONE (12:54)
[2019-04-06] MEDS ORDERED: LIDOCAINE HCL 2% 2 ML VIAL/AMP(20MG/ML) INFIL ONE (12:54)
[2019-04-06] MEDS ORDERED: PROPOFOL IV EMULSION 10 MG/ML 20 ML VIAL IV ONE (12:54)
--- NOTE | 2019-04-06 13:15 | History & Physical Bridge Note ---
Date of Service April 06, 2019 History & Physical Bridge Note I have examined the patient, reviewed the History & Physical and in the interval since the performance of the History & Physical I have noted the following changes of clinical significance: no changes noted
[2019-04-06] MEDS ORDERED: ACETAMINOPHEN 1000 MG/100 ML IV IV ONE (14:22)
--- NOTE | 2019-04-06 14:29 | Anesthesiology Consultation ---
Date of Service April 06, 2019 Assessment & Plan Chart Review Chart Review: Acceptable Risk for Surgery and Patient NOT seen in Pre Admission Testing Consults Requested none ASA ASA4 Proposed Anesthesia Anesthesia Type: General Risk / Benefits Reviewed With: PT / POA / Parent / Guardian, Accepts Plan and Informed Consent Obtained History Surgery Operation Date: 04/06/19 12:45 Proposed Procedures p Left Trochanteric Nail Femur - Josh Claire DO Height/Weight Height: 4 ft 10 in Weight: 35 kg Allergies Allergy/AdvReac Type Severity Reaction Status Date / Time clindamycin Allergy Intermediate HIVES Verified 04/05/19 11:01 Medications Home Medications Medication Instructions Recorded Confirmed Last Taken benazepril 40 mg PO QAM 04/05/19 04/05/19 04/04/19 calcitriol 0.25 mcg PO 3XWK 04/05/19 04/05/19 04/02/19 clopidogrel 75 mg PO QAM 04/05/19 04/05/19 04/04/19 fluticasone furoate-vilanterol 1 inh INHALATION DAILY 04/05/19 04/05/19 04/04/19 [Breo Ellipta] furosemide 20 mg PO QAM 04/05/19 04/05/19 04/04/19 ketoconazole 1 applic TOPICAL WK 04/05/19 04/05/19 04/04/19 levalbuterol HCl 1.25 mg INHALATION Q4H PRN 04/05/19 04/05/19 Unknown levothyroxine 50 mcg PO QAM 04/05/19 04/05/19 04/05/19 04:00 metoprolol succinate 25 mg PO QAM 04/05/19 04/05/19 04/04/19 mirtazapine 15 mg PO DAILY 04/05/19 04/05/19 04/04/19 nifedipine 30 mg PO QAM 04/05/19 04/05/19 04/04/19 prednisone 1 mg PO PM 04/05/19 04/05/19 04/04/19 prednisone 2 mg PO QAM 04/05/19 04/05/19 04/04/19 tiotropium bromide [Spiriva 1 puff INHALATION DAILY 04/05/19 04/05/19 04/04/19 Respimat] Active Medications Generic Name Dose Route Start Last Admin Trade Name Freq PRN Reason Stop Dose Admin Benazepril HCl 40 mg 04/06/19 09:00 04/06/19 07:40 Lotensin PO 05/06/19 08:59 40 mg DAILY JUAN RAMON Administration Calcitriol 0.25 mcg 04/06/19 09:00 04/06/19 07:40 Racaltrol PO 05/06/19 08:59 0.25 mcg [id number] JUAN RAMON Administration Levothyroxine Sodium 50 mcg 04/06/19 06:30 04/06/19 05:11 Synthroid PO 05/06/19 06:29 50 mcg DAILYBB JUAN RAMON Administration Metoprolol Succinate 25 mg 04/06/19 09:00 04/06/19 07:40 Toprol Xl PO 05/06/19 08:59 25 mg QAM JUAN RAMON Administration Mirtazapine 15 mg 04/05/19 21:00 04/05/19 21:49 Remeron PO 05/05/19 20:59 15 mg HS JUAN RAMON Administration Miscellaneous 1 ea 04/05/19 18:15 04/06/19 07:34 Order Awaiting Action N/A 05/05/19 18:14 Not Given QS JUAN RAMON Nifedipine 30 mg 04/06/19 09:00 04/06/19 07:40 Procardia Xl PO 05/06/19 08:59 30 mg DAILY JUAN RAMON Administration Oxycodone HCl 5 mg 04/05/19 17:31 04/06/19 05:11 Roxicodone Immediate Rel PO 04/19/19 17:30 5 mg Q6H PRN Administration MODERATE Pain (Scale 4,5,6) Prednisone 1 mg 04/05/19 21:00 04/05/19 21:49 Prednisone PO 05/05/19 20:59 1 mg PM JUAN RAMON Administration Prednisone 2 mg 04/06/19 09:00 04/06/19 07:40 Prednisone PO 05/06/19 08:59 2 mg QAM JUAN RAMON Administration Senna/Docusate Sodium 2 tab 04/05/19 21:00 04/05/19 21:49 Senokot S PO 05/05/19 20:59 2 tab HS JUAN RAMON Administration Tiotropium Andrew 1 puffs 04/06/19 09:00 04/06/19 07:39 Spiriva INH 05/06/19 08:59 1 puffs DAILY JUAN RAMON Administration NPO Date Last Intake of Fluids: 04/05/19 Time Last Intake of Fluids: 18:00 Date Last Intake of Solids: 04/05/19 Time Last Intake of Solids: 14:00 Past Medical History Medical History HTN (hypertension) (Chronic) 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 Patient declined Treatment with Aldara Subsequent recurrence with squamous cell carcinoma Status post partial vulvectomy with positive margins Status post completion of radiation therapy 08/01/2013 received 5040 cGy" Emphysema of lung (Chronic) On 2L home O2 PAD (peripheral artery disease) CKD (chronic kidney disease), stage IV CVA (cerebral vascular accident) Residual numbness of left hand and left side of mouth Dyslipidemia Hypothyroid Polymyalgia rheumatica Past Family History Family History Other Family history non-contributory Past Surgical History Surgical History History of vaginal surgery Social History Smoking Status: Former smoker tobacco type: cigarettes Do You Dip or Chew Tobacco: No Smoking End Date: 2002 Hx Alcohol Use: Yes Alcohol type: wine alcohol intake frequency: holidays/special occasions only Hx Substance Use: No Physical Exam Vital Signs Last Vital Signs Temp 36.9 C 04/06/19 12:37 Pulse 84 04/06/19 12:37 Resp 20 04/06/19 12:37 BP 173/66 H 04/06/19 12:37 Pulse Ox 100 04/06/19 12:37
[2019-04-06] MEDS ORDERED: SODIUM CHLORIDE 0.9% INJ 10 ML VIAL ONE (14:32)
[2019-04-06] MEDS ORDERED: ePHEDrine sulfate 50 MG/ML AMP IV PRN (14:35)
[2019-04-06] MEDS ORDERED: ATROPINE SULFATE 0.1 MG/ML 10ML SYR IV PRN (14:35)
[2019-04-06] MEDS ORDERED: fentaNYL citrate 100 MCG/2 ML VIAL IV PRN (14:35)
--- NOTE | 2019-04-06 14:50 | Hospitalist Progress Note ---
Date of Service April 06, 2019 Assessment & Plan (1) Fall: Patient presents with left femur fracture after a possible fall at home. She does not recollect falling. Concern for syncopal event as patient states that she just woke up on the floor. - no arrhythmia on monitor -Check 2D echo - normal, no valve pathology -Check EKG: LVG and repolarization abnormality, no change compared to prior -Check carotid duplex ultrasound - 50-69% stenosis on right, would not have caused syncope can go to surgical floor after OR today (2) Intertrochanteric fracture of left hip: Patient with incomplete intertrochanteric fracture of the proximal left femur. She is somewhat active at baseline and ambulates with a walker in her retirement. -Consult Orthopedic Surgery -Pain control with Tylenol, Oxycodone, Morphine PRN -Bowel regimen -EKG and echo as above for workup of possible syncope - Cr stable at 1.3 CXR with chronic changes, nothing acute echo normal clear for OR today, she is medically optimized (3) HTN (hypertension): Blood pressure mildly elevated on admission -Continue Metoprolol - holding SOFIE and Lasix for OR today -Continue Nifedipine (4) Emphysema of lung: 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 Reports stable respiratory status. No cough, wheeze or increased SOB -Continue O2 -Continue Xopenex PRN -Continue Spiriva -Continue Breo -DuoNeb PRN Patient with left lower mediastinal opacity noted on CXR. Recommend followup PA and lateral CXR to ensure resolution can do the repeat CXR later in admission. (5) CKD (chronic kidney disease), stage IV: Patient with CKD IV. BUN=47, Cr=1.44 which is slightly higher than baseline values. -LR at 75mL/hr -Cr is 1.3 today (6) CVA (cerebral vascular accident): 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 Stable and unchanged -Plavix on hold for now for possible surgery -Patient is not currently on a statin (7) Hypothyroid: Chronic -Continue Synthroid -TSH with AM labs (8) Polymyalgia rheumatica: Chronic. Stable -Continue Prednisone 2mg po qAM and 1mg po qPM F/E/N - LR, monitor electrolytes and replete as needed, AHA diet, NPO after midnight, bowel regimen Ppx - SCDs Code - Full Dispo - can go to surgical floor after OR Subjective patient feeling fine, laying in bed says she has some mild left hip pain no chest pain, no dyspnea she again does not recall details of her fall, says she was walking around her bed and then down on the floor she says she has fallen numerous times in the past, typically loses consciousness echocardiogram was normal, valves stable carotid doppler showed right carotid with 50-69% stenosis CXR with emphysema but stable EKG with LVH and repolarization abnormality Cr stable at 1.3 discussed with kari pham for the OR Review of Systems Review of Systems: All systems reviewed & are unremarkable except as noted in HPI & below Constitutional: no fever, no chills and no sweats Respiratory: no cough and no dyspnea Cardiovascular: no chest pain, no palpitations and no edema Gastrointestinal: no abdominal pain, no nausea, no vomiting, no constipation and no diarrhea/loose stools Musculoskeletal: + joint pain (left hip) Physical Exam Constitutional: WD/WN, vitals as above + thin Eyes: PERRL, conjunctivae normal, anicteric sclerae ENMT: external ear and nose normal, oropharynx normal Neck: trachea midline, no thyromegaly Respiratory: normal respiratory effort, lungs clear to auscultation Cardiovascular: RRR, no murmur, no edema Gastrointestinal (Abdomen): normal bowel sounds, soft, nontender, no hepatosplenomegaly Musculoskeletal: no cyanosis or clubbing, extremities motor strength 5/5 Skin: no rashes, warm and dry Neurologic: patellar DTR's 2+ bilat, sensation intact and PERRL, EOMI, accommodation nl, no face palsy, no dysarthria Psychiatric: A+Ox3, euthymic affect Lymphatic: no cervical or axillary lymphadenopathy Results & Data Vital Signs (Past 12 Hours) Vital Signs Temp Pulse Resp BP Pulse Ox 04/06/19 12:37 36.9 C 84 20 173/66 H 100 04/06/19 11:17 36.7 C 78 18 175/79 H 100 04/06/19 07:40 36.8 C 89 18 157/64 H 91 04/06/19 05:49 165/68 H 04/06/19 04:56 36.6 C 76 18 186/63 H 93 Laboratory Results Laboratory Results - last 24 hr 04/05/19 04/05/19 04/05/19 12:59 15:22 15:22 WBC RBC Hgb Hct MCV MCH MCHC RDW Std Deviation RDW Coeff of Rhys Plt Count MPV Immature Gran % (Auto) Neut % (Auto) Lymph % (Auto) [place] % (Auto) Eos % (Auto) Baso % (Auto) Immature Gran # (Auto) Neut # (Auto) Lymph # (Auto) [place] # (Auto) Eos # (Auto) Baso # (Auto) PT 10.4 INR 1.0 APTT 22.4 PTT Ratio 0.8 Sodium Potassium Chloride Carbon Dioxide Anion Gap BUN Creatinine Est Cr Clr Drug Dosing Est GFR ( Amer) Est GFR (Non-Af Amer) BUN/Creatinine Ratio Glucose Calcium Phosphorus 3.6 Magnesium 2.4 TSH Urine Color Urine Appearance Urine pH Ur Specific [place] Urine Protein Urine Glucose (UA) Urine Ketones Urine Blood Urine Nitrite Urine Bilirubin Urine Urobilinogen Ur Leukocyte Esterase Blood Type A Positive Antibody Screen NEGATIVE 04/05/19 04/06/19 04/06/19 16:10 07:08 07:08 WBC 9.54 RBC 3.94 L Hgb 9.9 L Hct 30.8 L MCV 78.2 L MCH 25.1 MCHC 32.1 RDW Std Deviation 53.5 H RDW Coeff of Rhys 18.6 H Plt Count 109 L MPV 10.8 H Immature Gran % (Auto) 0.4 Neut % (Auto) 74.1 Lymph % (Auto) 14.0 [place] % (Auto) 10.4 Eos % (Auto) 0.6 Baso % (Auto) 0.5 Immature Gran # (Auto) 0.04 H Neut # (Auto) 7.06 H Lymph # (Auto) 1.34 [place] # (Auto) 0.99 H Eos # (Auto) 0.06 Baso # (Auto) 0.05 PT INR APTT PTT Ratio Sodium 142 Potassium 4.3 Chloride 105 Carbon Dioxide 29 Anion Gap 8.0 BUN 39 H Creatinine 1.31 H Est Cr Clr Drug Dosing 16.7 Est GFR ( Amer) 42.3 Est GFR (Non-Af Amer) 36.5 BUN/Creatinine Ratio 29.8 H Glucose 95 Calcium 9.6 Phosphorus Magnesium TSH 3.560 Urine Color Yellow Urine Appearance Clear Urine pH 5.5 Ur Specific [place] 1.020 Urine Protein Negative Urine Glucose (UA) Negative Urine Ketones Negative Urine Blood Negative Urine Nitrite Negative Urine Bilirubin Negative Urine Urobilinogen Negative Ur Leukocyte Esterase Negative Blood Type Antibody Screen Medications Administered Current Inpatient Medications Acetaminophen (Tylenol) 650 mg PO Q6H PRN PRN Reason: MILD Pain (Scale 1,2,3) Stop: 05/05/19 17:30 Albuterol (Duoneb) 3 ml NEB QIDR PRN PRN Reason: sob Stop: 05/05/19 17:30 Atropine Sulfate (Atropine Sulfate) 0.5 mg IV Q1M PRN PRN Reason: PACU Use-HR<40 &/or Bradycardi Stop: 04/06/19 19:35 Benazepril HCl (Lotensin) 40 mg PO DAILY [facility] Stop: 05/06/19 08:59 Last Admin: 04/06/19 07:40 Dose: 40 mg Documented by: Bisacodyl (Dulcolax) 10 mg DC DAILY PRN PRN Reason: Constipation Stop: 05/05/19 17:30 Calcitriol (Racaltrol) 0.25 mcg PO MoWeFr@0900 [facility] Stop: 05/06/19 08:59 Last Admin: 04/06/19 07:40 Dose: 0.25 mcg Documented by: Ephedrine Sulfate (Ephedrine Sulfate) 5 mg IV Q5M PRN PRN Reason: PACU Use Only-SBP<90 mmHg Stop: 04/06/19 19:35 Fentanyl Citrate (Fentanyl Citrate) 25 mcg IV Q5M PRN PRN Reason: PACU Use Only-Pain Stop: 04/06/19 19:35 Furosemide (Lasix) 20 mg PO QAM [facility] Stop: 05/07/19 08:59 Levalbuterol HCl (Xopenex 1.25mg/3ml Neb) 1.25 mg INH Q4H PRN PRN Reason: Shortness Of Breath Or Wheezing Stop: 05/05/19 17:30 Levothyroxine Sodium (Synthroid) 50 mcg PO DAILYBB [facility] Stop: 05/06/19 06:29 Last Admin: 04/06/19 05:11 Dose: 50 mcg Documented by: Magnesium Hydroxide (Milk Of Magnesia) 30 ml PO DAILY PRN PRN Reason: Constipation Stop: 05/05/19 17:30 Metoprolol Succinate (Toprol Xl) 25 mg PO QAM [facility] Stop: 05/06/19 08:59 Last Admin: 04/06/19 07:40 Dose: 25 mg Documented by: Mirtazapine (Remeron) 15 mg PO [facility] Stop: 05/05/19 20:59 Last Admin: 04/05/19 21:49 Dose: 15 mg Documented by: Miscellaneous (Order Awaiting Action) 1 ea N/A QS [facility] Stop: 05/05/19 18:14 Last Admin: 04/06/19 07:34 Dose: Not Given Documented by: Morphine Sulfate (Morphine Sulfate) 1 mg IV Q4H PRN PRN Reason: MODERATE Pain (Scale 4,5,6) Stop: 04/19/19 17:30 Naloxone HCl (Narcan) 0.1 mg IV UD PRN PRN Reason: Opiate Overdose Stop: 05/05/19 17:30 Nifedipine (Procardia Xl) 30 mg PO DAILY [facility] Stop: 05/06/19 08:59 Last Admin: 04/06/19 07:40 Dose: 30 mg Documented by: Oxycodone HCl (Roxicodone Immediate Rel) 5 mg PO Q6H PRN PRN Reason: MODERATE Pain (Scale 4,5,6) Stop: 04/19/19 17:30 Last Admin: 04/06/19 05:11 Dose: 5 mg Documented by: Prednisone (Prednisone) 1 mg PO PM [facility] Stop: 05/05/19 20:59 Last Admin: 04/05/19 21:49 Dose: 1 mg Documented by: Prednisone (Prednisone) [facility] [place] Stop: 05/06/19 08:59 Last Admin: 04/06/19 07:40 Dose: 2 mg Documented by: Senna/Docusate Sodium (Senokot S) 2 tab PO [facility] Stop: 05/05/19 20:59 Last Admin: 04/05/19 21:49 Dose: 2 tab Documented by: Tiotropium [place] (Spiriva) 1 puffs INH DAILY [facility] Stop: 05/06/19 08:59 Last Admin: 04/06/19 07:39 Dose: 1 puffs Documented by: (1) Hypothyroid Hypothyroidism type: unspecified Qualified Code(s): E03.9 - Hypothyroidism, unspecified (2) Emphysema of lung Emphysema type: unspecified Qualified Code(s): J43.9 - Emphysema, unspecified (3) HTN (hypertension) Hypertension type: essential hypertension Qualified Code(s): I10 - Essential (primary) hypertension (4) Fall Encounter type: initial encounter Qualified Code(s): W19.XXXA - Unspecified fall, initial encounter (5) CVA (cerebral vascular accident) CVA mechanism: unspecified Qualified Code(s): I63.9 - Cerebral infarction, unspecified (6) Intertrochanteric fracture of left hip Encounter type: initial encounter Fracture alignment: nondisplaced Fracture type: closed Qualified Code(s): S72.145A - Nondisplaced intertrochanteric fracture of left femur, initial encounter for closed fracture
[2019-04-06] MEDS ORDERED: CEFAZOLIN 250 MG/ML 1 GM VIAL ONE (15:13)
[2019-04-06] MEDS ORDERED: SODIUM CHLORIDE 0.9% 250 ML IV PRN (15:19)
[2019-04-06] MEDS ORDERED: CEFAZOLIN 1000MG 1,000 MG/7.5 ML SYR IV ONE (15:21)
--- NOTE | 2019-04-06 15:46 | Fluoroscopy Report ---
FL femur LT 2V CLINICAL HISTORY: LEFT FEMUR TROCH NAIL COMPARISON STUDY: CT of the pelvis and MRI of the left hip March 28, 2019. FLUOROSCOPY TIME: 50 seconds. FLUOROSCOPIC IMAGES: 3. FINDINGS: These images demonstrate internal fixation of the incomplete intertrochanteric fracture of the left femur with trochanteric needle. Hardware is intact. Alignment is anatomic. There are no unex pected radiopaque foreign bodies. IMPRESSION: Expected findings following internal fixation of the proximal left femoral fracture. Electronically signed by: Werner Hudson M.D. 04/06/2019 3:44 PM
--- NOTE | 2019-04-06 15:47 | Operative Report ---
Post Operative Report Pre & Post Diagnosis Operation Date: 04/06/19 12:45 Pre-Op Diagnosis: Nondisplaced intertrochanteric greater trochanteric fracture left hip Left Hip Fracture Post-Op Diagnosis: Nondisplaced intertrochanteric greater trochanteric fracture left hip Left Hip Fracture Procedure Operation Date: 04/06/19 12:45 Actual Procedures p Left Trochanteric Nail Femur(Left) utilizing 12 mm short protein nail with a 95 mm screw 30 mm distal locking screw- Josh Claire DO Surgeon Josh Claire DO Sheet Tester None Estimated Blood Loss 20 Findings Consistent with Post-Op Diagnosis Patient presents with a greater troches with extension to intertrochanteric region left hip status post fall for IM stabilization Specimens None Drains None Complications none Disposition Accompanied Patient To Recovery: No Disposition: Recovery Room Indications Patient presents with a painful greater intertrochanteric extended fracture left hip for IM truck nail stabilization Description of Procedure After proper prepping draping the left hip region on the fracture table under fluoroscopic guidance fracture is visualized to be in anatomic position both AP and lateral planes subsequently a small 3 cm incision made over the region of the greater trochanter dissection was carried down through the IT band a intramedullary guidewire was placed assessing a 12 mm nail was placed after proximal reaming subsequently the the troches femoral head nail was replaced with a 95 mm nail gave a fixation stability both AP and lateral planes of distal interlocking screw 30 mm was placed with the third stab wound wound was irrigated the subcu was closed with a #1 Vicryl subcu was closed with 3-0 Vicryl skin was closed with skin clips sterile compressive dressing was placed the patient was taken recovery in stable condition operative report dictated by Dakotah. I attest to the content of the Intraoperative Record and any orders documented therein. Any exceptions are noted below.
--- NOTE | 2019-04-06 16:48 | Anesthesiology Progress Note ---
Date of Service April 06, 2019 Anesthesia Post Procedure Vital Signs Vital Signs: Temp Pulse Pulse Pulse Resp BP Pulse Ox 04/06/19 16:35 36.6 C 70 16 141/54 H 94 04/06/19 16:25 36.6 C 70 16 154/62 H 100 04/06/19 16:15 72 15 135/75 98 04/06/19 16:05 98 H 19 132/91 100 04/06/19 15:55 76 16 176/72 H 100 04/06/19 15:46 36.6 C 78 12 179/101 H 100 04/06/19 12:37 36.9 C 84 20 173/66 H 100 04/06/19 11:17 36.7 C 78 18 175/79 H 100 04/06/19 07:40 36.8 C 89 18 157/64 H 91 04/06/19 05:49 165/68 H 04/06/19 04:56 36.6 C 76 18 186/63 H 93 04/05/19 23:57 36.7 C 86 22 186/79 H 95 04/05/19 23:15 82 04/05/19 22:58 85 146/71 H 90 04/05/19 20:15 83 04/05/19 19:54 36.7 C 81 18 173/82 H 100 04/05/19 17:33 36.7 C 65 16 134/62 97 Pain Intensity Left Hip: Pain Intensity: 0 Transfer of Care Handoff Completed per policy Notes Mental Status: alert / awake / arousable and participated in evaluation Patient Amnestic to Procedure: Yes Nausea / Vomiting: adequately controlled Pain: adequately controlled Airway Patency, RR, SpO2: stable & adequate BP & HR: stable & adequate Hydration State: stable & adequate Anesthetic Complications: no major complications apparent and Pt Satisfied with anesthetic care
[2019-04-06] MEDS ORDERED: NALOXONE HCL 0.4 MG/1 ML VIAL/CARP IV PRN (16:52)
[2019-04-06 21:08] LABS: Hemoglobin 8.9 g/dL (12.0-16.0)
[2019-04-06] MEDS: MIRTAZAPINE TAB 15 MG TAB PO SCH (21:34)
[2019-04-06] MEDS: DOCUSATE SODIUM/SENNA 50/8.6MG TAB PO SCH (21:34)
[2019-04-07] MEDS: LEVOTHYROXINE SODIUM 50 MCG TABLET PO SCH (06:26)
[2019-04-07] MEDS: OXYCODONE HCL IR 5 MG TAB (IMMEDIATE RELEASE) PO PRN ×2 (08:17→20:50)
[2019-04-07] MEDS: ENOXAPARIN INJ 30 MG/0.3 ML SYR SQ SCH (08:17)
[2019-04-07] MEDS: NIFEdipine EXTENDED REL 30 MG TABCR PO SCH (08:18)
[2019-04-07] MEDS: METOPROLOL SUCC 25MG EXT REL TAB PO SCH (08:18)
[2019-04-07] MEDS: predniSONE 1 MG TAB PO SCH ×2 (08:19→20:29)
[2019-04-07] MEDS: FUROSEMIDE 20 MG TAB PO SCH (08:19)
[2019-04-07] MEDS: BENAZEPRIL HCL 10 MG TAB PO SCH (08:20)
[2019-04-07 08:21] LABS: Mean Corpuscular Hgb Conc 31.3 g/dL (32-36)
[2019-04-07 08:29] LABS: Hematocrit (blood only) 30.4 % (37-47); Hemoglobin 9.5 g/dL (12.0-16.0); Mean Corpuscular Volume 79.6 fL (80-100); RDW Standard Deviation 55.3 fL (36.4-46.3); Red Blood Count 3.82 M/uL (4.2-5.4); White Blood Count 9.96 K/uL (4.8-10.8)
[2019-04-07 08:51] LABS: BUN Creatinine Ratio 28.7 (10-20); Calcium 9.3 mg/dl (8.5-10.1); Creatinine Clr Calc Pharmacy 16.3 ml/min; Est GFR (African American) 41.2; Est GFR (Non-African American) 35.5; Potassium 5.6 mmol/L (3.5-5.1)
[2019-04-07 09:13] LABS: Platelet Count 118 K/uL (130-400)
[2019-04-07 09:14] LABS: Anisocytosis Present; Basophils # (auto) 0.01 K/uL (0-0.2); Basophils % (auto) 0.1 %; Immature Granulocytes # (auto) 0.05 K/uL (0.00-0.02); Immature Granulocytes % (auto) 0.5 %; Lymphocytes # (auto) 1.13 K/uL (1.2-3.4); Lymphocytes % (auto) 11.3 %; Monocytes # (auto) 1.13 K/uL (0.11-0.59); Monocytes % (auto) 11.3 %; Neutrophils # (auto) 7.64 K/uL (1.4-6.5); Neutrophils % (auto) 76.8 %; Platelet Estimate Normal (Normal)
--- NOTE | 2019-04-07 10:06 | Orthopedic Progress Note ---
Date of Service April 07, 2019 Assessment & Plan (1) Intertrochanteric fracture of left hip: POD#1 left troch nail -pain management -PT/OT. PWB left lower extremity -DVT prophylaxis-lovenox -D/C planning-patient likely will be returning to [facility] when stable -AM labs-hemoglobin stable at 9.5 this AM. Subjective POD#1 left troch nail. She is doing well. Was having some pain earlier, but better after pain medication. Denies other complaints. No chest pain, sob, dizziness, n/v. Review of Systems Review of Systems: All systems reviewed & are unremarkable except as noted in HPI & below Physical Exam Physical Exam: Dressing to left hip is c/d/i-microfoam dressing. Toes are mobile. No calf tenderness. N/V status and sensation is intact Results & Data Vital Signs (Past 12 Hours) Vital Signs Temp Pulse Pulse Resp BP Pulse Ox 04/07/19 07:16 36.4 C L 84 20 137/75 92 04/07/19 04:00 36.5 C 89 16 149/57 H 98 04/06/19 23:08 36.2 C L 73 16 101/64 94 (1) Intertrochanteric fracture of left hip Encounter type: initial encounter Fracture alignment: nondisplaced Fracture type: closed Qualified Code(s): S72.145A - Nondisplaced intertrochanteric fracture of left femur, initial encounter for closed fracture
[2019-04-07] MEDS: TIOTROPIUM BROMIDE 5 PUFF/90 MCG INH INH SCH (10:23)
--- NOTE | 2019-04-07 10:28 | Anesthesiology Progress Note ---
Date of Service April 07, 2019 Anesthesia Post Procedure Vital Signs Vital Signs: Temp Pulse Pulse Resp BP BP Pulse Ox 04/07/19 07:16 36.4 C L 84 20 137/75 92 04/07/19 04:00 36.5 C 89 16 149/57 H 98 04/06/19 23:08 36.2 C L 73 16 101/64 94 04/06/19 19:53 36.2 C L 73 16 84/53 L 99 04/06/19 17:51 36.4 C L 65 16 136/79 95 04/06/19 17:17 36.3 C L 68 16 129/67 99 04/06/19 16:50 36.4 C L 70 16 131/79 100 04/06/19 16:35 36.6 C 70 16 141/54 H 94 04/06/19 16:25 36.6 C 70 16 154/62 H 100 04/06/19 16:15 72 15 135/75 98 04/06/19 16:05 98 H 19 132/91 100 04/06/19 15:55 76 16 176/72 H 100 04/06/19 15:46 36.6 C 78 12 179/101 H 100 04/06/19 12:37 36.9 C 84 20 173/66 H 100 04/06/19 11:17 36.7 C 78 18 175/79 H 100 Pain Intensity Left Hip: Pain Intensity: 0 Notes Notes: patient has moved rooms, [facility]
[2019-04-07] MEDS ORDERED: CLOPIDOGREL BISULFATE 75 MG TAB PO ONE (10:59)
[2019-04-07] MEDS ORDERED: OPTIRAY 320 125ml IV PRN (11:36)
--- NOTE | 2019-04-07 12:02 | CT Scan Report ---
CT OF THE HEAD WITHOUT CONTRAST CLINICAL HISTORY: Dysarthria. COMPARISON STUDY: Head CT March 17, 2018. TECHNIQUE: Helical axial images of the head were obtained without IV contrast. Automated exposure con trol was utilized for the study. A dose lowering technique was utilized adhering to the principles o f ALARA. FINDINGS: This exam is mildly, must by motion artifact. No acute intracranial hemorrhage, midline brea ft or mass effect is present. Ventricular system is normal. The basilar cisterns are patent. There ar e no extra axial collections. There are no findings to suggest acute dural sinus thrombosis or acute territorial infarct. There are no significant calvarial abnormalities. IMPRESSION: No acute intracranial findings. Electronically signed by: Werner Hudson M.D. 04/07/2019 12:01 PM
--- NOTE | 2019-04-07 12:05 | CT Scan Report ---
CT angio head w con HISTORY: Mental status change Dysarthria TECHNIQUE: Multiaxial CT angiography of the head was performed IV contrast: None. Maximum in tensity projection images were also obtained. A dose lowering technique was utilized adhering to the principles of ALARA. COMPARISON: None. FINDINGS: 50% stenosis anterior aspect right anterior cerebral artery. High-grade and or critical stenosis right middle cerebral artery at the base of the sylvian fissure. Moderate scattered chronic small vessel change throughout the peripheral arterial vasculature. . Small caliber left vertebral artery presumably on an anatomic variation bases. The basilar artery i s intact. The right posterior cerebral circulation is fed via the right posterior communicator. This is an anatomic variant. Moderate atherosclerotic change of the carotid siphon bilaterally with no critical stenosis identifie d. IMPRESSION: 1. 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 2. 50% stenosis anterior aspect right middle cerebral artery. 3. Congenitally small left vertebral artery. 4. Moderate chronic small vessel change of the peripheral arterial structures throughout both cerebra l hemispheres. The above report was generated using voice recognition software. It may contain grammatical, syntax or spelling errors. Electronically signed by: Brayan Hirsch M.D. 04/07/2019 12:04 PM
--- NOTE | 2019-04-07 12:23 | CT Scan Report ---
CT ANGIOGRAM OF THE NECK CLINICAL HISTORY: Dysarthria. COMPARISON STUDY: CT scan of the cervical spine dated 519. Carotid artery ultrasound dated 09/15/[address] dated 07/17/2012. TECHNIQUE: Following the IV administration of 120 of Optiray 320, CT angiogram of the neck was perfor med from the aortic arch to the skull base. Images are reviewed in the axial, sagittal, and coronal p lanes. 3-D MIPS images are created and assessed. IV contrast was administered without complication. A ll measurements were calculated based on NASCET criteria. A dose lowering technique was utilized adh ering to the principles of ALARA. CT DOSE: 1012.26 mGy.cm FINDINGS: Thoracic aorta: There is atherosclerotic calcification of the thoracic aorta. Visualized portions of the thoracic aorta are normal in caliber. The aortic arch demonstrates standard 3-vessel anatomy. Right carotid arterial system: The right common carotid artery is patent noting advanced atherosclero tic plaque and irregularity. There is likely minimal luminal narrowing seen in the carotid bulb. Ther e is high-grade stenosis at the origin of the right external carotid artery. The right internal carot id artery is widely patent. Left carotid arterial system: The left common carotid artery is patent noting advanced atheroscleroti c plaque and irregularity. 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 This measures up to 1.9 x 1.6 cm (AP x transverse). The aneurysm extends appr oximately 4 cm in craniocaudal length. The left internal carotid artery is widely patent. There is ne ar-complete occlusion at the origin of the left external carotid artery, with thready flow throughout the right ureterovesical. Subclavian arteries: There is diffuse atherosclerotic irregularity and diffuse stenosis seen througho ut the left subclavian artery with approximately 50% luminal narrowing. The right coronary arteries p atent. Vertebral arteries: The vertebral arteries are patent bilaterally noting a right-sided dominance. The left vertebral artery is diminutive. Intracranial vasculature: The partially visualized intracranial vessels at the skull base are normal in appearance. Jugular veins: Widely patent bilaterally. Brain parenchyma: The visualized brain parenchyma the skull base is within normal limits noting age-r elated involutional change. Lung apices: Advanced emphysematous change is noted at the lung apices. There is a 7 mm spiculated no dule at the left apex seen on image #121. A calcified granuloma is noted at the left apex. Soft tissues: The visualized pharyngeal soft tissues are normal in appearance noting angiographic pha se technique. The oropharyngeal airway appears widely patent. The thyroid gland is heterogeneous. The salivary glands are normal in appearance. No cervical lymphadenopathy is seen. Skeletal structures: The skeletal structures are osteopenic. The visualized calvarium at the skull ba se appears intact. The imaged cervical spine is maintained noting multilevel spondylosis. There is a healed right posterior first rib fracture. Sinuses and mastoids: The imaged paranasal sinuses are clear. There is trace left mastoid effusion. T he right mastoid air cells are well pneumatized. IMPRESSION: 1. Advanced emphysema and advanced arterial atherosclerosis are identified. 2. The common carotid, internal carotid, and vertebral arteries are patent bilaterally. 3. 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 4. There is high-grade stenosis of the origins of both external carotid arteries as detailed above. 5. There is a 7 mm spiculated nodule at the left apex. This is new from the [address] and highly concerning for pulmonary neoplasm. 6. There is diffuse atherosclerotic irregularity and approximately 50% luminal narrowing of the left subclavian artery. 7. Additional findings as above. Electronically signed by: Cheng Obrien M.D. 04/07/2019 12:22 PM
--- NOTE | 2019-04-07 12:51 | Hospitalist Progress Note ---
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 Stable and unchanged now with NEW changes in sensation in tongue, specifically left side, some dysar thria no facial droop, all other facial muscle intact, no focal motor deficits on exam stroke alert was NOT called because the patient just had surgery and would not give tPA as symptoms were very minor CT head without acute stroke but it is early discussed getting MRI with patient, she absolutely refuses to go in MRI CTA head shows critical stenosis in right middle cerebral artery resumed patient's Plavix will get neurology consult (2) Fall: Patient presents with left femur fracture after a possible fall at home. She does not recollect falling. Concern for syncopal event as patient states that she just woke up on the floor. - no arrhythmia on monitor while on tele -Check 2D echo - normal, no valve pathology -Check EKG: LVH and repolarization abnormality, no change compared to prior -Check carotid duplex ultrasound - 50-69% stenosis on right, would not have caused syncope went to surgical floor after OR (3) Intertrochanteric fracture of left hip: Patient with incomplete intertrochanteric fracture of the proximal left femur. She is somewhat active at baseline and ambulates with a walker in her senior care. -Consult Orthopedic Surgery -Pain control with Tylenol, Oxycodone, Morphine PRN -Bowel regimen -EKG and echo as above for workup of possible syncope - Cr stable at 1.3 CXR with chronic changes, nothing acute echo normal went to OR on 04/06, s/p pinning of left hip pain well controlled today (4) HTN (hypertension): Blood pressure mildly elevated on admission -Continue Metoprolol - resume SOFIE tomorrow -Continue Nifedipine (5) Emphysema of lung: 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 Reports stable respiratory status. No cough, wheeze or increased SOB -Continue O2 -Continue Xopenex PRN -Continue Spiriva -Continue Breo -DuoNeb PRN Patient with left lower mediastinal opacity noted on CXR. Recommend followup PA and lateral CXR to ensure resolution can do the repeat CXR later in admission. lungs clear today (6) CKD (chronic kidney disease), stage IV: Patient with CKD IV. BUN=47, Cr=1.44 which is slightly higher than baseline values. -LR at 75mL/hr -Cr is up slightly to 1.5, will repeat tomorrow (7) Hypothyroid: Chronic -Continue Synthroid -TSH with AM labs (8) Polymyalgia rheumatica: Chronic. Stable -Continue Prednisone 2mg po qAM and 1mg po qPM F/E/N - LR, monitor electrolytes and replete as needed, AHA diet, NPO after midnight, bowel regimen Ppx - SCDs Code - Full Dispo - can go to surgical floor after OR (9) Hyperkalemia: elevated at 5.6 this morning repeat was 5.0 this afternoon repeat tomorrow Subjective called to patient's room this morning around 11am concern from both the RN and family that the patient's speech was garbled even the patient admitted that she felt like something was wrong with her tongue neurovascularly intact on exam no facial droop, wrinkling forehead, all facial muscles intact very slight leftward deviation of tip of the tongue speech was a little garbles but could easily understand what she was saying repeated no ifs ands or buts clearly h/o stroke with some left sided residual weakness ordered CT head as well as CTA head and neck no acute stroke seen there was some severe stenosis in CTA head of middle cerebral artery patient was swallowing okay but starting to pocket some food requested speech therapy consult will have neuro see patient tomorrow Review of Systems Review of Systems: All systems reviewed & are unremarkable except as noted in HPI & below Neurologic: + abnormal speech (garbled) and + problem reported (tongue felt funny, felt large in her mouth); no localized weakness, no loss of sensation, no tingling, no lack of coordination, no abnormal movements, no dizziness, no syncope, no headache(s), no behavioral changes and no confusion Physical Exam Constitutional: WD/WN, vitals as above + thin Eyes: PERRL, conjunctivae normal, anicteric sclerae ENMT: external ear and nose normal, oropharynx normal Neck: trachea midline, no thyromegaly Respiratory: normal respiratory effort, lungs clear to auscultation Cardiovascular: RRR, no murmur, no edema Gastrointestinal (Abdomen): normal bowel sounds, soft, nontender, no hepatosplenomegaly Musculoskeletal: no cyanosis or clubbing, extremities motor strength 5/5 Skin: no rashes, warm and dry Neurologic: patellar DTR's 2+ bilat, sensation intact normal touch/pain/proprioception, deep tendon reflexes 2+ bilaterally, plantar reflexes intact bilaterally and moves all extremities; + CN's not intact (mild deviation of tongue to the left, garbled speech but could understand) and no focal motor deficits Speech / Cognition: + abnormal speech (garbled, but no hesitancy in speaking, understood speech) Motor/Sensory: no tremor Psychiatric: A+Ox3, euthymic affect Lymphatic: no cervical or axillary lymphadenopathy Results & Data Vital Signs (Past 12 Hours) Vital Signs Temp Pulse Pulse Resp BP BP Pulse Ox 04/07/19 10:45 147/70 H 04/07/19 07:16 36.4 C L 84 20 137/75 92 04/07/19 04:00 36.5 C 89 16 149/57 H 98 Laboratory Results Laboratory Results - last 24 hr 04/05/19 04/06/19 04/07/19 15:22 20:54 07:59 WBC 9.96 RBC 3.82 L Hgb 8.9 L 9.5 L Hct 28.0 L 30.4 L MCV 79.6 L MCH 24.9 L MCHC 31.3 L RDW Std Deviation 55.3 H RDW Coeff of Rhys 19.0 H Plt Count 118 L Immature Gran % (Auto) 0.5 Neut % (Auto) 76.8 Lymph % (Auto) 11.3 Butts % (Auto) 11.3 Eos % (Auto) 0.0 Baso % (Auto) 0.1 Immature Gran # (Auto) 0.05 H Neut # (Auto) 7.64 H Lymph # (Auto) 1.13 L Butts # (Auto) 1.13 H Eos # (Auto) 0.00 Baso # (Auto) 0.01 Platelet Estimate Normal Anisocytosis Present Sodium Potassium Chloride Carbon Dioxide Anion Gap BUN Creatinine Est Cr Clr Drug Dosing Est GFR ( Amer) Est GFR (Non-Af Amer) BUN/Creatinine Ratio Glucose Calcium Blood Type A Positive Antibody Screen NEGATIVE Crossmatch See Detail 04/07/19 07:59 WBC RBC Hgb Hct MCV MCH MCHC RDW Std Deviation RDW Coeff of Rhys Plt Count Immature Gran % (Auto) Neut % (Auto) Lymph % (Auto) Butts % (Auto) Eos % (Auto) Baso % (Auto) Immature Gran # (Auto) Neut # (Auto) Lymph # (Auto) Butts # (Auto) Eos # (Auto) Baso # (Auto) Platelet Estimate Anisocytosis Sodium 142 Potassium 5.6 H D Chloride 106 Carbon Dioxide 27 Anion Gap 9.0 BUN 39 H Creatinine 1.34 H Est Cr Clr Drug Dosing 16.3 Est GFR ( Amer) 41.2 Est GFR (Non-Af Amer) 35.5 BUN/Creatinine Ratio 28.7 H Glucose 95 Calcium 9.3 Blood Type Antibody Screen Crossmatch Diagnostic Findings CT OF THE HEAD WITHOUT CONTRAST CLINICAL HISTORY: Dysarthria. IMPRESSION: No acute intracranial findings. CT angio head with contrast IMPRESSION: 1. High-grade and or critical stenosis right middle cerebral artery at the base of the sylvian fissure. 2. 50% stenosis anterior aspect right middle cerebral artery. 3. Congenitally small left vertebral artery. 4. Moderate chronic small vessel change of the peripheral arterial structures throughout both cerebral hemispheres. CT angio neck with contrast IMPRESSION: 1. Advanced emphysema and advanced arterial atherosclerosis are identified. 2. The common carotid, internal carotid, and vertebral arteries are patent bila terally. 3. 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 4. There is high-grade stenosis of the origins of both external carotid arteries as detailed above. 5. There is a 7 mm spiculated nodule at the left apex. This is new from the [address] and highly concerning for pulmonary neoplasm. 6. There is diffuse atherosclerotic irregularity and approximately 50% luminal narrowing of the left subclavian artery. 7. Additional findings as above. Medications Administered Current Inpatient Medications Acetaminophen (Tylenol) 650 mg PO Q6H PRN PRN Reason: MILD Pain (Scale 1,2,3) Stop: 05/05/19 17:30 Albuterol (Duoneb) 3 ml NEB QIDR PRN PRN Reason: sob Stop: 05/05/19 17:30 Benazepril HCl (Lotensin) 40 mg PO DAILY JUAN RAMON Stop: 05/06/19 08:59 Last Admin: 04/07/19 08:20 Dose: 40 mg Documented by: Bisacodyl (Dulcolax) 10 mg [place] DAILY PRN PRN Reason: Constipation Stop: 05/05/19 17:30 Calcitriol (Racaltrol) 0.25 mcg PO MoWeFr@0900 [facility] Stop: 05/06/19 08:59 Last Admin: 04/06/19 07:40 Dose: 0.25 mcg Documented by: Enoxaparin Sodium (Lovenox) 30 mg SQ Q24H JUAN RAMON Stop: 05/07/19 08:59 Last Admin: 04/07/19 08:17 Dose: 30 mg Documented by: Fluticasone/Vilanterol (Breo Ellipta) 1 puffs INH DAILY [facility] Stop: 05/08/19 08:59 Furosemide (Lasix) 20 mg PO QAM [facility] Stop: 05/07/19 08:59 Last Admin: 04/07/19 08:19 Dose: 20 mg Documented by: Sodium Chloride (Nss) 250 mls @ 15 mls/hr IV .[id number] PRN PRN Reason: For Transfusion Stop: 05/06/19 15:18 Ioversol (Optiray 320 125ml) 120 ml IV ONCE PRN PRN Reason: Interaction Checking Stop: 04/11/19 11:35 Last Admin: 04/07/19 11:37 Dose: 120 ml Documented by: Levalbuterol HCl (Xopenex 1.25mg/3ml Neb) 1.25 mg INH Q4H PRN PRN Reason: Shortness Of Breath Or Wheezing Stop: 05/05/19 17:30 Levothyroxine Sodium (Synthroid) 50 mcg PO DAILYBB [facility] Stop: 05/06/19 06:29 Last Admin: 04/07/19 06:26 Dose: 50 mcg Documented by: Magnesium Hydroxide (Milk Of Magnesia) 30 ml PO DAILY PRN PRN Reason: Constipation Stop: 05/05/19 17:30 Metoprolol Succinate (Toprol Xl) 25 mg PO QAM [facility] Stop: 05/06/19 08:59 Last Admin: 04/07/19 08:18 Dose: 25 mg Documented by: Mirtazapine (Remeron) 15 mg PO HS [facility] Stop: 05/05/19 20:59 Last Admin: 04/06/19 21:34 Dose: 15 mg Documented by: Morphine Sulfate (Morphine Sulfate) 1 mg IV Q4H PRN PRN Reason: MODERATE Pain (Scale 4,5,6) Stop: 04/19/19 17:30 Naloxone HCl (Narcan) 0.1 mg IV UD PRN PRN Reason: Opiate Overdose Stop: 05/05/19 17:30 Naloxone HCl (Narcan) 0.1 mg IV UD PRN PRN Reason: Opioid Overdose Stop: 05/06/19 16:51 Nifedipine (Procardia Xl) 30 mg PO DAILY [facility] Stop: 05/06/19 08:59 Last Admin: 04/07/19 08:18 Dose: 30 mg Documented by: Oxycodone HCl (Roxicodone Immediate Rel) 5 mg PO Q6H PRN PRN Reason: MODERATE Pain (Scale 4,5,6) Stop: 04/19/19 17:30 Last Admin: 04/07/19 08:17 Dose: 5 mg Documented by: Prednisone (Prednisone) 1 mg PO PM [facility] Stop: 05/05/19 20:59 Last Admin: 04/06/19 21:34 Dose: 1 mg Documented by: Prednisone (Prednisone) 2 mg PO QAM [facility] Stop: 05/06/19 08:59 Last Admin: 04/07/19 08:19 Dose: 2 mg Documented by: Senna/Docusate Sodium (Senokot S) 2 tab PO HS [facility] Stop: 05/05/19 20:59 Last Admin: 04/06/19 21:34 Dose: 2 tab Documented by: Tiotropium [place] (Spiriva) 1 puffs INH DAILY [facility] Stop: 05/06/19 08:59 Last Admin: 04/07/19 10:23 Dose: 1 puffs Documented by: (1) Hypothyroid Hypothyroidism type: unspecified Qualified Code(s): E03.9 - Hypothyroidism, unspecified (2) Emphysema of lung Emphysema type: unspecified Qualified Code(s): J43.9 - Emphysema, unspecified (3) HTN (hypertension) Hypertension type: essential hypertension Qualified Code(s): I10 - Essential (primary) hypertension (4) Fall Encounter type: initial encounter Qualified Code(s): W19.XXXA - Unspecified fall, initial encounter (5) CVA (cerebral vascular accident) CVA mechanism: unspecified Qualified Code(s): I63.9 - Cerebral infarction, unspecified (6) Intertrochanteric fracture of left hip Encounter type: initial encounter Fracture alignment: nondisplaced Fracture type: closed Qualified Code(s): S72.145A - Nondisplaced intertrochanteric fracture of left femur, initial encounter for closed fracture
[2019-04-07 14:35] LABS: BUN Creatinine Ratio 25.5 (10-20); Creatinine Clr Calc Pharmacy 14.6 ml/min; Est GFR (African American) 35.9
[2019-04-07] MEDS: ACETAMINOPHEN 325 MG TAB PO PRN (18:19)
[2019-04-07] MEDS: MIRTAZAPINE TAB 15 MG TAB PO SCH (20:29)
[2019-04-07] MEDS: DOCUSATE SODIUM/SENNA 50/8.6MG TAB PO SCH (20:50)
[2019-04-08] MEDS: OXYCODONE HCL IR 5 MG TAB (IMMEDIATE RELEASE) PO PRN (05:40)
[2019-04-08] MEDS: LEVOTHYROXINE SODIUM 50 MCG TABLET PO SCH (05:51)
[2019-04-08 08:22] LABS: Mean Corpuscular Hgb Conc 32.4 g/dL (32-36)
[2019-04-08 08:37] LABS: Hematocrit (blood only) 24.4 % (37-47); Hemoglobin 7.9 g/dL (12.0-16.0); Mean Corpuscular Volume 78.7 fL (80-100); RDW Coefficient of Variation 19.5 % (11.5-14.5); RDW Standard Deviation 55.6 fL (36.4-46.3); White Blood Count 10.63 K/uL (4.8-10.8)
--- NOTE | 2019-04-08 08:40 | Orthopedic Progress Note ---
Date of Service April 08, 2019 Assessment & Plan (1) Intertrochanteric fracture of left hip: Labs are pending this morning. Continue partial weightbearing with PT/OT protocols. DVT prophylaxis with SCDs, MARIO ALBERTO hose, enoxaparin Pain management with oxycodone DC planning-plan return to [facility] when medically stable. Subjective Postop day 2 status post left TFN. Patient is currently sitting up in her chair at the bedside. Nursing staff has just finished getting her cleaned up and getting her ready for breakfast. She states that her hip has some discomfort when getting in and out of bed. She has no other complaints at this time. Denies shortness of breath, chest pain, lightheadedness. Physical Exam Physical Exam: Incisions are clean, dry, intact. No overt erythema noted. Thigh is soft and nontender. Calves are soft nontender. Neurovascular is intact. Toes are mobile. Results & Data Vital Signs (Past 12 Hours) Vital Signs Temp Pulse Pulse Resp BP BP Pulse Ox 04/08/19 07:46 36.7 C 92 H 17 129/59 L 95 04/07/19 23:33 36.6 C 93 H 16 154/71 H 92 (1) Intertrochanteric fracture of left hip Encounter type: initial encounter Fracture alignment: nondisplaced Fracture type: closed Qualified Code(s): S72.145A - Nondisplaced intertrochanteric fracture of left femur, initial encounter for closed fracture
[2019-04-08 09:05] LABS: Platelet Count 127 K/uL (130-400)
[2019-04-08 09:06] LABS: Anisocytosis Present; Basophils # (auto) 0.02 K/uL (0-0.2); Basophils % (auto) 0.2 %; Eosinophils # (auto) 0.03 K/uL (0-0.5); Eosinophils % (auto) 0.3 %; Immature Granulocytes # (auto) 0.05 K/uL (0.00-0.02); Immature Granulocytes % (auto) 0.5 %; Lymphocytes # (auto) 0.98 K/uL (1.2-3.4); Lymphocytes % (auto) 9.2 %; Monocytes # (auto) 1.18 K/uL (0.11-0.59); Monocytes % (auto) 11.1 %; Neutrophils # (auto) 8.37 K/uL (1.4-6.5); Neutrophils % (auto) 78.7 %; Platelet Estimate Decreased (Normal)
[2019-04-08] MEDS: FUROSEMIDE 20 MG TAB PO SCH (09:06)
[2019-04-08] MEDS: BENAZEPRIL HCL 10 MG TAB PO SCH (09:07)
[2019-04-08 09:08] LABS: BUN Creatinine Ratio 21.8 (10-20); Creatinine Clr Calc Pharmacy 15.4 ml/min; Est GFR (African American) 38.4; Est GFR (Non-African American) 33.1; Potassium 4.9 mmol/L (3.5-5.1)
[2019-04-08] MEDS: predniSONE 1 MG TAB PO SCH (09:09)
[2019-04-08] MEDS: NIFEdipine EXTENDED REL 30 MG TABCR PO SCH (09:09)
[2019-04-08] MEDS: TIOTROPIUM BROMIDE 5 PUFF/90 MCG INH INH SCH (09:10)
[2019-04-08] MEDS: ENOXAPARIN INJ 30 MG/0.3 ML SYR SQ SCH (09:10)
[2019-04-08] MEDS: METOPROLOL SUCC 25MG EXT REL TAB PO SCH (09:10)
[2019-04-08] MEDS: CALCITRIOL 0.25 MCG CAPSULE PO SCH (09:10)
[2019-04-08] MEDS: FLUTICASONE INH SCH (09:18)
[2019-04-08] MEDS: VILANTEROL INH SCH (09:18)
[2019-04-08] MEDS: SODIUM CHLORIDE 0.9% 1000ML 1,000 ML IV ONE ×2 (10:42→22:51)
[2019-04-08] MEDS ORDERED: SODIUM CHLORIDE 0.9% 1000ML 1,000 ML IV SCH (10:45)
--- NOTE | 2019-04-08 10:47 | Hospitalist Progress Note ---
Date of Service April 08, 2019 Assessment & Plan (1) Acute blood loss as cause of postoperative anemia: Hb down to 7.0 today patient's son LIVIA consented to transfusion, will give one unit repeat H/H this evening another unit is on hold BP stable (2) Atrial arrhythmia: HR was 150-180 while on the floor prior to telemetry had a few episodes of SVT on tele, short lived, 1 minute or less could have been the cause of her syncope instructed RN to try to get a 12 lead EKG if she stays in it will use Lopressor 5mg IV q4 PRN for any HR > 130 already on Toprol 25mg daily, will increase to 50mg daily starting tomorrow AM hold on any type of anticoagulation until we can determine the rhythm, also, patient with Hb of 7.0 and potential blood loss consult cardiology she already had an echo prior to surgery, no need to repeat (3) CVA (cerebral vascular accident): 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 Velásquez, talked with him about the case on 04/08 in addition to the aspirin and Plavix he would recommend statin therapy, will start Lipitor 20mg on 04/08 her symptoms were completely resolved he would recommend referral to vascular surgery as outpatient at a tertiary care center can discuss with patient and her son about how aggressive they would want to be given her multiple co-morbidities and frail state (4) Fall: Patient presents with left femur fracture after a possible fall at home. She does not recollect falling. Concern for syncopal event as patient states that she just woke up on the floor. - now having some tachy arrhythmias on the monitor, HR 150's, SVT vs atrial flutter could have been the etiology of the fall/syncope as she appeared very weak and ashen when her HR was in the 150's -Check 2D echo - normal, no valve pathology -Check EKG: LVH and repolarization abnormality, no change compared to prior -Check carotid duplex ultrasound - 50-69% stenosis on right, would not have caused syncope now back on tele for continued monitoring (5) Intertrochanteric fracture of left hip: Patient with incomplete intertrochanteric fracture of the proximal left femur. She is somewhat active at baseline and ambulates with a walker in her snf. -Consult Orthopedic Surgery -Pain control with Tylenol, Oxycodone, Morphine PRN -Bowel regimen -EKG and echo as above for workup of possible syncope - Cr stable at 1.4 CXR with chronic changes, nothing acute echo normal went to OR on 04/06, s/p pinning of left hip pain well controlled will need PT/OT and will go to SN[facility] at [facility] eventually need to sort through medical issues anticipate being here up through mid week next week (6) HTN (hypertension): Blood pressure stable despite tachycardia and anemia will increase Toprol to 50mg qAM given her SVT stop the Nifedipine hold her SOFIE given frail state and Cr of 1.4 (7) Emphysema of lung: 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 Reports stable respiratory status. No cough, wheeze or increased SOB -Continue O2 -Continue Xopenex PRN -Continue Spiriva -Continue Breo -DuoNeb PRN she had some hypoxia earlier today but in reality it was likely poor pulse ox readings due to vascular disease ABG showed saturations of 95% she denied feeling short of breath (8) CKD (chronic kidney disease), stage IV: Patient with CKD IV. BUN=47, Cr=1.44 which is slightly higher than baseline values. -LR at 75mL/hr -Cr is up slightly to 1.5, will repeat tomorrow (9) Hypothyroid: Chronic -Continue Synthroid -TSH with AM labs (10) Polymyalgia rheumatica: Chronic. Stable - hold Prednisone, give stress dose Hydrocortisone 50 q8 for 1-2 days given her multiple issues (11) Hyperkalemia: resolved today, K is 4 (12) Hypoxia: chronic hypoxia on 2L, some increased hypoxia readings today but likely just poor readings no dyspnea (13) Acute metabolic encephalopathy: due to hospitalization, anemia, tachy arrhythmias likely some hospital delirium admitted to hallucinations hold on specific treatment as she is only seeing them sparingly could consider low dose Seroquel if they are more problematic (14) Incidental lung nodule, > 3mm and < 8mm: CTA of the neck showed incidental 7mm spiculated nodule in left upper lobe suspicious for neoplasm updated the son about this finding on 04/08 both agreed that her other medical issues are more pressing right now could consider a full CT of the chest in a few days once she is stable certainly any further work up could be deferred to outpatient setting if she desires Subjective patient was standing and moving to bed, felt rally anxious, occurred around 1030 HR was noted to be in 150-180 range, the patient's saturations were 80% on 2L she denied feeling short of breath, no chest pain, no pressure however, she had an ashen look on her face her pulse slowly returned to 80-90 range and by the time she got 12 lead EKG she was NSR, still had the LVH with repolarization abnormality discussed with RN and charge nurse, given her tachycardia, hypoxia and ashen appearance we will move to [employer] she remains a full code ordered stat labs and stat CXR lactic acid 2.2, Cr stable, electrolytes stable, ABG showed saturations 95% so pulse ox was not accurate troponin 0.03 CXR with severe emphysema and possible infiltrate in left base vs atelectasis Hb dropped further to 7.0 from 7.9 discussed situation with patient's son, the POA he consented for blood transfusion he also stated that she should actually be a DNR, not full code, made the RN aware on a positive note, her dysarthria is completely resolved, no longer has numb feeling in her tongue discussed with Dr. Velásquez this morning, reviewed the CTA of the head and neck recommended adding aspirin to Plavix for antiplatelet therapy discussed with ortho, will hold the Lovenox and just use the aspirin and Plavix for anticoagulation moved patient to [employer] to monitor HR and rhythm she had a few episodes of SVT, rates 150, possible Aflutter or true SVT could not get an EKG in time instructed RN to try to get EKG Review of Systems Review of Systems: All systems reviewed & are unremarkable except as noted in HPI & below Constitutional: no fever Respiratory: no cough and no dyspnea Cardiovascular: no chest pain, no dyspnea, no palpitations and no edema Gastrointestinal: no abdominal pain, no nausea, no vomiting, no constipation and no diarrhea/loose stools Musculoskeletal: + joint pain (left hip) Psychiatric: + anxiety and + visual hallucinations (reports seeing two little girls running around the room, very anxious) Physical Exam Constitutional: well developed, + ill appearing, + thin and + altered mental status (anxious, hallucinating); no acute distress Eyes: PERRL, conjunctivae normal, anicteric sclerae ENMT: external ear and nose normal, oropharynx normal Neck: trachea midline, no thyromegaly Respiratory: + respiratory distress (mild, RR 20) Auscultation: + diminished lung sounds (bilaterally); no crackles, no rhonchi and no wheezes Cardiovascular: RRR, no murmur, no edema Vessels: normal peripheral pulses Gastrointestinal (Abdomen): normal bowel sounds, soft, nontender, no hepatosplenomegaly Musculoskeletal: no cyanosis or clubbing, extremities motor strength 5/5 Extremities: + limited ROM of extremities (left hip due to pain) Skin: no rashes, warm and dry + turgor decreased Trauma: + contusion (several bruises over arms) Neurologic: patellar DTR's 2+ bilat, sensation intact normal touch/pain/proprioception, CN's II-XI intact bilaterally (left tongue deviation resolved), deep tendon reflexes 2+ bilaterally, plantar reflexes intact bilaterally and moves all extremities; no focal motor deficits Speech / Cognition: normal speech (garbled speech resolved) Motor/Sensory: no tremor Psychiatric: Orientation: alert, oriented to person, oriented to time and cooperative; + not oriented to place Affect: + anxious affect Hallucinations: + visual hallucinations (seeing two little girls in the room) Lymphatic: no cervical or axillary lymphadenopathy Results & Data Vital Signs (Past 12 Hours) Vital Signs Temp Pulse Pulse Resp BP BP Pulse Ox 04/08/19 07:46 36.7 C 92 H 17 129/59 L 95 04/07/19 23:33 36.6 C 93 H 16 154/71 H 92 Laboratory Results Laboratory Results - last 24 hr 04/05/19 04/08/19 04/08/19 15:22 08:06 08:06 WBC 10.63 RBC 3.10 L Hgb 7.9 L Hct 24.4 L MCV 78.7 L MCH 25.5 MCHC 32.4 RDW Std Deviation 55.6 H RDW Coeff of Rhys 19.5 H Plt Count 127 L MPV Immature Gran % (Auto) 0.5 Neut % (Auto) 78.7 Lymph % (Auto) 9.2 Ness % (Auto) 11.1 Eos % (Auto) 0.3 Baso % (Auto) 0.2 Immature Gran # (Auto) 0.05 H Neut # (Auto) 8.37 H Lymph # (Auto) 0.98 L Ness # (Auto) 1.18 H Eos # (Auto) 0.03 Baso # (Auto) 0.02 Platelet Estimate Decreased L Anisocytosis Present ABG pH ABG pCO2 ABG pO2 ABG HCO3 ABG O2 Saturation ABG Base Excess Russ Test Barometric Pressure Oxygen Given Sodium 142 Potassium 4.9 Chloride 110 H Carbon Dioxide 29 Anion Gap 4.0 BUN 31 H Creatinine 1.42 H Est Cr Clr Drug Dosing 15.4 Est GFR ( Amer) 38.4 Est GFR (Non-Af Amer) 33.1 BUN/Creatinine Ratio 21.8 H Glucose 110 H Lactate Calcium 9.0 Troponin I Blood Type A Positive Antibody Screen NEGATIVE Crossmatch See Detail 04/08/19 04/08/19 04/08/19 12:05 12:05 12:05 WBC RBC Hgb Hct MCV MCH MCHC RDW Std Deviation RDW Coeff of Rhys Plt Count MPV Immature Gran % (Auto) Neut % (Auto) Lymph % (Auto) Ness % (Auto) Eos % (Auto) Baso % (Auto) Immature Gran # (Auto) Neut # (Auto) Lymph # (Auto) Ness # (Auto) Eos # (Auto) Baso # (Auto) Platelet Estimate Anisocytosis ABG pH 7.45 ABG pCO2 38 ABG pO2 88 ABG HCO3 26 H ABG O2 Saturation 95.2 H ABG Base Excess 1.5 Russ Test Pos Barometric Pressure 728.3 Oxygen Given 6L Sodium 138 Potassium 4.2 Chloride 104 Carbon Dioxide 27 Anion Gap 7.0 BUN 30 H Creatinine 1.42 H Est Cr Clr Drug Dosing 15.4 Est GFR ( Amer) 38.4 Est GFR (Non-Af Amer) 33.1 BUN/Creatinine Ratio 21.3 H Glucose 144 H Lactate 2.2 H* Calcium 8.9 Troponin I 0.031 Blood Type Antibody Screen Crossmatch 04/08/19 12:05 WBC 9.79 RBC 2.74 L Hgb 7.0 L Hct 21.5 L MCV 78.5 L MCH 25.5 MCHC 32.6 RDW Std Deviation 55.4 H RDW Coeff of Rhys 19.3 H Plt Count 122 L MPV 10.8 H Immature Gran % (Auto) 0.5 Neut % (Auto) 80.3 Lymph % (Auto) 7.0 Ness % (Auto) 11.7 Eos % (Auto) 0.4 Baso % (Auto) 0.1 Immature Gran # (Auto) 0.05 H Neut # (Auto) 7.85 H Lymph # (Auto) 0.69 L Ness # (Auto) 1.15 H Eos # (Auto) 0.04 Baso # (Auto) 0.01 Platelet Estimate Anisocytosis ABG pH ABG pCO2 ABG pO2 ABG HCO3 ABG O2 Saturation ABG Base Excess Russ Test Barometric Pressure Oxygen Given Sodium Potassium Chloride Carbon Dioxide Anion Gap BUN Creatinine Est Cr Clr Drug Dosing Est GFR ( Amer) Est GFR (Non-Af Amer) BUN/Creatinine Ratio Glucose Lactate Calcium Troponin I Blood Type Antibody Screen Crossmatch Diagnostic Findings XR chest 1V portable CLINICAL HISTORY: Hypoxia. COMPARISON STUDY: Chest radiograph April 05, 2019. FINDINGS: Severe emphysema is noted. There is no pneumothorax. There are suspected trace bilateral pleural effusions. Mild left basilar opacity is present. Cardiac size is normal. Mediastinal contours are normal. There is no evidence for pulmonary edema. IMPRESSION: 1. Trace bilateral pleural effusions with mild left basilar opacity which may reflect atelectasis or consolidation. 2. Severe emphysema. Medications Administered Current Inpatient Medications Acetaminophen (Tylenol) 650 mg PO Q6H PRN PRN Reason: MILD Pain (Scale 1,2,3) Stop: 05/05/19 17:30 Albuterol (Duoneb) 3 ml NEB QIDR PRN PRN Reason: sob Stop: 05/05/19 17:30 Aspirin (Ecotrin Ectab) 81 mg PO QAM [facility] Stop: 05/08/19 09:59 Last Admin: 04/08/19 11:08 Dose: 81 mg Documented by: Benazepril HCl (Lotensin) 40 mg PO DAILY [facility] Stop: 05/06/19 08:59 Last Admin: 04/08/19 09:07 Dose: 40 mg Documented by: Bisacodyl (Dulcolax) 10 mg WI DAILY PRN PRN Reason: Constipation Stop: 05/05/19 17:30 Calcitriol (Racaltrol) 0.25 mcg PO MoWeFr@0900 [facility] Stop: 05/06/19 08:59 Last Admin: 04/08/19 09:10 Dose: 0.25 mcg Documented by: Fluticasone/Vilanterol (Breo Ellipta) 1 puffs INH DAILY [facility] Stop: 05/08/19 08:59 Last Admin: 04/08/19 09:18 Dose: 1 puffs Documented by: Furosemide (Lasix) 20 mg PO QAM [facility] Stop: 05/07/19 08:59 Last Admin: 04/08/19 09:06 Dose: 20 mg Documented by: Sodium Chloride (Nss) 250 mls @ 15 mls/hr IV .[id number] PRN PRN Reason: For Transfusion Stop: 05/06/19 15:18 Sodium Chloride (Nss 1000ml) 1,000 mls @ 100 mls/hr IV .Q10H [facility] Stop: 04/08/19 20:44 Last Admin: 04/08/19 11:06 Dose: 100 mls/hr Documented by: Sodium Chloride (Nss) 250 mls @ 15 mls/hr IV .[id number] PRN PRN Reason: For Transfusion Stop: 05/08/19 14:01 Ioversol (Optiray 320 125ml) 120 ml IV ONCE PRN PRN Reason: Interaction Checking Stop: 04/11/19 11:35 Last Admin: 04/07/19 11:37 Dose: 120 ml Documented by: Levalbuterol HCl (Xopenex 1.25mg/3ml Neb) 1.25 mg INH Q4H PRN PRN Reason: Shortness Of Breath Or Wheezing Stop: 05/05/19 17:30 Levothyroxine Sodium (Synthroid) 50 mcg PO DAILYBB [facility] Stop: 05/06/19 06:29 Last Admin: 04/08/19 05:51 Dose: 50 mcg Documented by: Magnesium Hydroxide (Milk Of Magnesia) 30 ml PO DAILY PRN PRN Reason: Constipation Stop: 05/05/19 17:30 Metoprolol Succinate (Toprol Xl) 50 mg PO QAM [facility] Stop: 05/09/19 08:59 Metoprolol Tartrate (Lopressor) 5 mg IV Q4 PRN PRN Reason: tachycardia Stop: 05/08/19 19:59 Mirtazapine (Remeron) 15 mg PO HS [facility] Stop: 05/05/19 20:59 Last Admin: 04/07/19 20:29 Dose: 15 mg Documented by: Morphine Sulfate (Morphine Sulfate) 1 mg IV Q4H PRN PRN Reason: MODERATE Pain (Scale 4,5,6) Stop: 04/19/19 17:30 Naloxone HCl (Narcan) 0.1 mg IV UD PRN PRN Reason: Opiate Overdose Stop: 05/05/19 17:30 Naloxone HCl (Narcan) 0.1 mg IV UD PRN PRN Reason: Opioid Overdose Stop: 05/06/19 16:51 Oxycodone HCl (Roxicodone Immediate Rel) 5 mg PO Q6H PRN PRN Reason: MODERATE Pain (Scale 4,5,6) Stop: 04/19/19 17:30 Last Admin: 04/08/19 05:40 Dose: 5 mg Documented by: Prednisone (Prednisone) 1 mg PO PM [facility] Stop: 05/05/19 20:59 Last Admin: 04/07/19 20:29 Dose: 1 mg Documented by: Prednisone (Prednisone) 2 mg PO QAM [facility] Stop: 05/06/19 08:59 Last Admin: 04/08/19 09:09 Dose: 2 mg Documented by: Senna/Docusate Sodium (Senokot S) 2 tab PO HS [facility] Stop: 05/05/19 20:59 Last Admin: 04/07/19 20:50 Dose: 2 tab Documented by: Tiotropium [place] (Spiriva) 1 puffs INH DAILY [facility] Stop: 05/06/19 08:59 Last Admin: 04/08/19 09:10 Dose: 1 puffs Documented by: Critical Care Time Critical Care Time: Yes Total Critical Care Time: 60 Prolonged Care Time Prolonged Care Time: No (1) Hypothyroid Hypothyroidism type: unspecified Qualified Code(s): E03.9 - Hypothyroidism, unspecified (2) Emphysema of lung Emphysema type: unspecified Qualified Code(s): J43.9 - Emphysema, unspecified (3) HTN (hypertension) Hypertension type: essential hypertension Qualified Code(s): I10 - Essential (primary) hypertension (4) Fall Encounter type: initial encounter Qualified Code(s): W19.XXXA - Unspecified fall, initial encounter (5) CVA (cerebral vascular accident) CVA mechanism: unspecified Qualified Code(s): I63.9 - Cerebral infarction, unspecified (6) Intertrochanteric fracture of left hip Encounter type: initial encounter Fracture alignment: nondisplaced Fracture type: closed Qualified Code(s): S72.145A - Nondisplaced intertrochanteric fracture of left femur, initial encounter for closed fracture
[2019-04-08] MEDS: ASPIRIN 81 MG ECTAB PO SCH (11:08)
--- NOTE | 2019-04-08 11:27 | XRay Report ---
XR chest 1V portable CLINICAL HISTORY: Hypoxia. COMPARISON STUDY: Chest radiograph April 05, 2019. FINDINGS: Severe emphysema is noted. There is no pneumothorax. There are suspected trace bilateral pl eural effusions. Mild left basilar opacity is present. Cardiac size is normal. Mediastinal contours a re normal. There is no evidence for pulmonary edema. IMPRESSION: 1. Trace bilateral pleural effusions with mild left basilar opacity which may reflect atelectasis or consolidation. 2. Severe emphysema. Electronically signed by: Werner Hudson M.D. 04/08/2019 11:25 AM
--- NOTE | 2019-04-08 12:06 | Neurology Consultation ---
Date of Consultation April 08, 2019 Assessment & Plan (1) CVA (cerebral vascular accident): I suspect this patient's recent symptoms of numbness affecting the left side of the tongue and associated dysarthria are due to a small ischemic stroke occurring in the perioperative timeframe. Localization would be either the brainstem or right cerebral hemisphere. She does appear to have considerable cerebrovascular disease with evidence of a high-grade stenosis within the right middle cerebral artery at the sylvian fissure. Alternatively, this patient's symptoms could be related to a lingual neuropathy potentially related to intubation for her surgery. She will not tolerate brain MRI due to severe claustrophobia and adamantly refuses this test. Going forward, I would recommend dual antiplatelet therapy for this patient consisting of clopidogrel and daily low-dose aspirin in light of the identified high-grade MCA stenosis. Consider starting a statin if there are no medical contraindications. I would also recommend an outpatient assessment with vascular surgery at a tertiary center. 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 This type of vascular lesion would not typically be amenable to surgical intervention. Case discussed with Dr. Moreno, hospitalist. History of Present Illness Reason for Consultation: Dysarthria and numbness of the tongue Requesting Physician: Blake Moreno DO Attending Physician: Blake Moreno DO History of Present Illness The patient is an 88-year-old female with a chief complaint of numbness affecting the left side of the tongue and associated dysarthria. She reports that she noticed her symptoms yesterday, after undergoing surgery for a left hip fracture. Her symptoms have been persistent and of mild to moderate severity. Past medical history notable for stroke with residual left-sided numbness, primarily affecting the face and hand, with perhaps an element of left lower extremity weakness. She has a remote history of left carotid endarterectomy as well. She has been taking clopidogrel as an outpatient. She does not appear to be on a statin. Patient's history also notable for polymyalgia rheumatica which is been stable on the low-dose of prednisone. Allergies Allergy/AdvReac Type Severity Reaction Status Date / Time clindamycin Allergy Intermediate HIVES Verified 04/05/19 11:01 Home Medications Home Medications Medication Instructions Recorded Confirmed Type benazepril 40 mg PO QAM 04/05/19 04/05/19 History calcitriol 0.25 mcg PO 3XWK 04/05/19 04/05/19 History clopidogrel 75 mg PO QAM 04/05/19 04/05/19 History fluticasone furoate-vilanterol 1 inh INHALATION DAILY 04/05/19 04/05/19 History [Breo Ellipta] furosemide 20 mg PO QAM 04/05/19 04/05/19 History ketoconazole 1 applic TOPICAL WK 04/05/19 04/05/19 History levalbuterol HCl 1.25 mg INHALATION Q4H PRN 04/05/19 04/05/19 History levothyroxine 50 mcg PO QAM 04/05/19 04/05/19 History metoprolol succinate 25 mg PO QAM 04/05/19 04/05/19 History mirtazapine 15 mg PO DAILY 04/05/19 04/05/19 History nifedipine 30 mg PO QAM 04/05/19 04/05/19 History prednisone 1 mg PO PM 04/05/19 04/05/19 History prednisone 2 mg PO QAM 04/05/19 04/05/19 History tiotropium bromide [Spiriva 1 puff INHALATION DAILY 04/05/19 04/05/19 History Respimat] Patient History Medical History HTN (hypertension) (Chronic) 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 Patient declined Treatment with Aldara Subsequent recurrence with squamous cell carcinoma Status post partial vulvectomy with positive margins Status post completion of radiation therapy 08/01/2013 received 5040 cGy" Emphysema of lung (Chronic) On 2L home O2 PAD (peripheral artery disease) CKD (chronic kidney disease), stage IV CVA (cerebral vascular accident) Residual numbness of left hand and left side of mouth Dyslipidemia Hypothyroid Polymyalgia rheumatica Surgical History History of vaginal surgery Family History Other Family history non-contributory Social History Preferred Language: Belgian Communication Ability: Effective Associate Professor Of Communication Required: No Beliefs That Will Affect Care: None marital status: / Current Living Situation: Alone and Personal Care Facility Current Living Situation Comment: [facility] Other Information That Helps Us Care for You: No Feels Safe at Home: Yes Safety Concerns: Feels Safe At This Time Smoking Status: Former smoker Tobacco Type: cigarettes Do You Dip or Chew Tobacco: No Smoking End Date: 2002 Second Hand Exposure: No Tobacco Cessation Education Requested by Patient: No Hx Alcohol Use: Yes Alcohol type: wine Hx Substance Use: No Review of Systems Constitutional: no fever and no chills Eyes: no blind spots and no diplopia Ear, Nose, Mouth, Throat: no tinnitus and no hearing loss Respiratory: no cough and no dyspnea Cardiovascular: no chest pain and no palpitations Gastrointestinal: no nausea and no vomiting Genitourinary: no dysuria Musculoskeletal: Patient complains of left hip pain and reduced range of motion Integumentary: no rash and no lesions Neurologic: as per Subjective / HPI Psychiatric: no depression and no anxiety Hematologic / Lymphatic: + easy bruising Physical Exam Physical Exam: The patient is a well-nourished elderly female. She is alert and fully oriented. Recent and remote memory intact. Attention and concentration normal. Patient exhibits a normal spontaneous speech pattern. However, she does exhibit slight dysarthria with glottal sounds. She is able to name objects and repeat phrases. She exhibits an age-appropriate fund of knowledge and normal comprehension of vocabulary. Visual ochoa full to confrontation. Visual acuity normal. Pupils equal round react to light and accommodation. Eye movements normal. Facial sensation intact. There is slight flattening of the left nasolabial fold. Hearing intact. Palate elevates to midline. Shoulder shrug intact. Tongue protrudes to midline. Sensation intact to all modalities in all 4 limbs. Deep tendon reflexes are 1+ for the arms and legs bilaterally. Plantar responses downgoing bilaterally. There is no dysdiadochokinesia with [id number] bilaterally or [id number]-he-[id number] on the right. Unable to perform this maneuver on the left due to recent left hip surgery. Ophthalmoscopic examination reveals normal-appearing optic disks and posterior segments. No papilledema or hemorrhages. Pulses normal bilaterally, no bruits to auscultation. Gait and station cannot be tested. Patient exhibits normal muscle strength and tone for the arms and legs all the left lower extremity cannot be fully tested due to her recent left hip surgery. Muscle tone normal throughout. No atrophy. No abnormal movements observed. Results & Data Vital Signs (Past 12 Hours) Vital Signs Temp Pulse Resp BP Pulse Ox 04/08/19 07:46 36.7 C 92 H 17 129/59 L 95 Laboratory Results Recently completed labs reviewed. WBC 10.63, hemoglobin 7.9, platelet count 127, sodium 142, potassium 4.9, BUN 31, creatinine 1.42, glucose [address] of the head completed yesterday was negative for hemorrhage or acute process. I reviewed the images and report. A CT angiogram of the neck revealed patency of the common carotid, internal carotid and vertebral arteries bilaterally. There is a large fusiform aneurysm of the distal left common carotid artery/carotid bulb measuring 1.9 cm in diameter. There is diffuse atherosclerotic irregularity and approximately 50% luminal narrowing of the left subclavian artery. CTA of the head revealed a high-grade or critical stenosis of the right middle cerebral artery at the base of the sylvian fissure. There is a 50% stenosis of the anterior aspect of the right middle cerebral artery. 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 There is moderate chronic small vessel change of the peripheral arterial structures throughout both cerebral hemispheres. Images and report reviewed. An electrocardiogram completed today reveals normal sinus rhythm, 86 bpm An echocardiogram completed April 06, 2019 revealed normal left ventricular systolic function, no regional wall motion abnormalities, ejection fraction 60 to 65%. No atrial septal defect detected. (1) CVA (cerebral vascular accident) CVA mechanism: unspecified Qualified Code(s): I63.9 - Cerebral infarction, unspecified
[2019-04-08 12:19] LABS: HCO3 ABG 26 mmol/L (19-24); Oxygen Saturation ABG 95.2 % (90-95); PCO2 ABG 38 mmHg (35-46); PO2 ABG 88 mm/Hg (80-95); pH ABG 7.45 (7.35-7.45)
[2019-04-08 12:27] LABS: Hematocrit (blood only) 21.5 % (37-47); Mean Corpuscular Volume 78.5 fL (80-100); RDW Coefficient of Variation 19.3 % (11.5-14.5); RDW Standard Deviation 55.4 fL (36.4-46.3); Red Blood Count 2.74 M/uL (4.2-5.4); White Blood Count 9.79 K/uL (4.8-10.8)
[2019-04-08 12:34] LABS: Allen Test Pos (Pos)
[2019-04-08 12:45] LABS: BUN Creatinine Ratio 21.3 (10-20); Calcium 8.9 mg/dl (8.5-10.1); Creatinine Clr Calc Pharmacy 15.4 ml/min; Est GFR (African American) 38.4; Est GFR (Non-African American) 33.1; Potassium 4.2 mmol/L (3.5-5.1)
[2019-04-08 12:46] LABS: Basophils # (auto) 0.01 K/uL (0-0.2); Basophils % (auto) 0.1 %; Eosinophils # (auto) 0.04 K/uL (0-0.5); Eosinophils % (auto) 0.4 %; Immature Granulocytes # (auto) 0.05 K/uL (0.00-0.02); Immature Granulocytes % (auto) 0.5 %; Lymphocytes # (auto) 0.69 K/uL (1.2-3.4); Mean Corpuscular Hgb Conc 32.6 g/dL (32-36); Mean Platelet Volume 10.8 fL (7.4-10.4); Monocytes # (auto) 1.15 K/uL (0.11-0.59); Monocytes % (auto) 11.7 %; Neutrophils # (auto) 7.85 K/uL (1.4-6.5); Neutrophils % (auto) 80.3 %; Platelet Count 122 K/uL (130-400)
[2019-04-08 12:49] LABS: Troponin I 0.031 ng/ml (0-0.045)
[2019-04-08] MEDS ORDERED: SODIUM CHLORIDE 0.9% 250 ML IV PRN (14:02)
[2019-04-08] MEDS ORDERED: METOPROLOL TARTRATE 1 MG/ML VIAL IV PRN (16:12)
[2019-04-08] MEDS: ACETAMINOPHEN 325 MG TAB PO PRN (18:59)
[2019-04-08 21:13] LABS: Hematocrit (blood only) 30.5 % (37-47); Hemoglobin 10.1 g/dL (12.0-16.0)
[2019-04-08] MEDS: DOCUSATE SODIUM/SENNA 50/8.6MG TAB PO SCH (22:08)
[2019-04-08] MEDS: HYDROCORTISONE SOD 50 MG in SYRINGE 0 ML IV SCH (22:08)
[2019-04-08] MEDS: MIRTAZAPINE TAB 15 MG TAB PO SCH (22:08)
[2019-04-09] MEDS: HYDROCORTISONE SOD 50 MG in SYRINGE 0 ML IV SCH (06:06)
[2019-04-09] MEDS: LEVOTHYROXINE SODIUM 50 MCG TABLET PO SCH (06:08)
[2019-04-09 07:44] LABS: Basophils # (auto) 0.01 K/uL (0-0.2); Basophils % (auto) 0.1 %; Hematocrit (blood only) 29.1 % (37-47); Hemoglobin 9.6 g/dL (12.0-16.0); Immature Granulocytes # (auto) 0.06 K/uL (0.00-0.02); Immature Granulocytes % (auto) 0.6 %; Lymphocytes # (auto) 0.42 K/uL (1.2-3.4); Lymphocytes % (auto) 4.5 %; Mean Corpuscular Volume 80.6 fL (80-100); Mean Platelet Volume 10.7 fL (7.4-10.4); Monocytes # (auto) 0.47 K/uL (0.11-0.59); Neutrophils # (auto) 8.35 K/uL (1.4-6.5); Neutrophils % (auto) 89.8 %; Platelet Count 111 K/uL (130-400); RDW Standard Deviation 52.9 fL (36.4-46.3); Red Blood Count 3.61 M/uL (4.2-5.4); White Blood Count 9.31 K/uL (4.8-10.8)
--- NOTE | 2019-04-09 08:09 | Orthopedic Progress Note ---
Date of Service April 09, 2019 Assessment & Plan (1) Intertrochanteric fracture of left hip: POD#3 left hip troch nail -Pain management -DVT prophylaxis-lovenox -PT/OT-PWB left lower extremity -D/C planning [facility] when medically stable Patient is orthopedically stable at this point. Ortho will sign off. F/u with Dr. Claire 12-14 days post operatively. Can call [phone] for an appointment. Subjective Patient is day 3 post left TFN by Dr. Claire. She is doing well from her hip, does have some pain this morning but is controlled. No other complaints currently. Review of Systems Review of Systems: All systems reviewed & are unremarkable except as noted in HPI & below Physical Exam Physical Exam: Left hip incisions c/d/i, elmer in place. No drainage or erythema. Toes are mobile. sensation and n/v status intact. No calf tenderness. Results & Data Vital Signs (Past 12 Hours) Vital Signs Temp Pulse Pulse Pulse Resp BP Pulse Ox 04/09/19 07:47 36.6 C 75 22 126/66 97 04/09/19 07:16 76 04/09/19 03:42 36.6 C 89 18 152/73 H 95 04/09/19 00:06 36.7 C 83 20 101/65 93 04/09/19 00:00 76 04/08/19 20:31 36.8 C 100 H 20 127/73 97 (1) Intertrochanteric fracture of left hip Encounter type: initial encounter Fracture alignment: nondisplaced Fracture type: closed Qualified Code(s): S72.145A - Nondisplaced intertrochanteric fracture of left femur, initial encounter for closed fracture
[2019-04-09] MEDS: TIOTROPIUM BROMIDE 5 PUFF/90 MCG INH INH SCH (08:10)
[2019-04-09] MEDS: FUROSEMIDE 20 MG TAB PO SCH (08:11)
[2019-04-09] MEDS: VILANTEROL INH SCH (08:13)
[2019-04-09] MEDS: FLUTICASONE INH SCH (08:13)
[2019-04-09] MEDS: METOPROLOL SUCC 50MG EXT REL TAB PO SCH (08:14)
[2019-04-09] MEDS: ASPIRIN 81 MG ECTAB PO SCH (08:14)
[2019-04-09 08:15] LABS: Albumin Level 2.6 gm/dl (3.4-5.0); BUN Creatinine Ratio 22.7 (10-20); Calcium 8.7 mg/dl (8.5-10.1); Creatinine Clr Calc Pharmacy 18.6 ml/min; Est GFR (Non-African American) 41.4; Potassium 4.2 mmol/L (3.5-5.1)
[2019-04-09 08:20] LABS: Albumin Globulin Ratio 0.9 (0.9-2); Bilirubin,Total 1.1 mg/dl (0.2-1); Total Protein 5.6 gm/dl (6.4-8.2); Troponin I 0.018 ng/ml (0-0.045)
[2019-04-09] MEDS: OXYCODONE HCL IR 5 MG TAB (IMMEDIATE RELEASE) PO PRN (10:51)
--- NOTE | 2019-04-09 14:15 | Hospitalist Progress Note ---
Date of Service April 09, 2019 Results & Data Vital Signs (Past 12 Hours) Vital Signs Temp Pulse Pulse Resp BP Pulse Ox 04/09/19 07:47 36.6 C 75 22 126/66 97 04/09/19 07:16 76 04/09/19 03:42 36.6 C 89 18 152/73 H 95
[2019-04-09] MEDS: HYDROCORTISONE SOD 25 MG in SYRINGE 0 ML IV SCH ×3 (14:24→21:47)
--- NOTE | 2019-04-09 15:18 | Consultation Report ---
DATE OF CONSULTATION: 04/09/2019 REQUESTING: Blake Moreno DO ETHICAL HACKER: Chris Torres DO, [facility]. REASON FOR CONSULTATION: Possible syncopal episodes, sinus tachycardia and atrial tachycardia. HISTORY OF PRESENT ILLNESS: The history is obtained from the chart as well as the patient who is a very good historian. She was admitted to the hospital after a fall. She describes no prodrome at all. She denies any lightheadedness or dizziness or chest pain or chest pressure or palpitations prior to the episode. She ended up breaking her left hip. She does describe other falls, she is cognizant that she needs to get up slowly and does this if she gets up out of a chair, up out of bed. She describes other falls, one in the last year, similar in the fact that she has no prodrome and then she wakes up on the floor. She denies any chest pain, chest pressure, chest heaviness. She notes an episode of shortness of breath 3 weeks ago. She actually does look short of breath currently. She is very frail. She only weighs 35 kilograms and has very paper thin skin. She denies any chest pain or chest pressure with activity. She lives at [facility], which is a snf. She denies any palpitations or fluttering or feeling her heart racing at all. She sleeps on 1 pillow chronically and denies significant shortness of breath. She has chronic COPD and is on 2 liters of oxygen. She underwent a hip repair yesterday when she arrived; shortly thereafter when she awoke, she described her tongue feeling full and was thought to have a small ischemic stroke in the perioperative period. This morning, she notes that the sensation in her tongue has resolved and she feels back to herself. The rest of review of system is otherwise negative. PAST MEDICAL HISTORY: 1. Hypertension. 2. History of CVA with a recent ischemic stroke in the perioperative period. 3. Status post fall with fracture of her left hip. 4. Emphysema of her lung, on chronic oxygen. 5. Chronic kidney disease. 6. Echocardiogram this admission with normal LV size and function, EF in the range of 60-65% and normal RV size and function without significant valvular heart disease. 7. Frail with a weight of only 35 kilograms. SOCIAL HISTORY: She lives at [facility]. FAMILY HISTORY: Noncontributory. MEDICATIONS: Reviewed in electronic medical record. PHYSICAL EXAMINATION: GENERAL: She is awake, alert, oriented x3. She is very frail. VITAL SIGNS: Heart rate 75, blood pressure 126/66, respirations 22, her sats 97% on 2 liters. HEENT: 2+ carotid upstrokes. No evidence of carotid bruits. Her jugular venous pressure appeared elevated. Her sclerae are anicteric. Her hearing is diminished. LUNGS: Globally decreased breath sounds. No rales, rhonchi, wheezing. HEART: Regular rate and rhythm. No appreciable murmurs, rubs or gallops. ABDOMEN: Soft, nontender, nondistended. Positive bowel sounds. EXTREMITIES: No clubbing or cyanosis. SKIN: She has significant ecchymosis where she fell. EKG: From yesterday, sinus rhythm, normal W[place] interval, normal QRS duration, left ventricular hypertrophy with secondary ST-T changes. When compared to her previous EKG, the T-wave inversions in the inferior leads are slightly worse, but mentioned on a previous EKG from 04/06/2019. IMPRESSION: 1. Fall with syncope, questionable etiology. 2. History of cerebrovascular accident with recurrent stroke in the perioperative period. 3. Hypertension. 4. Normal biventricular size and function. 5. Recent hip fracture. 6. Overall, quite frail, weighing only 35 kilograms. I did review the monitor. She does have some bursts of atrial tachycardia. She also has faster heart rates. She is on 50 mg of Toprol. We may need to increase this in order to slow her heart rate and reduce the risk of atrial arrhythmias, especially with an increased catecholamine state given her recent surgery. I would cut her benazepril in half and allow her blood pressure to be higher. At her age and given her frailty, she is at significantly increased risk of orthostatic symptoms leading to a fall. There are no pauses on the library monitor at this point. senior care, the challenge is going to be given her frail status and her paper thin skin, she is not a great candidate for a 4-week event recorder and putting a loop recorder in will be very challenging. If she needed a pacemaker, it would be even more difficult. In light of that, I would continue to monitor her here. We can adjust her beta blockers accordingly. She is on diuretics. I would avoid over diuresing her and closely following her BUN and creatinine. Although she appears short of breath to me, she describes her breathing is comfortable.
--- NOTE | 2019-04-09 19:50 | Hospitalist Progress Note ---
Date of Service April 09, 2019 Assessment & Plan (1) Intertrochanteric fracture of left hip: s/p left hip pinning on 04/06/19 -- now POD #3 pain well controlled continue PT/OT and will go to SNF at [facility] eventually course complicated by perioperative stroke and acute blood loss anemia requiring PRBCs incisions clean, elmer intact 25-OH vit D -- 02/2019 -- wnl. Present on Admission?: Yes (2) Acute blood loss as cause of postoperative anemia: s/p 1 unit PRBCs with stable H/H today. will need ferrous sulfate supplementation. repeat cbc in am for stability. Present on Admission?: No (3) Atrial arrhythmia: likely atrial tachycardia. cannot rule out variable block a flutter but less likely. toprol xl increased to 50mg daily today. appreciate Dr Torres consultation. echo 04/06/19 with preserved EF. continue to monitor on tele. compensated from volume standpoint today. (4) CVA (cerebral vascular accident): Patient with prior history of ischemic stroke with residual numbness of her left hand and left side of the mouth. AM of 04/07/19 developed mild dysarthria and sensorium changes in her tongue. Patient had refused MRI. CTA head with high-grade right-MCA stenosis which would explain her left-sided symptoms. Cont dual anti-platelet therapy with asa and plavix. Add lipitor 20mg daily. Dr Velásquez recommending OUTPATIENT referral to vascular surgery for right MCA stenosis. At this time not enough evidence she is having afib or aflutter thus defer on systemic anticoagulation. Neuro exam with good strength today, normal speech, etc. Present on Admission?: No (5) Fall: 2nd to dysrhythmia? cont to monitor on telemetry see discussion above re: atrial tach, etc Present on Admission?: Yes (6) HTN (hypertension): cont Toprol xl CCB and SOFIE have been held - resume 1 or both if needed but in light of stroke would allow BPs to sit where they are for now (7) Emphysema of lung: Stable. No exacerbation. -Continue Xopenex PRN -Continue Spiriva -Continue Breo -DuoNeb PRN (8) CKD (chronic kidney disease), stage IV: stable BMP today acceptable (9) Hypothyroid: Continue Synthroid TSH compensated this admission (10) Polymyalgia rheumatica: Chronic, on prednisone 3mg daily outside hospital. Has been receiving stress-dose steroids. Will cut to 25mg TID of hydrocortisone today. Then back to PO prednisone tomorrow. (11) Hyperkalemia: resolved (12) Acute metabolic encephalopathy: seems better today (13) Incidental lung nodule, > 3mm and < 8mm: CTA of the neck showed incidental 7mm spiculated nodule in left upper lobe suspicious for lung ca prior attending updated the son about this finding on 04/08 uncertain if candidate for additional work-up and/or Rx (14) Chronic respiratory failure with hypoxia: on home O2, 2 liters continuously. likely due to COPD. (15) Severe protein-calorie malnutrition: add MVI add boost (16) DVT prophylaxis: plavix, asa should suffice dispo planning ultimately to [facility] for rehab add miralax for bowel maintenance Subjective patient sleeping upon my arrival. easily awakens. only mild left hip pain. denied any dyspnea, chest pain, abd pain eating fair. passing flatus. tele - occasional run of atrial tachycardia but mainly NSR. Review of Systems Constitutional: no fever Respiratory: no cough and no dyspnea Cardiovascular: no chest pain, no orthopnea and no paroxysmal nocturnal dyspnea Gastrointestinal: no abdominal pain, no nausea and no vomiting Physical Exam Constitutional: + thin and + cachectic; no acute distress and no altered mental status ENMT: external ear and nose normal, oropharynx normal Respiratory: normal respiratory effort, lungs clear to auscultation Cardiovascular: Rate/Rhythm: regular rate and regular rhythm Heart Sounds: normal S1 and normal S2 Vessels: posterior tibial pulses present and dorsalis pedis pulses present; no JVD Extremities: no edema Gastrointestinal (Abdomen): normal bowel sounds, soft, nontender, no hepatosplenomegaly Skin: left hip elmer intact, clean, no drainage Neurologic: speech clear; no dysarthria or aphasia. strength 5/5 x both upper exts. no facial droop. Psychiatric: Orientation: alert Results & Data Vital Signs (Past 12 Hours) Vital Signs Temp Pulse Pulse Resp BP Pulse Ox 04/09/19 19:10 36.9 C 91 H 21 121/69 90 04/09/19 16:00 79 04/09/19 15:07 36.6 C 80 21 152/73 H 96 Laboratory Results Laboratory Results - last 24 hr 04/09/19 04/09/19 04/09/19 07:26 07:26 07:26 WBC 9.31 RBC 3.61 L Hgb 9.6 L Hct 29.1 L MCV 80.6 MCH 26.6 MCHC 33.0 RDW Std Deviation 52.9 H RDW Coeff of Rhys 18.0 H Plt Count 111 L MPV 10.7 H Immature Gran % (Auto) 0.6 Neut % (Auto) 89.8 Lymph % (Auto) 4.5 Sullivan % (Auto) 5.0 Eos % (Auto) 0.0 Baso % (Auto) 0.1 Immature Gran # (Auto) 0.06 H Neut # (Auto) 8.35 H Lymph # (Auto) 0.42 L Sullivan # (Auto) 0.47 Eos # (Auto) 0.00 Baso # (Auto) 0.01 Sodium 141 Potassium 4.2 Chloride 109 H Carbon Dioxide 25 Anion Gap 8.0 BUN 27 H Creatinine 1.18 Est Cr Clr Drug Dosing 18.6 Est GFR ( Amer) 48.0 Est GFR (Non-Af Amer) 41.4 BUN/Creatinine Ratio 22.7 H Glucose 122 H Lactate 1.1 Calcium 8.7 Total Bilirubin 1.1 H AST 34 ALT 21 Alkaline Phosphatase 55 Troponin I 0.018 Total Protein 5.6 L Albumin 2.6 L Globulin 3.0 Albumin/Globulin Ratio 0.9 (1) CVA (cerebral vascular accident) CVA mechanism: unspecified Qualified Code(s): I63.9 - Cerebral infarction, unspecified (2) Fall Encounter type: initial encounter Qualified Code(s): W19.XXXA - Unspecified fall, initial encounter (3) Intertrochanteric fracture of left hip Encounter type: initial encounter Fracture alignment: nondisplaced Fracture type: closed Qualified Code(s): S72.145A - Nondisplaced intertrochanteric fracture of left femur, initial encounter for closed fracture (4) HTN (hypertension) Hypertension type: essential hypertension Qualified Code(s): I10 - Essential (primary) hypertension (5) Emphysema of lung Emphysema type: unspecified Qualified Code(s): J43.9 - Emphysema, unspecified (6) Hypothyroid Hypothyroidism type: unspecified Qualified Code(s): E03.9 - Hypothyroidism, unspecified
[2019-04-09] MEDS: POLYETHYLENE (MIRALAX) 17 GM PACK PO SCH (21:07)
[2019-04-09] MEDS: MIRTAZAPINE TAB 15 MG TAB PO SCH (21:08)
[2019-04-09] MEDS: DOCUSATE SODIUM/SENNA 50/8.6MG TAB PO SCH (21:15)
[2019-04-10] MEDS: OXYCODONE HCL IR 5 MG TAB (IMMEDIATE RELEASE) PO PRN ×2 (02:11→11:23)
[2019-04-10] MEDS: HYDROCORTISONE SOD 25 MG in SYRINGE 0 ML IV SCH ×2 (06:13→14:17)
[2019-04-10] MEDS: LEVOTHYROXINE SODIUM 50 MCG TABLET PO SCH (06:13)
[2019-04-10 07:27] LABS: Hematocrit (blood only) 32.8 % (37-47); Hemoglobin 10.5 g/dL (12.0-16.0); Mean Platelet Volume 10.4 fL (7.4-10.4); Platelet Count 143 K/uL (130-400); RDW Coefficient of Variation 18.6 % (11.5-14.5); RDW Standard Deviation 56.1 fL (36.4-46.3); Red Blood Count 3.95 M/uL (4.2-5.4); White Blood Count 11.34 K/uL (4.8-10.8)
[2019-04-10 08:03] LABS: Creatinine Clr Calc Pharmacy 15.7 ml/min; Est GFR (African American) 38.7; Est GFR (Non-African American) 33.4; Potassium 4.3 mmol/L (3.5-5.1)
[2019-04-10] MEDS ORDERED: BENAZEPRIL HCL 10 MG TAB PO SCH (09:00)
[2019-04-10] MEDS: FLUTICASONE INH SCH (09:08)
[2019-04-10] MEDS: VILANTEROL INH SCH (09:08)
[2019-04-10] MEDS: TIOTROPIUM BROMIDE 5 PUFF/90 MCG INH INH SCH (09:09)
[2019-04-10] MEDS: CEROVITE ADV FORMULA TAB PO SCH (09:10)
[2019-04-10] MEDS: ATORVASTATIN 20 MG TAB PO SCH (09:10)
[2019-04-10] MEDS: FERROUS SULFATE 325 MG TAB PO SCH (09:10)
[2019-04-10] MEDS: METOPROLOL SUCC 50MG EXT REL TAB PO SCH (09:10)
[2019-04-10] MEDS: CLOPIDOGREL BISULFATE 75 MG TAB PO SCH (09:10)
[2019-04-10] MEDS: ASPIRIN 81 MG ECTAB PO SCH (09:11)
[2019-04-10] MEDS: POLYETHYLENE (MIRALAX) 17 GM PACK PO SCH (09:11)
[2019-04-10] MEDS: FUROSEMIDE 20 MG TAB PO SCH (09:11)
--- NOTE | 2019-04-10 13:21 | Cardiology Progress Note ---
Date of Service April 10, 2019 Subjective She looks and feels better this morning. She has less orthopedic discomfort. She has any chest pain chest pressure chest heaviness. She has any palpitations or fluttering or feeling her heart racing. She has any lightheadedness or dizziness. She is eating more. Results & Data Vital Signs (Past 12 Hours) Vital Signs Temp Pulse Pulse Pulse Resp BP Pulse Ox 04/10/19 11:53 36.7 C 102 H 21 156/81 H 04/10/19 08:00 36.4 C L 85 21 187/82 H 96 04/10/19 07:11 75 04/10/19 04:55 36.4 C L 77 19 154/74 H 99 PHYSICAL EXAMINATION: GENERAL: She is awake, alert, oriented x3. She is very frail. HEENT: 2+ carotid upstrokes. No evidence of carotid bruits. Her jugular venous pressure appeared elevated. Her sclerae are anicteric. Her hearing is diminished. LUNGS: Globally decreased breath sounds. No rales, rhonchi, wheezing. HEART: Regular rate and rhythm. No appreciable murmurs, rubs or gallops. ABDOMEN: Soft, nontender, nondistended. Positive bowel sounds. EXTREMITIES: No clubbing or cyanosis. SKIN: She has significant ecchymosis where she fell. IMPRESSION: 1. Fall with syncope, questionable etiology. 2. History of cerebrovascular accident with recurrent stroke in the perioperative period. 3. Hypertension. 4. Normal biventricular size and function. 5. Recent hip fracture. 6. Overall, quite frail, weighing only 35 kilograms. 7. Short burst of atrial tachycardia on telemetry which are asymptomatic I will continue up titrate her beta-blockers. I will add 25 mg of Toprol-XL at night and continue her 50 mg in the morning. The overall intent will be to increase to 50 mg twice daily as her blood pressure and heart rate allow to suppress her atrial tachycardia. I did reduce her SOFIE inhibitor yesterday and if necessary we can reduce it further. Ideally she should be on some SOFIE inhibitor given her cardiovascular disease and recent CVA. She remains on aspirin and Plavix due to her recent CVA. At this point there is nothing on the monitor to suggest a cause for her to have syncope. As noted in the consult she is very frail one option as an outpatient would be to consider either an event recorder or implantable loop recorder. Her skin is so thin though that I think having her wear a event recorder will be a challenge. We will continue to monitor her on telemetry for now.
--- NOTE | 2019-04-10 19:14 | Hospitalist Progress Note ---
Date of Service April 10, 2019 Assessment & Plan (1) Intertrochanteric fracture of left hip: After fall at home that she does not recall-question if had a syncopal episode She is now s/p left hip pinning on 04/06/19 -- now POD #4 and doing very well pain well controlled continue PT/OT and will go to SNF at [facility] once authorization approved Her course was complicated by suspected perioperative stroke and acute blood loss anemia requiring PRBCs incisions clean, elmer intact 25-OH vit D -- 02/2019 -- wnl. Doing very well and stable for discharge -Needs follow-up with orthopedic surgery with Dr. Claire 12-14 days post operatively. Can call [phone] for an appointment. (2) Acute blood loss as cause of postoperative anemia: s/p 1 unit PRBCs with improved H/H today. -Continue ferrous sulfate supplementation. -Follow CBC in 1 week (3) Atrial arrhythmia: With continued paroxysmal bursts of atrial tachycardia but no definite atrial flutter or fibrillation. Appreciate Dr Torres/cardiology consultation. echo 04/06/19 with preserved EF. continue to monitor on tele. -Plan is to increase Toprol-XL yet again-now at 50 mill grams in the morning and 25 mg in the evening to start tonight-plan to titrate to 50 twice daily if heart rate and blood pressure can tolerate -Benazepril was lowered to 20 mg daily however the dose was on hold for today- this is in order to accommodate for titration upward of the Toprol-XL -Restart benazepril/remove from being on hold for tomorrow (4) CVA (cerebral vascular accident): Patient with prior history of ischemic stroke with residual numbness of her left hand and left side of the mouth. On the AM of 04/07/19, she developed mild dysarthria and sensorium changes in her tongue. Patient refused MRI due to severe claustrophobia. CTA head with high-grade right-MCA stenosis which would explain her left-sided symptoms, however neurology commented that it also could be secondary to damage from intubation Nonetheless, all symptoms are resolved at this point -added ASA to her Plavix due to MCA stenosis -Cont dual anti-platelet therapy with asa and plavix indefinitely -Added lipitor 20mg daily-will not do high intensity given her age and frailty. Dr Velásquez recommending OUTPATIENT referral to neuro vascular specialist for right MCA stenosis. This will need to be arranged by the [facility] facility At this time not enough evidence she is having afib or aflutter thus defer on systemic anticoagulation. (5) Fall: Question if it was secondary to syncope from dysrhythmia? cont to monitor on telemetry see discussion above re: atrial tach, etc -Cardiology thinks that doing an event monitor or loop recorder might be quite difficult given her severely thin skin and lack of subcutaneous fat-might cause more harm to place 1 of these than good (6) HTN (hypertension): cont Toprol xl, Lasix -Discontinued nifedipine Benazepril restarted but at a lower dose of 20 mill grams daily as above Allowing some permissive hypertension in the setting of suspected stroke (7) Emphysema of lung: Stable. No exacerbation. -Continue Xopenex PRN -Continue Spiriva -Continue Breo -DuoNeb PRN (8) CKD (chronic kidney disease), stage IV: stable BMP today acceptable with creatinine 1.4 which is around her baseline -Avoid nephrotoxins -Renally dose medications -Continue benazepril as above (9) Hypothyroid: Continue Synthroid TSH compensated this admission (10) Polymyalgia rheumatica: Chronic, on prednisone 3mg daily outside hospital. Has been receiving stress-dose steroids. Will cut hydrocortisone to 12.5mg IV TID and then likely discontinue it completely tomorrow if blood pressures okay -Restart p.o. prednisone with 1 mg nightly and 2 mg p.o. every morning (11) Hyperkalemia: resolved (12) Acute metabolic encephalopathy: Resolved (13) Incidental lung nodule, > 3mm and < 8mm: CTA of the neck showed incidental 7mm spiculated nodule in left upper lobe suspicious for lung ca prior attending updated the son about this finding on 04/08 uncertain if candidate for additional work-up and/or Rx (14) Chronic respiratory failure with hypoxia: on home O2, 2 liters continuously. likely due to COPD. (15) Severe protein-calorie malnutrition: BMI is 16.3 -Added MVI -Added boost and should continue this (16) Depression: Stable -Continue mirtazapine nightly (17) DVT prophylaxis: plavix, asa should suffice, no need for Lovenox dispo planning ultimately to [facility] for rehab-Case management applied for authorization with insurance today, hopeful for placement on Thursday Subjective Patient feeling much better today. Reports the numbness in her tongue and her speech issues are completely resolved. Denies any other numbness or tingling. Denies chest pain or shortness of breath. Reports her hip pain is well controlled. She is still constipated. She is out of bed and ambulate to the bathroom today. Telemetry with a few short bursts of atrial tachycardia that persist, otherwise normal sinus rhythm I discussed the case with the electric cutter operator today. Review of Systems Review of Systems: All systems reviewed & are unremarkable except as noted in HPI & below Physical Exam Constitutional: + thin and + frail appearing Eyes: + anicteric sclerae ENMT: external ear and nose normal, oropharynx normal Neck: trachea midline, no thyromegaly Respiratory: no labored breathing Auscultation: + crackles (Mild at the bases); no rhonchi Cardiovascular: RRR, no murmur, no edema Gastrointestinal (Abdomen): normal bowel sounds, soft, nontender, no hepatosplenomegaly Musculoskeletal: Extremities: + extremities abnormal to inspection (Left hip with dressing in place clean dry and intact, 2 distal incision sites with elmer also clean dry and intact over the left lateral thigh), no cyanosis and no clubbing Skin: no rashes, warm and dry Neurologic: moves all extremities and awake; no focal motor deficits Psychiatric: A+Ox3, euthymic affect Results & Data Vital Signs (Past 12 Hours) Vital Signs Temp Pulse Pulse Resp BP Pulse Ox 04/10/19 16:25 36.5 C 74 18 163/91 H 100 04/10/19 15:24 82 04/10/19 11:53 36.7 C 102 H 21 156/81 H 04/10/19 08:00 36.4 C L 85 21 187/82 H 96 Laboratory Results 04/10/19 04/10/19 Range/Units 06:53 06:53 WBC 11.34 H (4.8-10.8) K/uL RBC 3.95 L (4.2-5.4) M/uL Hgb 10.5 L (12.0-16.0) g/dL Hct 32.8 L (37-47) % MCV 83.0 (80-100) fL MCH 26.6 (25-34) pg MCHC 32.0 (32-36) g/dL RDW Std Deviation 56.1 H (36.4-46.3) fL RDW Coeff of Rhys 18.6 H (11.5-14.5) % Plt Count 143 (130-400) K/uL MPV 10.4 (7.4-10.4) fL Sodium 143 (136-145) mmol/L Potassium 4.3 (3.5-5.1) mmol/L Chloride 110 H (98-107) mmol/L Carbon Dioxide 29 (21-32) mmol/L Anion Gap 5.0 (3-11) BUN 35 H (7-18) mg/dl Creatinine 1.41 H (0.6-1.2) mg/dl Est Cr Clr Drug Dosing 15.7 ml/min Est GFR ( Amer) 38.7 Est GFR (Non-Af Amer) 33.4 BUN/Creatinine Ratio 25.0 H (10-20) Glucose 108 H (70-99) mg/dl Calcium 9.0 (8.5-10.1) mg/dl (1) Intertrochanteric fracture of left hip Encounter type: initial encounter Fracture alignment: nondisplaced Fracture type: closed Qualified Code(s): S72.145A - Nondisplaced intertrochanteric fracture of left femur, initial encounter for closed fracture (2) CVA (cerebral vascular accident) CVA mechanism: unspecified Qualified Code(s): I63.9 - Cerebral infarction, unspecified (3) Fall Encounter type: initial encounter Qualified Code(s): W19.XXXA - Unspecified fall, initial encounter (4) HTN (hypertension) Hypertension type: essential hypertension Qualified Code(s): I10 - Essential (primary) hypertension (5) Emphysema of lung Emphysema type: unspecified Qualified Code(s): J43.9 - Emphysema, unspecified (6) Hypothyroid Hypothyroidism type: unspecified Qualified Code(s): E03.9 - Hypothyroidism, unspecified
[2019-04-10] MEDS: MIRTAZAPINE TAB 15 MG TAB PO SCH (20:44)
[2019-04-10] MEDS: predniSONE 1 MG TAB PO SCH (20:45)
[2019-04-10] MEDS: DOCUSATE SODIUM/SENNA 50/8.6MG TAB PO SCH (20:46)
[2019-04-10] MEDS: HYDROCORTISONE SOD 12.5 MG in SYRINGE 0 ML IV SCH (20:46)
[2019-04-10] MEDS ORDERED: METOPROLOL SUCC 25MG EXT REL TAB PO SCH (21:00)
[2019-04-11] MEDS: OXYCODONE HCL IR 5 MG TAB (IMMEDIATE RELEASE) PO PRN (03:37)
[2019-04-11] MEDS: HYDROCORTISONE SOD 12.5 MG in SYRINGE 0 ML IV SCH (05:42)
[2019-04-11] MEDS: LEVOTHYROXINE SODIUM 50 MCG TABLET PO SCH (05:43)
[2019-04-11] MEDS: FLUTICASONE INH SCH (08:09)
[2019-04-11] MEDS: VILANTEROL INH SCH (08:09)
[2019-04-11] MEDS: ATORVASTATIN 20 MG TAB PO SCH (08:09)
[2019-04-11] MEDS: CEROVITE ADV FORMULA TAB PO SCH (08:09)
[2019-04-11] MEDS: CLOPIDOGREL BISULFATE 75 MG TAB PO SCH (08:09)
[2019-04-11] MEDS: FUROSEMIDE 20 MG TAB PO SCH (08:10)
[2019-04-11] MEDS: FERROUS SULFATE 325 MG TAB PO SCH (08:10)
[2019-04-11] MEDS: METOPROLOL SUCC 50MG EXT REL TAB PO SCH (08:10)
[2019-04-11] MEDS: ASPIRIN 81 MG ECTAB PO SCH (08:10)
[2019-04-11] MEDS: POLYETHYLENE (MIRALAX) 17 GM PACK PO SCH (08:11)
[2019-04-11] MEDS: CALCITRIOL 0.25 MCG CAPSULE PO SCH (08:11)
[2019-04-11] MEDS: TIOTROPIUM BROMIDE 5 PUFF/90 MCG INH INH SCH (08:12)
[2019-04-11] MEDS: predniSONE 1 MG TAB PO SCH (08:53)
[2019-04-11] MEDS ORDERED: SODIUM CHLORIDE 0.65% NA SOLN 45 ML (OCEAN) ONE (09:02)
--- NOTE | 2019-04-11 09:14 | Cardiology Progress Note ---
Date of Service April 11, 2019 Subjective She denies any chest pain chest pressure chest heaviness. She has any palpitations or lightheadedness or dizziness. She does have a small nosebleed this morning. She also is complaining of more significant left hip discomfort. Results & Data Vital Signs (Past 12 Hours) Vital Signs Temp Pulse Pulse Resp BP BP Pulse Ox 04/11/19 07:05 72 04/11/19 06:44 36.4 C L 78 16 203/84 H 98 04/10/19 23:51 75 04/10/19 23:00 36.3 C L 74 16 206/98 H 213/75 H 100 PHYSICAL EXAMINATION: GENERAL: She is awake, alert, oriented x3. She is very frail. HEENT: 2+ carotid upstrokes. No evidence of carotid bruits. Her jugular venous pressure appeared elevated. Her sclerae are anicteric. Her hearing is diminished. LUNGS: Globally decreased breath sounds. No rales, rhonchi, wheezing. HEART: Regular rate and rhythm. No appreciable murmurs, rubs or gallops. EXTREMITIES: No clubbing or cyanosis. SKIN: She has significant ecchymosis of her arms and legs IMPRESSION: 1. Fall with syncope, questionable etiology. 2. History of cerebrovascular accident with recurrent stroke in the perioperative period. 3. Hypertension. 4. Normal biventricular size and function. 5. Recent hip fracture. 6. Overall, quite frail, weighing only 35 kilograms. 7. Short burst of atrial tachycardia on telemetry which are asymptomatic On court monitor she is had a decreased frequency of her atrial tachycardia. She does have some PACs. Her heart rate seem to be better controlled in the 70s. At this point I would avoid pushing her beta-blockers further. Her blood pressure is elevated last evening and this morning when had previously been well controlled. She is in a significant amount of hip pain this morning and last evening which is likely contributing. In addition she did not receive a dose of benazepril yesterday. She should receive 20 mg this morning. She is on chronic oxygen at home on 2 L. The etiology for her syncope is unclear at this point. She has had no significant sustained bradycardia arrhythmias or tachyarrhythmias on the monitor. She will need cardiology follow-up upon discharge. Given the fact that she will be going to [facility] in [place] she can follow-up with Dr. Connolly of [facility] physician cardiology who sees patients in [place].
--- NOTE | 2019-04-11 12:51 | Discharge Summary ---
Date of Service April 11, 2019 Admission HPI Per Admitting Provider Addie Conway is an 88yo C female with history of HTN, HLP, CVA, Polymyalgia rheumatica on chronic steroids, CKD IV, O2 dependent COPD presenting with left femur fracture. Patient reports waking this AM around 07:15. She ambulated to the bathroom without difficulty then woke up on the bathroom floor. She does not recall falling. She was unable to get up and bear weight on her LLE. She contacted the nurse at [facility] and was transported to [facility] via ambulance. Presenlty without pain. No additional complaints at this time. Patient states that she has fallen like this in the past where she has no recollection of the event and wakes up on the floor. She denies exertional chest pain, dizziness. She does become dyspneic with exertion which is stable and improved since being placed on home oxygen a few months back. No additional complaints at this time ER Course: Oxycodone Principal Diagnosis Left hip fracture, suspected acute ischemic CVA Discharge Exam Constitutional + thin and + frail appearing Eyes + anicteric sclerae ENMT external ear and nose normal, oropharynx normal Neck trachea midline, no thyromegaly Respiratory normal respiratory effort, lungs clear to auscultation no labored breathing Cardiovascular RRR, no murmur, no edema Gastrointestinal (Abdomen) normal bowel sounds, soft, nontender, no hepatosplenomegaly Musculoskeletal Extremities: + extremities abnormal to inspection (Left hip with dressing in place clean dry and intact, 2 distal incision sites with elmer also clean dry and intact over the left lateral thigh), no cyanosis and no clubbing Skin no rashes, warm and dry Neurologic moves all extremities and awake; no focal motor deficits Psychiatric A+Ox3, euthymic affect Discharge Data Allergies Allergy/AdvReac Type Severity Reaction Status Date / Time clindamycin Allergy Intermediate HIVES Verified 04/05/19 11:01 Consultations 04/05/19 15:05 ED Decision to Admit Stat 04/05/19 17:31 Consult Case Management - Discharge Planning Routine Consult Orthopedic Surgery Routine 04/06/19 16:52 Consult Case Management - Discharge Planning Routine 04/08/19 09:44 Consult Neurology Routine 04/08/19 17:06 Consult Cardiology Routine Procedures Performed Operation Date: 04/06/19 12:45 Actual Procedures p Left Trochanteric Nail Femur(Left) - Josh J Claire, DO Ordered Studies 04/05/19 11:13 CT pelvis wo con Stat 04/05/19 12:55 MR hip LT wo con Stat 04/05/19 17:31 US carotid doppler BI Routine 04/06/19 12:00 FL femur LT 2V Routine FL fluoroscopy <1hr Routine 04/07/19 10:49 CT head/brain wo con Stat 04/07/19 10:58 CT angio head w con Stat CT angio neck with con Stat Chest x-ray x2 Femur x-ray Hip/pelvis x-ray Hospital Course (1) Intertrochanteric fracture of left hip: After fall at home that she does not recall-question if had a syncopal episode She is now s/p left hip pinning on 04/06/19 -- now POD #5 and doing very well pain well controlled continue PT/OT and will go to SNF at [facility] today Her course was complicated by suspected perioperative stroke and acute blood los s anemia requiring PRBCs incisions clean, elmer intact 25-OH vit D -- 02/2019 -- wnl. Doing very well and stable for discharge -Needs follow-up with orthopedic surgery with Dr. Claire 12-14 days post operatively. Can call [phone] for an appointment. (2) Acute blood loss as cause of postoperative anemia: s/p 1 unit PRBCs with improved H/H -Continue ferrous sulfate supplementation. -Follow CBC in 1 week (3) Atrial arrhythmia: With paroxysmal bursts of atrial tachycardia but no definite atrial flutter or fibrillation. This resolved by the day of discharge after increase in metoprolol dosing Appreciate Dr Torres/cardiology consultation. echo 04/06/19 with preserved EF. continue to monitor on tele. -Continue the increased Wiysvs-ZK-ber at 50 mill grams in the morning and 25 mg in the evening-plan to titrate to 50 twice daily if heart rate and blood pressure can tolerate-can be done after discharge -benazepril was lowered to 20 mg daily to accommodate for titration upward of the Toprol-XL -Please have her follow-up with Dr. Durham within 2 weeks (4) CVA (cerebral vascular accident): Patient with prior history of ischemic stroke with residual numbness of her left hand and left side of the mouth. On the AM of 04/07/19, she developed mild dysarthria and sensorium changes in her tongue. Patient refused MRI due to severe claustrophobia. CTA head with high-grade right-MCA stenosis which would explain her left-sided symptoms, however neurology commented that it also could be secondary to damage from intubation Nonetheless, all symptoms are resolved at this point -added ASA to her Plavix due to MCA stenosis -Cont dual anti-platelet therapy with asa and plavix indefinitely -Added lipitor 20mg daily-will not do high intensity given her age and frailty. Dr Velásquez recommending OUTPATIENT referral to neuro vascular specialist for right MCA stenosis. This will [facility] to be [facility] At this time not enough evidence she is having afib or aflutter thus defer on systemic anticoagulation. (5) Fall: Question if it was secondary to syncope from dysrhythmia? cont to monitor on telemetry see discussion above re: atrial tach, etc -Cardiology thinks that doing an event monitor or loop recorder might be quite difficult given her severely thin skin and lack of subcutaneous fat-might cause more harm to place 1 of these than good (6) HTN (hypertension): Blood pressure is somewhat elevated on the day of discharge -Her stress dose steroids were discontinued -Cont Toprol xl, Lasix, benazepril -Discontinued nifedipine to accommodate for increased dose of Toprol-XL Benazepril restarted but at a lower dose of 20 mill grams daily as above-could be increased if needed in the future Allowing some permissive hypertension in the setting of suspected stroke (7) Emphysema of lung: Stable. No exacerbation. -Continue Xopenex PRN -Continue Spiriva -Continue Breo -DuoNeb PRN (8) CKD (chronic kidney disease), stage IV: stable BMP acceptable with creatinine 1.4 which is around her baseline -Avoid nephrotoxins -Renally dose medications -Continue benazepril as above (9) Hypothyroid: Continue Synthroid TSH compensated this admission (10) Polymyalgia rheumatica: Chronic, on prednisone 3mg daily outside hospital. She received stress-dose steroids in the perioperative period which are now discontinued. -Continue home dose of p.o. prednisone with 1 mg nightly and 2 mg p.o. every morning (11) Hyperkalemia: resolved (12) Acute metabolic encephalopathy: Resolved And was likely secondary to opioid pain medication (13) Incidental lung nodule, > 3mm and < 8mm: CTA of the neck showed incidental 7mm spiculated nodule in left upper lobe suspicious for lung ca prior attending updated the son about this finding on 04/08 uncertain if candidate for additional work-up and/or Rx (14) Chronic respiratory failure with hypoxia: on home O2, 2 liters continuously. likely due to COPD. (15) Severe protein-calorie malnutrition: BMI is 16.3 -Added MVI -Added boost and should continue this (16) Depression: Stable -Continue mirtazapine nightly (17) DVT prophylaxis: plavix, asa should suffice, no need for Lovenox dispo planning Stable for discharge to [facility] for rehab today Total Time Total Time Spent Total Time Spent (In Minutes): Greater than 30 minutes Total Time Includes: Examination of the Patient, Discharge Planning and Medication Reconciliation Discharge Plan Discharge Items Patient Disposition: Transfer Detention Fac Reason For Visit: HIP FRACTURE Discharge Diagnosis: Left Subcapital Hip Fx Condition: Good Discharge Goals: Decrease discomfort, Diagnostic testing, Learn about illness and Therapeutic intervention Activity: As commented below Non-emergency contact: Primary Care Provider and Surgeon Call non-emergency contact if: you have any medication questions, your temperature is above 100.5, your wound has increased redness, your wound has increased drainage and your wound pain has increased Follow-up/Referrals: Sweetie Calero DO [Primary Care Provider] - Diet: Heart Healthy [facility] Provider Instructions: You were admitted after falling and breaking her hip. This was repaired and the surgeon's instructions are as below. You also had intermittent rapid heartbeat and your metoprolol dose was increased by the master glazier. Please follow-up with master glazier within 2 weeks after discharge. Please follow-up with orthopedic surgeon as instructed below. U DISCHARGE INSTRUCTIONS: HIP FRACTURE SELF CARE INSTRUCTIONS: A. You are to ambulate with a walker or crutches for approximately 6 weeks. B. You are PARTIAL WEIGHT BEARING on your operative lower extremity for at least 6 weeks. C. Wear low heeled shoes with non-slip soles D. Be sure that your floors are free of things that could trip you throw rugs, electrical cords, and small objects. Avoid wet and waxed floors, especially with crutches/walker/cane. E. Try to walk several times a day with rest periods between. F. You may shower 48 hours after surgery and get the incision area wet, but DO NOT soak or submerge incision area in water. (No baths, swimming pools, hot tubs) G. You may have a large, band-aid like dressing over your incision (Aquacel). This will remain on your incision for 7 days, and then can be removed. You CAN shower with this on. If incision is leaking through the dressing, please call the office . H. Do NOT apply soap or any ointment/lotions directly over incision. I. You may use ice as needed to operative site. SPECIAL CARE INSTRUCTIONS: VERY IMPORTANT TO READ AND REVIEW A. You may be at risk for phlebitis or blood clots. a. Wear surgical stockings (MARIO ALBERTO hose) for 2 weeks after surgery to improve circulation and reduce swelling. b. Take LOVENOX 30mg SQ daily/ for 4 weeks or as directed. This is your blood thinner. c. If you are on Coumadin- you will have daily/weekly blood work to monitor your levels. This will be done by either your family physician/master glazier (if you are on Coumadin chronically) versus your orthopedic surgeon. Expect a phone call the day of or the day after your blood work is drawn to adjust your dose accordingly. B. There are a few signs you need to watch for after you are home. Call [facility] at [phone] if you experience any of the following: a. If you have a temperature of 101 degrees or higher. b. Sudden increase in pain in your hip not relieved by rest or pain medication. c. Any fluid or drainage from the incision; redness of the incision. d. Shortness of breath or chest pain. C. Call your physician if: a. Temperature is greater than 101 degrees (F). b. Pain is not relieved by prescribed pain medications. c. Increase drainage or redness from incision. d. Unanswered questions or concerns. D. Pain Medication: a. You will be prescribed pain medication upon discharge that should last till your first post-operative appointment. b. If you experience nausea and/or skin rash, discontinue this medication and contact our office for an alternative medication. c. Caution- narcotic pain medication can cause constipation. FOLLOW UP VISIT: Please call [facility] at [phone] to schedule a follow up appointment 10-14 days from the date of your surgery date. Prescriptions: New ferrous sulfate 325 mg (65 mg iron) Tablet,Delayed Release (Dr/Ec) 325 mg PO QAM Qty: 30 RF: 0 acetaminophen [Mapap (acetaminophen)] 325 mg Tablet 650 mg PO Q6H PRN (Reason: pain) Qty: 30 RF: 0 atorvastatin 20 mg Tablet 20 mg PO QAM Qty: 30 RF: 0 metoprolol succinate 50 mg Tablet Extended Release 24 Hr 50 mg PO QAM Qty: 30 RF: 0 metoprolol succinate 25 mg Tablet Extended Release 24 Hr 25 mg PO HS Qty: 30 RF: 0 benazepril 10 mg Tablet 20 mg PO DAILY Qty: 30 RF: 0 aspirin [Ecotrin Low Strength] 81 mg Tablet,Delayed Release (Dr/Ec) 81 mg PO QAM Qty: 30 RF: 0 oxycodone 5 mg Tablet 5 mg PO Q6H PRN (Reason: pain) Qty: 10 RF: 0 polyethylene glycol 3350 [Miralax] 17 gram Powder In Packet 17 g PO DAILY Qty: 30 RF: 0 sennosides-docusate sodium [Senokot-S] 8.6-50 mg Tablet 2 tab PO HS Qty: 60 RF: 0 Certavite-Antioxidant 18-400 mg-mcg Tablet 1 tab PO QAM Qty: 30 RF: 0 Continued ketoconazole 2 % shampoo 1 applic topical WK RF: 0 clopidogrel 75 mg tablet 75 mg PO QAM RF: 0 prednisone 1 mg tablet 2 mg PO QAM RF: 0 prednisone 1 mg tablet 1 mg PO PM RF: 0 levothyroxine 50 mcg tablet 50 mcg PO QAM RF: 0 furosemide 20 mg tablet 20 mg PO QAM RF: 0 levalbuterol HCl 1.25 mg/3 mL solution for nebulization 1.25 mg inhalation Q4H PRN (Reason: Shortness Of Breath Or Wheezing) RF: 0 calcitriol 0.25 mcg capsule 0.25 mcg PO 3XWK RF: 0 Spiriva Respimat 2.5 mcg/actuation mist 1 puff inhalation DAILY RF: 0 Breo Ellipta 100-25 mcg/dose blister with device 1 inh inhalation DAILY RF: 0 Changed mirtazapine 15 mg tablet 15 mg PO HS Qty: 0 RF: 0 Discontinued nifedipine 30 mg tablet extended release 24hr 30 mg PO QAM RF: 0 metoprolol succinate 25 mg tablet extended release 24 hr 25 mg PO QAM RF: 0 benazepril 40 mg tablet 40 mg PO QAM RF: 0 Stand-Alone Forms: [facility] Discharge Orders: Discharge Order (Routine); Ordered 04/11/19 Ordered By: Allison Schaffer Skilled Items Patient informed of condition?: Yes DNR: Yes Discharge Level of Care: Skilled Communicable Disease: No Discharge Prognosis: Improving Admission Data Admit Date/Time: 04/05/19 15:33 Attending Provider: Allison Schaffer Admit Provider: Beatris Urban Primary Care Provider: Sweetie Calero Other Providers: Beatris Urban ; Nitin Briceno ; Ranjan Velásquez ; Andrés Schwartz Service: Telemetry Other Pending Studies at Discharge: No
== END 2019-04-11 15:55 | DRG 480 ==
LOC: ED 09:02 → SUATTDRO 15:33 → 3N 15:33 → 2W 19:46 → 3W 04-06 15:06 → 2N 04-08 10:49

== ENCOUNTER 2019-05-09 20:05 | Inpatient (IN) ==
[2019-05-09 21:51] LABS: Prothrombin Time 10.3 Seconds (9.0-12.0)
[2019-05-09 21:53] LABS: Base Excess VBG 2.4 mEq/L; Basophils # (auto) 0.04 K/uL (0-0.2); Basophils % (auto) 0.3 %; Eosinophils # (auto) 0.01 K/uL (0-0.5); Eosinophils % (auto) 0.1 %; HCO3 VBG 28 mmol/L; Hematocrit (blood only) 34.5 % (37-47); Hemoglobin 10.6 g/dL (12.0-16.0); Immature Granulocytes # (auto) 0.12 K/uL (0.00-0.02); Lymphocytes # (auto) 0.94 K/uL (1.2-3.4); Lymphocytes % (auto) 7.6 %; Mean Corpuscular Hgb Conc 30.7 g/dL (32-36); Mean Corpuscular Volume 95.6 fL (80-100); Mean Platelet Volume 10.7 fL (7.4-10.4); Monocytes # (auto) 1.13 K/uL (0.11-0.59); Monocytes % (auto) 9.1 %; Neutrophils # (auto) 10.12 K/uL (1.4-6.5); Neutrophils % (auto) 81.9 %; PCO2 VBG 48 mmHg (38-50); PO2 VBG 26 mmHg; Platelet Count 130 K/uL (130-400); RDW Coefficient of Variation 22.4 % (11.5-14.5); RDW Standard Deviation 79.1 fL (36.4-46.3); Red Blood Count 3.61 M/uL (4.2-5.4); White Blood Count 12.36 K/uL (4.8-10.8); pH VBG 7.38 (7.36-7.41)
[2019-05-09 22:01] LABS: BUN Creatinine Ratio 27.3 (10-20); Calcium 8.9 mg/dl (8.5-10.1); Creatinine Clr Calc Pharmacy 17.4 ml/min; Est GFR (African American) 42.3; Est GFR (Non-African American) 36.5; Magnesium 2.5 mg/dl (1.8-2.4); Oxygen Saturation VBG < 60.0 %; Potassium 5.3 mmol/L (3.5-5.1)
[2019-05-09 22:06] LABS: Bilirubin,Total 0.7 mg/dl (0.2-1); Phosphorus 2.6 mg/dl (2.5-4.9); Troponin I 0.052 ng/ml (0-0.045)
--- NOTE | 2019-05-09 22:23 | XRay Report ---
XR chest 1V portable CLINICAL HISTORY: Chest Pain COMPARISON STUDY: Chest radiograph April 29, 2019. FINDINGS: Emphysema is noted. Small right and trace left pleural effusions are noted. Right basilar o pacity has developed. There is no pneumothorax. Cardiomediastinal silhouette is stable. IMPRESSION: 1. Interval development of right lower lung opacity which favors pneumonia. Radiographic follow up to ensure resolution is recommended. 2. Severe emphysema. 3. Small right and trace left pleural effusions. Electronically signed by: Werner Hudson M.D. 05/09/2019 10:22 PM
[2019-05-09 22:24] LABS: Anisocytosis Present
[2019-05-09] MEDS ORDERED: VANCOMYCIN CONSULT ACTIVE PRN (22:47)
[2019-05-09] MEDS ORDERED: VANCOMYCIN HCL 750 MG in SODIUM CHLORIDE 0.9% 500 ML IV ONE (22:47)
[2019-05-09] MEDS ORDERED: PIPERACILLIN/TAZOBACTAM 4.5 GM/120 ML BAG IV ONE (22:47)
[2019-05-09] MEDS ORDERED: LEVALBUTEROL HCL 0.63 MG/3 ML NEB NEB STA (23:31)
[2019-05-09] MEDS ORDERED: methylPREDNISolone 125 MG/2 ML VIAL IV STA (23:31)
--- NOTE | 2019-05-09 23:31 | Emergency Department Note ---
Entered by Erich Rene acting as a scribe for Evan Sun MD History of Present Illness General Chief complaint: Syncope Stated complaint: SOB Time Seen by Provider: 05/09/19 20:45 Source: patient, family and EMS History of Present Illness Onset (ago): minute(s) (prior to arrival) Location: chest (lungs) Quality: + other (shortness of breath with hypoxia) Relieved By: + other (additional supplemental oxygen) Associated symptoms: + weakness The patient is an 88 year old female who presents to the Emergency Room from [facility] with EMS documentation regarding shortness of breath with hypoxia in the 70s prior to arrival that was improved with additional supplemental oxygen. However, the patient states that she had gone to the bathroom, likely passed out and woke up on the ground, and pulled the emergency cord. Family at bedside reports that the patient has been shorter of breath than her baseline over the past couple of days. He states that in the past couple of days the patient had been evaluated by pulmonology with no concerning findings. She has a history of COPD and is chronically on 2L of oxygen at home. Family states that one month ago the patient had fallen and broken her left hip, and she has been in rehabilitation at [facility] since that time. The patient denies any current pain, but she does feel tired and weak. The patient states that she is on Eliquis and a diuretic. Home Medications Home Medications Medication Instructions Recorded Confirmed Type Breo Ellipta 1 inh INHALATION DAILY 04/05/19 05/09/19 History Spiriva Respimat 1 puff INHALATION DAILY 04/05/19 05/09/19 History calcitriol 0.25 mcg PO 3XWK 04/05/19 05/09/19 History clopidogrel 75 mg PO QAM 04/05/19 05/09/19 History furosemide 20 mg PO .DAILY FOR 5 DAYS 04/05/19 05/09/19 History levalbuterol HCl 1.25 mg INHALATION Q4H PRN 04/05/19 05/09/19 History levothyroxine 50 mcg PO QAM 04/05/19 05/09/19 History prednisone 1 mg PO PM 04/05/19 05/09/19 History prednisone 2 mg PO QAM 04/05/19 05/09/19 History aspirin [Ecotrin Low Strength] 81 mg PO QAM #30 tab 04/11/19 05/09/19 Rx atorvastatin 20 mg PO QAM #30 tab 04/11/19 05/09/19 Rx ferrous sulfate 325 mg PO QAM #30 tab 04/11/19 05/09/19 Rx metoprolol succinate 25 mg PO HS #30 tab 04/11/19 05/09/19 Rx metoprolol succinate 50 mg PO QAM #30 tab 04/11/19 05/09/19 Rx bcefurjxibco-ndae-wdyof acid 1 tab PO QAM #30 tab 04/11/19 05/09/19 Rx [Certavite-Antioxidant] acetaminophen [Mapap 650 mg PO Q6H PRN 05/09/19 05/09/19 History (acetaminophen)] acetaminophen [Tylenol Extra 500 mg PO QAM 05/09/19 05/09/19 History Strength] benazepril 5 mg PO DAILY 05/09/19 05/09/19 History bisacodyl [Dulcolax (bisacodyl)] 10 mg NM UD PRN 05/09/19 05/09/19 History furosemide [Lasix] 40 mg PO .TODAY 05/09/19 05/09/19 History mirtazapine 30 mg PO HS 05/09/19 05/09/19 History oxycodone 5 mg PO Q6 PRN 05/09/19 05/09/19 History ropinirole [Requip] 0.5 mg PO HS 05/09/19 05/09/19 History sodium phosphates [Fleet Enema] 118 ml NM DAILY PRN 05/09/19 05/09/19 History Allergies Allergy/AdvReac Type Severity Reaction Status Date / Time clindamycin Allergy Intermediate HIVES Verified 05/09/19 23:33 Past Med/Surg History Medical History Hyperlipidemia GERD without esophagitis Dependence on supplemental oxygen Chronic venous stasis dermatitis of both lower extremities Chronic respiratory failure Chronic obstructive pulmonary disease Carotid atherosclerosis CKD (chronic kidney disease), stage III HTN (hypertension) (Chronic) Emphysema of lung (Chronic) On 2L home O2 PAD (peripheral artery disease) CKD (chronic kidney disease), stage IV CVA (cerebral vascular accident) Residual numbness of left hand and left side of mouth Dyslipidemia Hypothyroid Polymyalgia rheumatica 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 Patient declined Treatment with [place] Subsequent recurrence with squamous cell carcinoma Status post partial vulvectomy with positive margins Status post completion of radiation therapy 08/01/2013 received 5040 cGy" Surgical History History of vaginal surgery History of uvulectomy Family History Father Cardiac disorder Myocardial infarction Brother Cardiac disorder Mother Hypertension Sister Hypertension Stomach cancer Other Family history non-contributory Social History Preferred Language: Irish Communication Ability: Effective Visual Impairment: Limited Hearing Ability: Normal Beliefs That Will Affect Care: None marital status: / Current Living Situation: Alone and Personal Care Facility Current Living Situation Comment: [facility] current occupational status: retired Feels Safe at Home: Yes Smoking Status: Former smoker (QUIT 2004; SMOKED AGES [age]) Tobacco Type: cigarettes Cigarettes Per Day: 20 Second Hand Exposure: No Hx Alcohol Use: No Hx Substance Use: No Dental Care, Regularly: Yes Physical Activity Frequency Comment: limited by physical condition Review of Systems See HPI for pertinent positives & negatives. and A total of 10 systems reviewed and were otherwise negative Physical Exam Vital Signs Vital Signs - 24 hr 05/09/19 20:17 05/09/19 20:18 05/09/19 20:49 Temperature 36.6 C Temperature Source Oral Sepsis Recent Fever Within 48 Hours No Sepsis Action Taken by Nursing No Action Required Pulse Rate 77 Pulse Rate [Right Radial] Respiratory Rate 30 H Respiratory Effort / Characteristics Spontaneous Respiratory Depth Normal Respiratory Pattern Regular Blood Pressure 218/87 H Blood Pressure [Right Arm] Blood Pressure Mean 130 Blood Pressure Mean [Right Arm] Blood Pressure Position Lying Pulse Oximetry 97 81 L 93 Oxygen Delivery Method Nasal Cannula Room Air Nasal Cannula Oxygen Flow Rate 4 4 Fraction of Inspired Oxygen 05/09/19 21:44 05/09/19 22:38 05/09/19 23:42 Temperature Temperature Source Sepsis Recent Fever Within 48 Hours Sepsis Action Taken by Nursing Pulse Rate 93 H Pulse Rate [Right Radial] 72 Respiratory Rate 27 H 22 Respiratory Effort / Characteristics Respiratory Depth Respiratory Pattern Blood Pressure Blood Pressure [Right Arm] 192/78 H Blood Pressure Mean Blood Pressure Mean [Right Arm] 116 Blood Pressure Position Pulse Oximetry 98 100 94 Oxygen Delivery Method Nasal Cannula Nasal Cannula Oxygen Flow Rate 4 4 Fraction of Inspired Oxygen 50 05/10/19 00:00 05/10/19 00:03 05/10/19 02:09 Temperature Temperature Source Sepsis Recent Fever Within 48 Hours Sepsis Action Taken by Nursing Pulse Rate Pulse Rate [Right Radial] 72 70 70 Respiratory Rate 20 22 22 Respiratory Effort / Characteristics Spontaneous SOB on Exertion Respiratory Depth Respiratory Pattern Blood Pressure Blood Pressure [Right Arm] 197/88 H 197/92 H Blood Pressure Mean Blood Pressure Mean [Right Arm] 124 127 Blood Pressure Position Pulse Oximetry 100 100 100 Oxygen Delivery Method Nasal Cannula Nasal Cannula Nasal Cannula Oxygen Flow Rate 4 3 4 Fraction of Inspired Oxygen 05/10/19 02:57 Temperature Temperature Source Sepsis Recent Fever Within 48 Hours Sepsis Action Taken by Nursing Pulse Rate Pulse Rate [Right Radial] Respiratory Rate 22 Respiratory Effort / Characteristics Respiratory Depth Respiratory Pattern Blood Pressure Blood Pressure [Right Arm] Blood Pressure Mean Blood Pressure Mean [Right Arm] Blood Pressure Position Pulse Oximetry 100 Oxygen Delivery Method Nasal Cannula Oxygen Flow Rate 4 Fraction of Inspired Oxygen GENERAL: Awake, alert, cachectic, chronically ill and frail-appearing, in no acute distress HENT: Normocephalic. Resolving left facial contusion. Mucous membranes dry. EYES: Normal conjunctiva. Sclera non-icteric. NECK: Supple. No nuchal rigidity. FROM. No JVD. RESPIRATORY: Diminished breath sounds throughout with rhonchi of right lung ochoa. CARDIAC: Regular rate, normal rhythm. Extremities warm and well perfused. Pulses equal. ABDOMEN: Soft, non-distended. No tenderness to palpation. No rebound or guarding. No masses. RECTAL: Deferred. MUSCULOSKELETAL: Chest examination reveals no tenderness. The back is symmetrical on inspection without obvious abnormality. There is no CVA te nderness to palpation. No joint edema. LOWER EXTREMITIES: Calves are equal size bilaterally and non-tender. No edema. No discoloration. NEURO: Normal sensorium. No sensory or motor deficits noted. Moving all extremities equally. SKIN: No rash or jaundice noted. Course 2051: The patient was evaluated in room B7. A complete history and physical exa mination were performed. 2248: I consulted Dr. Urban [facility] Hospitalist. The patient will be reevaluated for hospitalization. Administered Medications Discontinued Medications Furosemide (Lasix) 20 mg IV NOW STA Stop: 05/09/19 23:33 Last Admin: 05/10/19 00:39 Dose: 20 mg Documented by: [id number] Piperacillin Sod/Tazobactam Sod (Zosyn) 4.5 gm in 120 mls @ 30 mls/hr IV NOW ONE Stop: 05/10/19 02:46 Last Admin: 05/10/19 00:39 Dose: 30 mls/hr Documented by: [id number] Levalbuterol HCl (Xopenex 0.63 Mg/3 Ml Neb) 0.63 mg NEB NOW STA Stop: 05/09/19 23:32 Last Admin: 05/10/19 00:03 Dose: 0.63 mg Documented by: [id number] Methylprednisolone (Solumedrol) 125 mg IV NOW STA Stop: 05/09/19 23:32 Last Admin: 05/10/19 00:38 Dose: 125 mg Documented by: [id number] Metoprolol Tartrate (Lopressor) 12.5 mg PO ONE ONE Stop: 05/10/19 01:06 Last Admin: 05/10/19 01:34 Dose: 12.5 mg Documented by: [id number] Medical Decision Making Differential Diagnosis Differential diagnosis includes: infections, reactive airway disease, pneumonia, pneumothorax, COPD, CHF, cardiac ischemia, pulmonary embolism, musculoskeletal, gastrointestinal, as well as others were entertained. Medical Records Attestation: I reviewed the patient's medical records. Home Medications Current Medication List: was personally reviewed by me Laboratory Data Attestation: I reviewed the patient's lab results. Result diagrams: 05/09/19 21:31 05/09/19 21:31 Lab Results 05/09/19 05/09/19 05/09/19 Range/Units 21:31 21:31 21:31 WBC 12.36 H (4.8-10.8) K/uL RBC 3.61 L (4.2-5.4) M/uL Hgb 10.6 L (12.0-16.0) g/dL Hct 34.5 L (37-47) % MCV 95.6 (80-100) fL MCH 29.4 (25-34) pg MCHC 30.7 L (32-36) g/dL RDW Std Deviation 79.1 H (36.4-46.3) fL RDW Coeff of Rhys 22.4 H (11.5-14.5) % Plt Count 130 (130-400) K/uL MPV 10.7 H (7.4-10.4) fL Immature Gran % (Auto) 1.0 % Neut % (Auto) 81.9 % Lymph % (Auto) 7.6 % Garland % (Auto) 9.1 % Eos % (Auto) 0.1 % Baso % (Auto) 0.3 % Immature Gran # (Auto) 0.12 H (0.00-0.02) K/uL Neut # (Auto) 10.12 H (1.4-6.5) K/uL Lymph # (Auto) 0.94 L (1.2-3.4) K/uL Garland # (Auto) 1.13 H (0.11-0.59) K/uL Eos # (Auto) 0.01 (0-0.5) K/uL Baso # (Auto) 0.04 (0-0.2) K/uL Anisocytosis Present PT 10.3 (9.0-12.0) Seconds INR 1.0 (0.9-1.1) VBG pH (7.36-7.41) VBG pCO2 (38-50) mmHg VBG pO2 mmHg VBG HCO3 mmol/L VBG O2 Saturation % VBG Base Excess mEq/L Barometric Pressure mm/Hg Sodium 141 (136-145) mmol/L Potassium 5.3 H (3.5-5.1) mmol/L Chloride 108 H (98-107) mmol/L Carbon Dioxide 27 (21-32) mmol/L Anion Gap 6.0 (3-11) BUN 36 H (7-18) mg/dl Creatinine 1.31 H (0.6-1.2) mg/dl Est Cr Clr Drug Dosing 17.4 ml/min Est GFR ( Amer) 42.3 Est GFR (Non-Af Amer) 36.5 BUN/Creatinine Ratio 27.3 H (10-20) Glucose 121 H (70-99) mg/dl Lactate (0.4-2.0) mmol/L Calcium 8.9 (8.5-10.1) mg/dl Phosphorus 2.6 (2.5-4.9) mg/dl Magnesium 2.5 H (1.8-2.4) mg/dl Total Bilirubin 0.7 (0.2-1) mg/dl AST 36 (15-37) U/L ALT 47 (12-78) U/L Alkaline Phosphatase 118 H (45-117) U/L Troponin I 0.052 H* (0-0.045) ng/ml NT-Pro-B Natriuret Pep 08276 H (0-1800) pg/ml Total Protein 6.0 L (6.4-8.2) gm/dl Albumin 3.0 L (3.4-5.0) gm/dl Globulin 3.0 (2.5-4.0) gm/dl Albumin/Globulin Ratio 1.0 (0.9-2) Lipase 53 L (73-393) U/L 05/09/19 05/10/19 Range/Units 21:31 00:43 WBC (4.8-10.8) K/uL RBC (4.2-5.4) M/uL Hgb (12.0-16.0) g/dL Hct (37-47) % MCV (80-100) fL MCH (25-34) pg MCHC (32-36) g/dL RDW Std Deviation (36.4-46.3) fL RDW Coeff of Rhys (11.5-14.5) % Plt Count (130-400) K/uL MPV (7.4-10.4) fL Immature Gran % (Auto) % Neut % (Auto) % Lymph % (Auto) % Garland % (Auto) % Eos % (Auto) % Baso % (Auto) % Immature Gran # (Auto) (0.00-0.02) K/uL Neut # (Auto) (1.4-6.5) K/uL Lymph # (Auto) (1.2-3.4) K/uL Garland # (Auto) (0.11-0.59) K/uL Eos # (Auto) (0-0.5) K/uL Baso # (Auto) (0-0.2) K/uL Anisocytosis PT (9.0-12.0) Seconds INR (0.9-1.1) VBG pH 7.38 (7.36-7.41) VBG pCO2 48 (38-50) mmHg VBG pO2 26 mmHg VBG HCO3 28 mmol/L VBG O2 Saturation < 60.0 % VBG Base Excess 2.4 mEq/L Barometric Pressure 731.0 mm/Hg Sodium (136-145) mmol/L Potassium (3.5-5.1) mmol/L Chloride (98-107) mmol/L Carbon Dioxide (21-32) mmol/L Anion Gap (3-11) BUN (7-18) mg/dl Creatinine (0.6-1.2) mg/dl Est Cr Clr Drug Dosing ml/min Est GFR ( Amer) Est GFR (Non-Af Amer) BUN/Creatinine Ratio (10-20) Glucose (70-99) mg/dl Lactate 1.9 (0.4-2.0) mmol/L Calcium (8.5-10.1) mg/dl Phosphorus (2.5-4.9) mg/dl Magnesium (1.8-2.4) mg/dl Total Bilirubin (0.2-1) mg/dl AST (15-37) U/L ALT (12-78) U/L Alkaline Phosphatase (45-117) U/L Troponin I (0-0.045) ng/ml NT-Pro-B Natriuret Pep (0-1800) pg/ml Total Protein (6.4-8.2) gm/dl Albumin (3.4-5.0) gm/dl Globulin (2.5-4.0) gm/dl Albumin/Globulin Ratio (0.9-2) Lipase (73-393) U/L Imaging Data Radiologist's Impression: Radiology results as stated below per my review and the radiologist's inte rpretation: XR chest 1V portable CLINICAL HISTORY: Chest Pain COMPARISON STUDY: Chest radiograph April 29, 2019. FINDINGS: Emphysema is noted. Small right and trace left pleural effusions are noted. Right basilar opacity has developed. There is no pneumothorax. Cardiomediastinal silhouette is stable. IMPRESSION: 1. Interval development of right lower lung opacity which favors pneumonia. Radiographic follow up to ensure resolution is recommended. 2. Severe emphysema. 3. Small right and trace left pleural effusions. Electronically signed by: Werner Hudson M.D. 05/09/2019 10:22 PM ECG Data Attestation: I personally reviewed and interpreted this ECG as follows: Indication: SOB/dyspnea Rate (beats per minute): 73 Rhythm: normal sinus Findings: + other (normal axis; ST and T-wave abnormalities laterally; no overt acute ischemia) Comparison ECG Date: from (04/08/19) Change: no significant change (rate is now decreased) Blood Pressure Blood Pressure Findings: Elevated blood pressure Blood Pressure Disposition: further management by hospitalist Head Trauma GCS Score: 15 MDM Narrative The patient is a pleasant 88-year-old woman with a past medical history of COPD on 2 L home O2, CVA, CKD, PAD who presents emergency department from [facility] with worsening shortness of breath with hypoxia to 76% on her chronic oxygen per hpi. Of note, the patient has been at [facility] for the past several weeks after being admitted here last month for syncope and fall with left hip fracture status post fixation. While patient On arrival reports she comes to the hospital today for syncope where she says she fell down in the bathroom is unclear if this event happened today or if she is describing what occurred last month given that the EMS report did not mention any episode of syncope. On arrival patient is chronically ill-appearing but no acute distress, afebrile with mild labored breathing and diminished breath sounds throughout with rhonchi of the right lung ochoa. EKG demonstrates ST abnormalities laterally which appears similar to prior. Chest x-ray with right lower lobe pneumonia. WBC 12.3. H/H 10.6/34.5 similar to prior range of values. Platelets within normal limits. VBG unremarkable. Creatinine 1.3 within prior range of values. Chemistry without acidosis. Troponin is 0.052 which is most likely demand in the setting of the patient's pneumonia. Of note, patient does have a BNP of 20 K without prior values for comparison. It appears that the patient has no prior history of CHF. Elevated BNP possibly reflects underlying pulmonary hypertension given the patient's lung disease. Limited bedside echo without significant reduction in EF per MAPSE of 11mm. Given the patient's recent prolonged hospitalizations we will treat with broad-spectrum antibiotics at this time with vancomycin and Zosyn. Will place the patient on BiPAP for work of breathing. Lasix ordered and additionally will treat with steroid and paient's Xopenex for component of bronchospasm. Case was discussed with Dr. Urban, [facility] hospitalist, who will evaluate the patient for admission. Patient reevaluated after CT and she was unable to tolerate BiPAP due to feeling claustrophobic however work of breathing improved with Xopenex neb. Impression & Plan Acute and chronic respiratory failure, Pneumonia, Elevated troponin Critical Care Time Critical Care Time: Yes Total Critical Care Time: 35 I have personally spent greater than 35 minutes of critical care time in the direct management of this patient. This includes bedside care, interpretation of diagnostic studies, and testing, discussion with consultants, patient, and family members, and other required patient management activities. This 35 minutes is in excess of all separately billable procedures. Discharge Plan Visit Data Chief Complaint: Syncope Stated Complaint: SOB ED Provider: Evan Sun Discharge Problem: Acute and chronic respiratory failure, Pneumonia, Elevated troponin Patient Disposition: Being Evaluated by Hospitalist Discharge Instructions Interventions: ED Discharge Assessment Last Done: 05/10/19 02:57 Forms Stand Alone Forms: My [facility] Prescriptions Prescriptions: No Action clopidogrel 75 mg tablet 75 mg PO QAM RF: 0 prednisone 1 mg tablet 2 mg PO QAM RF: 0 prednisone 1 mg tablet 1 mg PO PM RF: 0 levothyroxine 50 mcg tablet 50 mcg PO QAM RF: 0 furosemide 20 mg tablet 20 mg PO .DAILY FOR 5 DAYS RF: 0 levalbuterol HCl 1.25 mg/3 mL solution for nebulization 1.25 mg inhalation Q4H PRN (Reason: Shortness Of Breath Or Wheezing) RF: 0 calcitriol 0.25 mcg capsule 0.25 mcg PO 3XWK RF: 0 Spiriva Respimat 2.5 mcg/actuation mist 1 puff inhalation DAILY RF: 0 Breo Ellipta 100-25 mcg/dose blister with device 1 inh inhalation DAILY RF: 0 ferrous sulfate 325 mg (65 mg iron) Tablet,Delayed Release (Dr/Ec) 325 mg PO QAM Qty: 30 RF: 0 atorvastatin 20 mg Tablet 20 mg PO QAM Qty: 30 RF: 0 metoprolol succinate 50 mg Tablet Extended Release 24 Hr 50 mg PO QAM Qty: 30 RF: 0 metoprolol succinate 25 mg Tablet Extended Release 24 Hr 25 mg PO HS Qty: 30 RF: 0 aspirin [Ecotrin Low Strength] 81 mg Tablet,Delayed Release (Dr/Ec) 81 mg PO QAM Qty: 30 RF: 0 Certavite-Antioxidant 18-400 mg-mcg Tablet 1 tab PO QAM Qty: 30 RF: 0 furosemide [Lasix] 40 mg Tablet 40 mg PO .TODAY RF: 0 acetaminophen [Tylenol Extra Strength] 500 mg Tablet 500 mg PO QAM RF: 0 ropinirole [Requip] 0.25 mg Tablet 0.5 mg PO HS RF: 0 bisacodyl [Dulcolax (bisacodyl)] 10 mg Suppository 10 mg NM UD PRN (Reason: Constipation) RF: 0 mirtazapine 30 mg Tablet 30 mg PO HS RF: 0 Fleet Enema 19-7 gram/118 mL Enema 118 ml NM DAILY PRN (Reason: NO BM IN 4 DAYS) RF: 0 oxycodone 5 mg Tablet 5 mg PO Q6 PRN (Reason: MODERATE/SEVERE PAIN 5-10) RF: 0 acetaminophen [Mapap (acetaminophen)] 325 mg tablet 650 mg PO Q6H PRN (Reason: mild pain 1-4) RF: 0 benazepril 10 mg tablet 5 mg PO DAILY RF: 0 Referrals Referrals: Sweetie Calero DO [Primary Care Provider] - Discharge Problem: Acute and chronic respiratory failure Qualifiers: Respiratory failure complication: hypoxia Qualified Code(s): J96.21 - Acute and chronic respiratory failure with hypoxia Pneumonia Qualifiers: Pneumonia type: due to unspecified organism Laterality: right Lung location: lower lobe of lung Qualified Code(s): J18.1 - Lobar pneumonia, unspecified organism The scribe's documentation has been prepared under my direction and personally reviewed by me in its entirety. I confirm that the note above accurately reflects all work, treatment, procedures, and medical decision making performed by me.
[2019-05-09] MEDS ORDERED: FUROSEMIDE 40 MG/4 ML VIAL IV STA (23:32)
[2019-05-10] MEDS ORDERED: METOPROLOL TARTRATE 25 MG TAB PO ONE (01:05)
--- NOTE | 2019-05-10 01:18 | History & Physical Report ---
Date of Service May 10, 2019 Assessment & Plan (1) Shortness of breath: 88-year-old female was admitted on 10 May 2019 for shortness of breath. Shortness of breath, hypoxia, pneumonia: History of COPD and chronic 2 L NC oxygen. At home is on Xopenex, Spiriva, and Breo. Patient notes some worsening breathing over the past couple days without known fever or chest pain. - Per EMS reports, SpO2 in the 70s prior to arrival. - In ED, afebrile, rate 70s, tachypneic, BP as high as 218/87. SpO2 81% on room air, improved with NC oxygen. WBC 12. VBG with normal pH, CO2 48, bicarb 28. Troponin 0.052. EKG is NSR [address]-T wave segments similar to March 2019 (read as LVH with repolarization abnormality). BNP 20K. Lactate pending. BCx sent. pCXR notes a right lower lung opacity, severe emphysema, and small bilateral pleural effusions. Overnight radiology read of CT head states no acute intracranial findings or significant interval change since 07Apr2019. - In ED, treated with vancomycin, Zosyn, Xopenex, Solu-Medrol, and Lasix. - Will cover for CAP with ceftriaxone and azithromycin. Scheduled DuoNeb's. Do not suspect an overt COPD exacerbation, so will not continue elevated steroid dosing for now. She is on low-dose chronic prednisone for her polymyalgia rheumatica. Syncope: Reportedly in her residence bathroom prior to arrival. Previous evaluation for syncope by cardiology (see 03Jun note). Had an echocardiogram on 29Ma for paroxysmal bursts of atrial tachycardia. That showed an EF of 60-65%, mild LVH, with normal LVSF and wall motion. Regarding today's event, no present pain, headache, or difficulty moving extremities to suggest focal trauma. Diarrhea: Patient reports the same for past few days, though improving. Non- tender abdomen. - Monitor for now. Will put her on boost shakes due to her cachexia. Hyperkalemia: Admit K 5.3. Normal EKG intervals and no peaked T waves. Recheck in AM. Ongoing medical issues: - Left femur fracture: On 05Apr2019, s/p left hip pinning. Continue home oxycodone and Tylenol. - CVA: Residual left mouth and left hand numbness. Repeat CVA on 30May. Continue home aspirin, Plavix, and statin. - Hypertension, hyperlipidemia: Continue home benazepril, Lasix, and metoprolol. - Anemia: Admit Hb 10.6, improved compared to previous. Continue home iron supplementation. - CKD stage IV: Admit Cr 1.3, slightly better than baseline. - GERD: Does not appear to be on any chronic medication for this. - Hypothyroidism: Continue home levothyroxine. - Polymyalgia rheumatica: On chronic prednisone. - Vulvar cancer: March 2013 treated with Aldara then vulvectomy and radiation. - Severe protein calorie malnutrition: BMI of 13.8. - Depression: Continue home mirtazapine. - Question Parkinson's vs RLS: On home Requip. Code status: Full code. Diet: AHA diet. DVT prophy: Plavix and aspirin. PT/OT: Deferred. Disbo: Admit to [facility] with telemetry. Apparently lives at [facility] now following rehabilitation. (2) Hypoxia: (3) Pneumonia: (4) Chronic obstructive pulmonary disease: (5) Syncope: (6) Diarrhea: (7) Hyperkalemia: (8) History of femur fracture: (9) History of CVA (cerebrovascular accident): (10) HTN (hypertension): (11) Hyperlipidemia: (12) Anemia: (13) CKD (chronic kidney disease), stage IV: (14) GERD without esophagitis: (15) Hypothyroid: (16) Polymyalgia rheumatica: (17) Squamous cell carcinoma of vulva: (18) Severe protein-calorie malnutrition: (19) Depression: History of Present Illness Primary Care Provider: Sweetie Calero DO 88-year-old female was transferred via EMS for hypoxia and shortness of breath. Patient states over the past couple of days her breathing is been "a bit off". Has been using her home breathing medications regularly for COPD. No known feve rs, chest pain, or overt feeling of illness. She has noted some loose stools for the past couple of days but that has improved in the last 24 hours. She denies concurrent abdominal pain or nausea/vomiting. Apparently, prior to arrival she may have had another unexplained syncopal episode in her bathroom. She does not recall how she got into the bathroom but does recall waking up on the floor. She pulled on one of the medical assist cords which prompted her EMS evaluation and transfer here. She denies any headache, extremity or other focal pains suggestive of trauma from a fall. At present, during this H&P, she says that her breathing feels back to normal. No other acute patient concerns. - Past medical history includes hypertension, hyperlipidemia, COPD, GERD, CKD stage IV, hypothyroidism, polymyalgia rheumatica, CVD, vulvar cancer. - Past surgical history includes uvulectomy, vulvectomy. Allergies Allergy/AdvReac Type Severity Reaction Status Date / Time clindamycin Allergy Intermediate HIVES Verified 05/09/19 23:33 Home Medications Home Medications Medication Instructions Recorded Confirmed Type Breo Ellipta 1 inh INHALATION DAILY 04/05/19 05/09/19 History Spiriva Respimat 1 puff INHALATION DAILY 04/05/19 05/09/19 History calcitriol 0.25 mcg PO 3XWK 04/05/19 05/09/19 History clopidogrel 75 mg PO QAM 04/05/19 05/09/19 History furosemide 20 mg PO .DAILY FOR 5 DAYS 04/05/19 05/09/19 History levalbuterol HCl 1.25 mg INHALATION Q4H PRN 04/05/19 05/09/19 History levothyroxine 50 mcg PO QAM 04/05/19 05/09/19 History prednisone 1 mg PO PM 04/05/19 05/09/19 History prednisone 2 mg PO QAM 04/05/19 05/09/19 History aspirin [Ecotrin Low Strength] 81 mg PO QAM #30 tab 04/11/19 05/09/19 Rx atorvastatin 20 mg PO QAM #30 tab 04/11/19 05/09/19 Rx ferrous sulfate 325 mg PO QAM #30 tab 04/11/19 05/09/19 Rx metoprolol succinate 25 mg PO HS #30 tab 04/11/19 05/09/19 Rx metoprolol succinate 50 mg PO QAM #30 tab 04/11/19 05/09/19 Rx [id number]-[id number] acid 1 tab PO QAM #30 tab 04/11/19 05/09/19 Rx [Certavite-Antioxidant] acetaminophen [Mapap 650 mg PO Q6H PRN 05/09/19 05/09/19 History (acetaminophen)] acetaminophen [Tylenol Extra 500 mg PO QAM 05/09/19 05/09/19 History Strength] benazepril 5 mg PO DAILY 05/09/19 05/09/19 History bisacodyl [Dulcolax (bisacodyl)] 10 mg ND UD PRN 05/09/19 05/09/19 History furosemide [Lasix] 40 mg PO .TODAY 05/09/19 05/09/19 History mirtazapine 30 mg PO HS 05/09/19 05/09/19 History oxycodone 5 mg PO Q6 PRN 05/09/19 05/09/19 History ropinirole [Requip] 0.5 mg PO HS 05/09/19 05/09/19 History sodium phosphates [Fleet Enema] 118 ml ND DAILY PRN 05/09/19 05/09/19 History Past Med/Surg History Medical History Hyperlipidemia GERD without esophagitis Dependence on supplemental oxygen Chronic venous stasis dermatitis of both lower extremities Chronic respiratory failure Chronic obstructive pulmonary disease Carotid atherosclerosis CKD (chronic kidney disease), stage III HTN (hypertension) (Chronic) Emphysema of lung (Chronic) On 2L home O2 PAD (peripheral artery disease) CKD (chronic kidney disease), stage IV CVA (cerebral vascular accident) Residual numbness of left hand and left side of mouth Dyslipidemia Hypothyroid Polymyalgia rheumatica 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 Patient declined Treatment with Aldara Subsequent recurrence with squamous cell carcinoma Status post partial vulvectomy with positive margins Status post completion of radiation therapy 08/01/2013 received 5040 cGy" Surgical History History of vaginal surgery History of uvulectomy Family History Father Cardiac disorder Myocardial infarction Brother Cardiac disorder Mother Hypertension Sister Hypertension Stomach cancer Other Family history non-contributory Social History Preferred Language: Sami Communication Ability: Effective Visual Impairment: Limited Hearing Ability: Normal Beliefs That Will Affect Care: None marital status: / Current Living Situation: Alone and Personal Care Facility Current Living Situation Comment: [facility] current occupational status: retired Feels Safe at Home: Yes Smoking Status: Former smoker (QUIT 2004; SMOKED AGES [age]) Tobacco Type: cigarettes Cigarettes Per Day: 20 Second Hand Exposure: No Hx Alcohol Use: No Hx Substance Use: No Dental Care, Regularly: Yes Physical Activity Frequency Comment: limited by physical condition Review of Systems Review of Systems: Constitutional: Denies fevers, chills, focal weakness Eyes: Denies any visual loss or diplopia ENT: Denies any ear/nose/throat pain or difficulty speaking or swallowing Respiratory: Positive shortness of breath. Denies overt cough. Denies hemoptysis. Cardiovascular: Denies any chest pain or feeling of edema Gastrointestinal: Denies any abdominal pain or nausea/vomiting. Positive loose stools. Musculoskeletal: Denies any acute extremity pains, myalgias, or focal weakness Skin: Denies any known acute rashes or lesions Neuro: Denies any headache, acute focal weakness or numbness, or difficulties with speech or swallow. Physical Exam Physical Exam: GENERAL: Awake, alert, quite cachectic but is speaking rather comfortably and does not appear in acute distress. HENT: Normocephalic, atraumatic. Oropharynx unremarkable. EYES: Normal conjunctiva. Sclera non-icteric. NECK: Inspection normal. Non-tender. Supple and full ROM. No nuchal rigidity. CARDIAC: +S1S2 RRR, no murmurs. RESPIRATORY: Mild audible wheezing. Otherwise no audible areas of consolidation. No accessory muscle use. GI: +BS, soft but quite cachectic, non-distended. No tenderness to palpation. No rebound or guarding. EXTREMITIES: No pedal edema or calf tenderness. Moving all extremities easily. Multiple areas of contusion on the left forearm and bilateral shins that appear subacute. NEURO: No gross neuro deficits. Patient notes chronic mild numbness of her left hand and the left side of her mouth. Results & Data Vital Signs (Past 12 Hours) Vital Signs Temp Pulse Pulse Resp BP BP Pulse Ox 05/10/19 00:03 70 22 100 05/10/19 00:00 72 20 197/88 H 100 05/09/19 23:42 93 H 22 94 05/09/19 22:38 72 27 H 192/78 H 100 05/09/19 21:44 98 07/01/19 20:49 93 05/09/19 20:18 36.6 C 77 30 H 218/87 H 81 L 05/09/19 20:17 97 Laboratory Results 05/10/19 05/09/19 05/09/19 Range/Units 00:43 21:31 21:31 WBC (4.8-10.8) K/uL RBC (4.2-5.4) M/uL Hgb (12.0-16.0) g/dL Hct (37-47) % MCV (80-100) fL MCH (25-34) pg MCHC (32-36) g/dL RDW Std Deviation (36.4-46.3) fL RDW Coeff of Rhys (11.5-14.5) % Plt Count (130-400) K/uL MPV (7.4-10.4) fL Immature Gran % (Auto) % Neut % (Auto) % Lymph % (Auto) % [place] % (Auto) % Eos % (Auto) % Baso % (Auto) % Immature Gran # (Auto) (0.00-0.02) K/uL Neut # (Auto) (1.4-6.5) K/uL Lymph # (Auto) (1.2-3.4) K/uL [place] # (Auto) (0.11-0.59) K/uL Eos # (Auto) (0-0.5) K/uL Baso # (Auto) (0-0.2) K/uL Anisocytosis PT 10.3 (9.0-12.0) Seconds INR 1.0 (0.9-1.1) VBG pH 7.38 (7.36-7.41) VBG pCO2 48 (38-50) mmHg VBG pO2 26 mmHg VBG HCO3 28 mmol/L VBG O2 Saturation < 60.0 % VBG Base Excess 2.4 mEq/L Barometric Pressure 731.0 mm/Hg Sodium (136-145) mmol/L Potassium (3.5-5.1) mmol/L Chloride (98-107) mmol/L Carbon Dioxide (21-32) mmol/L Anion Gap (3-11) BUN (7-18) mg/dl Creatinine (0.6-1.2) mg/dl Est Cr Clr Drug Dosing ml/min Est GFR ( Amer) Est GFR (Non-Af Amer) BUN/Creatinine Ratio (10-20) Glucose (70-99) mg/dl Lactate 1.9 (0.4-2.0) mmol/L Calcium (8.5-10.1) mg/dl Phosphorus (2.5-4.9) mg/dl Magnesium (1.8-2.4) mg/dl Total Bilirubin (0.2-1) mg/dl AST (15-37) U/L ALT (12-78) U/L Alkaline Phosphatase (45-117) U/L Troponin I (0-0.045) ng/ml NT-Pro-B Natriuret Pep (0-1800) pg/ml Total Protein (6.4-8.2) gm/dl Albumin (3.4-5.0) gm/dl Globulin (2.5-4.0) gm/dl Albumin/Globulin Ratio (0.9-2) Lipase (73-393) U/L 05/09/19 05/09/19 Range/Units 21:31 21:31 WBC 12.36 H (4.8-10.8) K/uL RBC 3.61 L (4.2-5.4) M/uL Hgb 10.6 L (12.0-16.0) g/dL Hct 34.5 L (37-47) % MCV 95.6 (80-100) fL MCH 29.4 (25-34) pg MCHC 30.7 L (32-36) g/dL RDW Std Deviation 79.1 H (36.4-46.3) fL RDW Coeff of Rhys 22.4 H (11.5-14.5) % Plt Count 130 (130-400) K/uL MPV 10.7 H (7.4-10.4) fL Immature Gran % (Auto) 1.0 % Neut % (Auto) 81.9 % Lymph % (Auto) 7.6 % [place] % (Auto) 9.1 % Eos % (Auto) 0.1 % Baso % (Auto) 0.3 % Immature Gran # (Auto) 0.12 H (0.00-0.02) K/uL Neut # (Auto) 10.12 H (1.4-6.5) K/uL Lymph # (Auto) 0.94 L (1.2-3.4) K/uL [place] # (Auto) 1.13 H (0.11-0.59) K/uL Eos # (Auto) 0.01 (0-0.5) K/uL Baso # (Auto) 0.04 (0-0.2) K/uL Anisocytosis Present PT (9.0-12.0) Seconds INR (0.9-1.1) VBG pH (7.36-7.41) VBG pCO2 (38-50) mmHg VBG pO2 mmHg VBG HCO3 mmol/L VBG O2 Saturation % VBG Base Excess mEq/L Barometric Pressure mm/Hg Sodium 141 (136-145) mmol/L Potassium 5.3 H (3.5-5.1) mmol/L Chloride 108 H (98-107) mmol/L Carbon Dioxide 27 (21-32) mmol/L Anion Gap 6.0 (3-11) BUN 36 H (7-18) mg/dl Creatinine 1.31 H (0.6-1.2) mg/dl Est Cr Clr Drug Dosing 17.4 ml/min Est GFR ( Amer) 42.3 Est GFR (Non-Af Amer) 36.5 BUN/Creatinine Ratio 27.3 H (10-20) Glucose 121 H (70-99) mg/dl Lactate (0.4-2.0) mmol/L Calcium 8.9 (8.5-10.1) mg/dl Phosphorus 2.6 (2.5-4.9) mg/dl Magnesium 2.5 H (1.8-2.4) mg/dl Total Bilirubin 0.7 (0.2-1) mg/dl AST 36 (15-37) U/L ALT 47 (12-78) U/L Alkaline Phosphatase 118 H (45-117) U/L Troponin I 0.052 H* (0-0.045) ng/ml NT-Pro-B Natriuret Pep 67741 H (0-1800) pg/ml Total Protein 6.0 L (6.4-8.2) gm/dl Albumin 3.0 L (3.4-5.0) gm/dl Globulin 3.0 (2.5-4.0) gm/dl Albumin/Globulin Ratio 1.0 (0.9-2) Lipase 53 L (73-393) U/L Medications Administered Piperacillin Sod/Tazobactam Sod (Zosyn) 4.5 gm in 120 mls @ 30 mls/hr IV NOW ONE Stop: 05/10/19 02:46 Last Admin: 05/10/19 00:39 Dose: 30 mls/hr Documented by: [id number] Discontinued Medications Furosemide (Lasix) 20 mg IV NOW STA Stop: 05/09/19 23:33 Last Admin: 05/10/19 00:39 Dose: 20 mg Documented by: [id number] Levalbuterol HCl (Xopenex 0.63 Mg/3 Ml Neb) 0.63 mg NEB NOW STA Stop: 05/09/19 23:32 Last Admin: 05/10/19 00:03 Dose: 0.63 mg Documented by: [id number] Methylprednisolone (Solumedrol) 125 mg IV NOW STA Stop: 05/09/19 23:32 Last Admin: 05/10/19 00:38 Dose: 125 mg Documented by: [id number] Code Status & VTE Plan Code Status Full code VTE Prophylaxis Plan VTE Prophylaxis will be ordered: Yes Supervising Physician Co-Signing Physician Notes Patient seen and examined, chart reviewed, case discussed with Dr. Villanueva and I agree with his assessment and plan as above. PG Care Time/CCT Total # of Minutes Spent Total Time Spent with Patient: Total time spent is greater than 50% in coordination of care (as documented) at patient's floor/unit and/or counseling patient: Resident Activity Tracking Resident Involvement: Resident Care Provided Care Provided: Adult Hospital Medicine (1) Hypothyroid Hypothyroidism type: unspecified Qualified Code(s): E03.9 - Hypothyroidism, unspecified (2) HTN (hypertension) Hypertension type: essential hypertension Qualified Code(s): I10 - Essential (primary) hypertension (3) Pneumonia Laterality: right Lung location: lower lobe of lung Pneumonia type: due to unspecified organism Qualified Code(s): J18.1 - Lobar pneumonia, unspecified organism
[2019-05-10] MEDS ORDERED: BISACODYL 10 MG SUPP PR PRN (03:36)
[2019-05-10] MEDS ORDERED: ACETAMINOPHEN 325 MG TAB PO PRN (03:36)
[2019-05-10] MEDS ORDERED: LEVALBUTEROL HCL 1.25 MG/3 ML NEB INH PRN (03:36)
[2019-05-10] MEDS ORDERED: FUROSEMIDE 40 MG TAB PO ONE (04:00)
[2019-05-10] MEDS: cefTRIAXone SODIUM 1,000 MG in DEXTROSE 5% 50 ML IV SCH (05:13)
[2019-05-10] MEDS: LEVOTHYROXINE SODIUM 50 MCG TABLET PO SCH (05:16)
--- NOTE | 2019-05-10 07:06 | CT Scan Report ---
CT SCAN OF THE BRAIN WITHOUT IV CONTRAST CLINICAL HISTORY: Syncope. COMPARISON STUDY: CT of the brain dated 04/07/2019. TECHNIQUE: Unenhanced axial CT scan of the brain is performed from the vertex to the skull base. A do se lowering technique was utilized adhering to the principles of ALARA. CT DOSE: 537.48 mGy.cm FINDINGS: Brain parenchyma: There are age-related involutional changes noting mild subcortical and periventric ular microangiopathic change. There are chronic lacunar infarcts identified in both thalami. There is no hemorrhage, mass effect, or evidence of acute territorial ischemia by CT criteria. Sheikh-white mat ter differentiation is preserved. No extra-axial fluid collection is seen. Ventricles, sulci, cisterns: Prominent secondary to involutional change. Intracranial vasculature: There is atherosclerotic calcification of the cavernous carotid and vertebr al arteries. Calvarium: Unremarkable. Sinuses and mastoids: The visualized paranasal sinuses are clear. The mastoid air cells are well pneu matized. Orbits: The bony orbits are grossly intact. IMPRESSION: There is no hemorrhage, mass effect, or evidence of acute territorial ischemia by CT khoi man. Electronically signed by: Cheng Obrien M.D. 05/10/2019 7:05 AM
[2019-05-10] MEDS: ALBUT/IPRATROP 3MG/0.5MG NEB 3 ML VIAL NEB SCH ×4 (07:09→19:01)
[2019-05-10] MEDS: METOPROLOL SUCC 50MG EXT REL TAB PO SCH (07:22)
[2019-05-10] MEDS: FUROSEMIDE 20 MG TAB PO SCH (07:23)
[2019-05-10 08:36] LABS: BUN Creatinine Ratio 20.1 (10-20); Calcium 8.7 mg/dl (8.5-10.1); Creatinine Clr Calc Pharmacy 12.3 ml/min; Est GFR (African American) 29.2; Est GFR (Non-African American) 25.2; Magnesium 2.4 mg/dl (1.8-2.4); Potassium 4.7 mmol/L (3.5-5.1)
[2019-05-10] MEDS: ATORVASTATIN 20 MG TAB PO SCH (09:17)
[2019-05-10] MEDS: CEROVITE ADV FORMULA TAB PO SCH (09:18)
[2019-05-10] MEDS: AZITHROMYCIN 250 MG TAB PO SCH (09:18)
[2019-05-10] MEDS: CLOPIDOGREL BISULFATE 75 MG TAB PO SCH (09:18)
[2019-05-10] MEDS: CALCITRIOL 0.25 MCG CAPSULE PO SCH (09:18)
[2019-05-10] MEDS: predniSONE 1 MG TAB PO SCH ×2 (09:19→20:33)
[2019-05-10] MEDS: ASPIRIN 81 MG ECTAB PO SCH (09:19)
[2019-05-10] MEDS: TIOTROPIUM BROMIDE 5 PUFF/90 MCG INH INH SCH (09:20)
[2019-05-10] MEDS: ACETAMINOPHEN 500 MG TAB PO SCH (09:21)
[2019-05-10] MEDS: FERROUS SULFATE 325 MG TAB PO SCH (09:21)
[2019-05-10] MEDS: BENAZEPRIL HCL 10 MG TAB PO SCH (09:22)
[2019-05-10] MEDS: OXYCODONE HCL IR 5 MG TAB (IMMEDIATE RELEASE) PO PRN (10:38)
--- NOTE | 2019-05-10 18:45 | Surgery Consultation ---
Date of Consultation May 10, 2019 Assessment & Plan (1) Hematoma of right lower extremity: pt is a 88 year -old female who is consulted RLL hematoma, stable, no infection signs now, IMP: RLL hematoma, Plan, agree with medical treatment first, iv antibiotic, repeat labs in am, will do I/d on RLL hematoma if WBC is going up, will F/U History of Present Illness Attending Physician: emmanuel complaint: Syncope Stated complaint: SOB Time Seen by Provider: 05/09/19 20:45 Source: patient, family and EMS History of Present Illness Onset (ago): minute(s) (prior to arrival) Location: chest (lungs) Quality: + other (shortness of breath with hypoxia) Relieved By: + other (additional supplemental oxygen) Associated symptoms: + weakness The patient is an 88 year old female who presents to the Emergency Room from [facility] with EMS documentation regarding shortness of breath with hypoxia in the 70s prior to arrival that was improved with additional supplemental oxygen. However, the patient states that she had gone to the bathroom, likely passed out and woke up on the ground, and pulled the emergency cord. Family at bedside reports that the patient has been shorter of breath than her baseline over the past couple of days. He states that in the past couple of days the patient had been evaluated by pulmonology with no concerning findings. She has a history of COPD and is chronically on 2L of oxygen at home. Family states that one month ago the patient had fallen and broken her left hip, and she has been in rehabilitation at [facility] since that time. The patient denies any current pain, but she does feel tired and weak. The patient states that she is on Eliquis and a diuretic. I ( nuvia Romero MD) got a call for consult RLL hematoma, pt said she injury her RLL 2-3 days ago, some pain, with hematoma, size 5x8cm, no redness, pt denies fever, Allergies Allergy/AdvReac Type Severity Reaction Status Date / Time clindamycin Allergy Intermediate HIVES Verified 05/09/19 23:33 Home Medications Home Medications Medication Instructions Recorded Confirmed Type Breo Ellipta 1 inh INHALATION DAILY 04/05/19 05/09/19 History Spiriva Respimat 1 puff INHALATION DAILY 04/05/19 05/09/19 History calcitriol 0.25 mcg PO 3XWK 04/05/19 05/09/19 History clopidogrel 75 mg PO QAM 04/05/19 05/09/19 History furosemide 20 mg PO .DAILY FOR 5 DAYS 04/05/19 05/09/19 History levalbuterol HCl 1.25 mg INHALATION Q4H PRN 04/05/19 05/09/19 History levothyroxine 50 mcg PO QAM 04/05/19 05/09/19 History prednisone 1 mg PO PM 04/05/19 05/09/19 History prednisone 2 mg PO QAM 04/05/19 05/09/19 History aspirin [Ecotrin Low Strength] 81 mg PO QAM #30 tab 04/11/19 05/09/19 Rx atorvastatin 20 mg PO QAM #30 tab 04/11/19 05/09/19 Rx ferrous sulfate 325 mg PO QAM #30 tab 04/11/19 05/09/19 Rx metoprolol succinate 25 mg PO HS #30 tab 04/11/19 05/09/19 Rx metoprolol succinate 50 mg PO QAM #30 tab 04/11/19 05/09/19 Rx wisrivcrdaae-qine-hiknk acid 1 tab PO QAM #30 tab 04/11/19 05/09/19 Rx [Certavite-Antioxidant] acetaminophen [Mapap 650 mg PO Q6H PRN 05/09/19 05/09/19 History (acetaminophen)] acetaminophen [Tylenol Extra 500 mg PO QAM 05/09/19 05/09/19 History Strength] benazepril 5 mg PO DAILY 05/09/19 05/09/19 History bisacodyl [Dulcolax (bisacodyl)] 10 mg [place] UD PRN 05/09/19 05/09/19 History furosemide [Lasix] 40 mg PO .TODAY 05/09/19 05/09/19 History mirtazapine 30 mg PO HS 05/09/19 05/09/19 History oxycodone 5 mg PO Q6 PRN 05/09/19 05/09/19 History ropinirole [Requip] 0.5 mg PO HS 05/09/19 05/09/19 History sodium phosphates [Fleet Enema] 118 ml [place] DAILY PRN 05/09/19 05/09/19 History Patient History Medical History Hyperlipidemia GERD without esophagitis Dependence on supplemental oxygen Chronic venous stasis dermatitis of both lower extremities Chronic respiratory failure Chronic obstructive pulmonary disease Carotid atherosclerosis CKD (chronic kidney disease), stage III HTN (hypertension) (Chronic) Emphysema of lung (Chronic) On 2L home O2 PAD (peripheral artery disease) CKD (chronic kidney disease), stage IV CVA (cerebral vascular accident) Residual numbness of left hand and left side of mouth Dyslipidemia Hypothyroid Polymyalgia rheumatica 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 Patient declined Treatment with Aldara Subsequent recurrence with squamous cell carcinoma Status post partial vulvectomy with positive margins Status post completion of radiation therapy 08/01/2013 received 5040 cGy" Surgical History History of vaginal surgery History of uvulectomy Family History Father Cardiac disorder Myocardial infarction Brother Cardiac disorder Mother Hypertension Sister Hypertension Stomach cancer Other Family history non-contributory Social History Preferred Language: Welsh Communication Ability: Effective Visual Impairment: Limited Hearing Ability: Normal Procurement Cost Coordinator Required: No Beliefs That Will Affect Care: None marital status: / Current Living Situation: Alone and Personal Care Facility Current Living Situation Comment: [facility] current occupational status: retired Other Information That Helps Us Care for You: No Feels Safe at Home: Yes Safety Concerns: Feels Safe At This Time Smoking Status: Former smoker Tobacco Type: cigarettes Cigarettes Per Day: 2003 Do You Dip or Chew Tobacco: No Second Hand Exposure: No Tobacco Cessation Education Requested by Patient: No Hx Alcohol Use: Yes Alcohol type: wine Hx Substance Use: No Dental Care, Regularly: Yes Physical Activity Frequency Comment: limited by physical condition Review of Systems Review of Systems: All systems reviewed & are unremarkable except as noted in HPI & below Constitutional: as per Subjective / HPI Ear, Nose, Mouth, Throat: as per Subjective / HPI Respiratory: as per Subjective / HPI respiratory failure Cardiovascular: as per Subjective / HPI Additional Comments: PAD Gastrointestinal: as per Subjective / HPI Genitourinary: as per Subjective / HPI Integumentary: as per Subjective / HPI Neurologic: as per Subjective / HPI CVA Psychiatric: as per Subjective / HPI Physical Exam Constitutional: WD/WN, vitals as above well developed and well nourished ENMT: external ear and nose normal, oropharynx normal Neck: trachea midline, no thyromegaly Respiratory: normal respiratory effort, lungs clear to auscultation Cardiovascular: RRR, no murmur, no edema Gastrointestinal (Abdomen): normal bowel sounds, soft, nontender, no hepatosplenomegaly Musculoskeletal: no cyanosis or clubbing, extremities motor strength 5/5 one hematoma at RLL, size 6x8cm, no redness, some tenderness, Neurologic: patellar DTR's 2+ bilat, sensation intact Psychiatric: A+Ox3, euthymic affect Orientation: alert and oriented x 3 Results & Data Vital Signs (Past 12 Hours) Vital Signs Temp Pulse Pulse Resp BP Pulse Ox 05/10/19 15:46 36.1 C L 63 20 150/75 H 100 05/10/19 15:11 63 18 100 05/10/19 11:14 66 18 95 05/10/19 10:40 36.8 C 66 20 160/86 H 95 05/10/19 08:00 36.4 C L 84 20 177/87 H 93 05/10/19 07:10 93 H 22 94 05/10/19 07:00 75 Laboratory Results Abnormal lab results 05/09/19 05/09/19 05/10/19 Range/Units 21:31 21:31 07:32 WBC 12.36 H (4.8-10.8) K/uL RBC 3.61 L (4.2-5.4) M/uL Hgb 10.6 L (12.0-16.0) g/dL Hct 34.5 L (37-47) % MCHC 30.7 L (32-36) g/dL RDW Std Deviation 79.1 H (36.4-46.3) fL RDW Coeff of Rhys 22.4 H (11.5-14.5) % MPV 10.7 H (7.4-10.4) fL Immature Gran # (Auto) 0.12 H (0.00-0.02) K/uL Neut # (Auto) 10.12 H (1.4-6.5) K/uL Lymph # (Auto) 0.94 L (1.2-3.4) K/uL [place] # (Auto) 1.13 H (0.11-0.59) K/uL Potassium 5.3 H (3.5-5.1) mmol/L Chloride 108 H (98-107) mmol/L Anion Gap 12.0 H (3-11) BUN 36 H 36 H (7-18) mg/dl Creatinine 1.31 H 1.78 H D (0.6-1.2) mg/dl BUN/Creatinine Ratio 27.3 H 20.1 H (10-20) Glucose 121 H 191 H (70-99) mg/dl Magnesium 2.5 H (1.8-2.4) mg/dl Alkaline Phosphatase 118 H (45-117) U/L Troponin I 0.052 H* (0-0.045) ng/ml NT-Pro-B Natriuret Pep 43643 H (0-1800) pg/ml Total Protein 6.0 L (6.4-8.2) gm/dl Albumin 3.0 L (3.4-5.0) gm/dl Lipase 53 L (73-393) U/L 05/10/19 Range/Units 07:32 WBC (4.8-10.8) K/uL RBC (4.2-5.4) M/uL Hgb (12.0-16.0) g/dL Hct (37-47) % MCHC (32-36) g/dL RDW Std Deviation (36.4-46.3) fL RDW Coeff of Rhys (11.5-14.5) % MPV (7.4-10.4) fL Immature Gran # (Auto) (0.00-0.02) K/uL Neut # (Auto) (1.4-6.5) K/uL Lymph # (Auto) (1.2-3.4) K/uL [place] # (Auto) (0.11-0.59) K/uL Potassium (3.5-5.1) mmol/L Chloride (98-107) mmol/L Anion Gap (3-11) BUN (7-18) mg/dl Creatinine (0.6-1.2) mg/dl BUN/Creatinine Ratio (10-20) Glucose (70-99) mg/dl Magnesium (1.8-2.4) mg/dl Alkaline Phosphatase (45-117) U/L Troponin I 0.061 H* (0-0.045) ng/ml NT-Pro-B Natriuret Pep (0-1800) pg/ml Total Protein (6.4-8.2) gm/dl Albumin (3.4-5.0) gm/dl Lipase (73-393) U/L
--- NOTE | 2019-05-10 19:17 | Family Medicine Progress Note ---
Date of Service May 10, 2019 Assessment & Plan (1) Acute and chronic respiratory failure: Addie Is a 88-year-old female with a past medical history of COPD, CKD, CVA, hypertension, peripheral artery disease, and dementia who presented to the emergency room from [facility] for shortness of breath and increased oxygen requirement. Acute on chronic hypoxic respiratory failure 2/2 CAP versus CHF exacerbation History of COPD with 2 L home oxygen requirement, requiring 4 L on transfer to the floor Continue 4 L NC O2, wean to SPO2 greater than 92%. CAP/Severe COPD Started on empiric Vanco/Zosyn narrowed to azithromycin/Rocephin. Chest x-ray shows evidence of left lower lobe consolidation suspicious for pneumonia. Continue azithromycin 250 mg p.o. daily x4 days and Rocephin 1 g daily pending oral conversion. Continue prednisone 1 mg every afternoon, 2 mg every morning PACKAGE CLERK regimen Continue tiotropium, albuterol inhalers Acute on chronic CHF BNP elevated to 20 K, mild troponin leak. Serial troponins Echocardiogram shows grade 2 diastolic dysfunction with normal LVEF and inc reased right ventricular pressure Furosemide 20 mg p.o. daily Continue metoprolol 50 mg every morning, 25 mg nightly Continue Benzapril 5 mg p.o. daily Right lower extremity hematoma Appears acute, dorsalis pedis pulses intact but given severity and slightly cool right extremity surgery was consulted Patient denies traumatic history, had a recent hip fracture with oxycodone for pain control Continue oxycodone 5 mg every 6 hours as needed for pain Continue to assess clinically for signs of compartment syndrome. No evidence of compartment syndrome at this time. Surgery recommends following medically and continuing current antibiotics with repeat labs in the morning. If she develops an increasing leukocytosis surgery will follow up with I&D. Hypothyroidism Continue levothyroxine 50 mcg p.o. daily CODE STATUS: Full code DVT prophylaxis: Contraindicated in the setting of acute bleed/hematoma, on Plavix and aspirin antiplatelet therapy. Supervising Physician Co-Signing Physician Notes Resident Physician Supervision Note: I independently interviewed and examined the patient and verified the coronado histor y and physical, reviewed labs and image studies, discussed the case with the resident Dr. Ozuna and agree with the findings and care plan. Subjective Addie reports her right leg today. History is limited by dementia. She reports that she does not remember what happened, and does not remember injuring it or having any leg injury. She has a large hematoma present, but reports she does not know how long it is been there. She denies other pain. She was admitted for concerns of pneumonia, she denies any cough, shortness of breath, chest pressure, chest pain, fever, chills, abdominal pain, pain with urination at time of visit but history limited as noted above. No family present for collateral. Review of Systems Review of Systems: All systems reviewed & are unremarkable except as noted in HPI & below (Endorses leg pain as noted in HPI, denies respiratory symptoms and negative except as noted in HPI but limited by cognitive status and dementia.) Physical Exam Physical Exam: General: Oriented to name only. Appears uncomfortable due to leg pain. Cooperative. HEENT: Hematoma present on left lateral maxilla, normocephalic. Pulm: Poor air movement, mild expiratory wheeze globally. No rales appreciated. Symmetrical chest rise. No increase work of breathing. No respiratory distress. Cardiac: RRR, -mrg. Radial pulses intact and symmetrical. Abdominal: Nontender, nondistended, soft. BS present. Extremity: Right lower leg with an anterior. Hematoma present. See photo documentation attached. Hematoma warm, surrounding skin without excess warmth or erythema. Dorsalis pedis pulses palpable bilaterally, but more difficult to appreciate on the right. Right foot more cool to the touch than the left. Results & Data Vital Signs (Past 12 Hours) Vital Signs Temp Pulse Resp BP Pulse Ox 05/10/19 15:46 36.1 C L 63 20 150/75 H 100 05/10/19 15:11 63 18 100 05/10/19 11:14 66 18 95 05/10/19 10:40 36.8 C 66 20 160/86 H 95 05/10/19 08:00 36.4 C L 84 20 177/87 H 93 05/10/19 07:10 93 H 22 94 PG Care Time/CCT Total # of Minutes Spent Total Time Spent with Patient: Total time spent is greater than 50% in coordination of care (as documented) at patient's floor/unit and/or counseling patient: Resident Activity Tracking Resident Involvement: Resident Care Provided Care Provided: Adult Hospital Medicine (1) Acute and chronic respiratory failure Respiratory failure complication: hypoxia Qualified Code(s): J96.21 - Acute and chronic respiratory failure with hypoxia
[2019-05-10] MEDS: ROPINIROLE HCL 0.25 MG TABLET PO SCH (20:33)
[2019-05-10] MEDS: MIRTAZAPINE TAB 15 MG TAB PO SCH (20:33)
[2019-05-10] MEDS: METOPROLOL SUCC 25MG EXT REL TAB PO SCH (20:34)
[2019-05-11] MEDS: OXYCODONE HCL IR 5 MG TAB (IMMEDIATE RELEASE) PO PRN ×2 (03:41→13:08)
[2019-05-11] MEDS: cefTRIAXone SODIUM 1,000 MG in DEXTROSE 5% 50 ML IV SCH (06:20)
[2019-05-11] MEDS: LEVOTHYROXINE SODIUM 50 MCG TABLET PO SCH (06:20)
[2019-05-11] MEDS: ALBUT/IPRATROP 3MG/0.5MG NEB 3 ML VIAL NEB SCH ×4 (07:01→19:24)
[2019-05-11 07:33] LABS: Basophils # (auto) 0.02 K/uL (0-0.2); Basophils % (auto) 0.2 %; Eosinophils # (auto) 0.03 K/uL (0-0.5); Eosinophils % (auto) 0.3 %; Hematocrit (blood only) 31.2 % (37-47); Hemoglobin 9.8 g/dL (12.0-16.0); Immature Granulocytes # (auto) 0.06 K/uL (0.00-0.02); Immature Granulocytes % (auto) 0.5 %; Lymphocytes # (auto) 1.32 K/uL (1.2-3.4); Lymphocytes % (auto) 11.5 %; Mean Corpuscular Hgb Conc 31.4 g/dL (32-36); Mean Corpuscular Volume 93.4 fL (80-100); Mean Platelet Volume 10.7 fL (7.4-10.4); Monocytes % (auto) 7.8 %; Neutrophils # (auto) 9.19 K/uL (1.4-6.5); Neutrophils % (auto) 79.7 %; Platelet Count 142 K/uL (130-400); RDW Coefficient of Variation 21.8 % (11.5-14.5); RDW Standard Deviation 74.1 fL (36.4-46.3); Red Blood Count 3.34 M/uL (4.2-5.4); White Blood Count 11.52 K/uL (4.8-10.8)
[2019-05-11 08:00] LABS: BUN Creatinine Ratio 28.7 (10-20); Calcium 8.8 mg/dl (8.5-10.1); Creatinine Clr Calc Pharmacy 12.7 ml/min; Est GFR (African American) 30.5; Est GFR (Non-African American) 26.3; Potassium 4.7 mmol/L (3.5-5.1)
[2019-05-11 08:01] LABS: Anisocytosis Present
--- NOTE | 2019-05-11 08:10 | History & Physical Bridge Note ---
Date of Service May 11, 2019 History & Physical Bridge Note I have examined the patient, reviewed the History & Physical and in the interval since the performance of the History & Physical I have noted the following changes of clinical significance: no changes noted Supervising Physician Co-Signing Physician Notes Resident Physician Supervision Note: I independently interviewed and examined the patient and verified the coronado history and physical, reviewed labs and image studies, discussed the case with the resident Dr. Ozuna and agree with the findings and care plan.
[2019-05-11] MEDS ORDERED: BUPIVACAINE 0.5 % 5 MG/1 ML MPF 30ML VIAL ONE (08:17)
[2019-05-11] MEDS ORDERED: BACITRACIN OINT 15 GM TUBE ONE (08:17)
[2019-05-11] MEDS ORDERED: LIDOCAINE HCL 1% 20 ML VIAL ONE (08:17)
[2019-05-11 08:22] LABS: Troponin I 0.032 ng/ml (0-0.045)
--- NOTE | 2019-05-11 08:23 | Anesthesiology Consultation ---
Date of Service May 11, 2019 Assessment & Plan (1) Encounter for pre-operative examination: Chart Review Chart Review: Acceptable Risk for Surgery and Patient NOT seen in Pre Admission Testing Consults Requested none History Surgery Operation Date: 05/11/19 08:30 Proposed Procedures p Right Incision and Drainage Lower Leg Hematoma - Greg Romero MD Height/Weight Height: 4 ft 11 in Weight: 34.9 kg Allergies Allergy/AdvReac Type Severity Reaction Status Date / Time clindamycin Allergy Intermediate HIVES Verified 05/11/19 08:06 Medications Home Medications Medication Instructions Recorded Confirmed Last Taken Breo Ellipta 1 inh INHALATION DAILY 04/05/19 05/09/19 04/04/19 Spiriva Respimat 1 puff INHALATION DAILY 04/05/19 05/09/19 04/04/19 calcitriol 0.25 mcg PO 3XWK 04/05/19 05/09/19 04/02/19 clopidogrel 75 mg PO QAM 04/05/19 05/09/19 04/04/19 furosemide 20 mg PO .DAILY FOR 5 DAYS 04/05/19 05/09/19 04/04/19 levalbuterol HCl 1.25 mg INHALATION Q4H PRN 04/05/19 05/09/19 Unknown levothyroxine 50 mcg PO QAM 04/05/19 05/09/19 04/05/19 04:00 prednisone 1 mg PO PM 04/05/19 05/09/19 04/04/19 prednisone 2 mg PO QAM 04/05/19 05/09/19 04/04/19 aspirin [Ecotrin Low Strength] 81 mg PO QAM #30 tab 04/11/19 05/09/19 Unknown atorvastatin 20 mg PO QAM #30 tab 04/11/19 05/09/19 Unknown ferrous sulfate 325 mg PO QAM #30 tab 04/11/19 05/09/19 Unknown metoprolol succinate 25 mg PO HS #30 tab 04/11/19 05/09/19 Unknown metoprolol succinate 50 mg PO QAM #30 tab 04/11/19 05/09/19 Unknown eambhgpekmqk-zaql-bokkk acid 1 tab PO QAM #30 tab 04/11/19 05/09/19 Unknown [Certavite-Antioxidant] acetaminophen [Mapap 650 mg PO Q6H PRN 05/09/19 05/09/19 Unknown (acetaminophen)] acetaminophen [Tylenol Extra 500 mg PO QAM 05/09/19 05/09/19 Unknown Strength] benazepril 5 mg PO DAILY 05/09/19 05/09/19 Unknown bisacodyl [Dulcolax (bisacodyl)] [address] UD PRN 05/09/19 05/09/19 Unknown furosemide [Lasix] 40 mg PO .TODAY 05/09/19 05/09/19 Unknown mirtazapine 30 mg PO HS 05/09/19 05/09/19 Unknown oxycodone 5 mg PO Q6 PRN 05/09/19 05/09/19 Unknown ropinirole [Requip] 0.5 mg PO HS 05/09/19 05/09/19 Unknown sodium phosphates [Fleet Enema] [address] DAILY PRN 05/09/19 05/09/19 Unknown Active Medications Generic Name Dose Route Start Last Admin Trade Name Freq PRN Reason Stop Dose Admin Acetaminophen 650 mg 05/10/19 03:36 05/10/19 07:32 Tylenol PO 06/09/19 03:35 650 mg Q6H PRN Administration mild pain 1-4 Acetaminophen 500 mg 05/10/19 09:00 05/10/19 09:21 Tylenol PO 06/09/19 08:59 Not Given QAM JUAN RAMON Albuterol 3 ml 05/10/19 08:00 05/11/19 07:01 Duoneb NEB 06/09/19 07:59 3 ml QIDR JUAN RAMON Administration Aspirin 81 mg 05/10/19 09:00 05/10/19 09:19 Ecotrin Ectab PO 06/09/19 08:59 81 mg QAM JUAN RAMON Administration Atorvastatin Calcium 20 mg 05/10/19 09:00 05/10/19 09:17 Lipitor PO 06/09/19 08:59 20 mg QAM JUAN RAMON Administration Azithromycin 500 mg 05/10/19 09:00 05/10/19 09:18 Zithromax PO 05/17/19 08:59 500 mg QAM JUAN RAMON Administration Benazepril HCl 5 mg 05/10/19 09:00 05/10/19 09:22 Lotensin PO 06/09/19 08:59 Not Given DAILY JUAN RAMON Calcitriol 0.25 mcg 05/10/19 09:00 05/10/19 09:18 Rocaltrol PO 06/09/19 08:59 0.25 mcg TuThSa@0900 JUAN RAMON Administration Clopidogrel Bisulfate 75 mg 05/10/19 09:00 05/10/19 09:18 Plavix PO 06/09/19 08:59 75 mg QAM JUAN RAMON Administration Ferrous Sulfate 325 mg 05/10/19 09:00 05/10/19 09:21 Feosol PO 06/09/19 08:59 325 mg QAM JUAN RAMON Administration Furosemide 20 mg 05/10/19 09:00 05/10/19 07:23 Lasix PO 05/14/19 09:01 20 mg DAILY JUAN RAMON Administration Ceftriaxone Sodium 1,000 mg/ 50 mls @ 100 mls/hr 05/10/19 06:00 05/11/19 07:07 Dextrose IV 05/17/19 05:59 Infused Q24H JUAN RAMON Infusion Protocol Levothyroxine Sodium 50 mcg 05/10/19 06:30 05/11/19 06:20 Synthroid PO 06/09/19 06:29 Not Given DAILYBB JUAN RAMON Metoprolol Succinate 50 mg 05/10/19 09:00 05/10/19 07:22 Toprol Xl PO 06/09/19 08:59 50 mg QAM JUAN RAMON Administration Metoprolol Succinate 25 mg 05/10/19 21:00 05/10/19 20:34 Toprol Xl PO 06/09/19 20:59 25 mg HS JUAN RAMON Administration Mirtazapine 30 mg 05/10/19 21:00 05/10/19 20:33 Remeron PO 06/09/19 20:59 30 mg HS JUAN RAMON Administration Miscellaneous 1 ea 05/10/19 08:00 05/11/19 07:14 Order Awaiting Action N/A 06/09/19 07:59 Not Given QS JUAN RAMON Multivitamins/Minerals 1 tab 05/10/19 09:00 05/10/19 09:18 Multivitamin W/ Minerals Tab PO 06/09/19 08:59 1 tab QAM JUAN RAMON Administration Oxycodone HCl 5 mg 05/10/19 03:36 05/11/19 03:41 Roxicodone Immediate Rel PO 05/24/19 03:35 5 mg Q6 PRN Administration MODERATE/SEVERE PAIN 5-10 Prednisone 2 mg 05/10/19 09:00 05/10/19 09:19 Prednisone PO 06/09/19 08:59 2 mg QAM JUAN RAMON Administration Prednisone 1 mg 05/10/19 21:00 05/10/19 20:33 Prednisone PO 06/09/19 20:59 1 mg PM JUAN RAMON Administration Ropinirole HCl 0.5 mg 05/10/19 21:00 05/10/19 20:33 Requip PO 06/09/19 20:59 0.5 mg HS JUAN RAMON Administration Tiotropium Brodnax 2 puffs 05/10/19 09:00 05/10/19 09:20 Spiriva INH 06/09/19 08:59 2 puffs DAILY JUAN RAMON Administration NPO Date Last Intake of Fluids: 05/10/19 Time Last Intake of Fluids: 20:00 Date Last Intake of Solids: 05/10/19 Time Last Intake of Solids: 08:00 Past Medical History Medical History Hematoma of right lower extremity Hyperlipidemia GERD without esophagitis Dependence on supplemental oxygen Chronic venous stasis dermatitis of both lower extremities Chronic respiratory failure Chronic obstructive pulmonary disease Carotid atherosclerosis CKD (chronic kidney disease), stage III HTN (hypertension) (Chronic) Emphysema of lung (Chronic) On 2L home O2 PAD (peripheral artery disease) CKD (chronic kidney disease), stage IV CVA (cerebral vascular accident) Residual numbness of left hand and left side of mouth Dyslipidemia Hypothyroid Polymyalgia rheumatica 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 Patient declined Treatment with Aldara Subsequent recurrence with squamous cell carcinoma Status post partial vulvectomy with positive margins Status post completion of radiation therapy 08/01/2013 received 5040 cGy" Past Family History Family History Father Cardiac disorder Myocardial infarction Brother Cardiac disorder Mother Hypertension Sister Hypertension Stomach cancer Other Family history non-contributory Past Surgical History Surgical History History of vaginal surgery History of uvulectomy Social History Smoking Status: Former smoker tobacco type: cigarettes Smoking cigarettes per day: 2003 Do You Dip or Chew Tobacco: No Hx Alcohol Use: Yes Alcohol type: wine alcohol intake frequency: holidays/special occasions only Hx Substance Use: No substance use type: does not use Physical Exam Vital Signs Last Vital Signs Temp 36.5 C 05/11/19 08:07 Pulse 66 05/11/19 08:07 Resp 18 05/11/19 08:07 BP 175/82 H 05/11/19 08:07 Pulse Ox 100 05/11/19 08:07 Testing Laboratory Results 05/11/19 07:05 05/11/19 07:05 PT 10.3 Seconds (9.0-12.0) 05/09/19 21:31 INR 1.0 (0.9-1.1) 05/09/19 21:31 05/10/19 00:43 Aerobic Blood Culture - Preliminary Blood No growth in Aerobic bottle after 24 hours. Anaerobic Blood Culture - Final 05/10/19 00:43 Aerobic Blood Culture - Preliminary Blood No growth in Aerobic bottle after 24 hours. Anaerobic Blood Culture - Final
[2019-05-11] MEDS ORDERED: ePHEDrine sulfate 50 MG/ML AMP IV PRN (08:29)
[2019-05-11] MEDS ORDERED: fentaNYL citrate 100 MCG/2 ML VIAL IV PRN (08:29)
[2019-05-11] MEDS ORDERED: ATROPINE SULFATE 0.1 MG/ML 10ML SYR IV PRN (08:29)
[2019-05-11] MEDS ORDERED: LIDOCAINE HCL 2% 2 ML VIAL/AMP(20MG/ML) INFIL ONE (08:31)
[2019-05-11] MEDS ORDERED: PROPOFOL IV EMULSION 10 MG/ML 20 ML VIAL IV ONE (08:31)
--- NOTE | 2019-05-11 08:55 | Post Operative Brief Note ---
Immediate Post Op Note v1 Date of Surgery May 11, 2019 Pre & Post Diagnosis Operation Date: 05/11/19 08:30 pre-op diagnosis: right lower leg hematoma post-op diagnosis: right lower leg hematoma Procedure Operation Date: 05/11/19 08:30 I & D right lower leg hematoma Surgeon Greg Romero MD Child Development Associate Teacher surgical elastic knitter hand frame Estimated Blood Loss 5 Findings Consistent with Post-Op Diagnosis right lower leg hematoma with necrosis of skin Fluids 300ml Specimens hematoma. wound culture Anesthesia Type Local Complications none Disposition Accompanied Patient To Recovery: Yes Disposition: Recovery Room Overlapping Procedure I was immediately available: during the entire case.
[2019-05-11] MEDS ORDERED: SOD PHOSPHATE/SOD BIPHOSPHATE ENEMA 132 ML BTL PR PRN (09:52)
--- NOTE | 2019-05-11 10:01 | Anesthesiology Progress Note ---
Date of Service May 11, 2019 Anesthesia Post Procedure Vital Signs Vital Signs: Temp Pulse Pulse Pulse Pulse Resp BP 05/11/19 09:25 62 18 160/65 H 05/11/19 09:15 36.8 C 66 16 158/74 H 05/11/19 09:05 66 17 178/78 H 05/11/19 08:59 36.6 C 70 18 165/82 H 05/11/19 08:07 36.5 C 66 18 175/82 H 05/11/19 07:24 36.3 C L 71 16 169/77 H 05/11/19 07:22 72 05/11/19 07:04 65 18 05/11/19 03:25 36.5 C 79 18 144/65 H 05/11/19 00:55 84 05/10/19 23:11 36.1 C L 79 21 152/72 H 05/10/19 19:34 79 20 151/75 H 05/10/19 19:01 67 18 05/10/19 15:46 36.1 C L 63 20 150/75 H 05/10/19 15:11 63 18 05/10/19 11:14 66 18 05/10/19 10:40 36.8 C 66 20 160/86 H Pulse Ox 05/11/19 09:25 100 05/11/19 09:15 100 05/11/19 09:05 97 05/11/19 08:59 100 05/11/19 08:07 100 05/11/19 07:24 91 05/11/19 07:22 05/11/19 07:04 91 05/11/19 03:25 92 05/11/19 00:55 05/10/19 23:11 92 05/10/19 19:34 95 05/10/19 19:01 94 05/10/19 15:46 100 05/10/19 15:11 100 05/10/19 11:14 95 05/10/19 10:40 95 Transfer of Care Handoff Completed per policy Notes Mental Status: alert / awake / arousable Patient Amnestic to Procedure: Yes Nausea / Vomiting: adequately controlled Pain: adequately controlled Airway Patency, RR, SpO2: stable & adequate BP & HR: stable & adequate Hydration State: stable & adequate Anesthetic Complications: no major complications apparent and Pt Satisfied with anesthetic care
[2019-05-11] MEDS: TIOTROPIUM BROMIDE 5 PUFF/90 MCG INH INH SCH (10:23)
[2019-05-11] MEDS: ATORVASTATIN 20 MG TAB PO SCH (10:24)
[2019-05-11] MEDS: CLOPIDOGREL BISULFATE 75 MG TAB PO SCH (10:24)
[2019-05-11] MEDS: AZITHROMYCIN 250 MG TAB PO SCH (10:25)
[2019-05-11] MEDS: ASPIRIN 81 MG ECTAB PO SCH (10:26)
[2019-05-11] MEDS: FUROSEMIDE 20 MG TAB PO SCH (10:27)
[2019-05-11] MEDS: BENAZEPRIL HCL 10 MG TAB PO SCH (10:27)
[2019-05-11] MEDS: predniSONE 1 MG TAB PO SCH ×2 (10:28→20:59)
[2019-05-11] MEDS: FERROUS SULFATE 325 MG TAB PO SCH (10:28)
[2019-05-11] MEDS: METOPROLOL SUCC 50MG EXT REL TAB PO SCH (10:29)
[2019-05-11] MEDS: ACETAMINOPHEN 500 MG TAB PO SCH (10:29)
[2019-05-11] MEDS: CEROVITE ADV FORMULA TAB PO SCH (10:29)
--- NOTE | 2019-05-11 10:29 | Family Medicine Progress Note ---
Date of Service May 11, 2019 Assessment & Plan (1) Hematoma of right lower extremity: Addie Is a 88-year-old female with a past medical history of COPD, CKD, CVA, hypertension, peripheral artery disease, and dementia who presented to the emergency room from [facility] for shortness of breath and increased oxygen requirement. She was noted to have a large right lower leg hematoma requiring I&D. Acute on chronic hypoxic respiratory failure 2/2 CAP versus CHF exacerbation History of COPD with 2 L home oxygen requirement, weaned from 4L to 2L and doing well CAP/Severe COPD Started on empiric Vanco/Zosyn narrowed to azithromycin/Rocephin. Chest x-ray shows evidence of left lower lobe consolidation suspicious for pneumonia. Continue azithromycin 250 mg p.o. daily x4 days and Rocephin 1 g daily pending oral conversion. Continue prednisone 1 mg every afternoon, 2 mg every morning [employer] regimen Continue tiotropium, albuterol inhalers Acute on chronic Diastolic CHF BNP elevated to 20 K, mild troponin leak. Mild troponin leak on admission now normalized Echocardiogram shows grade 2 diastolic dysfunction with normal LVEF and increased right ventricular pressure Furosemide 20 mg p.o. daily Continue metoprolol 50 mg every morning, 25 mg nightly Continue Benzapril 5 mg p.o. daily Right lower extremity hematoma s/p I&D with surgery - Concern for continued bleeding and dressing saturation - Type and screen ordered, blood consent on file, 1u on hold if needed - transfuse is Hgb <7 - Pain improved - IVFM LR @70cc/hr for 500cc Hypothyroidism Continue levothyroxine 50 mcg p.o. daily CODE STATUS: Full code DVT prophylaxis: Contraindicated in the setting of acute bleed/hematoma, on Plavix and aspirin antiplatelet therapy. (2) History of CVA (cerebrovascular accident): (3) History of femur fracture: (4) Elevated troponin: (5) Acute and chronic respiratory failure: Supervising Physician Co-Signing Physician Notes Resident Physician Supervision Note: I independently interviewed and examined the patient and verified the coronado history and physical, reviewed labs and image studies, discussed the case with the resident Dr. Ozuna and agree with the findings and care plan. Subjective Addie reports her leg feels much better after surgery. She feels like her breathing is doing well, and she has no shortness of breath or cough today. No fevers, chills, sweats. No lightheadedness/dizziness, nausea, vomiting, or abdominal pain. No questions or concerns at this time. She is eating lunch at time of visit. Review of Systems Review of Systems: Constitutional: Denies fever, chills, malaise, weight change Eyes: Denies vision change Cardiovascular: Denies Chest pain, chest pressure, palpitations, extremity swelling Respiratory: Denies shortness of breath, cough, sputum production, difficulty breathing Gastrointestinal: Denies abdominal pain, nausea, vomiting, constipation, diarrhea Genitourinary: Denies pain with urination, urinary urgency, urinary frequency Musculoskeletal: Denies weakness, muscle aches/pain, joint aches/pain Integumentary: Endorses a bandage on her leg after surgery, denies pain. Physical Exam Physical Exam: General: Alert, comfortable, eating lunch sitting up in hospital bed. Cooperative. HEENT: Hematoma present on left lateral maxilla, normocephalic. Pulm: Moderate air movement, trace expiratory wheeze globally otherwise CTAB without rales. Symmetrical chest rise. No increase work of breathing. No respiratory distress. Cardiac: RRR, -mrg. Radial pulses intact and symmetrical. Abdominal: Nontender, nondistended, soft. BS present. Extremity: Right lower leg with surgical dressing in place. Dressign tinged with serosanguinous fluid. Results & Data Vital Signs (Past 12 Hours) Vital Signs Temp Pulse Pulse Pulse Resp BP Pulse Ox 05/11/19 09:25 62 18 160/65 H 100 05/11/19 09:15 36.8 C 66 16 158/74 H 100 05/11/19 09:05 66 17 178/78 H 97 05/11/19 08:59 36.6 C 70 18 165/82 H 100 05/11/19 08:07 36.5 C 66 18 175/82 H 100 05/11/19 07:24 36.3 C L 71 16 169/77 H 91 05/11/19 07:22 72 05/11/19 07:04 65 18 91 05/11/19 03:25 36.5 C 79 18 144/65 H 92 05/11/19 00:55 84 05/10/19 23:11 36.1 C L 79 21 152/72 H 92 PG Care Time/CCT Total # of Minutes Spent Total Time Spent with Patient: Total time spent is greater than 50% in coordination of care (as documented) at patient's floor/unit and/or counseling patient: Resident Activity Tracking Resident Involvement: Resident Care Provided Care Provided: Adult Hospital Medicine (1) Acute and chronic respiratory failure Respiratory failure complication: hypoxia Qualified Code(s): J96.21 - Acute and chronic respiratory failure with hypoxia
--- NOTE | 2019-05-11 11:51 | Surgery Progress Note ---
Date of Service F/U S/P I/D right lower leg hematoma, pt is doing fine, the dressing intact, no active bleeding on right lower leg, May 11, 2019 Assessment & Plan (1) Hematoma of right lower extremity: pt is a 88 year -old female who is consulted RLL hematoma, stable, no infection signs now, IMP: RLL hematoma, Plan, agree with medical treatment first, iv antibiotic, repeat labs in am, will do I/d on RLL hematoma if WBC is going up, will F/U 05/11/2019 11: 50 am doing fine, wound care nurse consult, on-call surgeon will cover tomorrow, Subjective Addie reports her right leg today. History is limited by dementia. She reports that she does not remember what happened, and does not remember injuring it or having any leg injury. She has a large hematoma present, but reports she does not know how long it is been there. She denies other pain. She was admitted for concerns of pneumonia, she denies any cough, shortness of breath, chest pressure, chest pain, fever, chills, abdominal pain, pain with urination at time of visit but history limited as noted above. No family present for collateral. Physical Exam Constitutional: WD/WN, vitals as above Neck: trachea midline, no thyromegaly Respiratory: normal respiratory effort, lungs clear to auscultation Cardiovascular: RRR, no murmur, no edema Gastrointestinal (Abdomen): Percussion/Palpation: abdomen soft Musculoskeletal: the dressing intact, no active bleeding, distal pulse + Neurologic: awake Psychiatric: Orientation: alert and oriented x 3 Results & Data Vital Signs (Past 12 Hours) Vital Signs Temp Pulse Pulse Pulse Pulse Resp BP 05/11/19 11:04 68 18 05/11/19 11:00 36.3 C L 78 16 99/61 L 05/11/19 10:50 78 05/11/19 10:29 36.3 C L 60 20 149/69 H 05/11/19 10:00 36.6 C 61 16 163/66 H 05/11/19 09:25 62 18 160/65 H 05/11/19 09:15 36.8 C 66 16 158/74 H 05/11/19 09:05 66 17 178/78 H 05/11/19 08:59 36.6 C 70 18 165/82 H 05/11/19 08:07 36.5 C 66 18 175/82 H 05/11/19 07:24 36.3 C L 71 16 169/77 H 05/11/19 07:22 72 05/11/19 07:04 65 18 05/11/19 03:25 36.5 C 79 18 144/65 H 05/11/19 00:55 84 Pulse Ox 05/11/19 11:04 100 05/11/19 11:00 100 05/11/19 10:50 05/11/19 10:29 05/11/19 10:00 93 05/11/19 09:25 100 05/11/19 09:15 100 05/11/19 09:05 97 05/11/19 08:59 100 05/11/19 08:07 100 05/11/19 07:24 91 05/11/19 07:22 05/11/19 07:04 91 05/11/19 03:25 92 05/11/19 00:55
--- NOTE | 2019-05-11 13:19 | Operative Report ---
DATE OF OPERATION: 05/11/2019 PREOPERATIVE DIAGNOSIS: Right lower leg hematoma. POSTOPERATIVE DIAGNOSIS: Right lower leg hematoma. PROCEDURE: I and D, right lower leg hematoma. SURGEON: Greg Romero MD ANESTHESIA: Conscious sedation plus local. ESTIMATED BLOOD LOSS: About 5 mL. FINDINGS: Right lower leg hematoma with necrosis skin. COMPLICATIONS: None. INDICATIONS FOR THE PROCEDURE: This is an 88-year-old female who was admitted to hospital for 3 days with history of right lower leg hematoma. The hematoma is getting bigger and also the patient's white count grew up. I recommend to do I and D of the right lower leg hematoma. I did talk to the patient about the benefit and risk, alternate procedure. I indicated the risks may include but not limited such as bleeding, infection, DVT, even . The patient understands. She signed informed consent and I answered all questions. DETAILS OF PROCEDURE: We brought the patient to the OR, put the patient in the supine position. The patient received 1 gram Ancef IV for prophylactic antibiotic. The patient received conscious sedation by the anesthesiology. The right lower leg was prepped and draped in routine sterile fashion. After timeout, we reexamined, the patient has a large hematoma on the right lower leg, the hematoma size of 6 x 8 cm. All of the skin is dark colored and localized all the necrosis skin. Then, I injected local anesthesia by using 1% lidocaine mixed with 0.5% Marcaine around the hematoma. Then, we used the sharp scissor, removed all of the skin and removed the hematoma. Hemostasis was obtained. We sent wound culture. The hematoma sent to pathology. Then, we put the dressing on. The patient tolerated the procedure well. All the instrument, needle and sponge count were correct x2 at the end of the case. The patient transferred to recovery room in stable condition. I attest to the content of the Intraoperative Record and any orders documented therein. Any exception s are noted below.
[2019-05-11 13:55] LABS: Hematocrit (blood only) 28.4 % (37-47)
[2019-05-11] MEDS ORDERED: SODIUM CHLORIDE 0.9% 250 ML IV PRN (18:04)
[2019-05-11] MEDS ORDERED: LACTATED RINGER'S 500 ML IV SCH (18:15)
[2019-05-11] MEDS: METOPROLOL SUCC 25MG EXT REL TAB PO SCH (20:51)
[2019-05-11] MEDS: ROPINIROLE HCL 0.25 MG TABLET PO SCH (20:59)
[2019-05-11] MEDS: MIRTAZAPINE TAB 15 MG TAB PO SCH (21:00)
[2019-05-11 22:47] LABS: Hematocrit (blood only) 27.6 % (37-47); Hemoglobin 8.8 g/dL (12.0-16.0)
[2019-05-12] MEDS ORDERED: ONDANSETRON INJ 2 MG/ML 2 ML VIAL IV PRN (05:46)
[2019-05-12] MEDS ORDERED: LACTATED RINGER'S 250 ML IV ONE (05:58)
[2019-05-12] MEDS: cefTRIAXone SODIUM 1,000 MG in DEXTROSE 5% 50 ML IV SCH (06:09)
[2019-05-12] MEDS: LEVOTHYROXINE SODIUM 50 MCG TABLET PO SCH (06:10)
[2019-05-12 06:29] LABS: Basophils # (auto) 0.07 K/uL (0-0.2); Basophils % (auto) 0.5 %; Eosinophils # (auto) 0.19 K/uL (0-0.5); Eosinophils % (auto) 1.3 %; Hematocrit (blood only) 26.9 % (37-47); Hemoglobin 8.1 g/dL (12.0-16.0); Immature Granulocytes # (auto) 0.14 K/uL (0.00-0.02); Lymphocytes # (auto) 4.54 K/uL (1.2-3.4); Lymphocytes % (auto) 31.5 %; Mean Corpuscular Hgb Conc 30.1 g/dL (32-36); Mean Corpuscular Volume 96.4 fL (80-100); Monocytes # (auto) 1.16 K/uL (0.11-0.59); Monocytes % (auto) 8.1 %; Neutrophils # (auto) 8.29 K/uL (1.4-6.5); Neutrophils % (auto) 57.6 %; Platelet Count 145 K/uL (130-400); RDW Standard Deviation 77.4 fL (36.4-46.3); Red Blood Count 2.79 M/uL (4.2-5.4); White Blood Count 14.39 K/uL (4.8-10.8)
[2019-05-12] MEDS ORDERED: ADENOSINE IV SOLN 3 MG/ML 2 ML VIAL IV ONE ×2 (06:30→10:55)
[2019-05-12 06:31] LABS: BUN Creatinine Ratio 29.9 (10-20); Calcium 8.5 mg/dl (8.5-10.1); Creatinine Clr Calc Pharmacy 13.6 ml/min; Est GFR (African American) 29.8; Est GFR (Non-African American) 25.7
[2019-05-12 06:35] LABS: Troponin I 0.031 ng/ml (0-0.045)
[2019-05-12 06:59] LABS: Echinocytes 1+; Hypochromasia Present; Polychromasia 1+
--- NOTE | 2019-05-12 07:20 | Progress Note ---
Date of Service May 12, 2019 Code rory note Around 5:35 AM this morning I was notified that the patient may be going into A. fib on the monitor. An EKG was ordered. Around 5:50 AM a code rory was called. Saw the patient at bedside about 60 seconds later. Patient's nurse stated that she was concerned that there was no reading on the pulse ox and that the patient was not breathing adequately. Found patient conscious, moaning a bit, not quite answering questions, but breathing spontaneously. Heart rate was in the 055504 range, regular, and BP was around 70/40. Was unable to get a SpO2 acutely due to the patient's cool extremities and moist skin. Lungs were clear to auscultation. Reviewed EKG. ST depressions in II, III, aVF, V4, V5, V6. Question of this being a rapid sinus tachycardia versus SVT. Lab arrived and her morning labs were drawn. Patient was given a single 250 mL LR bolus. Case was then discussed with Dr. Urbna at bedside. We then elected to give a single dose of 6 mg of adenosine to evaluate underlying rate. This slowed her heart rate down briefly to sinus rhythm, but then she returned into what appeared to be a sinus tachycardia in the 120s. A second 250 mL normal saline bolus was given. Around this time the patient was complaining of chest pain. Her blood pressure came up to systolic 120s. Around 6:30 AM the patient's primary team arrived and the above was discussed. Plan at that time was to give a third 250 mL normal saline bolus and transfer her to PCU. Remainder of acute plan per primary team. Inocente Villanueva, PGY3 Overnight call Results & Data Vital Signs (Past 12 Hours) Vital Signs Temp Pulse Pulse Pulse Resp BP Pulse Ox 05/12/19 02:51 36.6 C 76 18 128/59 L 94 05/11/19 23:39 36.8 C 74 20 145/73 H 95 05/11/19 22:04 73 05/11/19 19:27 69 15 94 05/11/19 19:19 36.2 C L 71 18 93/51 L 94
--- NOTE | 2019-05-12 07:22 | Progress Note ---
Date of Service May 12, 2019 Assessment & Plan (1) Hematoma of right lower extremity: pt had recent code purple- resp difficulty and afib- now with O2 in place , awake- to be transferred to higher level PCU- apparently had some postop bleeding from Rt leg site pressure dressing placed last pm around [id number] no evidence of bleeding through dressing- leave for now pt on Plavix. Wound care nurses following Subjective see a/p Results & Data Vital Signs (Past 12 Hours) Vital Signs Temp Pulse Pulse Pulse Resp BP Pulse Ox 05/12/19 02:51 36.6 C 76 18 128/59 L 94 05/11/19 23:39 36.8 C 74 20 145/73 H 95 05/11/19 22:04 73 05/11/19 19:27 69 15 94 05/11/19 19:19 36.2 C L 71 18 93/51 L 94
[2019-05-12] MEDS: ALBUT/IPRATROP 3MG/0.5MG NEB 3 ML VIAL NEB SCH ×4 (07:23→19:22)
--- NOTE | 2019-05-12 09:03 | XRay Report ---
XR chest 1V portable HISTORY: 88 years-old Female tachycardia, hx chf acute tachycardia with shortness of breath and hear t failure COMPARISON: Chest radiograph 05/09/2019 TECHNIQUE: Portable AP view of the chest FINDINGS: Cardiomediastinal and hilar silhouettes are within normal limits. Calcification of the thoracic aorti c arch. No pneumothorax. Small pleural effusions with persistent right greater than left bibasilar op acities. Severe emphysema with interstitial coarsening. Degenerative changes of the shoulders and spi ne. IMPRESSION: 1. Persistent right greater than left bibasilar alveolar opacities. 2. Small bilateral pleural effusions. 3. Severe emphysema. The above report was generated using voice recognition software. It may contain grammatical, syntax o r spelling errors. Electronically signed by: Juan Gamble M.D. 05/12/2019 9:02 AM
[2019-05-12] MEDS: ATORVASTATIN 20 MG TAB PO SCH (09:55)
[2019-05-12] MEDS: METOPROLOL SUCC 50MG EXT REL TAB PO SCH (09:56)
[2019-05-12] MEDS: predniSONE 1 MG TAB PO SCH ×2 (09:57→19:59)
[2019-05-12] MEDS: TIOTROPIUM BROMIDE 5 PUFF/90 MCG INH INH SCH (09:57)
[2019-05-12] MEDS: CEROVITE ADV FORMULA TAB PO SCH (09:58)
[2019-05-12] MEDS: FERROUS SULFATE 325 MG TAB PO SCH (09:58)
[2019-05-12] MEDS: AZITHROMYCIN 250 MG TAB PO SCH (09:58)
[2019-05-12] MEDS: BENAZEPRIL HCL 10 MG TAB PO SCH (09:58)
[2019-05-12] MEDS: CALCITRIOL 0.25 MCG CAPSULE PO SCH (09:58)
[2019-05-12] MEDS: ACETAMINOPHEN 500 MG TAB PO SCH (09:59)
--- NOTE | 2019-05-12 10:32 | Family Medicine Progress Note ---
Date of Service May 12, 2019 Assessment & Plan (1) Hematoma of right lower extremity: Addie Is a 88-year-old female with a past medical history of COPD, CKD, CVA, hypertension, peripheral artery disease, and dementia who presented to the emergency room from [facility] for shortness of breath and increased oxygen requirement. She was noted to have a large right lower leg hematoma requiring I&D. SVT - Diya rory called this morning for SVT with hypotension. Improved following 250cc NS bolus x2 and adenosine 6mg x1 - History of 'atrial arrhythmia', no collateral available for confirmation. - [employer] metoprolol was held last night fo hypotension in the setting of post-op wound discharge - Transferred to telemetry - Pressure improving with fluids and breaking arrhythmia. Resume metoprolol for rate control - Lasix held - Clinically improved and asymptomatic after transfer - Cardiology consult due to baseline bradycardia Acute on chronic hypoxic respiratory failure 2/2 CAP versus CHF exacerbation History of COPD with 2 L home oxygen requirement, requiring 5L following SVT episode as above and doing well -Follow closely for volume overload. Lungs clear this morning with no signs of pulmonary edema. CAP/Severe COPD Started on empiric Vanco/Zosyn narrowed to azithromycin/Rocephin. Chest x-ray shows evidence of left lower lobe consolidation suspicious for pneumonia. Continue azithromycin 250 mg p.o. daily x4 days and Rocephin 1 g daily pending oral conversion. Continue prednisone 1 mg every afternoon, 2 mg every morning [employer] regimen Continue tiotropium, albuterol inhalers Acute on chronic Diastolic CHF BNP elevated to 20 K on admit Mild troponin leak on admission now normalized. Troponin likely to increase 2/2 demand following SVT Echocardiogram shows grade 2 diastolic dysfunction with normal LVEF and increased right ventricular pressure Furosemide 20 mg p.o. daily held Continue metoprolol 50 mg every morning, 25 mg nightly Continue Benzapril 5 mg p.o. daily Right lower extremity hematoma s/p I&D with surgery - Pressure dressing in place - Type and screen ordered, blood consent on file, 1u on hold if needed - transfuse is Hgb <7 - Pain improved Hypothyroidism Continue levothyroxine 50 mcg p.o. daily (2) Pneumonia: Supervising Physician Co-Signing Physician Notes Resident Physician Supervision Note: I independently interviewed and examined the patient and verified the coronado history and physical, reviewed labs and image studies, discussed the case with the resident Dr. Ozuna and agree with the findings and care plan. Kristopher Real had a code purple called this morning for supraventricular tachycardia. At 5:30 in the morning she developed a rhythm suspicious for A. fib and around 5:50 AM she appeared to have an adequate respiration and was hypotensive to the 70s. Her EKG showed ST depressions with a rhythm concerning for SVT versus sinus tach. She is given 250 cc of crystalloid followed by 6 mg of adenosine which caused her to return to sinus tachycardia in the 120s. Following a 2nd-50 cc bolus of saline her pressures normalized to the 120s and her heart rate improved. She briefly returned to tacky rhythm, was given 1/3 to 50 cc bolus of saline, and had good pressures and her heart rate decreased. She was transferred to the PCU for further monitoring. Of night her metoprolol have been held the night prior due to hypotension and she had been saturating wound dressings with serosanguineous fluid. On follow-up after transfer this morning she reports that she feels much better. She denies any chest pain, chest pressure, palpitations, shortness of breath, lightheadedness, dizziness, and pain. She reports her leg feels "okay ". She reports she remembers a lot of chaos this morning but is not sure what was happening, just that she felt "badly in her chest ". That feeling has completely resolved. She denies pain in her leg, is not sure how it is been doing and just notes that staff has been checking the dressing frequently. Denies other pain, no other questions or concerns at time of visit. Review of Systems Review of Systems: All systems reviewed & are unremarkable except as noted in HPI & below Constitutional: Denies fever, chills, malaise, weight change Eyes: Denies vision change Cardiovascular: Denies chest pain, chest pressure, palpitations, extremity swelling Respiratory: Denies shortness of breath, cough, sputum production, difficulty breathing Gastrointestinal: Denies abdominal pain, nausea, vomiting, constipation, diarrhea Genitourinary: Denies pain with urination, urinary urgency, urinary frequency Musculoskeletal: Denies weakness, muscle aches/pain, joint aches/pain at time of visit after transfer Integumentary: Endorses a bandage on her leg after surgery, denies pain. Physical Exam Physical Exam: General: Alert, comfortable, sitting up in hospital bed. Cooperative. HEENT: Hematoma present on left lateral maxilla, normocephalic. Pulm: Moderate air movement, trace expiratory wheeze globally otherwise CTAB without rales. Symmetrical chest rise. No increase work of breathing. No respiratory distress. Cardiac: RRR, -mrg. Radial pulses intact and symmetrical. Abdominal: Nontender, nondistended, soft. BS present. Extremity: Right lower leg with compression dressing in place. Results & Data Vital Signs (Past 12 Hours) Vital Signs Temp Pulse Pulse Pulse Resp BP BP 05/12/19 08:30 36.3 C L 80 22 150/79 H 05/12/19 07:24 85 18 05/12/19 02:51 36.6 C 76 18 128/59 L 05/11/19 23:39 36.8 C 74 20 145/73 H Pulse Ox 05/12/19 08:30 95 05/12/19 07:24 100 05/12/19 02:51 94 05/11/19 23:39 95 PG Care Time/CCT Total # of Minutes Spent Total Time Spent with Patient: Total time spent is greater than 50% in coordination of care (as documented) at patient's floor/unit and/or counseling patient: Resident Activity Tracking Resident Involvement: Resident Care Provided Care Provided: Adult Hospital Medicine (1) Pneumonia Laterality: right Lung location: lower lobe of lung Pneumonia type: due to unspecified organism Qualified Code(s): J18.1 - Lobar pneumonia, unspecified organism
[2019-05-12] MEDS ORDERED: SODIUM CHLORIDE 0.9% 10ML FLUSH IV ONE (10:55)
[2019-05-12 13:14] LABS: Hematocrit (blood only) 27.4 % (37-47); Hemoglobin 8.4 g/dL (12.0-16.0); Mean Corpuscular Hgb Conc 30.7 g/dL (32-36); Mean Corpuscular Volume 96.5 fL (80-100); Mean Platelet Volume 10.3 fL (7.4-10.4); Platelet Count 136 K/uL (130-400); RDW Coefficient of Variation 21.7 % (11.5-14.5); RDW Standard Deviation 76.6 fL (36.4-46.3); Red Blood Count 2.84 M/uL (4.2-5.4); White Blood Count 11.79 K/uL (4.8-10.8)
--- NOTE | 2019-05-12 16:58 | Cardiology Consultation ---
Date of Consultation May 12, 2019 Assessment & Plan (1) Paroxysmal atrial fibrillation with RVR: She has demonstrated atrial tachycardia in the past according to records but last night appeared to be atrial fibrillation with rapid ventricular response. She became hypotensive with this episode. For repeat episodes, could consider anti rhythmic therapy such as amiodarone to help avoid significant symptoms. There is concern however with her syncopal events that she could also be having pauses verses other tachyarrhythmias. Therefore for now, continue metoprolol. She did not receive her evening dose of metoprolol succinate last night due to slight hypotension. Continue 75 mg of metoprolol succinate for now. With this being her first episode of atrial fibrillation and also being postoperative, it is not clear if she has been having atrial fibrillation. Certainly anticoagulation therapy does not appear to be a good choice at this current time as she was admitted with a hematoma that underwent surgical drainage yesterday. Continue to monitor for further arrhythmia. (2) Syncope: Etiology uncertain. No severe carotid stenosis on recent imaging. Dysrhythmia certainly a possibility, including pauses. Recommended loop recorder to the patient and she was agreeable. Dr. Rivas, electrophysiology, was contacted via telephone and he will see her tomorrow to further discuss this. NPO after midnight. (3) Disposition: Electrophysiology, Dr. Rivas, will resume her cardiology care tomorrow with possible loop recorder implantation to follow. Please call with any other questions or concerns. Plan of care communicated with Dr. Roth of the primary hospitalist service. Thank you for allowing me to participate in the care of your patient. Please call for any other questions or concerns. Sincerely, Ez Powers M.D. History of Present Illness Reason for Consultation: SVT Requesting Physician: Dr. Burger Attending Physician: Neida Roth MD History of Present Illness Mrs. 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 She was previously seen by Dr. Torres, who has recommended that she follow up with Dr. Connolly in the [place] office, which she is agreeable to do. She was hospitalized on 04/05/2019 after a fall, fracturing her left hip. With her fall, she did not recall falling but found herself waking up on the floor and therefore presumed syncopal event. She underwent surgical correction and postoperatively, was found to have a small stroke. She was discharged and resides at [facility]. On 05/10/2019, she was readmitted once again after another fall. She found herself on the bathroom floor, once again injuring h erself. She remembers waking up to go to the restroom and remembers ambulating to the restroom but does not recall falling. When she awakened again, she was injured on the bathroom floor. She denies any prodrome mole symptoms such as palpitations, chest pain, shortness of breath, lightheadedness, or dizziness. She recalls having at least 3 syncopal episodes in the past 2 years but this is the second 1 in the past 2 months. She denies chest pain, shortness of breath, fevers, melena, hematochezia, hematuria, swelling/edema. During this hospitalization, she was found to have a right lower leg hematoma on 05/11/2019 underwent I and D. Then, overnight, she developed tachycardia which appears to be atrial fibrillation on ECG and telemetry. It was a prolonged episode from 5:23 a.m. to 6:43 a.m. when she converted to sinus. She denies feeling palpitations during the episode but did not feel well. Heart rates were quite elevated and her blood pressure became hypotensive with reported 70/40mmHg. IV fluid boluses were given and adenosine 6 mg IV was also given. She was transferred to the PCU. Review of systems: As above. Review of systems otherwise negat atif/unremarkable. Social history: She quit smoking in 2002 after approximately 50 pack years. Rare alcohol. She is a . One son. One granddaughter. Resides at [facility]. Ambulates with a walker. Family history: Noncontributory. Allergies Allergy/AdvReac Type Severity Reaction Status Date / Time clindamycin Allergy Intermediate HIVES Verified 05/11/19 08:06 Home Medications Home Medications Medication Instructions Recorded Confirmed Type Breo Ellipta 1 inh INHALATION DAILY 04/05/19 05/09/19 History Spiriva Respimat 1 puff INHALATION DAILY 04/05/19 05/09/19 History calcitriol 0.25 mcg PO 3XWK 04/05/19 05/09/19 History clopidogrel 75 mg PO QAM 04/05/19 05/09/19 History furosemide 20 mg PO .DAILY FOR 5 DAYS 04/05/19 05/09/19 History levalbuterol HCl 1.25 mg INHALATION Q4H PRN 04/05/19 05/09/19 History levothyroxine 50 mcg PO QAM 04/05/19 05/09/19 History prednisone 1 mg PO PM 04/05/19 05/09/19 History prednisone 2 mg PO QAM 04/05/19 05/09/19 History aspirin [Ecotrin Low Strength] 81 mg PO QAM #30 tab 04/11/19 05/09/19 Rx atorvastatin 20 mg PO QAM #30 tab 04/11/19 05/09/19 Rx ferrous sulfate 325 mg PO QAM #30 tab 04/11/19 05/09/19 Rx metoprolol succinate 25 mg PO HS #30 tab 04/11/19 05/09/19 Rx metoprolol succinate 50 mg PO QAM #30 tab 04/11/19 05/09/19 Rx rqbpkffagoyg-yaoz-korao acid 1 tab PO QAM #30 tab 04/11/19 05/09/19 Rx [Certavite-Antioxidant] acetaminophen [Mapap 650 mg PO Q6H PRN 05/09/19 05/09/19 History (acetaminophen)] acetaminophen [Tylenol Extra 500 mg PO QAM 05/09/19 05/09/19 History Strength] benazepril 5 mg PO DAILY 05/09/19 05/09/19 History bisacodyl [Dulcolax (bisacodyl)] 10 mg PA UD PRN 05/09/19 05/09/19 History furosemide [Lasix] 40 mg PO .TODAY 05/09/19 05/09/19 History mirtazapine 30 mg PO HS 05/09/19 05/09/19 History oxycodone 5 mg PO Q6 PRN 05/09/19 05/09/19 History ropinirole [Requip] 0.5 mg PO HS 05/09/19 05/09/19 History sodium phosphates [Fleet Enema] 118 ml PA DAILY PRN 05/09/19 05/09/19 History Patient History Medical History Hematoma of right lower extremity Hyperlipidemia GERD without esophagitis Dependence on supplemental oxygen Chronic venous stasis dermatitis of both lower extremities Chronic respiratory failure Chronic obstructive pulmonary disease Carotid atherosclerosis CKD (chronic kidney disease), stage III HTN (hypertension) (Chronic) Emphysema of lung (Chronic) On 2L home O2 PAD (peripheral artery disease) CKD (chronic kidney disease), stage IV CVA (cerebral vascular accident) Residual numbness of left hand and left side of mouth Dyslipidemia Hypothyroid Polymyalgia rheumatica 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 Patient declined Treatment with Aldara Subsequent recurrence with squamous cell carcinoma Status post partial vulvectomy with positive margins Status post completion of radiation therapy 08/01/2013 received 5040 cGy" Surgical History History of vaginal surgery History of uvulectomy Family History Father Cardiac disorder Myocardial infarction Brother Cardiac disorder Mother Hypertension Sister Hypertension Stomach cancer Other Family history non-contributory Social History Preferred Language: Bulgarian Communication Ability: Effective Visual Impairment: Limited Hearing Ability: Normal Guest Relations Receptionist Required: No Beliefs That Will Affect Care: None marital status: / Current Living Situation: Alone and Personal Care Facility Current Living Situation Comment: [facility] current occupational status: retired Other Information That Helps Us Care for You: No Feels Safe at Home: Yes Safety Concerns: Feels Safe At This Time Smoking Status: Former smoker Tobacco Type: cigarettes Cigarettes Per Day: 2003 Do You Dip or Chew Tobacco: No Second Hand Exposure: No Tobacco Cessation Education Requested by Patient: No Hx Alcohol Use: Yes Alcohol type: wine Hx Substance Use: No Dental Care, Regularly: Yes Physical Activity Frequency Comment: limited by physical condition Physical Exam Physical Exam: Gen.: No acute distress. Alert and oriented to self, year, and month. HEENT: Anicteric sclera. Neck: No JVD. Left carotid bruit. Normal carotid upstrokes bilaterally. Cardiac: PMI was nondisplaced. No ventricular heave. Regular rate and rhythm. Normal S1-S2. 2/6 systolic ejection murmur. No rubs, or gallops. Pulmonary: Decreased breath sounds throughout, but otherwise clear to auscultation bilaterally without wheezes, rales, or rhonchi. Abdomen: Thin. Soft, nontender, nondistended, with normoactive bowel sounds. No bruits noted. Extremities: 2+ radial pulses bilaterally. 2+ posterior tibialis pulses bilaterally. Several ecchymotic areas. Right lower extremity dressing in place. No edema or cyanosis. Psychiatric: Affect appears appropriate. Results & Data Vital Signs (Past 12 Hours) Vital Signs Temp Pulse Pulse Resp BP Pulse Ox 05/12/19 15:40 96 H 16 100 05/12/19 15:16 36.5 C 70 16 131/61 100 05/12/19 11:52 36.5 C 62 21 162/73 H 100 05/12/19 11:36 71 16 100 05/12/19 08:30 36.3 C L 80 22 150/79 H 95 05/12/19 07:24 85 18 100 Laboratory Results Laboratory Results - last 24 hr 05/11/19 05/11/19 05/12/19 18:40 22:18 05:57 WBC 14.39 H RBC 2.79 L Hgb 8.8 L 8.1 L Hct 27.6 L 26.9 L MCV 96.4 MCH 29.0 MCHC 30.1 L RDW Std Deviation 77.4 H RDW Coeff of Rhys 22.0 H Plt Count 145 MPV 11.0 H Immature Gran % (Auto) 1.0 Neut % (Auto) 57.6 Lymph % (Auto) 31.5 [place] % (Auto) 8.1 Eos % (Auto) 1.3 Baso % (Auto) 0.5 Immature Gran # (Auto) 0.14 H Neut # (Auto) 8.29 H Lymph # (Auto) 4.54 H [place] # (Auto) 1.16 H Eos # (Auto) 0.19 Baso # (Auto) 0.07 Polychromasia 1+ Hypochromasia Present Echinocytes 1+ Sodium Potassium Chloride Carbon Dioxide Anion Gap BUN Creatinine Est Cr Clr Drug Dosing Est GFR ( Amer) Est GFR (Non-Af Amer) BUN/Creatinine Ratio Glucose Calcium Magnesium Troponin I Blood Type A Positive Antibody Screen NEGATIVE Crossmatch See Detail 05/12/19 05/12/19 05/12/19 05:57 05:57 13:00 WBC 11.79 H RBC 2.84 L Hgb 8.4 L Hct 27.4 L MCV 96.5 MCH 29.6 MCHC 30.7 L RDW Std Deviation 76.6 H RDW Coeff of Rhys 21.7 H Plt Count 136 MPV 10.3 Immature Gran % (Auto) Neut % (Auto) Lymph % (Auto) [place] % (Auto) Eos % (Auto) Baso % (Auto) Immature Gran # (Auto) Neut # (Auto) Lymph # (Auto) [place] # (Auto) Eos # (Auto) Baso # (Auto) Polychromasia Hypochromasia Echinocytes Sodium 142 Potassium 5.0 Chloride 106 Carbon Dioxide 27 Anion Gap 9.0 BUN 52 H Creatinine 1.75 H Est Cr Clr Drug Dosing 13.6 Est GFR ( Amer) 29.8 Est GFR (Non-Af Amer) 25.7 BUN/Creatinine Ratio 29.9 H Glucose 147 H Calcium 8.5 Magnesium 2.4 Troponin I 0.031 Blood Type Antibody Screen Crossmatch Diagnostic Findings Echo 05/10/2019: Normal LV systolic function. EF 60-65%. Moderate LVH. Mild left atrial dilation. RVSP 40-50. No significant change reported from prior study March 2019. ECGs personally reviewed. ECG 05/09/2019: Sinus rhythm [address]/T-wave abnormality. ECG 05/12/2019: AFib with RVR at 159 bpm. Septal infarct. Inferolateral ST depression and T-wave abnormality. ST depression more pronounced compared to 05/09/2019 ECG. Telemetry personally reviewed: Telemetry: Atrial fibrillation with RVR from 03/28 3:00 a.m. to 6:43 a.m.. Brief episode of nonsustained atrial tachycardia at 8:29 a.m.. Otherwise, sinus rhythm. Medications Administered Current Inpatient Medications Acetaminophen (Tylenol) 650 mg PO Q6H PRN PRN Reason: mild pain 1-4 Stop: 06/09/19 03:35 Last Admin: 05/10/19 07:32 Dose: 650 mg Documented by: [facility]) [facility] Stop: 06/09/19 08:59 Last Admin: 05/12/19 09:59 Dose: 500 mg Documented by: Albuterol (Duoneb) 3 ml NEB QIDR [facility] Stop: 06/09/19 07:59 Last Admin: 05/12/19 15:39 Dose: 3 ml Documented by: Aspirin (Ecotrin Ectab) 81 mg PO [facility] Stop: 06/09/19 08:59 Last Admin: 05/11/19 10:26 Dose: 81 mg Documented by: Atorvastatin Calcium (Lipitor) 20 mg PO [facility] Stop: 06/09/19 08:59 Last Admin: 05/12/19 09:55 Dose: 20 mg Documented by: Azithromycin (Zithromax) 500 mg PO [facility] Stop: 05/17/19 08:59 Last Admin: 05/12/19 09:58 Dose: 500 mg Documented by: Benazepril HCl (Lotensin) 5 mg PO DAILY [facility] Stop: 06/09/19 08:59 Last Admin: 05/12/19 09:58 Dose: 5 mg Documented by: Bisacodyl (Dulcolax) 10 mg PA UD PRN PRN Reason: Constipation Stop: 06/09/19 03:35 Calcitriol (Rocaltrol) 0.25 mcg PO TuThSa@0900 [facility] Stop: 06/09/19 08:59 Last Admin: 05/12/19 09:58 Dose: 0.25 mcg Documented by: Clopidogrel Bisulfate (Plavix) 75 mg PO [facility] Stop: 06/09/19 08:59 Last Admin: 05/11/19 10:24 Dose: 75 mg Documented by: Ferrous Sulfate (Feosol) 325 mg PO [facility] Stop: 06/09/19 08:59 Last Admin: 05/12/19 09:58 Dose: 325 mg Documented by: Sodium Chloride (Nss) 250 mls @ 15 mls/hr IV .[id number] PRN PRN Reason: For Transfusion Stop: 06/10/19 18:03 Ceftriaxone Sodium 1,000 mg/ (Dextrose) 50 mls @ 100 mls/hr IV Q24H [facility]; Protocol Stop: 05/17/19 05:59 Last Infusion: 05/12/19 09:46 Dose: Infused Documented by: Levalbuterol HCl (Xopenex 1.25mg/3ml Neb) 1.25 mg INH Q4H PRN PRN Reason: Shortness Of Breath Or Wheezing Stop: 06/09/19 03:35 [facility]ine [facility]) [facility] Stop: 06/09/19 06:29 Last Admin: 05/12/19 06:10 Dose: Not Given Documented by: Metoprolol Succinate (Toprol Xl) [facility] Stop: 06/09/19 08:59 Last Admin: 05/12/19 09:56 Dose: 50 mg Documented by: Metoprolol Succinate (Toprol Xl) 25 mg PO [facility] Stop: 06/09/19 20:59 Last Admin: 05/11/19 20:51 Dose: Not Given Documented by: Mirtazapine (Remeron) 30 mg PO [facility] Stop: 06/09/19 20:59 Last Admin: 05/11/19 21:00 Dose: 30 mg Documented by: Miscellaneous (Order Awaiting Action) 1 ea N/A QS [facility] Stop: 06/09/19 07:59 Last Admin: 05/12/19 05:00 Dose: Not Given Documented by: Multivitamins/Minerals (Multivitamin W/ Minerals Tab) 1 tab PO [facility] Stop: 06/09/19 08:59 Last Admin: 05/12/19 09:58 Dose: 1 tab Documented by: Oxycodone HCl (Roxicodone Immediate Rel) 5 mg PO Q6 PRN PRN Reason: MODERATE/SEVERE PAIN 5-10 Stop: 05/24/19 03:35 Last Admin: 05/11/19 13:08 Dose: 5 mg Documented by: Prednisone (Prednisone) [facility] Stop: 06/09/19 08:59 Last Admin: 05/12/19 09:57 Dose: 2 mg Documented by: Prednisone (Prednisone) 1 mg PO PM [facility] Stop: 06/09/19 20:59 Last Admin: 05/11/19 20:59 Dose: 1 mg Documented by: Ropinirole HCl (Requip) 0.5 mg PO [facility] Stop: 06/09/19 20:59 Last Admin: 05/11/19 20:59 Dose: 0.5 mg Documented by: Sodium Biphosphate/Sodium Phosphate (Fleet Enema) 118 ml PA DAILY PRN PRN Reason: NO BM IN 4 DAYS Stop: 06/10/19 09:51 Tiotropium [place] (Spiriva) 2 puffs INH DAILY [facility] Stop: 06/09/19 08:59 Last Admin: 05/12/19 09:57 Dose: 2 puffs Documented by:
[2019-05-12 19:25] LABS: Appearance Urine Clear (Clear); Bacteria Urine Automated Negative (Negative); Bilirubin Urine Negative (Negative); Blood Urine 2+ (Negative); Color Urine Yellow; Glucose Urine UA Negative (Negative); Ketones Urine Negative (Negative); Leukocyte Esterase Urine 2+ (Negative); Nitrite Urine Negative (Negative); Protein Urine Negative (Negative); Specific Gravity Urine 1.019 (1.000-1.030); Urobilinogen Urine Negative (Negative)
[2019-05-12] MEDS: ROPINIROLE HCL 0.25 MG TABLET PO SCH (19:58)
[2019-05-12] MEDS: MIRTAZAPINE TAB 15 MG TAB PO SCH (19:59)
[2019-05-12] MEDS: METOPROLOL SUCC 25MG EXT REL TAB PO SCH (20:00)
[2019-05-13] MEDS ORDERED: LORazepam 0.25 MG/0.5 ML VIAL IV STA (01:05)
[2019-05-13] MEDS: cefTRIAXone SODIUM 1,000 MG in DEXTROSE 5% 50 ML IV SCH (05:58)
[2019-05-13] MEDS: LEVOTHYROXINE SODIUM 50 MCG TABLET PO SCH (05:58)
[2019-05-13 06:44] LABS: Basophils # (auto) 0.06 K/uL (0-0.2); Basophils % (auto) 0.4 %; Eosinophils # (auto) 0.28 K/uL (0-0.5); Hematocrit (blood only) 26.6 % (37-47); Hemoglobin 8.4 g/dL (12.0-16.0); Immature Granulocytes % (auto) 0.7 %; Lymphocytes # (auto) 2.01 K/uL (1.2-3.4); Lymphocytes % (auto) 14.4 %; Mean Corpuscular Hgb Conc 31.6 g/dL (32-36); Monocytes % (auto) 9.3 %; Neutrophils # (auto) 10.19 K/uL (1.4-6.5); Neutrophils % (auto) 73.2 %; Platelet Count 151 K/uL (130-400); RDW Coefficient of Variation 21.2 % (11.5-14.5); RDW Standard Deviation 75.5 fL (36.4-46.3); Red Blood Count 2.77 M/uL (4.2-5.4); White Blood Count 13.94 K/uL (4.8-10.8)
[2019-05-13 07:13] LABS: Anisocytosis Present
[2019-05-13 07:17] LABS: BUN Creatinine Ratio 27.3 (10-20); Calcium 9.2 mg/dl (8.5-10.1); Creatinine Clr Calc Pharmacy 13.8 ml/min; Est GFR (African American) 31.8; Est GFR (Non-African American) 27.4; Potassium 5.3 mmol/L (3.5-5.1)
[2019-05-13] MEDS: ALBUT/IPRATROP 3MG/0.5MG NEB 3 ML VIAL NEB SCH (07:20)
[2019-05-13] MEDS: predniSONE 1 MG TAB PO SCH ×2 (08:44→20:53)
[2019-05-13] MEDS: ACETAMINOPHEN 500 MG TAB PO SCH (08:44)
[2019-05-13] MEDS: FERROUS SULFATE 325 MG TAB PO SCH (08:44)
[2019-05-13] MEDS: ATORVASTATIN 20 MG TAB PO SCH (08:44)
[2019-05-13] MEDS: CEROVITE ADV FORMULA TAB PO SCH (08:44)
--- NOTE | 2019-05-13 09:07 | Cardiology Progress Note ---
Date of Service May 13, 2019 Assessment & Plan (1) Paroxysmal atrial fibrillation with RVR: She appears to have brief episodes of atrial fibrillation, this is identified on electrocardiography and also on telemetry during her prolonged episode of SVT. It appears however that her rhythm is regular preceding it and I think she goes into atrial fibrillation after having SVT, the episodes are relatively brief and I would treat the SVT, monitor for the atrial fibrillation and not anticoagulate. (2) SVT (supraventricular tachycardia): She seems to have some type of SVT which is regular (in addition to her brief PAT). I suspect she induces a reentrant SVT of some type from her PAT. I would treat her PAT and see if that controls her SVT. She is on beta-blockade, she does have hypotension. I would consider switching to diltiazem ([facility] she will not take oral medications, we could consider IV although she is not having a lot of difficulty with SVT at the moment). We could also consider amiodarone, that might be the best option over the long run, depending how she does this hospitalization. (3) Syncope: She has had multiple episodes of syncope in the cause is not clear. It is possibly multifactorial such as baseline intermittent hypotension with the addition of an arrhythmia. I would treat the SVT as noted above, if that is successful and she still has sudden syncopal events we should plan loop recorder implantation. So far on telemetry she has had no bradycardia to suggest a need for a pacemaker which would be the main differential. Subjective This morning she is minimally interactive, she will awake and talk but does not make any sense does not respond appropriately to questions. She seems to be comfortable but is wearing an oxygen mask. Physical Exam Physical Exam: General: She is minimally responsive but does respond, does not communicate well. Cardiac: Regular rate, grade 2/6 crescendo decrescendo murmur at the base. No gallop or rub. Lungs: Decreased breath sounds, no rales or wheezing Extremities: No edema. Multiple ecchymoses. Results & Data Vital Signs (Past 12 Hours) Vital Signs Temp Pulse Pulse Resp BP Pulse Ox 05/13/19 07:40 37.0 C 85 20 148/77 H 98 05/13/19 07:20 74 22 100 05/13/19 03:47 36.7 C 75 18 94/65 L 93 05/13/19 00:50 84 20 97 05/13/19 00:22 36.3 C L 97 H 18 116/55 L 97 Diagnostic Findings Telemetry: She continues to have brief episodes of some type of supraventricular arrhythmia, it is highly suggestive of PAT although the prolonged episode on the morning May 12, 2019 is suggestive of a different mechanism. She may have SVT initiated by PAT, possibly degenerating to atrial fibrillation prior to termination.
--- NOTE | 2019-05-13 09:35 | Surgery Progress Note ---
Date of Service May 13, 2019 Assessment & Plan (1) Hematoma of right lower extremity: S/p superficial debridement of RLE hematoma with skin necrosis - hemoglobin stable at 8.4 - dressing dry, not removed, wound care scheduled to see patient today - multiple wounds of the lower extremities with very frail skin s/p code purple with a-fib and RVR Decline in status from yesterday, now a DNR/DNI discussed with son Plan: Wound care per wound nurse, superficial debridement of RLE will not require packing If patient not taking much orally would recommend IV fluids continue medical management our services signing off, please call with questions or concerns Dr. Romero has seen and examined pt, agrees with above. Subjective patient sleeping on encounter, when awakened she seems confused and talks but unable to understand. She said she had no pain when asked. She is minimally interactive and goes in and out of sleeping. She is wearing an oxygen mask. Per nursing staff she has declined since yesterday, does not interact much and will not take anything orally. She was NPO for possible loop recorder but procedure cancelled. Son called and patient now DNR/DNI. Physical Exam Constitutional: + ill appearing, + thin and + cachectic; no acute distress elderly, thin Musculoskeletal: RLE with eladio wrap present, not removed today. Multiple areas of ecchymosis on the bilateral lower extremities and upper extremities. Frail thin extremities. LLE with open wound with clear dressing present. Psychiatric: Orientation: + not oriented x 3 Results & Data Vital Signs (Past 12 Hours) Vital Signs Temp Pulse Pulse Resp BP Pulse Ox 05/13/19 07:40 37.0 C 85 20 148/77 H 98 05/13/19 07:20 74 22 100 05/13/19 03:47 36.7 C 75 18 94/65 L 93 05/13/19 00:50 84 20 97 05/13/19 00:22 36.3 C L 97 H 18 116/55 L 97 Laboratory Results 05/13/19 05/13/19 05/12/19 Range/Units 06:29 06:29 19:04 WBC 13.94 H (4.8-10.8) K/uL RBC 2.77 L (4.2-5.4) M/uL Hgb 8.4 L (12.0-16.0) g/dL Hct 26.6 L (37-47) % MCV 96.0 (80-100) fL MCH 30.3 (25-34) pg MCHC 31.6 L (32-36) g/dL RDW Std Deviation 75.5 H (36.4-46.3) fL RDW Coeff of Rhys 21.2 H (11.5-14.5) % Plt Count 151 (130-400) K/uL MPV 11.0 H (7.4-10.4) fL Immature Gran % (Auto) 0.7 % Neut % (Auto) 73.2 % Lymph % (Auto) 14.4 % [place] % (Auto) 9.3 % Eos % (Auto) 2.0 % Baso % (Auto) 0.4 % Immature Gran # (Auto) 0.10 H (0.00-0.02) K/uL Neut # (Auto) 10.19 H (1.4-6.5) K/uL Lymph # (Auto) 2.01 (1.2-3.4) K/uL [place] # (Auto) 1.30 H (0.11-0.59) K/uL Eos # (Auto) 0.28 (0-0.5) K/uL Baso # (Auto) 0.06 (0-0.2) K/uL Anisocytosis Present Sodium 141 (136-145) mmol/L Potassium 5.3 H (3.5-5.1) mmol/L Chloride 106 (98-107) mmol/L Carbon Dioxide 30 (21-32) mmol/L Anion Gap 5.0 (3-11) BUN 45 H (7-18) mg/dl Creatinine 1.66 H (0.6-1.2) mg/dl Est Cr Clr Drug Dosing 13.8 ml/min Est GFR ( Amer) 31.8 Est GFR (Non-Af Amer) 27.4 BUN/Creatinine Ratio 27.3 H (10-20) Glucose 129 H (70-99) mg/dl Calcium 9.2 (8.5-10.1) mg/dl Urine Color Yellow Urine Appearance Clear (Clear) Urine pH 7.0 (4.5-7.5) Ur Specific [place] 1.019 (1.000-1.030) Urine Protein Negative (Negative) Urine Glucose (UA) Negative (Negative) Urine Ketones Negative (Negative) Urine Blood 2+ H (Negative) Urine Nitrite Negative (Negative) Urine Bilirubin Negative (Negative) Urine Urobilinogen Negative (Negative) Ur Leukocyte Esterase 2+ H (Negative) Urine WBC (Auto) 5-10 H (0-5) /hpf Urine RBC (Auto) 10-30 H (0-4) /hpf U Hyaline Cast (Auto) 1-5 (0-5) /lpf U Epithel Cells (Auto) 10-20 H (0-5) /lpf Urine Bacteria (Auto) Negative (Negative) Blood Type Antibody Screen Crossmatch 05/12/19 05/11/19 Range/Units 13:00 18:40 WBC 11.79 H (4.8-10.8) K/uL RBC 2.84 L (4.2-5.4) M/uL Hgb 8.4 L (12.0-16.0) g/dL Hct 27.4 L (37-47) % MCV 96.5 (80-100) fL MCH 29.6 (25-34) pg MCHC 30.7 L (32-36) g/dL RDW Std Deviation 76.6 H (36.4-46.3) fL RDW Coeff of Rhys 21.7 H (11.5-14.5) % Plt Count 136 (130-400) K/uL MPV 10.3 (7.4-10.4) fL Immature Gran % (Auto) % Neut % (Auto) % Lymph % (Auto) % [place] % (Auto) % Eos % (Auto) % Baso % (Auto) % Immature Gran # (Auto) (0.00-0.02) K/uL Neut # (Auto) (1.4-6.5) K/uL Lymph # (Auto) (1.2-3.4) K/uL [place] # (Auto) (0.11-0.59) K/uL Eos # (Auto) (0-0.5) K/uL Baso # (Auto) (0-0.2) K/uL Anisocytosis Sodium (136-145) mmol/L Potassium (3.5-5.1) mmol/L Chloride (98-107) mmol/L Carbon Dioxide (21-32) mmol/L Anion Gap (3-11) BUN (7-18) mg/dl Creatinine (0.6-1.2) mg/dl Est Cr Clr Drug Dosing ml/min Est GFR ( Amer) Est GFR (Non-Af Amer) BUN/Creatinine Ratio (10-20) Glucose (70-99) mg/dl Calcium (8.5-10.1) mg/dl Urine Color Urine Appearance (Clear) Urine pH (4.5-7.5) Ur Specific [place] (1.000-1.030) Urine Protein (Negative) Urine Glucose (UA) (Negative) Urine Ketones (Negative) Urine Blood (Negative) Urine Nitrite (Negative) Urine Bilirubin (Negative) Urine Urobilinogen (Negative) Ur Leukocyte Esterase (Negative) Urine WBC (Auto) (0-5) /hpf Urine RBC (Auto) (0-4) /hpf U Hyaline Cast (Auto) (0-5) /lpf U Epithel Cells (Auto) (0-5) /lpf Urine Bacteria (Auto) (Negative) Blood Type A Positive Antibody Screen NEGATIVE Crossmatch See Detail
[2019-05-13] MEDS ORDERED: ALBUT/IPRATROP 3MG/0.5MG NEB 3 ML VIAL NEB PRN (09:51)
[2019-05-13] MEDS ORDERED: SODIUM CHLORIDE 0.45 % 250 ML IV SCH (10:15)
[2019-05-13] MEDS: AZITHROMYCIN 250 MG TAB PO SCH (10:25)
--- NOTE | 2019-05-13 10:27 | Family Medicine Progress Note ---
Date of Service May 13, 2019 Assessment & Plan (1) SVT (supraventricular tachycardia): Addie Is a 88-year-old female with a past medical history of COPD, CKD, CVA, hypertension, peripheral artery disease, and dementia who presented to the emergency room from [facility] for shortness of breath and increased oxygen requirement. She was noted to have a large right lower leg hematoma requiring I&D. SVT - History of 'atrial arrhythmia', no collateral available for confirmation. History of falls suspicious for home episodes of PAT/SVT/A. fib - Transferred to telemetry following an episode of SVT with hypotension in the setting of postop wound drainage -One 3-minute run of SVT this morning which broke spontaneously, short episode of tachycardia during exam this morning. 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 Recommended considering switching to diltiazem from metoprolol with amiodarone as a long- term option. Loop recorder implantation recommended if she continues to have syncopal events, deferred at this time due to clinical condition and pending goals of care discussion. Monitor for atrial fibrillation, do not recommend anticoagulation. Acute on chronic hypoxic respiratory failure 2/2 CAP versus CHF exacerbation History of COPD with 2 L home oxygen requirement, weaned to 3L -Follow closely for volume overload. Lungs clear this morning with no signs of pulmonary edema. CAP/Severe COPD Chest x-ray showed evidence of left lower lobe consolidation suspicious for pneumonia. Continue azithromycin 250 mg daily x2 more days (5 days total) and Rocephin 1 g daily pending oral conversion. Continue prednisone 1 mg every afternoon, 2 mg every morning [employer] regimen Continue tiotropium, albuterol inhalers Acute on chronic Diastolic CHF BNP elevated to 20 K on admit Mild troponin leak on admission now normalized. No troponin leak after SVT episode. Echocardiogram shows grade 2 diastolic dysfunction with normal LVEF and increased right ventricular pressure Furosemide 20 mg p.o. daily held Continue metoprolol 50 mg every morning, 25 mg nightly Held Benzapril 5 mg p.o. daily in sitting of ALLEN ALLEN, baseline Cr ~1.1 - Cr elevated to 1.66, downtrending from 1.75 - Suspect prerenal, elevated Cr/BUN ratio and decrased urine output - Jena IVF, 50cc/hr HNS 250cc at a time with reassessment for pulmonary edema given her dCHF if additional fluids needed Right lower extremity hematoma s/p I&D with surgery - Pressure dressing in place - Type and screen ordered, blood consent on file, 1u on hold if needed - transfuse is Hgb <7 - Pain improved Hypothyroidism Continue levothyroxine 50 mcg p.o. daily Code Status: DNR/DNI (2) Paroxysmal atrial fibrillation with RVR: (3) Elevated troponin: (4) Hematoma of right lower extremity: (5) History of CVA (cerebrovascular accident): (6) Syncope: Supervising Physician Co-Signing Physician Notes Resident Physician Supervision Note: I independently interviewed and examined the patient and verified the coronado history and physical, reviewed labs and image studies, discussed the case with the resident Dr. Ozuna and agree with the findings and care plan. Subjective History limited by mental status today. Addie appears somnolent and uncomfortable. She endorses abdominal pain today. She has had intermittent palpitations with discomfort this morning. No shortness of breath, but endorses low abdominal pain near her catheter site. Clear yellow output in Damon bag. Per review with telemetry she has had one self-limited 3-minute episode of SVT, and a repeat episode self-limited during exam. Her case was discussed with her son Mau via telephone. CODE STATUS was discussed in detail. He reports that he has had this discussion with his mother before, and recognizes with her age and frailty CPR is likely to be highly traumatic. Expresses that he discuss this with his mother before, and that both he and his mother would not want chest compressions/CPR performed in the event that her heart were to stop. Both he and his mother would not want intubation, either as a temporary or life-sustaining measure. CODE STATUS updated to level 5 DNR/DNI. Family will be in to discuss goals of care later today. Review of Systems Review of Systems: Unobtainable due to cognitive status Physical Exam Physical Exam: General: Laying in bed, somnolent, uncomfortable. Responds to name gives limited yes no answers to questions HEENT: Hematoma present on left lateral maxilla, normocephalic. Pulm: Moderate air movement, CTAB without rales. Symmetrical chest rise. No increase work of breathing. No respiratory distress. On 3 L nasal cannula O2. Cardiac: Brief period of tachycardia during exam, on reexam RRR, -mrg. Radial pulses intact and symmetrical. Abdominal: Endorses discomfort mildly worsened on palpation in the suprapubic region. Otherwise nontender, nondistended, soft. BS present. Extremity: Right lower leg with compression dressing in place. Dressing C/D/I. Results & Data Vital Signs (Past 12 Hours) Vital Signs Temp Pulse Pulse Resp BP Pulse Ox 05/13/19 07:40 37.0 C 85 20 148/77 H 98 05/13/19 07:20 74 22 100 05/13/19 03:47 36.7 C 75 18 94/65 L 93 05/13/19 00:50 84 20 97 05/13/19 00:22 36.3 C L 97 H 18 116/55 L 97 PG Care Time/CCT Total # of Minutes Spent Total Time Spent with Patient: Total time spent is greater than 50% in coordination of care (as documented) at patient's floor/unit and/or counseling patient: Resident Activity Tracking Resident Involvement: Resident Care Provided Care Provided: Adult Hospital Medicine
[2019-05-13] MEDS: AZITHROMYCIN 250 MG in DEXTROSE 5% 250 ML IV SCH (11:02)
[2019-05-13] MEDS: METOPROLOL TARTRATE 1 MG/ML VIAL IV SCH ×2 (11:03→18:27)
[2019-05-13] MEDS: TIOTROPIUM BROMIDE 5 PUFF/90 MCG INH INH SCH (11:04)
[2019-05-13] MEDS: ROPINIROLE HCL 0.25 MG TABLET PO SCH (20:53)
[2019-05-13] MEDS: MIRTAZAPINE TAB 15 MG TAB PO SCH (20:53)
[2019-05-14] MEDS: METOPROLOL TARTRATE 1 MG/ML VIAL IV SCH ×3 (05:14→11:52)
[2019-05-14] MEDS: cefTRIAXone SODIUM 1,000 MG in DEXTROSE 5% 50 ML IV SCH (05:14)
[2019-05-14] MEDS: LEVOTHYROXINE SODIUM 50 MCG TABLET PO SCH (05:15)
[2019-05-14 06:19] LABS: Basophils # (auto) 0.06 K/uL (0-0.2); Basophils % (auto) 0.7 %; Eosinophils # (auto) 0.43 K/uL (0-0.5); Eosinophils % (auto) 4.9 %; Hematocrit (blood only) 30.3 % (37-47); Hemoglobin 9.7 g/dL (12.0-16.0); Immature Granulocytes % (auto) 1.1 %; Lymphocytes # (auto) 1.34 K/uL (1.2-3.4); Lymphocytes % (auto) 15.2 %; Mean Platelet Volume 10.5 fL (7.4-10.4); Monocytes # (auto) 0.76 K/uL (0.11-0.59); Monocytes % (auto) 8.6 %; Neutrophils # (auto) 6.14 K/uL (1.4-6.5); Neutrophils % (auto) 69.5 %; Platelet Count 157 K/uL (130-400); RDW Coefficient of Variation 20.8 % (11.5-14.5); RDW Standard Deviation 71.7 fL (36.4-46.3); Red Blood Count 3.19 M/uL (4.2-5.4); White Blood Count 8.83 K/uL (4.8-10.8)
[2019-05-14 06:45] LABS: BUN Creatinine Ratio 26.3 (10-20); Calcium 9.1 mg/dl (8.5-10.1); Creatinine Clr Calc Pharmacy 16.1 ml/min; Est GFR (African American) 38.4; Est GFR (Non-African American) 33.1; Potassium 4.9 mmol/L (3.5-5.1)
[2019-05-14 06:51] LABS: Anisocytosis Present
[2019-05-14] MEDS: AZITHROMYCIN 250 MG in DEXTROSE 5% 250 ML IV SCH (09:21)
--- NOTE | 2019-05-14 09:27 | Family Medicine Progress Note ---
Date of Service May 14, 2019 Assessment & Plan (1) SVT (supraventricular tachycardia): Addie Is a 88-year-old female with a past medical history of COPD, CKD, CVA, hypertension, peripheral artery disease, and dementia who presented to the emergency room from [facility] for shortness of breath and increased oxygen requirement. She was noted to have a large right lower leg hematoma requiring I&D. SVT - History of 'atrial arrhythmia. History of falls suspicious for home episodes of PAT/SVT/A. fib. 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 metoprolol switched to diltiazem. plan to switch amiodarone as a long-term option. Loop recorder implantation recommended if she continues to have syncopal events, deferred at this time due to clinical condition and pending goals of care discussion. Monitor for atrial fibrillation, do not recommend anticoagulation. Acute on chronic hypoxic respiratory failure 2/2 CAP versus CHF exacerbation History of COPD with 2 L home oxygen requirement, weaned to 3L was on 2 L earlier today now requiring 4 CAP/Severe COPD Chest x-ray showed evidence of left lower lobe consolidation suspicious for pneumonia. Completed 5-day course of Zithromax -Transitioned Rocephin to oral cefuroxime 500 mg twice daily Continue prednisone 1 mg every afternoon, 2 mg every morning [employer] regimen Continue tiotropium, albuterol inhalers Acute on chronic Diastolic CHF BNP elevated to 20 K on admit Mild troponin leak on admission now normalized. Echo - 2 diastolic dysfunction with normal LVEF and increased right ventricular pressure Furosemide 20 mg p.o. daily held Discontinued metoprolol, started on Cardizem 30 mg 3 times daily Held Benzapril 5 mg p.o. daily in sitting of ALLEN ALLEN, baseline Cr ~1.1 - Cr elevated to 1.42, downtrending from 1.75 - Suspect prerenal, elevated Cr/BUN ratio and decreased urine output - Patient had decreased urine output today transitioned from normal saline to lactated Ringer's at 50 cc, serial exams for signs and symptoms of pulmonary edema Right lower extremity hematoma s/p I&D with surgery - Pressure dressing in place - Type and screen ordered, blood consent on file, 1u on hold if needed - transfuse is Hgb <7 - Pain improved Hypothyroidism Continue levothyroxine 50 mcg p.o. daily Code Status: DNR/DNI Dispo: Transfer to [facility] Regular Diet DVT ppx: contra/ambulation (2) Paroxysmal atrial fibrillation with RVR: (3) Elevated troponin: (4) Hematoma of right lower extremity: (5) History of CVA (cerebrovascular accident): (6) Syncope: Supervising Physician Co-Signing Physician Notes Resident Physician Supervision Note: I independently interviewed and examined the patient and verified the coronado history and physical, reviewed labs and image studies, discussed the case with the resident Dr. Urban and agree with the findings and care plan. Subjective Patient doing well this morning in no acute distress sitting up in bed when I arrived. Patient reports no significant interval history and per her son has had significant improvement in mentation. Patient is tolerating her diet, voiding although a bit decreased urine output, had a bowel movement earlier today, sleeping well. Patient reports symptoms are improving, no acute concerns are present, all questions answered. Physical Exam Physical Exam: General: Thin, cachectic looking woman in no acute distress HEENT: Normal cephalic atraumatic Neck: Normal to visual inspection Cardiac: Regular rate and rhythm no murmurs rubs or gallops normal S1 normal S2 no significant pedal edema negative calf tenderness good capillary refill Respiratory: Clear to auscultation bilaterally GI: Normal bowel sounds MSK: Moves extremities Skin: No new rashes diffuse ecchymosis, bilateral lower extremity venous stasis Neuro: Alert and oriented Psych: Calm, cooperative Results & Data Vital Signs (Past 12 Hours) Vital Signs Temp Pulse Pulse Resp BP BP Pulse Ox 05/14/19 07:01 37.6 C H 63 16 147/62 H 99 05/14/19 03:49 36.5 C 65 16 172/63 H 100 05/14/19 00:00 64 05/13/19 23:45 36.4 C L 60 16 159/74 H 100 Laboratory Results 05/14/19 05/14/19 Range/Units 05:38 05:38 WBC 8.83 (4.8-10.8) K/uL RBC 3.19 L (4.2-5.4) M/uL Hgb 9.7 L (12.0-16.0) g/dL Hct 30.3 L (37-47) % MCV 95.0 (80-100) fL MCH 30.4 (25-34) pg MCHC 32.0 (32-36) g/dL RDW Std Deviation 71.7 H (36.4-46.3) fL RDW Coeff of Rhys 20.8 H (11.5-14.5) % Plt Count 157 (130-400) K/uL MPV 10.5 H (7.4-10.4) fL Immature Gran % (Auto) 1.1 % Neut % (Auto) 69.5 % Lymph % (Auto) 15.2 % [place] % (Auto) 8.6 % Eos % (Auto) 4.9 % Baso % (Auto) 0.7 % Immature Gran # (Auto) 0.10 H (0.00-0.02) K/uL Neut # (Auto) 6.14 (1.4-6.5) K/uL Lymph # (Auto) 1.34 (1.2-3.4) K/uL [place] # (Auto) 0.76 H (0.11-0.59) K/uL Eos # (Auto) 0.43 (0-0.5) K/uL Baso # (Auto) 0.06 (0-0.2) K/uL Anisocytosis Present Sodium 142 (136-145) mmol/L Potassium 4.9 (3.5-5.1) mmol/L Chloride 107 (98-107) mmol/L Carbon Dioxide 28 (21-32) mmol/L Anion Gap 8.0 (3-11) BUN 37 H (7-18) mg/dl Creatinine 1.42 H (0.6-1.2) mg/dl Est Cr Clr Drug Dosing 16.1 ml/min Est GFR ( Amer) 38.4 Est GFR (Non-Af Amer) 33.1 BUN/Creatinine Ratio 26.3 H (10-20) Glucose 72 (70-99) mg/dl Calcium 9.1 (8.5-10.1) mg/dl Medications Administered Current Inpatient Medications Acetaminophen (Tylenol) 650 mg PO Q6H PRN PRN Reason: mild pain 1-4 Stop: 06/09/19 03:35 Last Admin: 05/10/19 07:32 Dose: 650 mg Documented by: Acetaminophen (Tylenol) 500 mg PO [facility] Stop: 06/09/19 08:59 Last Admin: 05/13/19 08:44 Dose: Not Given Documented by: Albuterol (Duoneb) 3 ml NEB QID PRN PRN Reason: Wheezing Stop: 06/12/19 09:50 Aspirin (Ecotrin Ectab) [facility] Stop: 06/09/19 08:59 Last Admin: 05/11/19 10:26 Dose: 81 mg Documented by: Atorvastatin Calcium (Lipitor) 20 mg PO QAM [facility] Stop: 06/09/19 08:59 Last Admin: 05/13/19 08:44 Dose: Not Given Documented by: Bisacodyl (Dulcolax) 10 mg DC UD PRN PRN Reason: Constipation Stop: 06/09/19 03:35 Calcitriol (Rocaltrol) 0.25 mcg PO TuThSa@0900 [facility] Stop: 06/09/19 08:59 Last Admin: 05/12/19 09:58 Dose: 0.25 mcg Documented by: Clopidogrel Bisulfate (Plavix) 75 [facility] Stop: 06/09/19 08:59 Last Admin: 05/11/19 10:24 Dose: 75 mg Documented by: Ferrous Sulfate (Feosol) 325 mg [facility] Stop: 06/09/19 08:59 Last Admin: 05/13/19 08:44 Dose: Not Given Documented by: Sodium Chloride (Nss) 250 mls @ 15 mls/hr IV .[id number] PRN PRN Reason: For Transfusion Stop: 06/10/19 18:03 Azithromycin 250 mg/ Dextrose 252.5 mls @ 125 mls/hr IV DAILY [facility] Stop: 05/14/19 11:02 Last Infusion: 05/13/19 13:04 Dose: Infused Documented by: Ceftriaxone Sodium 1,000 mg/ (Dextrose) 50 mls @ 100 mls/hr IV Q24H [facility]; Protocol Stop: 05/17/19 05:59 Last Admin: 05/14/19 05:14 Dose: 100 mls/hr Documented by: Levalbuterol HCl (Xopenex 1.25mg/3ml Neb) 1.25 mg INH Q4H PRN PRN Reason: Shortness Of Breath Or Wheezing Stop: 06/09/19 03:35 Last Admin: 05/13/19 00:48 Dose: 1.25 mg Documented by: Levothyroxine Sodium (Synthroid) 50 mcg PO DAILYBB [facility] Stop: 06/09/19 06:29 Last Admin: 05/14/19 05:15 Dose: 50 mcg Documented by: Metoprolol Tartrate (Lopressor) 5 mg IV Q6 [facility] Stop: 06/12/19 11:59 Last Admin: 05/14/19 05:14 Dose: 5 mg Documented by: Mirtazapine (Remeron) 30 mg PO [facility] Stop: 06/09/19 20:59 Last Admin: 05/13/19 20:53 Dose: Not Given Documented by: Miscellaneous (Order Awaiting Action) 1 ea N/A QS [facility] Stop: 06/09/19 07:59 Last Admin: 05/14/19 00:00 Dose: Not Given Documented by: Multivitamins/Minerals (Multivitamin W/ Minerals Tab) 1 tab [facility] Stop: 06/09/19 08:59 Last Admin: 05/13/19 08:44 Dose: Not Given Documented by: Oxycodone HCl (Roxicodone Immediate Rel) 5 mg PO Q6 PRN PRN Reason: MODERATE/SEVERE PAIN 5-10 Stop: 05/24/19 03:35 Last Admin: 05/11/19 13:08 Dose: 5 mg Documented by: Prednisone (Prednisone) 2 [facility] Stop: 06/09/19 08:59 Last Admin: 05/13/19 08:44 Dose: Not Given Documented by: Prednisone (Prednisone) 1 mg PO PM [facility] Stop: 06/09/19 20:59 Last Admin: 05/13/19 20:53 Dose: Not Given Documented by: Ropinirole HCl (Requip) 0.5 mg PO [facility] Stop: 06/09/19 20:59 Last Admin: 05/13/19 20:53 Dose: Not Given Documented by: Sodium Biphosphate/Sodium Phosphate (Fleet Enema) 118 ml DC DAILY PRN PRN Reason: NO BM IN 4 DAYS Stop: 06/10/19 09:51 Tiotropium [place] (Spiriva) 2 puffs INH DAILY [facility] Stop: 06/09/19 08:59 Last Admin: 05/13/19 11:04 Dose: 2 puffs Documented by: PG Care Time/CCT Total # of Minutes Spent Total Time Spent with Patient: Total time spent is greater than 50% in coordination of care (as documented) at patient's floor/unit and/or counseling patient: Resident Activity Tracking Resident Involvement: Resident Care Provided Care Provided: Adult [facility] Medicine
[2019-05-14] MEDS: FERROUS SULFATE 325 MG TAB PO SCH (09:28)
[2019-05-14] MEDS: ATORVASTATIN 20 MG TAB PO SCH (09:28)
[2019-05-14] MEDS: predniSONE 1 MG TAB PO SCH ×2 (09:29→21:28)
[2019-05-14] MEDS: CEROVITE ADV FORMULA TAB PO SCH (09:29)
[2019-05-14] MEDS: TIOTROPIUM BROMIDE 5 PUFF/90 MCG INH INH SCH (09:29)
[2019-05-14] MEDS: ACETAMINOPHEN 500 MG TAB PO SCH (09:30)
[2019-05-14] MEDS: CALCITRIOL 0.25 MCG CAPSULE PO SCH (09:30)
[2019-05-14] MEDS: OXYCODONE HCL IR 5 MG TAB (IMMEDIATE RELEASE) PO PRN (17:47)
[2019-05-14] MEDS: LACTATED RINGER'S 1,000 ML IV SCH (17:49)
[2019-05-14] MEDS: cefUROXime axetil 500 MG TAB PO SCH (21:25)
[2019-05-14] MEDS: MIRTAZAPINE TAB 15 MG TAB PO SCH (21:29)
[2019-05-14] MEDS: ROPINIROLE HCL 0.25 MG TABLET PO SCH (21:31)
[2019-05-14] MEDS: dilTIAZem HCL 30 MG TAB PO SCH (21:32)
[2019-05-15] MEDS: LACTATED RINGER'S 1,000 ML IV SCH (02:23)
[2019-05-15] MEDS: LEVOTHYROXINE SODIUM 50 MCG TABLET PO SCH (06:04)
[2019-05-15 06:52] LABS: BUN Creatinine Ratio 25.1 (10-20); Calcium 8.7 mg/dl (8.5-10.1); Creatinine Clr Calc Pharmacy 15.2 ml/min; Est GFR (African American) 35.9; Potassium 4.6 mmol/L (3.5-5.1)
--- NOTE | 2019-05-15 08:56 | Family Medicine Progress Note ---
Date of Service May 15, 2019 Assessment & Plan (1) SVT (supraventricular tachycardia): Addie Is a 88-year-old female with a past medical history of COPD, CKD, CVA, hypertension, peripheral artery disease, and dementia who presented to the emergency room from [facility] for shortness of breath and increased oxygen requirement. She was noted to have a large right lower leg hematoma requiring I&D. SVT Code rory called 05/12 for SVT with hypotension. Improved following 250cc NS bolus x2 and adenosine 6mg x1. History of 'atrial arrythmia', no collateral available for further. Transferred to telemetry with hypotension in the setting of postop wound drainage pressure improved with fluids and break in the arrhythmia, metoprolol was resumed and Lasix was held. 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 Recommended considering switching to diltiazem from metoprolol with amiodarone as a long-term option. Loop recorder implantation recommended if she continues to have syncopal events, deferred at this time due to clinical condition and pending goals of care discussion. Metoprolol was DC'd on 05/14 and the patient was transferred off telemetry. Patient was started on Cardizem 30 milligrams p.o. 3 times daily, tolerated it well without any significant side effects -Cardizem ER 180 qam Monitor for atrial fibrillation, do not recommend anticoagulation. Acute on chronic hypoxic respiratory failure 2/2 CAP versus CHF exacerbation History of COPD with 2 L home oxygen requirement, intermittently requiring up to 4 L of oxygen. -Follow closely for volume overload. Lungs clear this morning with no signs of pulmonary edema. -Titrate for goal of 94% CAP/Severe COPD Chest x-ray shows evidence of left lower lobe consolidation suspicious for pneumonia. Started on empiric Vanco/Zosyn narrowed to azithromycin/Rocephin. Completed 5-day course of Zithromax, received 5 days of Rocephin, to complete 2 more days of cefuroxime. -Cefuroxime renally dosed 500 mg p.o. at bedtime day 1 of 2 Continue prednisone 1 mg every afternoon, 2 mg every morning [employer] regimen Continue tiotropium, albuterol inhalers Acute on chronic Diastolic CHF BNP elevated to 20 K on admit, mild troponin leak on admission now normalized. No troponin leak after SVT episode. Echocardiogram shows grade 2 diastolic dysfunction with normal LVEF and increased right ventricular pressure. Holding furosemide 20 mg p.o. daily held Holding Benzapril 5 mg p.o. daily in sitting of ALLEN Discontinued metoprolol, tx to Cardizem ALLEN, baseline Cr ~1.1, I question whether her baseline creatinine really is 1.1 as it appears to be stable in the 1.4-1.5 range. Reviewing previous results back to July 2017 most of her creatinine values were in the 1.3-1.5 range with an occasional value of 1.1. Admission creatinine was 1.3 however if it is a prerenal etiology, her creatinine to BUN ratio has been decreasing and urine output has been increasing. -Cr 1.50 -Stop LR after this bag Hypertension Patient has a history of hypertension normally treated with benazepril, furosemide, metoprolol. Metoprolol was DC'd in favor of Cardizem. Currently holding Benzapril furosemide. -Monitor for now if patient develops any signs or symptoms of end organ damage we will treat more aggressively. Resume Benzapril/furosemide when kidney function improves Right lower extremity hematoma s/p I&D with surgery - Pressure dressing in place - h/h stable - Pain improved Hypothyroidism Continue levothyroxine 50 mcg p.o. daily -Last TSH was March, repeat today 4.520 NTD could be falsely elevated due to illness would recommend follow-up as an outpatient Code Status: DNR/DNI Dispo: stable for transfer in the next few days referral placed to [facility] f/u cm Regular Diet DVT ppx: contra/ambulation (2) Paroxysmal atrial fibrillation with RVR: (3) Elevated troponin: (4) Hematoma of right lower extremity: (5) History of CVA (cerebrovascular accident): (6) Syncope: Supervising Physician Co-Signing Physician Notes Resident Physician Supervision Note: I independently interviewed and examined the patient and verified the coronado history and physical, reviewed labs and image studies, discussed the case with the resident Dr. Urban and agree with the findings and care plan. Subjective Patient sleeping comfortably in bed this morning in no acute distress. Reports no significant interval history overnight, she continues to improve reporting no shortness of breath, no chest pain, and improvement in her presenting symptoms. She is tolerating her diet, Damon in place and voiding, stooling, and sleeping well. She reports no new symptoms from initiation of diltiazem, blood pressures have a been a bit labile. It is my understanding that she lives at home by herself in [place], has family around to check on her. Will have PT and OT evaluate, and request case management's assistance and discharge planning. Answered all questions no acute concerns. Physical Exam Physical Exam: General: Sleeping in bed this morning, woke up when I arrived conversive interactive HEENT: Hematoma present on left lateral maxilla, normocephalic. Pulm: Moderate air movement, CTAB without rales. Symmetrical chest rise. No increase work of breathing. No respiratory distress. On 4 L nasal cannula O2. No crackles Cardiac: RRR, -mrg. Radial pulses intact and symmetrical. Negative calf pain, negative pedal edema Abdominal: nontender, nondistended, soft. BS present. Extremity: Right lower leg with compression dressing in place. Dressing C/D/I. Results & Data Vital Signs (Past 12 Hours) Vital Signs Temp Pulse Pulse Pulse Resp BP Pulse Ox 05/15/19 07:49 81 20 180/90 H 97 05/15/19 02:23 76 141/82 H 05/15/19 00:00 36.8 C 82 20 177/78 H 99 05/14/19 21:33 76 157/80 H Laboratory Results 05/15/19 05/11/19 Range/Units 05:47 18:40 Sodium 139 (136-145) mmol/L Potassium 4.6 (3.5-5.1) mmol/L Chloride 105 (98-107) mmol/L Carbon Dioxide 28 (21-32) mmol/L Anion Gap 6.0 (3-11) BUN 38 H (7-18) mg/dl Creatinine 1.50 H (0.6-1.2) mg/dl Est Cr Clr Drug Dosing 15.2 ml/min Est GFR ( Amer) 35.9 Est GFR (Non-Af Amer) 31.0 BUN/Creatinine Ratio 25.1 H (10-20) Glucose 103 H (70-99) mg/dl Calcium 8.7 (8.5-10.1) mg/dl Crossmatch See Detail Medications Administered Current Inpatient Medications Acetaminophen (Tylenol) 650 mg PO Q6H PRN PRN Reason: mild pain 1-4 Stop: 06/09/19 03:35 Last Admin: 05/10/19 07:32 Dose: 650 mg Documented by: Acetaminophen (Tylenol) 500 mg PO [facility] Stop: 06/09/19 08:59 Last Admin: 05/14/19 09:30 Dose: Not Given Documented by: Albuterol (Duoneb) 3 ml NEB QID PRN PRN Reason: Wheezing Stop: 06/12/19 09:50 Aspirin (Ecotrin Ectab) 81 mg PO [facility] Stop: 06/09/19 08:59 Last Admin: 05/11/19 10:26 Dose: 81 mg Documented by: Atorvastatin Calcium (Lipitor) 20 mg PO [facility] Stop: 06/09/19 08:59 Last Admin: 05/14/19 09:28 Dose: 20 mg Documented by: Bisacodyl (Dulcolax) 10 mg DE UD PRN PRN Reason: Constipation Stop: 06/09/19 03:35 Calcitriol (Rocaltrol) 0.25 mcg PO TuThSa@0900 [facility] Stop: 06/09/19 08:59 Last Admin: 05/14/19 09:30 Dose: 0.25 mcg Documented by: Cefuroxime Axetil (Ceftin) 500 mg PO [facility]; Protocol Stop: 05/21/19 20:59 Last Admin: 05/14/19 21:25 Dose: 500 mg Documented by: Clopidogrel Bisulfate (Plavix) 75 mg PO [facility] Stop: 06/09/19 08:59 Last Admin: 05/11/19 10:24 Dose: 75 mg Documented by: Diltiazem HCl (Cardizem) 30 mg PO TID [facility] Stop: 06/13/19 20:59 Last Admin: 05/14/19 21:32 Dose: 30 mg Documented by: Ferrous S[facility] ([facility]osol) [facility] [place]: 06/09/19 08:59 Last Admin: 05/14/19 09:28 Dose: Not Given Documented by: Lactated Ringer's (Lr) 1,000 mls @ 50 mls/hr IV .Q20H [facility] Stop: 06/13/19 17:14 Last Infusion: 05/15/19 05:22 Dose: 50 mls/hr Documented by: Levalbuterol HCl (Xopenex 1.25mg/3ml Neb) 1.25 mg INH Q4H PRN PRN Reason: Shortness Of Breath Or Wheezing Stop: 06/09/19 03:35 Last Admin: 05/13/19 00:48 Dose: 1.25 mg Documented by: Levothyroxine Sodium (Synthroid) 50 mcg PO DAILYBB [facility] Stop: 06/09/19 06:29 Last Admin: 05/15/19 06:04 Dose: 50 mcg Documented by: Mirtazapine (Remeron) 30 mg PO [facility] Stop: 06/09/19 20:59 Last Admin: 05/14/19 21:29 Dose: 30 mg Documented by: Miscellaneous (Order Awaiting Action) 1 ea N/A QS [facility] Stop: 06/09/19 07:59 Last Admin: 05/14/19 23:34 Dose: Not Given Documented by: Multivitamins/Minerals (Multivitamin W/ Minerals Tab) 1 tab [facility] Stop: 06/09/19 08:59 Last Admin: 05/14/19 09:29 Dose: 1 tab Documented by: Oxycodone HCl (Roxicodone Immediate Rel) 5 mg PO Q6 PRN PRN Reason: MODERATE/SEVERE PAIN 5-10 Stop: 05/24/19 03:35 Last Admin: 05/14/19 17:47 Dose: 5 mg Documented by: Prednisone (Prednisone) 2 mg PO QAM [facility] Stop: 06/09/19 08:59 Last Admin: 05/14/19 09:29 Dose: 2 mg Documented by: Prednisone (Prednisone) 1 mg PO PM [facility] Stop: 06/09/19 20:59 Last Admin: 05/14/19 21:28 Dose: 1 mg Documented by: Ropinirole HCl (Requip) 0.5 mg PO [facility] Stop: 06/09/19 20:59 Last Admin: 05/14/19 21:31 Dose: 0.5 mg Documented by: Sodium Biphosphate/Sodium Phosphate (Fleet Enema) 118 ml DE DAILY PRN PRN Reason: NO BM IN 4 DAYS Stop: 06/10/19 09:51 Tiotropium [place] (Spiriva) 2 puffs INH DAILY [facility] Stop: 06/09/19 08:59 Last Admin: 05/14/19 09:29 Dose: 2 puffs Documented by: PG Care Time/CCT Total # of Minutes Spent Total Time Spent with Patient: Total time spent is greater than 50% in coordination of care (as documented) at patient's floor/unit and/or counseling patient: Resident Activity Tracking Resident Involvement: Resident Care Provided Care Provided: Adult Hospital Medicine
[2019-05-15] MEDS: ATORVASTATIN 20 MG TAB PO SCH (09:00)
[2019-05-15] MEDS: TIOTROPIUM BROMIDE 5 PUFF/90 MCG INH INH SCH (09:01)
[2019-05-15] MEDS: dilTIAZem HCL 30 MG TAB PO SCH (09:01)
[2019-05-15] MEDS: predniSONE 1 MG TAB PO SCH ×2 (09:02→20:41)
[2019-05-15] MEDS: FERROUS SULFATE 325 MG TAB PO SCH (09:03)
[2019-05-15] MEDS: CEROVITE ADV FORMULA TAB PO SCH (09:03)
[2019-05-15] MEDS: ACETAMINOPHEN 500 MG TAB PO SCH (09:05)
[2019-05-15] MEDS: dilTIAZem ER 180 MG CAPCR PO SCH (12:29)
[2019-05-15] MEDS ORDERED: dilTIAZem HCL 30 MG TAB PO SCH (13:00)
[2019-05-15] MEDS: cefUROXime axetil 500 MG TAB PO SCH (20:41)
[2019-05-15] MEDS: MIRTAZAPINE TAB 15 MG TAB PO SCH (20:42)
[2019-05-15] MEDS: ROPINIROLE HCL 0.25 MG TABLET PO SCH (20:42)
[2019-05-16] MEDS: LEVOTHYROXINE SODIUM 50 MCG TABLET PO SCH (06:08)
[2019-05-16 06:28] LABS: Basophils # (auto) 0.03 K/uL (0-0.2); Basophils % (auto) 0.4 %; Eosinophils # (auto) 0.18 K/uL (0-0.5); Eosinophils % (auto) 2.1 %; Hematocrit (blood only) 26.1 % (37-47); Hemoglobin 8.2 g/dL (12.0-16.0); Immature Granulocytes # (auto) 0.12 K/uL (0.00-0.02); Immature Granulocytes % (auto) 1.4 %; Lymphocytes % (auto) 10.7 %; Mean Corpuscular Hgb Conc 31.4 g/dL (32-36); Mean Corpuscular Volume 94.2 fL (80-100); Mean Platelet Volume 10.2 fL (7.4-10.4); Monocytes # (auto) 0.93 K/uL (0.11-0.59); Monocytes % (auto) 11.1 %; Neutrophils # (auto) 6.22 K/uL (1.4-6.5); Neutrophils % (auto) 74.3 %; Platelet Count 167 K/uL (130-400); RDW Coefficient of Variation 19.8 % (11.5-14.5); RDW Standard Deviation 67.9 fL (36.4-46.3); Red Blood Count 2.77 M/uL (4.2-5.4); White Blood Count 8.38 K/uL (4.8-10.8)
[2019-05-16 06:43] LABS: BUN Creatinine Ratio 20.4 (10-20); Calcium 8.4 mg/dl (8.5-10.1); Creatinine Clr Calc Pharmacy 16.8 ml/min; Est GFR (African American) 40.5; Est GFR (Non-African American) 34.9; Potassium 4.8 mmol/L (3.5-5.1)
--- NOTE | 2019-05-16 08:42 | Family Medicine Progress Note ---
Date of Service May 16, 2019 Assessment & Plan (1) SVT (supraventricular tachycardia): Addie Is a 88-year-old female with a past medical history of COPD, CKD, CVA, hypertension, peripheral artery disease, and dementia who presented to the emergency room from [facility] for shortness of breath and increased oxygen requirement. She was noted to have a large right lower leg hematoma requiring I&D. SVT Code rory called 05/12 for SVT with hypotension. Improved following 250cc NS bolus x2 and adenosine 6mg x1. History of 'atrial arrythmia', no collateral available for further. Transferred to telemetry with hypotension in the setting of postop wound drainage pressure improved with fluids and break in the arrhythmia, metoprolol was resumed and Lasix was held. 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 Recommended considering switching to diltiazem from metoprolol with amiodarone as a long-term option. Loop recorder implantation recommended if she continues to have syncopal events, deferred at this time due to clinical condition and pending goals of care discussion. Metoprolol was DC'd on 05/14 and the patient was transferred off telemetry. Patient was started on Cardizem 30 milligrams p.o. 3/4 times daily, tolerated it well without any significant side effects -Cardizem ER 180 every morning Monitor for atrial fibrillation, do not recommend anticoagulation. Acute on chronic hypoxic respiratory failure 2/2 CAP versus CHF exacerbation History of COPD with 2 L home oxygen requirement, intermittently required up to 4 L of oxygen. -Follow closely for volume overload. Lungs clear this morning with no signs of pulmonary edema. -Titrate for goal of 94% Currently on 3 L nasal cannula O2 CAP/Severe COPD Chest x-ray shows evidence of left lower lobe consolidation suspicious for pneumonia. Started on empiric Vanco/Zosyn narrowed to azithromycin/Rocephin. Completed 5-day course of Zithromax, received 5 days of Rocephin, to complete 2 more days of cefuroxime. -Cefuroxime renally dosed 500 mg p.o. at bedtime, regimen complete after today Continue prednisone 1 mg every afternoon, 2 mg every morning [employer] regimen Continue tiotropium, albuterol inhalers Acute on chronic Diastolic CHF BNP elevated to 20 K on admit, mild troponin leak on admission now normalized. No troponin leak after SVT episode. Echocardiogram shows grade 2 diastolic dysfunction with normal LVEF and increased right ventricular pressure. Holding furosemide 20 mg p.o. daily held Holding Benzapril 5 mg p.o. daily in sitting of ALLEN Discontinued metoprolol, tx to Cardizem ALLEN, baseline Cr ~1.1, She has multiple creatinines in the 1.3 range, however she had a 1.25 as outp atient in 03/2019 and 1.18 on 04/2019 -Suspect she has a baseline around 1.2, but given her history of heart failure and diuretic regimen likely runs slightly on the dry side at baseline - Her creatinine to BUN ratio has been decreasing and urine output has been increasing. -Cr 1.36 today Hypertension Patient has a history of hypertension normally treated with benazepril, furosemide, metoprolol. Metoprolol was DC'd in favor of Cardizem. Currently holding Benzapril and furosemide. -Monitor for now if patient develops any signs or symptoms of end organ damage we will treat more aggressively. Resume Benzapril/furosemide when kidney function improves Right lower extremity hematoma s/p I&D with surgery - Pressure dressing in place - Type and screen ordered, blood consent on file, 1u on hold if needed - transfuse is Hgb <7 - Pain improved Hypothyroidism Continue levothyroxine 50 mcg p.o. daily -Last TSH was March, repeat today 4.520 NTD could be falsely elevated due to illness would recommend follow-up as an outpatient Code Status: DNR/DNI Dispo: stable for transfer in the next few days referral placed to [facility] f/u cm Regular Diet DVT ppx: Ambulation. Oncologic prophylaxis contraindicated in the setting of bleeding/hematoma. Subjective Clear reports she feels "much better today ". She feels at her for admission baseline, although she notes she does think she might be a little weaker overall. She denies any chest pressure, chest pain, palpitations, shortness of breath, difficulty breathing, lightheadedness, dizziness, leg swelling overnight. She has not had any recent fever/chills/night sweats. She reports her appetite is okay this morning, she has not yet had breakfast. She has not noticed any difference in symptoms since being switched diltiazem, but notes her overall energy feels better today. No questions or concerns at time of visit. Agreeable to discharge to SNF at [facility] 1 placement is available. Review of Systems Review of Systems: All systems reviewed & are unremarkable except as noted in HPI & below Physical Exam Physical Exam: General: A&Ox3. NAD. Cooperative. Thin. HEENT: Atraumatic, normocephalic. Pulm: CTAB A&P. -wheezes, -rales, -rhonchi. Symmetrical chest rise. No increase work of breathing. No respiratory distress. Cardiac: Systolic murmur iii/iv at LUSB, regular rate and rhythm -rg. Radial pulses intact and symmetrical. No JVD. Abdominal: Nontender, nondistended, soft. BS present. Extremities: Right leg with compression dressing in place, C/D/I. Nontender. No distal leg edema. Sensation intact in feet bilaterally. Moves all extremities equally. Results & Data Vital Signs (Past 12 Hours) Vital Signs Temp Pulse Resp BP Pulse Ox 05/16/19 07:42 36.4 C L 76 20 147/74 H 100 05/16/19 00:12 36.5 C 81 18 113/57 L 93 PG Care Time/CCT Total # of Minutes Spent Total Time Spent with Patient: Total time spent is greater than 50% in coordination of care (as documented) at patient's floor/unit and/or counseling patient:
[2019-05-16] MEDS: ATORVASTATIN 20 MG TAB PO SCH (08:47)
[2019-05-16] MEDS: FERROUS SULFATE 325 MG TAB PO SCH (08:47)
[2019-05-16] MEDS: predniSONE 1 MG TAB PO SCH (08:47)
[2019-05-16] MEDS: dilTIAZem ER 180 MG CAPCR PO SCH (08:47)
[2019-05-16] MEDS: CEROVITE ADV FORMULA TAB PO SCH (08:48)
[2019-05-16] MEDS: TIOTROPIUM BROMIDE 5 PUFF/90 MCG INH INH SCH (08:48)
[2019-05-16] MEDS: ACETAMINOPHEN 500 MG TAB PO SCH (08:49)
--- NOTE | 2019-05-16 09:48 | Discharge Summary ---
Date of Service May 16, 2019 Admission HPI Per Admitting Provider 88-year-old female was transferred via EMS for hypoxia and shortness of breath. Patient states over the past couple of days her breathing is been "a bit off". Has been using her home breathing medications regularly for COPD. No known fevers, chest pain, or overt feeling of illness. She has noted some loose stools for the past couple of days but that has improved in the last 24 hours. She denies concurrent abdominal pain or nausea/vomiting. Apparently, prior to arrival she may have had another unexplained syncopal episode in her bathroom. She does not recall how she got into the bathroom but does recall waking up on the floor. She pulled on one of the medical assist cords which prompted her EMS evaluation and transfer here. She denies any headache, extremity or other focal pains suggestive of trauma from a fall. At present, during this H&P, she says that her breathing feels back to normal. No other acute patient concerns. - Past medical history includes hypertension, hyperlipidemia, COPD, GERD, CKD stage IV, hypothyroidism, polymyalgia rheumatica, CVD, vulvar cancer. - Past surgical history includes uvulectomy, vulvectomy. Admission Exam Per Admitting Provider General: frail, elderly female resting comfortably, NAD, non-toxic in appearance, AA&O x 4 Skin: warm, dry, gluteal skin tear, skin tear on left arm with dressing in place, ecchymoses on forearms HEENT: NC/AT, PERRL, EOMI, anicteric sclera, conjunctiva without injection, external ear normal to inspection and nontender, round, well demarcated skin lesion posterior right ear with flaking, nares patent, moist mucus membranes, dentures in place, no oropharyngeal lesions, neck supple, trachea midline, no LAD, no thyromegaly, no JVD Heart: +S1/S2, regular, no m/r/g Lungs: equal air entry bilaterally, no rales/rhonchi/wheezes Abd: +BS, soft, NT/ND, no masses/organomegaly/ascites Ext: warm, 1+ pulses bilateral LE with skin thickening and darkening of the shins, 2+ pulses in bilateral UEs, no clubbing/cyanosis or edema Neuro: nonfocal, patient AA&O x 4, speech intact, no facial droop, moving all extremities on command with equal strength 5/5 Principal Diagnosis Acute Hypoxic Respiratory failure 2/2 Community Acquired Pneumonia, SVT Discharge Exam General: A&Ox3. NAD. Cooperative. Thin. HEENT: Atraumatic, normocephalic. Pulm: CTAB A&P. -wheezes, -rales, -rhonchi. Symmetrical chest rise. No increase work of breathing. No respiratory distress. Cardiac: Systolic murmur iii/iv at LUSB, regular rate and rhythm -rg. Radial pulses intact and symmetrical. No JVD. Abdominal: Nontender, nondistended, soft. BS present. Extremities: Right leg with compression dressing in place, C/D/I. Nontender. No distal leg edema. Sensation intact in feet bilaterally. Moves all extremities equally. Discharge Data Allergies Allergy/AdvReac Type Severity Reaction Status Date / Time clindamycin Allergy Intermediate HIVES Verified 05/11/19 08:06 Consultations 05/09/19 22:47 ED Decision to Admit Stat 05/10/19 16:28 Consult General Surgery Routine 05/12/19 08:34 Consult Cardiology Routine 05/13/19 06:08 Consult Wound Care Provider Routine 05/15/19 08:23 Consult Case Management - Discharge Planning Routine Procedures Performed Operation Date: 05/11/19 08:30 Actual Procedures p Right Incision and Drainage Lower Leg Hematoma(Right) - Greg Romero MD Ordered Studies 05/09/19 21:03 CT head/brain wo con Urgent Hospital Course (1) Acute and chronic respiratory failure: Addie is a 88-year-old female with a past medical history of COPD, CKD, CVA, hypertension, peripheral artery disease, and dementia who presented to the emergency room from [facility] for shortness of breath and increased oxygen requirement. She was noted to have a large right lower leg hematoma requiring I&D. Her hospital course was complicated by SVT managed as noted below. To Do: 1) Transfer to SNF with PT <3 hours per day 2) Repeat TSH 2-3 weeks 3) Repeat BMP and followup of Cr. Restart Benzapril as indicated once Cr is stable/improved. 4) Followup with cards to evaluate new diltiazem regimen Acute on chronic hypoxic respiratory failure 2/2 CAP versus CHF exacerbation Addie was admitted with several days of shortness of breath and a syncopal episode while in the bathroom. She History of COPD with 2 L home oxygen requirement. On admission to the emergency department her CXR showed evidence of a left lower lobe consolidation suspicious for pneumonia. She was started on empiric Vanco/Zosyn then narrowed to azithromycin/Rocephin. She was continued on her prior to admission prednisone and tiotropium regimen. She clinically improved, but had a tense hematoma as noted below. Following I&D with serosanginous leakage, as noted below, she developed SVT and hypotension and her oxygen requirements increased intermittently to 4-5L. She was treated for SVT, hypotension, and her wound as noted below and her oxygen requirements were gradually weaned. She completed a 5 day course of azithromycin and a 7 day course of ceftriaxone/cefuroxime and was discharged with no increased work of breathing or respiratory distress. Although her admission BNP was elevated, she did not show any signs of pulmonary edema or fluid overload following admission. Acute on Chronic Diastolic CHF Addie has a PMHx of chronic diastolic CHF. On admission her BNP was elevate to 20K with a mild troponin leak which normalized. Her echo during admission showed normal LVEF with increased RVP and grade 2 diastolic dysfunction. Following initial diuretic treatment and management of her PNA as above she did not have any peripheral edema, JVD, or evidence of pulmonary edema on CXR or exam. Her lasix and benzapril were held in the setting of ALLEN. Her BUN/Cr was elevated and her exam suggested she was hypovolemic, she was given conservative gentle hydration with no more than 250cc boluses of NS at a time and clinically improved without signs of fluid overload. 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 She showed no signs of fluid overload, but her Cr uptrended to a peak of 1.78. Given her uptrending ALLEN, elevated BUN/Cr, and clinical exam she was felt to be hypovolemic. She was given abdi hydration with NS/HNS throughout admission with pulmonary reevaluation after each 250cc of fluid. She did clinically well with increasing urine output and downtrending of her creatinine. On day of discharge her Cr was 1.36. She was discharged to resume her RN [employer] furosemide but hold her benzapril until outpatient repeat BMP showed normalization of her creatinine. Right Lower Extremity Hematoma On admission Addie had a large tender R lower extremity hematoma several centimeters in diameter and ~2cm in height. Surgery was consulted for management give concern for bleeding should she hit/accidentally rupture the hematoma. I&D was performed. Following I&D she had one day of copious serosanginous drainage which improved with a pressure dressing. At time of discharge she had minimal discharge with no pain or signs of cellulitis at the hematoma site. Supraventricular Tachycardia Addie had a past medical history of 'atrial arrythmia' and syncopal episodes prior to admission. She was on metoprolol for rate and blood pressure control. Metoprolol was held following I&D due to hypotension. A code purple was called when she developed a sustained SVT episode with mild hypotension and chest discomfort. It was suspected that she became hypovolemic due to serosanguinous drainage and holding her metoprolol unmasked/worsened her SVT episodes. Following carotid massage and adenosine 6mg she converted to sinus tachycardia and gradually returned to sinus rhythm. She was transferred to telemetry. Over the next 24-48 hours she had several intermittent episodes of SVT lasting 1-2 minutes. She was converted to diltizaem 30mg 3-4x daily and then converted to diltiazem 180mg SR qAM once her daily needs were established. She had good rhythm control with diltiazem 180mg SR and no further episodes of chest pain/chest pressure. Given her prior episodes of syncope a loop recorder was discussed; however, it was suspected that these episodes were likely due to her runs of DVT. Should she continue to have episodes of syncope she should be reevaluated for diltiazem increase vs a loop recorder candidate by cardiology. Hypothyroidism Addie was continued on levothyroxine 50mcg by mouth daily during admission. TSH during admission was 4.52, other than her palpitations which improved as noted above she was clinically euthyridic and her elevated TSH was thought to be mild in the setting of acute illness. She was discharged to repeat her TSH as an outpatient in 2-4 weeks. (2) SVT (supraventricular tachycardia): (3) Paroxysmal atrial fibrillation with RVR: (4) Hematoma of right lower extremity: Total Time Total Time Spent Total Time Spent (In Minutes): Less than 30 Total Time Includes: Examination of the Patient, Discharge Planning, Medication Reconciliation and Communication With Other Providers Discharge Plan Discharge Items Patient Disposition: [facility] Reason For Visit: SOB, HYPOXIA, PNEUMONIA Discharge Diagnosis: Acute hypoxic respiratory failure, Supraventricular tachycardia Discharge Goals: Improve disease control and Therapeutic intervention Activity: Per 'Additional Instructions' section Non-emergency contact: Primary Care Provider and [facility] Call non-emergency contact if: you have any medication questions, your symptoms worsen, your pain is not controlled, your pain is worsening, your pain is unusual for you, your pain is concerning for you, you have a fever, your wound has increased redness, your wound has increased drainage and your wound pain has increased Follow-up/Referrals: Sweetie Calero, [Primary Care Provider] - Diet: Heart Healthy and Low Sodium (2gm) Addtl Provider Instructions: You were seen in the hospital for increased shortness of breath and cough consistent with a heart failure exacerbation versus pneumonia. You were treated with a full course of antibiotics for pneumonia and clinically improved. Your hospital course was complicated by both a large hematoma (a type of bruising/bleeding) on your leg and an abnormal heart rhythm. Your hematoma was surgically drained and regularly wrapped with a compression dressing. Due to your heart rhythm you have had medication changes as noted below. Please STOP taking metoprolol succinate. This is been replaced with diltiazem. You have been prescribed a heart and blood pressure medication, diltiazem. Please take diltiazem 180 mg p.o. every morning. If you experience any lightheadedness, dizziness, leg swelling, chest pain, palpitations, difficulty breathing, shortness of breath please call your primary care doctor regarding this medication or call 911 for evaluation in the emergency department if you ar e very concerned. Please DO NOT take Benzapril when you return home. This medication has been temporarily stopped until your kidney function returns to normal. Your doctor will perform a lab test called a [facility] to check your kidney function and advise you when it is safe to resume this medication. During hospital admission it is common to lose a great deal of strength due to being ill and in bed. Physical therapy saw you during your admission and recommended referral to a halfway and rehab resource. You are being discharged to [facility] for further care and strength training. Please follow their recommendations for which activities and exercises are safe for you to perform. A follow-up appointment will be scheduled for you with Dr. Calero by Phoebe Flores. You should receive a call to confirm this appointment. If you do not receive a call, or need to change this appointment, please call her office at [phone]. A follow-up appointment is being scheduled for you with Cardiology. You should receive a call to confirm this appointment. If you do not receive a call, or need to change this appointment, please call their office at . You may experience brief runs of SVT, the abnormal heart rhythm you experienced while in the hospital. The diltiazem will help control, but may not completely prevent, this heart rhythm from occurring. If you experience a fast heart rate or palpitations (fluttering in your chest) you may try bearing down, or splashing cold water on your face. If this does not work, you experience symptoms for more than 10 minutes, or you experience shortness of breath, chest pain, dizziness/lightheadedness, or passing out please have 911 contact for transport to and reevaluation in the emergency department. Prescriptions: New diltiazem HCl [Tiazac] 180 mg Capsule,Extended Release 24 Hr 180 mg PO QAM 30 Days Qty: 30 RF: 1 cefuroxime axetil 500 mg Tablet 500 mg PO HS 1 Days Qty: 1 RF: 0 Continued Breo Ellipta 100-25 mcg/dose blister with device 1 puffs INH DAILY RF: 0 clobetasol 0.05 % cream 1 appln topical DAILY PRNQty: 1 RF: 0 ketoconazole 2 % shampoo 1 appln TOP WEEKLY RF: 0 clopidogrel 75 mg tablet 75 mg PO QAM RF: 0 prednisone 1 mg tablet 2 mg PO QAM RF: 0 prednisone 1 mg tablet 1 mg PO PM RF: 0 levothyroxine 50 mcg tablet 50 mcg PO QAM RF: 0 furosemide 20 mg tablet 20 mg PO .DAILY FOR 5 DAYS RF: 0 levalbuterol HCl 1.25 mg/3 mL solution for nebulization 1.25 mg inhalation Q4H PRN (Reason: Shortness Of Breath Or Wheezing) RF: 0 calcitriol 0.25 mcg capsule 0.25 mcg PO 3XWK RF: 0 Spiriva Respimat 2.5 mcg/actuation mist 1 puff inhalation DAILY RF: 0 Breo Ellipta 100-25 mcg/dose blister with device 1 inh inhalation DAILY RF: 0 ferrous sulfate 325 mg (65 mg iron) Tablet,Delayed Release (Dr/Ec) 325 mg PO QAM Qty: 30 RF: 0 atorvastatin 20 mg Tablet 20 mg PO QAM Qty: 30 RF: 0 aspirin [Ecotrin Low Strength] 81 mg Tablet,Delayed Release (Dr/Ec) 81 mg PO QAM Qty: 30 RF: 0 Certavite-Antioxidant 18-400 mg-mcg Tablet 1 tab PO QAM Qty: 30 RF: 0 furosemide [Lasix] 40 mg Tablet 40 mg PO .TODAY RF: 0 acetaminophen [Tylenol Extra Strength] 500 mg Tablet 500 mg PO QAM RF: 0 ropinirole [Requip] 0.25 mg Tablet 0.5 mg PO HS RF: 0 bisacodyl [Dulcolax (bisacodyl)] 10 mg Suppository 10 mg AK UD PRN (Reason: Constipation) RF: 0 mirtazapine 30 mg Tablet 30 mg PO HS RF: 0 Fleet Enema 19-7 gram/118 mL Enema 118 ml AK DAILY PRN (Reason: NO BM IN 4 DAYS) RF: 0 oxycodone 5 mg Tablet 5 mg PO Q6 PRN (Reason: MODERATE/SEVERE PAIN 5-10) RF: 0 acetaminophen [Mapap (acetaminophen)] 325 mg tablet 650 mg PO Q6H PRN (Reason: mild pain 1-4) RF: 0 Discontinued metoprolol succinate 50 mg Tablet Extended Release 24 Hr 50 mg PO QAM Qty: 30 RF: 0 metoprolol succinate 25 mg Tablet Extended Release 24 Hr 25 mg PO HS Qty: 30 RF: 0 benazepril 10 mg tablet 5 mg PO DAILY RF: 0 Stand-Alone Forms: [facility] Discharge Orders: Discharge Order (Routine); Ordered 05/16/19 Ordered By: Andrea Ozuna Skilled Items Patient informed of condition?: Yes DNR: Yes Discharge Level of Care: Skilled Communicable Disease: No Discharge Prognosis: Stable Admission Data Admit Date/Time: 05/10/19 01:57 Attending Provider: Brown Brown Admit Provider: Juan Villanueva Primary Care Provider: Sweetie Calero Other Providers: Beatris Urban ; Greg Romero ; Chris Torres ; Royce Garrett ; Echo Dsouza ; Andrés Smith ; Betzaida Baron ; Chris Nicolas ; Neida Roth ; Phoebe OrientEdmund Service: Medical Other Interventions: Discharge Summary Assessment (RN) Last Done: 05/16/19 16:25 Supervising Physician Co-Signing Physician Notes I personally examined the patient and verified all coronado points of history and exam, discussed case, and agree with decision making with Dr Ozuna. Feeling better. Feeling good enough to go to SNF. Discussed SVT. Vitals noted, in general she is awake and alert pleasant no distress. HEENT normocephalic atraumatic mucous members moist. Cardio is regular and regular rate. Breathing unlabored no accessory muscle use good effort. Skin shows no rashes no pallor or icterus. SVTimproved control on current regimen. Discussed that this may still burst from time to time, strategies outlined, continue med management/adjustments as warranted, continue cardiology follow-up. Stable for transfer to SNF, otherwise as above. Resident Activity Tracking Resident Involvement: Resident Care Provided Care Provided: Adult Hospital Medicine
[2019-05-16] MEDS: OXYCODONE HCL IR 5 MG TAB (IMMEDIATE RELEASE) PO PRN (12:52)
== END 2019-05-16 18:36 | DRG 291 ==
LOC: ED 20:05 → 2N 05-10 01:57 → SUATTDRO 05-10 01:57 → 2N 05-10 02:57 → 2S 05-12 08:27 → 4E 05-14 18:45

== ENCOUNTER 2019-05-22 18:34 | Inpatient (IN) ==
[2019-05-22] MEDS ORDERED: ALBUT/IPRATROP 3MG/0.5MG NEB 3 ML VIAL INH STA (18:41)
[2019-05-22] MEDS ORDERED: LEVOFLOXACIN/D5W 750 MG/150 ML BAG IV STA (18:41)
[2019-05-22 19:40] LABS: Basophils # (auto) 0.01 K/uL (0-0.2); Basophils % (auto) 0.1 %; Hematocrit (blood only) 29.9 % (37-47); Hemoglobin 9.4 g/dL (12.0-16.0); Immature Granulocytes # (auto) 0.12 K/uL (0.00-0.02); Immature Granulocytes % (auto) 0.7 %; Lymphocytes # (auto) 0.87 K/uL (1.2-3.4); Mean Corpuscular Hgb Conc 31.4 g/dL (32-36); Mean Corpuscular Volume 93.7 fL (80-100); Mean Platelet Volume 10.2 fL (7.4-10.4); Monocytes # (auto) 0.52 K/uL (0.11-0.59); Neutrophils # (auto) 16.03 K/uL (1.4-6.5); Neutrophils % (auto) 91.2 %; Platelet Count 165 K/uL (130-400); RDW Coefficient of Variation 18.2 % (11.5-14.5); Red Blood Count 3.19 M/uL (4.2-5.4); White Blood Count 17.55 K/uL (4.8-10.8)
[2019-05-22 19:55] LABS: Alanine Aminotransferase 29 U/L (12-78); Albumin Level 3.3 gm/dl (3.4-5.0); Aspartate Aminotransferase 29 U/L (15-37); BUN Creatinine Ratio 23.2 (10-20); Blood Urea Nitrogen 43 mg/dl (7-18); Calcium 8.8 mg/dl (8.5-10.1); Carbon Dioxide 28 mmol/L (21-32); Chloride 107 mmol/L (98-107); Creatinine Clr Calc Pharmacy 18.1 ml/min; Est GFR (African American) 27.9; Est GFR (Non-African American) 24.1; Glucose 116 mg/dl (70-99); Magnesium 2.6 mg/dl (1.8-2.4); Potassium 4.6 mmol/L (3.5-5.1); Sodium 143 mmol/L (136-145)
[2019-05-22 20:03] LABS: Albumin Globulin Ratio 1.4 (0.9-2); Alkaline Phosphatase 98 U/L (45-117); Bilirubin,Total 0.8 mg/dl (0.2-1); Creatine Kinase MB 5.9 ng/ml (0.5-3.6); Globulin 2.3 gm/dl (2.5-4.0); Total Protein 5.6 gm/dl (6.4-8.2); Troponin I 0.063 ng/ml (0-0.045)
[2019-05-22 20:18] LABS: Base Excess VBG 0.7 mEq/L; HCO3 VBG 27 mmol/L; PCO2 VBG 54 mmHg (38-50); PO2 VBG 34 mmHg; pH VBG 7.32 (7.36-7.41)
--- NOTE | 2019-05-22 20:20 | XRay Report ---
SINGLE VIEW CHEST CLINICAL HISTORY: Dyspnea. FINDINGS: An AP, portable, upright chest radiograph is compared to study dated 05/12/2019 and correlate d with chest CT dated 07/17/2012. The examination is degraded by portable technique and patient rotatio n. The examination is degraded by portable technique and patient rotation. The heart is enlarged a nd there is atherosclerotic calcification of the thoracic aorta. The pulmonary vasculature is noncong ested. Advanced emphysema and chronic interstitial thickening is similar to previous. There is patchy airspace consolidation at the right lung base with a small right pleural effusion. Scarring/atelecta sis is noted at the left lung base. Apical scarring is observed. No pneumothorax is seen. The skeleta l structures are osteopenic. The bony thorax is grossly intact. IMPRESSION: 1. Cardiomegaly and severe emphysema. 2. There is patchy airspace consolidation at the right lung base and a small right pleural effusion. The appearance is typical for pneumonia/aspiration pneumonitis. Clinical correlation will be required and radiographic follow-up to resolution is recommended. 3. Left basilar opacities likely represent scarring/atelectasis. Electronically signed by: Cheng Obrien M.D. 05/22/2019 8:19 PM
[2019-05-22 20:21] LABS: Oxygen Saturation VBG < 60.0 %
[2019-05-22] MEDS ORDERED: CEFEPIME 1,000 MG in SYRINGE 0 ML IV STA (20:33)
[2019-05-22] MEDS ORDERED: METOPROLOL TARTRATE 1 MG/ML VIAL IV STA ×2 (20:36→22:10)
[2019-05-22 20:43] LABS: Appearance Urine Cloudy (Clear); Bilirubin Urine Negative (Negative); Blood Urine 1+ (Negative); Color Urine Yellow; Epithelial Cell Urine Auto 0-5 /lpf (0-5); Glucose Urine UA Negative (Negative); Ketones Urine Negative (Negative); Leukocyte Esterase Urine 2+ (Negative); Nitrite Urine Negative (Negative); Protein Urine Negative (Negative); Specific Gravity Urine 1.013 (1.000-1.030); Urobilinogen Urine Negative (Negative); WBC Urine Automated >30 /hpf (0-5)
[2019-05-22 20:55] LABS: Bacteria Urine Automated 2+ (Negative)
[2019-05-22] MEDS ORDERED: dilTIAZem HCl 5 MG/ML 5 ML VIAL IV STA (22:26)
[2019-05-22] MEDS ORDERED: MoRPHine SULFATE 2 MG/ML CARP IV PRN ×2 (22:39→23:50)
--- NOTE | 2019-05-22 22:43 | History & Physical Report ---
Date of Service May 22, 2019 Assessment & Plan (1) Hypoxia: PLEASE NOTE V# ENDS MO [id number]. Addie is an 88-year-old female with past medical history of COPD, CKD, CVA, hypertension, peripheral arterial disease and dementia who presented to the emergency room from [facility] for shortness of breath, increased oxygen requirement and EKG abnormalities. She was recently hospitalized for shortness of breath and increased oxygen requirement and treated for right lower lobe pneumonia, as well as right lower leg hematoma requiring I&D from May 10-. In my discussion with her son Mau, she has been at [facility] since last fall. But has recently required hospitalizations in [facility] for the last 2 months. Her most recent hospitalization was complicated by SVT and hypotension and was managed medically, eventually sent home on diltiazem once daily. Management is complicated because patient is not deemed an appropriate candidate for loop recorder implant due to her malnourished body habitus. The patient has severe emphysema and is dependent on 4 to 5 L of oxygen daily. Per report, patient had episodes of altered mental status over the last day or so. She was started on a prednisone burst presumably for increased shortness of breath yesterday. She does present with increased oxygen demand and her mentation is about to her current baseline which remains somewhat confused but somewhat alert as well. This was confirmed with her son Mau. Patient complains of pain in her lower extremities. She denies pain anywhere else including her chest. History from the patient is somewhat limited due to her mental status and garbled speech. ED course: Chest x-ray shows right lower opacity stable since last hospitalization. Given Levaquin and Lopressor as well as supplemental oxygen. Acute on chronic respiratory failure -Multifactorial given that she does have severe emphysema, recent pneumonia, is oxygen dependent and has cardiac abnormalities -CXR shows old PNA from 1 week ago, did complete full IV and PO abx course, is afebrile here -- leukocytosis most likely reactive due to prednisone burst started yesterday. -recommend continue and complete prednisone burst as written (then can resume MD dosing) -will continue O2 support, inhalers spiriva, levalbuterol, breo Tachyarrhythmia -appears to be multifocal atrial tachycardia on ekg, is seen by cardiology for this in last hospitalization and in the outpatient setting. Being treated with diltiazem as of last hospitalization, lopressor 2.5 mg x2 given in ED with minimal benefit, additional dose of CCB administered. -lopressor ordered PRN here, continue CCB. 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 - HOLD as appears dry and labs would indicate a pre- renal state -gentle fluids x1 day total, reassess clinically for resumption of lasix Abnormal UA -+ bact but no nitrites -will treat empirically for UTI, macrobid ordered PAD, slow healing LE wounds, POOR VENOUS ACCESS -pulse ox is obfuscated by significant PAD and is difficult to rely on -s/p I&D right LE hematoma at last hospitalization -wound care placed Poor prognosis -pt has lower extremity pain due to slow healing hematomas and ulcers in setting of PAD, however aggressive pain management limited by waxing/waning confusion -for this reason I did discuss with son r/b of palliative consult for further recommendations to help treat pain and anxiety in state of breathlessness that is essentially uncurable. Son Mau gave verbal consent and agreed to this plan. Consult placed. Malnourished, poor functional status -palliative consult as above for goals of care discussion to be had with close family which appears to be her son. 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: (8) Dependence on supplemental oxygen: (9) Chronic venous stasis dermatitis of both lower extremities: (10) Emphysema of lung: (11) PAD (peripheral artery disease): (12) Poor venous access: History of Present Illness Chief Complaint: Report of altered mental status at [facility], increased oxygen demand, EKG abnormalities Primary Care Provider: [facility] Edmund Aguilar was an 88-year-old female with past medical history of COPD, CKD, CVA, hypertension, peripheral arterial disease and dementia who presented to the emergency room from [facility] for shortness of breath, increased oxygen requirement and EKG abnormalities. She was recently hospitalized for shortness of breath and increased oxygen requirement and treated for right lower lobe pneumonia, as well as right lower leg hematoma requiring I&D from May 10-. In my discussion with her son Mau, she has been at [facility] since last fall. But has recently required hospitalizations in [facility] care for the last 2 months. Her most recent hospitalization was complicated by SVT and hypotension and was managed medically, eventually sent home on diltiazem once daily. Man agement is complicated because patient is not deemed a appropriate candidate for loop recorder implant due to her malnourished body habitus. The patient has severe emphysema and is dependent on 4 to 5 L of oxygen daily. Per report, patient had episodes of altered mental status over the last day or so. She was started on a prednisone burst presumably for increased shortness of breath yesterday. She does present with increased oxygen demand and her mentation is about to her current baseline which remains somewhat confused but somewhat alert as well. This was confirmed with her son Mau. Patient complains of pain in her lower extremities. She denies pain anywhere else including her chest. History from the patient is somewhat limited due to her mental status and garbled speech. ED course: Chest x-ray shows right lower opacity stable since last hospitalization. Given Levaquin and Lopressor as well as supplemental oxygen. Allergies Allergy/AdvReac Type Severity Reaction Status Date / Time clindamycin Allergy Intermediate HIVES Verified 05/22/19 19:17 Home Medications Home Medications Medication Instructions Recorded Confirmed Type Breo Ellipta 1 inh INHALATION QAM 04/05/19 05/22/19 History Spiriva Respimat 1 puff INHALATION QA 04/05/19 05/22/19 History calcitriol 0.25 mcg PO 3XWK 04/05/19 05/22/19 History clopidogrel 75 mg PO QAM 04/05/19 05/22/19 History furosemide 20 mg PO QAM 04/05/19 05/22/19 History levalbuterol HCl 1.25 mg INHALATION QID 04/05/19 05/22/19 History levothyroxine 50 mcg PO DAILYBB 04/05/19 05/22/19 History prednisone 1 mg PO PM 04/05/19 05/22/19 History prednisone 2 mg PO QAM 04/05/19 05/22/19 History Certavite-Antioxidant 1 tab PO QAM #30 tab 04/11/19 05/22/19 Rx aspirin [Ecotrin Low Strength] 81 mg PO QAM #30 tab 04/11/19 05/22/19 Rx atorvastatin 20 mg PO QAM #30 tab 04/11/19 05/22/19 Rx ferrous sulfate 325 mg PO QAM #30 tab 04/11/19 05/22/19 Rx Fleet Enema 118 ml MD DAILY PRN 05/09/19 05/22/19 History acetaminophen [Mapap 650 mg PO Q6H PRN 05/09/19 05/22/19 History (acetaminophen)] acetaminophen [Tylenol Extra 500 mg PO QAM 05/09/19 05/22/19 History Strength] bisacodyl [Dulcolax (bisacodyl)] 10 mg MD UD PRN 05/09/19 05/22/19 History mirtazapine 30 mg PO HS 05/09/19 05/22/19 History oxycodone 5 mg PO Q6 PRN 05/09/19 05/22/19 History ropinirole [Requip] 0.5 mg PO HS 05/09/19 05/22/19 History buspirone 5 mg PO BID17 05/22/19 05/22/19 History diltiazem HCl [Cardizem CD] 180 mg PO QAM 05/22/19 05/22/19 History food supplemt, lactose-reduced 1 ea PO QAM 05/22/19 05/22/19 History [Boost] ondansetron HCl [Zofran] 4 mg PO Q6 PRN 05/22/19 05/22/19 History prednisone 40 mg PO 3XWK 05/22/19 05/22/19 History Past Med/Surg History Medical History Hematoma of right lower extremity Hyperlipidemia GERD without esophagitis Dependence on supplemental oxygen Chronic venous stasis dermatitis of both lower extremities Chronic respiratory failure Chronic obstructive pulmonary disease Carotid atherosclerosis CKD (chronic kidney disease), stage III HTN (hypertension) (Chronic) Emphysema of lung (Chronic) On 2L home O2 PAD (peripheral artery disease) CKD (chronic kidney disease), stage IV CVA (cerebral vascular accident) Residual numbness of left hand and left side of mouth Dyslipidemia Hypothyroid Polymyalgia rheumatica 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 Beliefs That Will Affect Care: None marital status: / Current Living Situation: Intermediate Current Living Situation Comment: [place] current occupational status: retired Other Information That Helps Us Care for You: No Feels Safe at Home: Yes Safety Concerns: Feels Safe At This Time Smoking Status: Never smoker Tobacco Type: cigarettes Cigarettes Per Day: 2002 Second Hand Exposure: No Tobacco Cessation Education Requested by Patient: No Hx Alcohol Use: No Hx Substance Use: No Dental Care, Regularly: Yes Physical Activity Frequency Comment: limited by physical condition Physical Exam Physical Exam: Vitals noted and within normal limits with the exception of tachycardia, tachypnea, hypertension GENERAL: Awake, alert to person, not place, and yes to time, dry-appearing, in moderate distress. Speech is difficult to ascertain. She does appear frustrated. HENT: Normocephalic, atraumatic. Nonrebreather mask in place. Mucus membranes appear dry. EYES: Normal conjunctiva. Sclera non-icteric. EOMI. NECK: Supple. Full range of motion. RESPIRATORY: Lung sounds diminished. Tachypneic. CARDIAC: Tachycardic. Upper extremities well perfused, lower extremities appear underperfused, 2+ radial pulses bilaterally; ABDOMEN: Soft, non-distended. No tenderness to palpation in all four quadrants. No rebound or guarding. No masses. Bowel sounds are normal. LOWER EXTREMITIES: Inspection of calves reveal equal size bilaterally. Feet appear ischemic, there is healing hematomas on bilateral lower legs, bandage in place. Thighs appear normal. NEURO: No gross focal motor deficits noted. Sensation in tact. CN II-XII grossly in tact. . SKIN: Rash consistent with senile purpura and peripheral arterial disease. No jaundice noted. Significant lesions as above. PSYCH: Appropriate mood and affect. Cooperative. Anxious. Exam performed with son at the bedside. As done by Rosa Garcia MD, Incinerator Attendant. Results & Data Vital Signs (Past 12 Hours) Vital Signs Temp Pulse Pulse Resp BP BP Pulse Ox 05/22/19 22:14 128 H 26 H 145/93 H 05/22/19 19:21 129 H 20 99 05/22/19 18:49 36.4 C L 121 H 22 169/89 H 100 Laboratory Results 05/22/19 05/22/19 05/22/19 Range/Units 20:30 20:05 19:32 WBC (4.8-10.8) K/uL RBC (4.2-5.4) M/uL Hgb (12.0-16.0) g/dL Hct (37-47) % MCV (80-100) fL MCH (25-34) pg MCHC (32-36) g/dL RDW Std Deviation (36.4-46.3) fL RDW Coeff of Rhys (11.5-14.5) % Plt Count (130-400) K/uL MPV (7.4-10.4) fL Immature Gran % (Auto) % Neut % (Auto) % Lymph % (Auto) % [place] % (Auto) % Eos % (Auto) % Baso % (Auto) % Immature Gran # (Auto) (0.00-0.02) K/uL Neut # (Auto) (1.4-6.5) K/uL Lymph # (Auto) (1.2-3.4) K/uL [place] # (Auto) (0.11-0.59) K/uL Eos # (Auto) (0-0.5) K/uL Baso # (Auto) (0-0.2) K/uL PT Cancelled INR Cancelled APTT Cancelled PTT Ratio Cancelled VBG pH 7.32 L VBG pCO2 54 H VBG pO2 34 VBG HCO3 27 VBG O2 Saturation < 60.0 VBG Base Excess 0.7 Barometric Pressure 733.4 Sodium (136-145) mmol/L Potassium (3.5-5.1) mmol/L Chloride (98-107) mmol/L Carbon Dioxide (21-32) mmol/L Anion Gap (3-11) BUN (7-18) mg/dl Creatinine (0.6-1.2) mg/dl Est Cr Clr Drug Dosing ml/min Est GFR ( Amer) Est GFR (Non-Af Amer) BUN/Creatinine Ratio (10-20) Glucose (70-99) mg/dl Calcium (8.5-10.1) mg/dl Magnesium (1.8-2.4) mg/dl Total Bilirubin (0.2-1) mg/dl AST (15-37) U/L ALT (12-78) U/L Alkaline Phosphatase (45-117) U/L CK-MB (CK-2) (0.5-3.6) ng/ml Troponin I (0-0.045) ng/ml Total Protein (6.4-8.2) gm/dl Albumin (3.4-5.0) gm/dl Globulin (2.5-4.0) gm/dl Albumin/Globulin Ratio (0.9-2) Urine Color Yellow Urine Appearance Cloudy A (Clear) Urine pH 6.0 (4.5-7.5) Ur Specific [place] 1.013 (1.000-1.030) Urine Protein Negative (Negative) Urine Glucose (UA) Negative (Negative) Urine Ketones Negative (Negative) Urine Blood 1+ H (Negative) Urine Nitrite Negative (Negative) Urine Bilirubin Negative (Negative) Urine Urobilinogen Negative (Negative) Ur Leukocyte Esterase 2+ H (Negative) Urine WBC (Auto) >30 H (0-5) /hpf Urine RBC (Auto) 5-10 H (0-4) /hpf U Hyaline Cast (Auto) 1-5 (0-5) /lpf U Epithel Cells (Auto) 0-5 (0-5) /lpf Urine Bacteria (Auto) 2+ H (Negative) Urine Yeast Present A (None Prsent) 05/22/19 05/22/19 05/22/19 Range/Units 19:32 19:26 19:26 WBC 17.55 H (4.8-10.8) K/uL RBC 3.19 L (4.2-5.4) M/uL Hgb 9.4 L (12.0-16.0) g/dL Hct 29.9 L (37-47) % MCV 93.7 (80-100) fL MCH 29.5 (25-34) pg MCHC 31.4 L (32-36) g/dL RDW Std Deviation 63.0 H (36.4-46.3) fL RDW Coeff of Rhys 18.2 H (11.5-14.5) % Plt Count 165 (130-400) K/uL MPV 10.2 (7.4-10.4) fL Immature Gran % (Auto) 0.7 % Neut % (Auto) 91.2 % Lymph % (Auto) 5.0 % [place] % (Auto) 3.0 % Eos % (Auto) 0.0 % Baso % (Auto) 0.1 % Immature Gran # (Auto) 0.12 H (0.00-0.02) K/uL Neut # (Auto) 16.03 H (1.4-6.5) K/uL Lymph # (Auto) 0.87 L (1.2-3.4) K/uL [place] # (Auto) 0.52 (0.11-0.59) K/uL Eos # (Auto) 0.00 (0-0.5) K/uL Baso # (Auto) 0.01 (0-0.2) K/uL PT INR APTT PTT Ratio VBG pH Cancelled VBG pCO2 Cancelled VBG pO2 Cancelled VBG HCO3 Cancelled VBG O2 Saturation Cancelled VBG Base Excess Cancelled Barometric Pressure Cancelled Sodium 143 (136-145) mmol/L Potassium 4.6 (3.5-5.1) mmol/L Chloride 107 (98-107) mmol/L Carbon Dioxide 28 (21-32) mmol/L Anion Gap 8.0 (3-11) BUN 43 H (7-18) mg/dl Creatinine 1.85 H (0.6-1.2) mg/dl Est Cr Clr Drug Dosing 18.1 ml/min Est GFR ( Amer) 27.9 Est GFR (Non-Af Amer) 24.1 BUN/Creatinine Ratio 23.2 H (10-20) Glucose 116 H (70-99) mg/dl Calcium 8.8 (8.5-10.1) mg/dl Magnesium 2.6 H (1.8-2.4) mg/dl Total Bilirubin 0.8 (0.2-1) mg/dl AST 29 (15-37) U/L ALT 29 (12-78) U/L Alkaline Phosphatase 98 (45-117) U/L CK-MB (CK-2) 5.9 H (0.5-3.6) ng/ml Troponin I 0.063 H* (0-0.045) ng/ml Total Protein 5.6 L (6.4-8.2) gm/dl Albumin 3.3 L (3.4-5.0) gm/dl Globulin 2.3 L (2.5-4.0) gm/dl Albumin/Globulin Ratio 1.4 (0.9-2) Urine Color Urine Appearance (Clear) Urine pH (4.5-7.5) Ur Specific [place] (1.000-1.030) Urine Protein (Negative) Urine Glucose (UA) (Negative) Urine Ketones (Negative) Urine Blood (Negative) Urine Nitrite (Negative) Urine Bilirubin (Negative) Urine Urobilinogen (Negative) Ur Leukocyte Esterase (Negative) Urine WBC (Auto) (0-5) /hpf Urine RBC (Auto) (0-4) /hpf U Hyaline Cast (Auto) (0-5) /lpf U Epithel Cells (Auto) (0-5) /lpf Urine Bacteria (Auto) (Negative) Urine Yeast (None Prsent) Diagnostic Findings Chest x-ray reveals right lower lobe opacity consistent with pneumonia as seen on previous chest x-ray during last hospitalization. Severe emphysema noted. Medications Administered Received Levaquin and Lopressor in the ED. Supervising Physician Co-Signing Physician Notes Attending addendum: I have physically seen this patient, have supervised the medical residents activities, and agree with the H&P unless as otherwise noted. Assessment and Plan: Acute on chronic respiratory failure with hypoxia/COPD exacerbation/pneumonia- Chest x-ray this week shows a slight worsening of the pneumonia from 1 week ago. Most recently admitted from 05/11-05/16. Looks like a partial response to previous treatment. Discussing with son degree of aggressiveness based on the patient's overall quality of life and poor prognosis. We will consult palliative care as discussed with son. Multifocal atrial tachycardia- Lopressor IV as needed/Cardizem IV as needed for optimal control. Remainder of orders and notations as noted. PG Care Time/CCT Total # of Minutes Spent Total Time Spent with Patient: Total time spent is greater than 50% in coordination of care (as documented) at patient's floor/unit and/or counseling patient: Resident Activity Tracking Resident Involvement: Resident Care Provided Care Provided: Adult Hospital Medicine (1) Acute and chronic respiratory failure Respiratory failure complication: hypoxia Qualified Code(s): J96.21 - Acute and chronic respiratory failure with hypoxia (2) Emphysema of lung Emphysema type: unspecified Qualified Code(s): J43.9 - Emphysema, unspecified
[2019-05-22] MEDS ORDERED: ALUMINUM/MAGNESIUM SUSP 30 ML UDC PO PRN (23:50)
[2019-05-22] MEDS ORDERED: ONDANSETRON 4 MG TAB PO PRN (23:50)
[2019-05-22] MEDS ORDERED: BISACODYL 10 MG SUPP PR PRN (23:50)
[2019-05-22] MEDS ORDERED: ACETAMINOPHEN 325 MG TAB PO PRN (23:50)
[2019-05-22] MEDS ORDERED: SOD PHOSPHATE/SOD BIPHOSPHATE ENEMA 132 ML BTL PR PRN (23:50)
[2019-05-22] MEDS ORDERED: MAGNESIUM HYDROXIDE SUSP 30 ML UDC PO PRN (23:50)
[2019-05-23] MEDS ORDERED: METOPROLOL TARTRATE 1 MG/ML VIAL IV PRN (00:21)
--- NOTE | 2019-05-23 01:03 | Emergency Department Note ---
Entered by Jd Izaguirre acting as a scribe for History of Present Illness General Chief complaint: Confusion Stated complaint: AMS, SEMI RESPONSIVE, HYPOXIA Source: patient and RN notes reviewed Limitations: altered mental status History of Present Illness Onset (ago): day(s) (yesterday) Location: chest Pain Consistency: + other (worsening) Quality: + constant Associated symptoms: no chest pain and no headaches The patient is a 88 white female w/ PMHx SVT, CHF, COPD, A-Fib, CVA, ALLEN, HTN, and on 2L of nasal cannula at all times, who presents to the ED w/ CC of worsening and constant SOB beginning yesterday. Per nursing, the patient started to have SOB yesterday. Nursing states the patient was found unresponsive today. They note the patient was placed on a non-rebreather and her pulse O2 was 60. Systolic blood pressures via ALS were in the 70s. They are having difficulty obtaining IV and to call for medical command. The patient denies chest pain, headaches, abdominal pain, and being in any pain. HPI is limited due to alerted mental status. Discussed with correction staff who notes that she is a DNR/DNI. Discussed with [id number] who notes that she is a DNR/DNI and they do not want any extensive measures performed. Home Medications Home Medications Medication Instructions Recorded Confirmed Type Breo Ellipta 1 inh INHALATION QAM 04/05/19 05/22/19 History Spiriva Respimat 1 puff INHALATION QAM 04/05/19 05/22/19 History calcitriol 0.25 mcg PO 3XWK 04/05/19 05/22/19 History clopidogrel 75 mg PO QAM 04/05/19 05/22/19 History furosemide 20 mg PO QAM 04/05/19 05/22/19 History levalbuterol HCl 1.25 mg INHALATION QID 04/05/19 05/22/19 History levothyroxine 50 mcg PO DAILYBB 04/05/19 05/22/19 History prednisone 1 mg PO PM 04/05/19 05/22/19 History prednisone 2 mg PO QAM 04/05/19 05/22/19 History Certavite-Antioxidant 1 tab PO QAM #30 tab 04/11/19 05/22/19 Rx aspirin [Ecotrin Low Strength] 81 mg PO QAM #30 tab 04/11/19 05/22/19 Rx atorvastatin 20 mg PO QAM #30 tab 04/11/19 05/22/19 Rx ferrous sulfate 325 mg PO QAM #30 tab 04/11/19 05/22/19 Rx Fleet Enema 118 ml AK DAILY PRN 05/09/19 05/22/19 History acetaminophen [Mapap 650 mg PO Q6H PRN 05/09/19 05/22/19 History (acetaminophen)] acetaminophen [Tylenol Extra 500 mg PO QAM 05/09/19 05/22/19 History Strength] bisacodyl [Dulcolax (bisacodyl)] 10 mg AK UD PRN 05/09/19 05/22/19 History mirtazapine 30 mg PO HS 05/09/19 05/22/19 History oxycodone 5 mg PO Q6 PRN 05/09/19 05/22/19 History ropinirole [Requip] 0.5 mg PO HS 05/09/19 05/22/19 History buspirone 5 mg PO BID17 05/22/19 05/22/19 History diltiazem HCl [Cardizem CD] 180 mg PO QAM 05/22/19 05/22/19 History food supplemt, lactose-reduced 1 ea PO QAM 05/22/19 05/22/19 History [Boost] ondansetron HCl [Zofran] 4 mg PO Q6 PRN 05/22/19 05/22/19 History prednisone 40 mg PO 3XWK 05/22/19 05/22/19 History Allergies Allergy/AdvReac Type Severity Reaction Status Date / Time clindamycin Allergy Intermediate HIVES Verified 05/22/19 19:17 Past Med/Surg History Medical History Hematoma of right lower extremity Hyperlipidemia GERD without esophagitis Dependence on supplemental oxygen Chronic venous stasis dermatitis of both lower extremities Chronic respiratory failure Chronic obstructive pulmonary disease Carotid atherosclerosis CKD (chronic kidney disease), stage III HTN (hypertension) (Chronic) Emphysema of lung (Chronic) On 2L home O2 PAD (peripheral artery disease) CKD (chronic kidney disease), stage IV CVA (cerebral vascular accident) Residual numbness of left hand and left side of mouth Dyslipidemia Hypothyroid Polymyalgia rheumatica 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 Patient declined Treatment with [place] Subsequent recurrence with squamous cell carcinoma Status post partial vulvectomy with positive margins Status post completion of radiation therapy 08/01/2013 received 5040 cGy" Surgical History History of vaginal surgery History of uvulectomy Family History Father Cardiac disorder Myocardial infarction Brother Cardiac disorder Mother Hypertension Sister Hypertension Stomach cancer Other Family history non-contributory Social History Preferred Language: Citizen Of [place] Communication Ability: Effective Visual Impairment: Limited Hearing Ability: Normal Casing In Line Feeder Required: No Beliefs That Will Affect Care: None marital status: / Current Living Situation: [facility] Current Living Situation Comment: [facility] current occupational status: retired Other Information That Helps Us Care for You: No Feels Safe at Home: Yes Safety Concerns: Feels Safe At This Time Smoking Status: Never smoker Tobacco Type: cigarettes Cigarettes Per Day: 2002 Second Hand Exposure: No Tobacco Cessation Education Requested by Patient: No Hx Alcohol Use: No Hx Substance Use: No Dental Care, Regularly: Yes Physical Activity Frequency Comment: limited by physical condition Review of Systems See HPI for pertinent positives & negatives. and A total of 10 systems reviewed and were otherwise negative Physical Exam Vital Signs Vital Signs - 24 hr 05/22/19 18:49 05/22/19 19:21 05/22/19 22:14 Temperature 36.4 C L Temperature Source Oral Sepsis Recent Fever Within 48 Hours No Sepsis New/Unexplained Change in Mental Status No Sepsis Action Taken by Nursing No Action Required Pulse Rate 121 H Pulse Rate [Apical] 129 H 128 H Respiratory Rate 22 20 26 H Respiratory Effort / Characteristics Non-Labored Blood Pressure 169/89 H Blood Pressure [Right Arm] 145/93 H Blood Pressure Mean 115 Blood Pressure Mean [Right Arm] 110 Pulse Oximetry 100 99 Oxygen Delivery Method Non-rebreather Non-rebreather Non-rebreather Oxygen Flow Rate 15 12 Fraction of Inspired Oxygen 100 GENERAL: alert, Cachectic, ill appearing. Moderate distress. Wearing a non- breather. EYE EXAM: normal conjunctiva, PERRL and EOM's grossly intact OROPHARYNX: no exudate, no erythema, lips, buccal mucosa, and tongue normal and mucous membranes are dry NECK: supple, no nuchal rigidity, no adenopathy, non-tender. Positive JVD. LUNGS: Normal chest wall mechanics. Crackles at bilateral bases with mild wheezing. HEART: Tachycardia. Irregularly irregular rhythm. ABDOMEN: abdomen soft, non-tender, normo-active bowel sounds, no masses, no rebound or guarding. BACK: Back is symmetrical on inspection and there is no deformity, no midline tenderness, no CVA tenderness. SKIN: no rashes. Bruising throughout body. UPPER EXTREMITIES: upper extremities are grossly normal. LOWER EXTREMITIES: No pitting edema. Calves equal bilaterally. NEURO EXAM: Awake. Alert. Oriented to persona and place. Cranial nerves II-XII grossly intact, normal speech, no gross weakness of arms, no gross weakness of legs. Course ED COURSE: Vital signs were reviewed and showed hypertension, hypoxia, and tachycardia. The patients medical record was reviewed. The above diagnostic studies were performed and reviewed. ED treatments and interventions as stated above. 1802: I took the medical command call on the patient. 1806: I reviewed the patient's past medical history. She was a full code and was admitted to the hospital on 05/10/19. She was also admitted in early April. She was admitted in March for a hip fracture. 1814: I spoke with the patient's [id number]. She confirmed the patient is D NR and DNI. She is not 100 percent sure about the living will and the patient's sons wishes. She believes the son would want the patient to be made comfortable. 1823: EMS states her BP is 75/29. BPM 130. 1833: The patient was evaluated in room C9. A complete history and physical examination was performed. 1844: I spoke with the patient's son. He confirms the patient is DNR and DNI. He states he does not want the patient to be put on Bi-PAP. He does not want any aggressive measures. 2047: I discussed the patient's case with Dr. Ball - [place] [facility]. He will evaluate the patient for further management 2057: Upon reevaluation, the patient is getting admitted. I discussed my findings with the patient and she understands and agrees with the treatment plan. Based on the patients age, coexisting illnesses, exam and lab findings the decision to treat as an inpatient was made. The patient remained stable while under my care. The patient will be evaluated for further management. Administered Medications Discontinued Medications Albuterol (Duoneb) 9 ml INH NOW STA Stop: 05/22/19 18:42 Last Admin: 05/22/19 19:20 Dose: 9 ml Documented by: [id number] Diltiazem HCl (Cardizem) 10 mg IV NOW STA Stop: 05/22/19 22:27 Last Admin: 05/22/19 22:33 Dose: 10 mg Documented by: [id number] Cosigned by: [id number] Levofloxacin/Dextrose (Levaquin/D5w) 750 mg in 150 mls @ 100 mls/hr IV NOW STA Stop: 05/22/19 20:10 Last Infusion: 05/22/19 21:13 Dose: 0 mls/hr Documented by: [id number] Admin: 05/22/19 19:26 Dose: 100 mls/hr Documented by: [id number] Cefepime HCl 1,000 mg/ Syringe 11.3 mls @ 5.5 mls/min IV NOW STA; Protocol Stop: 05/22/19 20:35 Last Admin: 05/22/19 21:13 Dose: 5.5 mls/min Documented by: [id number] Metoprolol Tartrate (Lopressor) 2.5 mg IV NOW STA Stop: 05/22/19 20:37 Last Admin: 05/22/19 20:52 Dose: 2.5 mg Documented by: [id number] Morphine Sulfate (Morphine Sulfate) 1 mg IV Q4H PRN PRN Reason: Severe Pain Stop: 06/05/19 22:38 Last Admin: 05/22/19 23:02 Dose: 1 mg Documented by: [id number] Medical Decision Making Differential Diagnosis Differential diagnoses includes but is not limited to pneumonia, bronchitis, COPD/Asthma exacerbation, pneumothorax, pulmonary embolism, congestive heart failure, acute coronary syndrome Medical Records Attestation: I reviewed the patient's medical records. Home Medications Current Medication List: was personally reviewed by me Laboratory Data Attestation: I reviewed the patient's lab results. Result diagrams: 05/22/19 19:32 05/22/19 19:26 Lab Results 05/22/19 05/22/19 05/22/19 Range/Units 19:26 19:26 19:32 WBC 17.55 H (4.8-10.8) K/uL RBC 3.19 L (4.2-5.4) M/uL Hgb 9.4 L (12.0-16.0) g/dL Hct 29.9 L (37-47) % MCV 93.7 (80-100) fL MCH 29.5 (25-34) pg MCHC 31.4 L (32-36) g/dL RDW Std Deviation 63.0 H (36.4-46.3) fL RDW Coeff of Rhys 18.2 H (11.5-14.5) % Plt Count 165 (130-400) K/uL MPV 10.2 (7.4-10.4) fL Immature Gran % (Auto) 0.7 % Neut % (Auto) 91.2 % Lymph % (Auto) 5.0 % [place] % (Auto) 3.0 % Eos % (Auto) 0.0 % Baso % (Auto) 0.1 % Immature Gran # (Auto) 0.12 H (0.00-0.02) K/uL Neut # (Auto) 16.03 H (1.4-6.5) K/uL Lymph # (Auto) 0.87 L (1.2-3.4) K/uL [place] # (Auto) 0.52 (0.11-0.59) K/uL Eos # (Auto) 0.00 (0-0.5) K/uL Baso # (Auto) 0.01 (0-0.2) K/uL PT INR APTT PTT Ratio VBG pH Cancelled VBG pCO2 Cancelled VBG pO2 Cancelled VBG HCO3 Cancelled VBG O2 Saturation Cancelled VBG Base Excess Cancelled Barometric Pressure Cancelled Sodium 143 (136-145) mmol/L Potassium 4.6 (3.5-5.1) mmol/L Chloride 107 (98-107) mmol/L Carbon Dioxide 28 (21-32) mmol/L Anion Gap 8.0 (3-11) BUN 43 H (7-18) mg/dl Creatinine 1.85 H (0.6-1.2) mg/dl Est Cr Clr Drug Dosing 18.1 ml/min Est GFR ( Amer) 27.9 Est GFR (Non-Af Amer) 24.1 BUN/Creatinine Ratio 23.2 H (10-20) Glucose 116 H (70-99) mg/dl Calcium 8.8 (8.5-10.1) mg/dl Magnesium 2.6 H (1.8-2.4) mg/dl Total Bilirubin 0.8 (0.2-1) mg/dl AST 29 (15-37) U/L ALT 29 (12-78) U/L Alkaline Phosphatase 98 (45-117) U/L CK-MB (CK-2) 5.9 H (0.5-3.6) ng/ml Troponin I 0.063 H* (0-0.045) ng/ml Total Protein 5.6 L (6.4-8.2) gm/dl Albumin 3.3 L (3.4-5.0) gm/dl Globulin 2.3 L (2.5-4.0) gm/dl Albumin/Globulin Ratio 1.4 (0.9-2) Urine Color Urine Appearance (Clear) Urine pH (4.5-7.5) Ur Specific [place] (1.000-1.030) Urine Protein (Negative) Urine Glucose (UA) (Negative) Urine Ketones (Negative) Urine Blood (Negative) Urine Nitrite (Negative) Urine Bilirubin (Negative) Urine Urobilinogen (Negative) Ur Leukocyte Esterase (Negative) Urine WBC (Auto) (0-5) /hpf Urine RBC (Auto) (0-4) /hpf U Hyaline Cast (Auto) (0-5) /lpf U Epithel Cells (Auto) (0-5) /lpf Urine Bacteria (Auto) (Negative) Urine Yeast (None Prsent) 05/22/19 05/22/19 05/22/19 Range/Units 19:32 20:05 20:30 WBC (4.8-10.8) K/uL RBC (4.2-5.4) M/uL Hgb (12.0-16.0) g/dL Hct (37-47) % MCV (80-100) fL MCH (25-34) pg MCHC (32-36) g/dL RDW Std Deviation (36.4-46.3) fL RDW Coeff of Rhys (11.5-14.5) % Plt Count (130-400) K/uL MPV (7.4-10.4) fL Immature Gran % (Auto) % Neut % (Auto) % Lymph % (Auto) % [place] % (Auto) % Eos % (Auto) % Baso % (Auto) % Immature Gran # (Auto) (0.00-0.02) K/uL Neut # (Auto) (1.4-6.5) K/uL Lymph # (Auto) (1.2-3.4) K/uL [place] # (Auto) (0.11-0.59) K/uL Eos # (Auto) (0-0.5) K/uL Baso # (Auto) (0-0.2) K/uL PT Cancelled INR Cancelled APTT Cancelled PTT Ratio Cancelled VBG pH 7.32 L VBG pCO2 54 H VBG pO2 34 VBG HCO3 27 VBG O2 Saturation < 60.0 VBG Base Excess 0.7 Barometric Pressure 733.4 Sodium (136-145) mmol/L Potassium (3.5-5.1) mmol/L Chloride (98-107) mmol/L Carbon Dioxide (21-32) mmol/L Anion Gap (3-11) BUN (7-18) mg/dl Creatinine (0.6-1.2) mg/dl Est Cr Clr Drug Dosing ml/min Est GFR ( Amer) Est GFR (Non-Af Amer) BUN/Creatinine Ratio (10-20) Glucose (70-99) mg/dl Calcium (8.5-10.1) mg/dl Magnesium (1.8-2.4) mg/dl Total Bilirubin (0.2-1) mg/dl AST (15-37) U/L ALT (12-78) U/L Alkaline Phosphatase (45-117) U/L CK-MB (CK-2) (0.5-3.6) ng/ml Troponin I (0-0.045) ng/ml Total Protein (6.4-8.2) gm/dl Albumin (3.4-5.0) gm/dl Globulin (2.5-4.0) gm/dl Albumin/Globulin Ratio (0.9-2) Urine Color Yellow Urine Appearance Cloudy A (Clear) Urine pH 6.0 (4.5-7.5) Ur Specific [place] 1.013 (1.000-1.030) Urine Protein Negative (Negative) Urine Glucose (UA) Negative (Negative) Urine Ketones Negative (Negative) Urine Blood 1+ H (Negative) Urine Nitrite Negative (Negative) Urine Bilirubin Negative (Negative) Urine Urobilinogen Negative (Negative) Ur Leukocyte Esterase 2+ H (Negative) Urine WBC (Auto) >30 H (0-5) /hpf Urine RBC (Auto) 5-10 H (0-4) /hpf U Hyaline Cast (Auto) 1-5 (0-5) /lpf U Epithel Cells (Auto) 0-5 (0-5) /lpf Urine Bacteria (Auto) 2+ H (Negative) Urine Yeast Present A (None Prsent) Imaging Data Radiologist's Impression: Radiology results as stated below per my review and the radiologist's interpretation: SINGLE VIEW CHEST CLINICAL HISTORY: Dyspnea. FINDINGS: An AP, portable, upright chest radiograph is compared to study dated 05/12/2019 and correlated with chest CT dated 07/17/2012. The examination is degraded by portable technique and patient rotation. The examination is degraded by portable technique and patient rotation. The heart is enlarged and there is atherosclerotic calcification of the thoracic aorta. The pulmonary vasculature is noncongested. Advanced emphysema and chronic interstitial thickening is similar to previous. There is patchy airspace consolidation at the right lung base with a small right pleural effusion. Scarring/atelectasis is noted at the left lung base. Apical scarring is observed. No pneumothorax is seen. The skeletal structures are osteopenic. The bony thorax is grossly intact. IMPRESSION: 1. Cardiomegaly and severe emphysema. 2. There is patchy airspace consolidation at the right lung base and a small right pleural effusion. The appearance is typical for pneumonia/aspiration pneumonitis. Clinical correlation will be required and radiographic follow-up to resolution is recommended. 3. Left basilar opacities likely represent scarring/atelectasis. Electronically signed by: Cheng Obrien M.D. 05/22/2019 8:19 PM ECG Data Attestation: I personally reviewed and interpreted this ECG as follows: Indication: weakness and other (confusion, hypoxia) Rate (beats per minute): 122 Rhythm: atrial fibrillation (with RVR) Findings: + nonspecific-ST abn (in inferior waves) and + left axis deviation Blood Pressure Blood Pressure Findings: Elevated blood pressure Blood Pressure Disposition: further management by hospitalist MILAD Narrative Patient is an 88-year-old female with a past medical history of paroxysmal A. fib, SVT, respiratory failure, CVA, COPD, hypertension, PAD and CKD who presents the ER for hypoxia hypotension and tachycardia. I received medical command call and she is a DNR/DNI and she was found to be nearly unresponsive with a pulse ox of 60 and systolic blood pressures in the 70s. Upon presentation to the ER she was on nonrebreather and IV was established. She was given some IV fluids. Systolic blood pressures were elevated in the 160s. She was given neb treatments. She was found to be persistently hypoxic and was continued on the nonrebreather. IV was established blood work was obtained after discussion with the correction, son and [id number]. It was determined that she is a DNR/DNI and would not want BiPAP or any extensive measures. Labs show a leukocytosis of 17.5 thousand. Anemia at 9.4. INR was unremarkable. VBG with a pH of 7.32 and a CO2 of 54. BMP with a creatinine 1.8 which is slightly elevated off at baseline. Magnesium was slightly elevated as well at 2.6. Troponin was elevated at 0.062 which I do believe is likely to be secondary to demand ischemia. UA did suggest a possible UTI. Patient was given broad- spectrum antibiotics including IV Levaquin and cefepime. Chest x-ray does suggest a pneumonia but is not far off of baseline. Patient was updated bedside. She remained on nonrebreather. She was given 2 separate doses of IV Lopressor for her A. fib with RVR with heart rate eventually increased to 170s and again trended back down to the low 100s. Patient was monitored closely while in the ER. She was updated bedside and admitted for further work-up. Impression & Plan Sepsis, Hypoxia, Pneumonia, Altered mental status, Leukocytosis Critical Care Time Critical Care Time: Yes Total Critical Care Time: 35 I have personally spent 35 minutes of critical care time in the direct management of this patient. This includes bedside care, interpretation of diagnostic studies, and testing, discussion with consultants, patient, and family members, and other required patient management activities. This 35 minutes is in excess of all separately billable procedures. Discharge Plan Visit Data *Final* Discharge Date/Time: 05/22/19 23:45 Chief Complaint: Confusion Stated Complaint: AMS, SEMI RESPONSIVE, HYPOXIA ED Provider: Brown Bonilla Discharge Problem: Sepsis, Hypoxia, Pneumonia, Altered mental status, Leukocytosis Patient Disposition: Admitted As Inpatient Discharge Instructions Interventions: ED Discharge Assessment Last Done: 05/22/19 23:45 The scribe's documentation has been prepared under my direction and personally reviewed by me in its entirety. I confirm that the note above accurately reflects all work, treatment, procedures, and medical decision making performed by me.
[2019-05-23] MEDS: SODIUM CHLORIDE 0.9% 1000ML 1,000 ML IV SCH ×2 (01:26→09:45)
[2019-05-23] MEDS ORDERED: METOPROLOL TARTRATE 25 MG TAB PO PRN (02:33)
[2019-05-23] MEDS ORDERED: BACTRIM~PHARMACY CONSULT IN PROGRESS PRN (04:43)
[2019-05-23] MEDS ORDERED: LEVOTHYROXINE SODIUM 50 MCG TABLET PO SCH (06:30)
[2019-05-23] MEDS: LEVALBUTEROL HCL 1.25 MG/3 ML NEB INH SCH ×4 (07:14→19:04)
--- NOTE | 2019-05-23 08:45 | Hospitalist Progress Note ---
Date of Service May 23, 2019 Assessment & Plan (1) Comfort measures only status: - Stop all unnecessary/invasive testing, medications, imaging, lab draws - Start ativan, atropine drops PO for secretions, morphine sulfate for pain and work of breathing - Transfer to private and quiet room on 4E - Palliative consulted - Appreciate recs and assistance with speaking with the patient and family - son LIVIA León, discussed comfort measures with him. Plans to visit this afternoon. - Plan for transition to home on hospice if the patient is able to make it there. (2) Acute and chronic respiratory failure: -Multifactorial given that she does have severe emphysema, recent pneumonia, is oxygen dependent on 4-5 L at baseline and has cardiac abnormalities -CXR shows old PNA from 1 week ago, did complete full IV and PO abx course, is afebrile here - leukocytosis most likely reactive due to prednisone burst started yesterday - stress dosing steriods with PMR hx - O2 support, inhalers spiriva, levalbuterol, breo (3) Hypoxia: (4) Dependence on supplemental oxygen: (5) Altered mental status: metabolic encephalopathy 2nd to sepsis (6) Leukocytosis: - secondary to infectious source vs steriod burst - UTI growing enterrococcus - was administered 1 dose of unasyn today but then placed on comfort measures per family wishes (7) SVT (supraventricular tachycardia): (8) History of CVA (cerebrovascular accident): (9) PAD (peripheral artery disease): (10) Emphysema of lung: (11) Poor venous access: (12) Polymyalgia rheumatica: (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 No signs of acute infection surrounding the wound. Continue nonstick dressing. CODE: DNR Comfort measures only Dispo: Likely to in the hospital, CM assisting with transition to home on hospice. (16) Sepsis: 2nd to enterococcal UTI and/or RLL pneumonia as seen on imaging. (17) CKD (chronic kidney disease), stage IV: baseline CrCl <30 (18) Acute kidney injury: 2nd to sepsis Supervising Physician Co-Signing Physician Notes Attending Attestation and note - Pt seen/examined, chart extensively reviewed, care plan d/w KAMILLA Moody. I agree w/ the coronado components of her documentation. I was called by nursing staff early this am - probably about 745am - that patient was unresponsive, hypothermic, and with increasing oxygen requirements. Upon arrival the patient was indeed unresponsive and hypothermic. Verbal order given for bear hugger warmer. Fingerstick blood sugar was normal. She did not respond during my initial examination. Exam - gen - cacechtic, NAD mouth - MM dry heart - tachy, irregular lungs - CTA b/l, no increased work of breathing abd - soft NT ND ext - cool feet, pulses <1+, cap refill >2 sec Shortly after I finished my exam she woke up spontaneously. She spoke but it was difficult to understand her speech. She denied pain. Imp: acute/chronic hypoxic resp failure hypothermia - presumed due to sepsis sepsis - likely due to UTI +/- RLL pneumonia dementia metabolic encephalopathy - likely due to sepsis acute renal failure in setting of CKD stage 4 plan: initially we discussed supportive care measures including IV antibiotic therapy and stress-dose steroids. later in day, following palliative care consultation and discussion w/ family, we are now transitioning to comfort care measures. Ryan Rubin MD Subjective The patient was seen and examined this morning. Pt states she is doing better, denies acute pain. She attempts to participate in all conversation but her speech is a little muffled. She states her breathing is ok, no cough, no fever. She is wearing a bear hugger due to episode of hypothermia earlier this morning. When I removed the leg dressing from her hematoma I&D she felt this was painful but then relaxed once the dressing was off. She denies any other acute complaints. She is not sure if her son is coming to visit today. Review of Systems Review of Systems: Constitutional: No fever, sweats or chills Eyes: No diplopia, no worsening or blurred vision ENT: normal hearing, no trouble swallowing Respiratory: No cough, sputum, dyspnea at rest or on exertion Cardiovascular: No chest pain, tightness or palpitations Abdomen: No pain, nausea, vomiting, diarrhea or constipation Musculoskeletal: + R leg pain during dressing change, otherwise No joint pain, calf pain, swelling Neurologic: No weakness, numbness/tingling, or balance problems Psychiatric: No anxiety or depression Skin: No rash or itch Physical Exam Physical Exam: General: awake, alert, no apparent distress, + thin, + multiple areas of ecchymosis over body Head: Normocephalic, atraumatic ENT: PERRL, EOMI, no pharyngeal exudate, mucous membranes moist Chest: On oximask at 7L, diminished breath sounds throughout,no crackles or wheezes Cardiac: + tachycardic, no murmur, no JVD, normal peripheral pulses Abdominal: NABS x 4 quadrants, soft, nontender to palpation, no rebound, guarding or tenderness Extremities: + ecchymosis, + RLE hematoma wound with surrounding erythema, non edema, + pain with dressing change. No peripheral edema or erythema, calfs nontender to palpation Psych: Normal mood and affect Neuro: AA, oriented to place and self, speech is difficult to understand at times, participates in conversation Results & Data Vital Signs (Past 12 Hours) Vital Signs Temp Pulse Pulse Resp BP Pulse Ox 05/23/19 07:47 118 H 20 05/23/19 07:37 34.7 C L 120 H 16 91 05/23/19 05:46 124 H 100 05/23/19 03:33 36.7 C 128 H 22 161/80 H 05/23/19 00:12 138 H 20 96 05/22/19 23:55 36.7 C 115 H 20 150/91 H 100 05/22/19 22:14 128 H 26 H 145/93 H PG Care Time/CCT Total # of Minutes Spent Total Time Spent with Patient: Total time spent is greater than 50% in coordination of care (as documented) at patient's floor/unit and/or counseling patient: (1) Acute and chronic respiratory failure Respiratory failure complication: hypoxia Qualified Code(s): J96.21 - Acute and chronic respiratory failure with hypoxia (2) Emphysema of lung Emphysema type: unspecified Qualified Code(s): J43.9 - Emphysema, unspecified
[2019-05-23] MEDS ORDERED: NON-FORMULARY MEDICATION (Food Supplemt, Lactose-Reduced [Boost] 1 EA) PO SCH (09:00)
[2019-05-23] MEDS ORDERED: ASPIRIN 81 MG ECTAB PO SCH (09:00)
[2019-05-23] MEDS ORDERED: ATORVASTATIN 20 MG TAB PO SCH (09:00)
[2019-05-23] MEDS ORDERED: dilTIAZem HCL 180 MG CAPCR PO SCH (09:00)
[2019-05-23] MEDS ORDERED: FERROUS SULFATE 325 MG TAB PO SCH (09:00)
[2019-05-23] MEDS ORDERED: predniSONE 20 MG TAB PO SCH (09:00)
[2019-05-23] MEDS ORDERED: SULFA/TRIMETH 400/80MG TAB PO SCH (09:00)
[2019-05-23] MEDS ORDERED: ACETAMINOPHEN 500 MG TAB PO SCH (09:00)
[2019-05-23] MEDS ORDERED: CEROVITE ADV FORMULA TAB PO SCH (09:00)
[2019-05-23] MEDS ORDERED: CLOPIDOGREL BISULFATE 75 MG TAB PO SCH (09:00)
[2019-05-23] MEDS ORDERED: TIOTROPIUM BROMIDE 5 PUFF/90 MCG INH INH SCH (09:00)
[2019-05-23] MEDS ORDERED: CEFEPIME 1,000 MG in SYRINGE 0 ML IV SCH (10:45)
[2019-05-23] MEDS ORDERED: CEFEPIME 2,000 MG in SYRINGE 0 ML IV SCH (10:45)
--- NOTE | 2019-05-23 11:52 | Palliative Care Consultation ---
Date of Consultation May 23, 2019 Assessment & Plan (1) Palliative care encounter: This patient is an 88 year old female who is a resident of [facility] since 2018 presents to the hospital with increased SOB requiring supplemental O2, EKG changes with Troponin elevation and lethargy. Additional PMH includes COPD, CKD, CVA, HTN, PAD, dementia and a recent admission with discharge on May 16 with PMR and a Right thigh hematoma that required I & D. Per review of the chart, the patient has been showing function and cognitive decline over the past few months. Palliative Care was consulted to discuss goals of care. -I met with patient in her room - 219. Patient awake and alert. lab was in doing a blood draw. No family at the bedside. -Patient with garbled speech and nonsensical words being said, but unable to comprehend -Patient showing signs of entering the active phase of life with her head tilted back and staring at the ceiling. patient extremities are cool and appears patient may be experiencing hallucinations. -I called patient's son, Mau at [phone] and left him a VM. Per nursing, they think he may have to work overnight. -Based on previous review of the chart, the son would like to transition to comfort measures, which I would support. -Patient does have a bed hold at [facility], but I do not see this patient leaving the hospital and would support a comfort measures transition with stopping all blood draws, medications, etc.; however, this needs to be discussed with the son , Mau first. -Should the patient's son return our call, and transition to comfort measures is made, I would transfer patient with no additional cardiac monitoring and start the following medications: -Morphine 1 mg Q2 PRN pain/air hunger -Atropine 4 gtts Q3 PRN secretions -Ativan 0.5 mg IV Q4 PRN agitation -Should we transition to comfort we can re-evaluate and determine if she is stable enough for transfer to [facility] if they are willing to accept patient back with a hospice agency which needs to be chosen by son. -Again, I do not foresee the patient leaving the hospital. At this time, I do not think that the patient is qualifiable for GIP. -The above communicated -PPS: 10% (2) Altered mental status: (3) Paroxysmal atrial fibrillation with RVR: (4) Hematoma of right lower extremity: (5) Acute and chronic respiratory failure: Respiratory failure complication: hypoxia Qualified Code(s): J96.21 - Acute and chronic respiratory failure with hypoxia (6) History of CVA (cerebrovascular accident): Supervising Physician Co-Signing Physician Notes Chart reviewed, patient seen and examined. Collaborated with BROOKE Rosas-patient transitioning to full comfort measures. PE: Patient awake, oriented to self only General: Thin, cachectic HEENT: EOMI, hearing within normal limits Respirations: Unlabored, diminished at bases, on O2 at 7 L via oxygen mask CV: Tachycardic, edema Abdomen: Soft, no grimace with palpation Neuro: Oriented to self only Skin: Bilateral feet cool to midfoot Agree with above note, assessment and plan as per BROOKE Rosas-will continue to follow and assist family with medical decision making, comfort orders placed. History of Present Illness Reason for Consultation: Goals of care Requesting Physician: Dr. Garcia Attending Physician: Dayron Ball MD History of Present Illness This patient is an 88 year old female who is a resident of [facility] since 2018 presents to the hospital with increased SOB requiring supplemental O2, EKG changes with Troponin elevation and lethargy. Additional PMH includes COPD, CKD, CVA, HTN, PAD, dementia and a recent admission with discharge on May 16 with PMR and a Right thigh hematoma that required I & D. Per review of the chart, the patient has been showing function and cognitive decline over the past few months. Palliative Care was consulted to discuss goals of care. Please see A/P for further details. Thank you kindly for involving the palliative care team with this patient. We will continue to follow as needed for decision making. Allergies Allergy/AdvReac Type Severity Reaction Status Date / Time clindamycin Allergy Intermediate HIVES Verified 05/22/19 19:17 Home Medications Home Medications Medication Instructions Recorded Confirmed Type Breo Ellipta 1 inh INHALATION QAM 04/05/19 05/22/19 History Spiriva Respimat 1 puff INHALATION QAM 04/05/19 05/22/19 History calcitriol 0.25 mcg PO 3XWK 04/05/19 05/22/19 History clopidogrel 75 mg PO QAM 04/05/19 05/22/19 History furosemide 20 mg PO QAM 04/05/19 05/22/19 History levalbuterol HCl 1.25 mg INHALATION QID 04/05/19 05/22/19 History levothyroxine 50 mcg PO DAILYBB 04/05/19 05/22/19 History prednisone 1 mg PO PM 04/05/19 05/22/19 History prednisone 2 mg PO QAM 04/05/19 05/22/19 History Certavite-Antioxidant 1 tab PO QAM #30 tab 04/11/19 05/22/19 Rx aspirin [Ecotrin Low Strength] 81 mg PO QAM #30 tab 04/11/19 05/22/19 Rx atorvastatin 20 mg PO QAM #30 tab 04/11/19 05/22/19 Rx ferrous sulfate 325 mg PO QAM #30 tab 04/11/19 05/22/19 Rx Fleet Enema 118 ml WA DAILY PRN 05/09/19 05/22/19 History acetaminophen [Mapap 650 mg PO Q6H PRN 05/09/19 05/22/19 History (acetaminophen)] acetaminophen [Tylenol Extra 500 mg PO QAM 05/09/19 05/22/19 History Strength] bisacodyl [Dulcolax (bisacodyl)] 10 mg WA UD PRN 05/09/19 05/22/19 History mirtazapine 30 mg PO HS 05/09/19 05/22/19 History oxycodone 5 mg PO Q6 PRN 05/09/19 05/22/19 History ropinirole [Requip] 0.5 mg PO HS 05/09/19 05/22/19 History buspirone 5 mg PO BID17 05/22/19 05/22/19 History diltiazem HCl [Cardizem CD] 180 mg PO QAM 05/22/19 05/22/19 History food supplemt, lactose-reduced 1 ea PO QAM 05/22/19 05/22/19 History [Boost] ondansetron HCl [Zofran] 4 mg PO Q6 PRN 05/22/19 05/22/19 History prednisone 40 mg PO 3XWK 05/22/19 05/22/19 History Patient History Medical History Hematoma of right lower extremity Hyperlipidemia GERD without esophagitis Dependence on supplemental oxygen Chronic venous stasis dermatitis of both lower extremities Chronic respiratory failure Chronic obstructive pulmonary disease Carotid atherosclerosis CKD (chronic kidney disease), stage III HTN (hypertension) (Chronic) Emphysema of lung (Chronic) On 2L home O2 PAD (peripheral artery disease) CKD (chronic kidney disease), stage IV CVA (cerebral vascular accident) Residual numbness of left hand and left side of mouth Dyslipidemia Hypothyroid Polymyalgia rheumatica 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 Patient declined Treatment with [facility]ara Subsequent recurrence with squamous cell carcinoma Status post partial vulvectomy with positive margins Status post completion of radiation therapy 08/01/2013 received 5040 cGy" Surgical History History of vaginal surgery History of uvulectomy Family History Father Cardiac disorder Myocardial infarction Brother Cardiac disorder Mother Hypertension Sister Hypertension Stomach cancer Other Family history non-contributory Social History Preferred Language: Czech Communication Ability: Effective Visual Impairment: Limited Hearing Ability: Normal Superintendent Operating Required: No Beliefs That Will Affect Care: None marital status: / Current Living Situation: Longterm Current Living Situation Comment: [facility] current occupational status: retired Other Information That Helps Us Care for You: No Feels Safe at Home: Yes Safety Concerns: Feels Safe At This Time Smoking Status: Never smoker Tobacco Type: cigarettes Cigarettes Per Day: 2002 Second Hand Exposure: No Tobacco Cessation Education Requested by Patient: No Hx Alcohol Use: No Hx Substance Use: No Dental Care, Regularly: Yes Physical Activity Frequency Comment: limited by physical condition Review of Systems Review of Systems: Unobtainable due to cognitive status Physical Exam Constitutional: + acute distress, + ill appearing, + cachectic and + altered mental status Eyes: PERRL, conjunctivae normal, anicteric sclerae ENMT: external ear and nose normal, oropharynx normal Neck: trachea midline, no thyromegaly Respiratory: Auscultation: + diminished lung sounds patient utilizing 7Liters oxy mask Cardiovascular: Rate/Rhythm: + tachycardic Heart Sounds: + murmur Vessels: dorsalis pedis pulses present (extremities cool - +1 pulses) Extremities: + abnormal capillary refill extremities cool Gastrointestinal (Abdomen): normal bowel sounds, soft, nontender, no hepatosplenomegaly Skin: + skin tightening, + dry skin, + ecchymosis (generalized arms and legs ) and + pallor Psychiatric: Orientation: alert Insight: + impaired insight Judgement: + impaired judgement garbled speech Results & Data Vital Signs (Past 12 Hours) Vital Signs Temp Pulse Pulse Resp BP Pulse Ox 05/23/19 11:18 112 H 24 94 05/23/19 09:36 118 H 05/23/19 07:47 118 H 20 05/23/19 07:37 34.7 C L 120 H 16 91 05/23/19 05:46 124 H 100 05/23/19 03:33 36.7 C 128 H 22 161/80 H 05/23/19 00:12 138 H 20 96 05/22/19 23:55 36.7 C 115 H 20 150/91 H 100 PG Care Time/CCT Total # of Minutes Spent Total Time Spent: 50 Total Time Spent with Patient: Total time spent is greater than 50% in coordination of care (as documented) at patient's floor/unit and/or counseling patient: 50 Time Spent Midlevel total time spent 50 minutes with > 50% of that time spent assessing the patient and attempting to reach family
[2019-05-23 14:25] LABS: Creatinine Clr Calc Pharmacy 9.2 ml/min; Est GFR (African American) 22.7; Est GFR (Non-African American) 19.6
[2019-05-23] MEDS ORDERED: LORazepam 0.25 MG/0.5 ML VIAL IV PRN (14:57)
[2019-05-23] MEDS ORDERED: ATROPINE SULFATE 1% OP SOLN 2 ML BTL SL PRN ×2 (14:57→15:04)
[2019-05-23] MEDS ORDERED: AMPICILLIN/SULBACTAM SOD 1,500 MG in 0.9 % SODIUM CHLORIDE 100 ML IV SCH (15:00)
[2019-05-23] MEDS ORDERED: MIRTAZAPINE TAB 15 MG TAB PO SCH (21:00)
[2019-05-23] MEDS ORDERED: ROPINIROLE HCL 0.25 MG TABLET PO SCH (21:00)
[2019-05-24] MEDS: MoRPHine SULFATE 2 MG/ML CARP IV PRN ×5 (04:24→16:07)
[2019-05-24] MEDS ORDERED: MoRPHine SULFATE 2 MG/ML CARP IV STA (05:41)
[2019-05-24] MEDS ORDERED: CALCITRIOL 0.25 MCG CAPSULE PO SCH (09:00)
[2019-05-24] MEDS ORDERED: predniSONE 20 MG TAB PO SCH (09:00)
--- NOTE | 2019-05-24 14:55 | Palliative Care Progress Note ---
Date of Service May 24, 2019 Assessment & Plan (1) Palliative care encounter: -Comfort measures only. -Restless and writhing in the bed when I entered room this morning at 0900. she did improve after IV morphine. -Prognosis is likely hours to days. She was dyspneic and dusky colored. Hypoxic, but refusing to keep oxygen on. Not stable for transfer out of facility, could potentially en route. No family at bedside. -Continue morphine and lorazepam as needed for comfort. (2) Altered mental status: (3) Paroxysmal atrial fibrillation with RVR: (4) Hematoma of right lower extremity: (5) Acute and chronic respiratory failure: (6) History of CVA (cerebrovascular accident): Subjective Patient was awake, but confused and restless upon entering room around 0900. 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 Review of Systems Review of Systems: c/o dry mouth. FUll ROS unable to be obtained due to cognitive status Physical Exam Constitutional: + ill appearing, + cachectic and + frail appearing restless in bed ENMT: external ear and nose normal, oropharynx normal Neck: normal visual inspection Respiratory: + labored breathing Auscultation: + diminished lung sounds Cardiovascular: RRR, no murmur, no edema Skin: BLE skin dark and discolored Neurologic: moves all extremities, awake and + confused Psychiatric: Orientation: + not oriented x 3 PG Care Time/CCT Total # of Minutes Spent Total Time Spent with Patient: Total time spent is greater than 50% in coordination of care (as documented) at patient's floor/unit and/or counseling patient: Time Spent Midlevel 35 minutes with >50% of the time spent at bedside with patient and nursing staff discussing comfort measures and EOL care. (1) Acute and chronic respiratory failure Respiratory failure complication: hypoxia Qualified Code(s): J96.21 - Acute and chronic respiratory failure with hypoxia
--- NOTE | 2019-05-24 15:49 | Hospitalist Progress Note ---
Date of Service May 24, 2019 Assessment & Plan (1) Comfort measures only status: - Transitioned to comfort care; multi-factorial related to severe emphysema, recent PNA, cardiac abnormalities. - Morphine 1 mg IV q2hr prn pain/SOB. - Atropine drops q3hr prn secretions. - Ativan 0.25 mg IV q4hr prn anxiety. - Palliative consulted, appreciate input. (2) Sepsis: (3) Acute and chronic respiratory failure: (4) Altered mental status: (5) SVT (supraventricular tachycardia): (6) History of CVA (cerebrovascular accident): (7) PAD (peripheral artery disease): (8) Emphysema of lung: (9) Poor venous access: (10) Polymyalgia rheumatica: (11) intermediate (current) use of systemic steroids: (12) Chronic venous stasis dermatitis of both lower extremities: (13) Leg wound, right: (14) Acute kidney injury: (15) CKD (chronic kidney disease), stage IV: Dispo: Comfort measures only. Supervising Physician Co-Signing Physician Notes Attending Attestation - Chart reviewed, care plan d/w PA Tanisha Monteiro. I agree w/ the coronado components of her documentation. Pt transitioning to comfort care pathway today at request of family. Agree with comfort measures as listed by Ms Monteiro. Ryan Rubin MD Subjective Pt. appears comfortable, is unresponsive to verbal stimuli. Review of Systems Review of Systems: Unobtainable due to cognitive status Physical Exam Physical Exam: General: Resting comfortably Cardiac: RRR Lungs: CTA bilaterally Abdomen: Bowel normoactive X 4; Nontender to palpation Extremities: Warm. No edema present. Cyanosis, cold extremities. Neuro: Inresponsive to verbal stimuli Skin: No rash PG Care Time/CCT Total # of Minutes Spent Total Time Spent with Patient: Total time spent is greater than 50% in coordination of care (as documented) at patient's floor/unit and/or counseling patient: (1) Acute and chronic respiratory failure Respiratory failure complication: hypoxia Qualified Code(s): J96.21 - Acute and chronic respiratory failure with hypoxia (2) Emphysema of lung Emphysema type: unspecified Qualified Code(s): J43.9 - Emphysema, unspecified
--- NOTE | 2019-05-24 18:31 | Death Summary ---
Date of Service May 24, 2019 Pronouncement Note Date and Time of Date of : 05/24/19 Time of : 17:50 PCOD Preliminary cause of : Acute respiratory failure with hypoxia Contributing Factors (1) Comfort measures only status: (2) Sepsis: (3) Acute and chronic respiratory failure: (4) Altered mental status: (5) SVT (supraventricular tachycardia): (6) History of CVA (cerebrovascular accident): (7) PAD (peripheral artery disease): (8) Emphysema of lung: (9) Poor venous access: (10) Polymyalgia rheumatica: (11) intermediate (current) use of systemic steroids: (12) Chronic venous stasis dermatitis of both lower extremities: (13) Leg wound, right: (14) Acute kidney injury: (15) CKD (chronic kidney disease), stage IV: Additional Data Confirmation of : no pulse, no respirations, no heart sounds and pupils fixed and dilated Family: contacted Attending/PCP notified?: Yes Attending physician: Ryan Rubin Was code activated?: No
[2019-05-27] MEDS ORDERED: predniSONE 1 MG TAB PO SCH ×2 (09:00→21:00)
== END 2019-05-24 21:13 | disposition expired | DRG 871 ==
LOC: ED 18:34 → SUATTDRO 22:58 → 2S 22:58 → 4W 05-23 15:23
DX: Z79.82 Long term (current) use of aspirin; N17.9 Acute kidney failure, unspecified; G93.41 Metabolic encephalopathy; E78.5 Hyperlipidemia, unspecified; I69.398 Other sequelae of cerebral infarction; I87.2 Venous insufficiency (chronic) (peripheral); Z51.5 Encounter for palliative care; Z88.1 Allergy status to other antibiotic agents; R68.0 Hypothermia, not associated with low environmental temperature; Z82.49 Family history of ischemic heart disease and other diseases of the circulatory system; F03.90 Unspecified dementia, unspecified severity, without behavioral disturbance, psychotic disturbance, mood disturbance, and anxiety; J96.21 Acute and chronic respiratory failure with hypoxia; Z66 Do not resuscitate; Z87.01 Personal history of pneumonia (recurrent); Z79.51 Long term (current) use of inhaled steroids; Z99.81 Dependence on supplemental oxygen; N18.4 Chronic kidney disease, stage 4 (severe); E03.9 Hypothyroidism, unspecified; A41.9 Sepsis, unspecified organism; Z79.52 Long term (current) use of systemic steroids; I47.1 Supraventricular tachycardia; J18.9 Pneumonia, unspecified organism; I48.0 Paroxysmal atrial fibrillation; M35.3 Polymyalgia rheumatica; I12.9 Hypertensive chronic kidney disease with stage 1 through stage 4 chronic kidney disease, or unspecified chronic kidney disease; R20.0 Anesthesia of skin; Z79.899 Other long term (current) drug therapy; N39.0 Urinary tract infection, site not specified; B95.2 Enterococcus as the cause of diseases classified elsewhere; Z79.1 Long term (current) use of non-steroidal anti-inflammatories (NSAID); F41.8 Other specified anxiety disorders; E46 Unspecified protein-calorie malnutrition; Z68.1 Body mass index [BMI] 19.9 or less, adult; J43.9 Emphysema, unspecified; I73.9 Peripheral vascular disease, unspecified; Z79.02 Long term (current) use of antithrombotics/antiplatelets